=== PATIENT | male | born 1960 | race Caucasian/White ===

== ENCOUNTER 2024-12-03 12:30 | Emergency (ER) | payer BC, SELFPAY ==
--- NOTE | ~2024-12-03 | CT_ITS ---
EXAMINATION: CT ABDOMEN AND PELVIS WITH CONTRAST CLINICAL INFORMATION: Abdominal pain. COMPARISON: None available. TECHNIQUE: Multidetector volumetric images were obtained from the superior aspect of the liver through the pubic symphysis following administration 85 mL of Omnipaque 350 intravenous contrast. Sagittal and coronal reformatted images were obtained on the technologist's workstation. Oral contrast: No This CT examination was performed using dose optimization techniques as appropriate, variously including the following: *Automated exposure control *Adjustment of mA and/or kV according to patient size (this includes techniques or standardized protocols for targeted exams where dose is matched to indication/reason for exam; i.e. extremities or head) *Use of iterative reconstruction technique FINDINGS: LUNG BASES: Lung bases are clear. The heart size is normal. Small hiatus hernia at the GE junction. No effusion. LIVER, GALLBLADDER, AND BILIARY TREE: Liver demonstrates mild diffuse fatty infiltration. No suspicious focal lesion. No intra or extrahepatic biliary dilatation. The gallbladder is unremarkable with no evidence of radiopaque gallstones, gallbladder wall thickening, or obvious pericholecystic inflammatory changes. PANCREAS: Unremarkable. SPLEEN: Unremarkable. ADRENAL GLANDS: Unremarkable. KIDNEYS AND URETERS: The kidneys are normal in size, shape, and attenuation. No gross hydronephrosis, hydroureter, or calculi seen. Mild pelviectasis both kidneys, without obstructing abnormality seen. No perinephric stranding. BLADDER: Suboptimally distended but grossly normal. Partially obscured on the left by streak artifact from a left hip prosthesis. GASTROINTESTINAL TRACT: There is mild diverticulosis of the colon. There is no wall thickening or inflammation. There are no CT features of appendicitis. The small bowel is normal in caliber and course. Small hiatus hernia at the GE junction. Stomach is largely decompressed. The duodenal sweep is normal. ABDOMINAL WALL: There are tiny bilateral fat-containing inguinal hernias. There is a tiny umbilical fat-containing hernia. LYMPH NODES: Normal. VASCULAR: Moderate atheromatous calcification of the aorta and iliac arteries without aneurysm. PELVIC VISCERA: The prostate and seminal vesicles are unremarkable. OSSEOUS STRUCTURES: No suspicious lytic or blastic bone lesions. Moderate degenerative spondylosis of the lumbar spine most significant at L3-4 and L4-5. Total hip replacement in place without complication evident. 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 CT/CT abdomen pelvis w IV con IMPRESSION: 1. No acute findings in the abdomen or pelvis. 2. Ancillary findings as discussed in the body of the report. Electronically signed by: Usman Baird MD 12/03/2024 04:24 PM EDT
[2024-12-03 12:41] VITALS: BP 118/60; BP 178/118; PULSE 67; PULSE 87; RESP 12; TEMP 36.6; O2SAT 91; O2SAT 96; BMI 34.3
--- NOTE | 2024-12-03 12:42 | ED_ITS ---
HPI - General Adult General Chief complaint: Nausea/Vomiting/Diarrhea Stated complaint: N/V/D PER EMS Time Seen by Provider: 12/03/24 12:42 Source: patient and EMS Mode of arrival: EMS Limitations: no limitations History of Present Illness ED Provider: Kailee Zavala PA-C HPI narrative: Patient is a 64 year old assigned male at with a history of IBS and BPH presenting to the emergency department today with nausea, vomiting, and diarrhea. Patient states that he has been dealing with intermittent abdominal pain, nausea, vomiting, and diarrhea for months and has not been able to get a diagnosis. Patient denies any dizziness, lightheadedness, fever, chills, blurry vision, double vision, loss of vision, chest pain, difficulty breathing, shortness of breath, back pain, night sweats, pain with urination, increased urinary frequency, increased urinary urgency, blood in his urine or stool, syncope or a near syncopal episode, recent trauma or falls, bowel incontinence, bladder incontinence, or any other complaints at this time. Relieving factors: none Exacerbating factors: none Associated symptoms: nausea/vomiting Treatments prior to arrival: none Related Data Allergies Allergy/AdvReac Type Severity Reaction Status Date / Time peanut Allergy Anaphylaxis Verified 12/03/24 12:47 Review of Systems 2 Constitutional: Constitutional: Reports no additional constitutional complaints, Denies chills, Denies fever(s) and Denies night sweats Eyes: Eyes: Reports no additional eye complaints, Denies blurry vision, Denies change in vision, Denies diplopia, Denies eye discharge, Denies loss of vision and Denies eye pain ENT: Denies dizziness Cardiovascular: Cardiovascular: Reports no additional cardiovascular complaints, Denies chest pain, Denies lightheadedness, Denies Loss of Consciousness and Denies dyspnea Respiratory: Respiratory: Reports no additional respiratory complaints and Denies dyspnea Gastrointestinal: Gastrointestinal: Reports no additional gastrointestinal complaints, Reports abdominal pain, Denies melena, Denies hematochezia, Reports change in bowel habits, Reports change in stool character, Reports diarrhea, Reports nausea and Reports vomiting Genitourinary: Genitourinary: Reports no additional male genitourinary complaints, Denies hematuria, Denies oliguria, Denies difficulty urinating, Denies dysuria, Denies urinary frequency, Denies urinary hesitancy, Denies urinary incontinence and Denies urinary urgency Musculoskeletal: Musculoskeletal: Reports no additional musculoskeletal complaints, Denies numbness and Denies tingling Neurologic: Denies dizziness, Denies loss of vision, Denies numbness and Denies tingling Psychiatric: Psychiatric: Reports no additional psychiatric complaints Endocrine: Endocrine: Reports no additional endocrine complaints Hematologic/Lymphatic: Hematologic/Lymphatic: Reports no additional hematologic/lymphatic complaints Allergic/Immunologic: Allergic/Immunologic: Reports no additional allergic/immunologic complaints [facility] Past Medical History Attestation statement: The following information was validated with the patient. Source: old records reviewed and nursing notes reviewed Social History Social History Smoked in Last 30 Days: No Use of substances other than those prescribed or required for medical reasons: Yes Substance Use Type: Marijuana Substance Use Frequency: Chronic Longstanding Last Used Substance: Unknown Any prior treatment program specific to substance use: No Advance Directives: No Advance Directives Information Provided: Yes Do you have a plan to hurt others: No Plan Physical Exam ED Vital Signs: Vital Signs - 24 hr 12/03/24 12:41 12/03/24 13:43 Temperature 97.8 F 98.4 F Pulse Rate 67 62 Respiratory Rate 12 19 Blood Pressure 118/60 122/62 Pulse Oximetry 91 L 99 Oxygen Delivery Method Room Air Room Air BMI result Body Mass Index 34.3 Const General: cooperative, no acute distress, alert and awake Nutritional Appearance: well nourished Orientation/consciousness: patient oriented x3 HENMT Head: Yes normal to inspection and Yes atraumatic Ears: hearing grossly normal bilaterally and external ears normal General nose exam: Normal external nose present, no nasal discharge noted and no epistaxis Face and sinus: Yes normal facial exam, No abrasion and No laceration Mouth: Normal oral and palatal mucosa present, no drooling and no muffled voice Eyes General: appearance normal, both eyes and all related structures Periorbital: periorbital findings normal Eyelids: Yes eyelids normal Conjunctivae: conjunctivae normal Pupils: Equal, round and reactive pupils present EOM: EOMs intact bilaterally Neck Neck: Yes normal visual inspection, Yes full ROM and Yes no lymphadenopathy Resp Effort & Inspection: normal respiratory effort and able to speak in complete sentences Neuro General: patient oriented x3, moves all extremities and CN's II-XI intact bilaterally Cranial nerves: Yes Equal, round and reactive pupils present Cognition (Neuro): normal cognition Extrem General: Yes normal to inspection, Yes full ROM and Yes capillary refill normal Psych Appearance: grossly normal Mental Status: mental status grossly normal Affect: normal affect Attitude: cooperative Thought process: Normal thought process present Thought content: Normal thought content present Insight: Good insight present (Psych) Medications Administered Discontinued Medications Generic Name Dose Route Start Last Admin Trade Name Patricia PRN Reason Stop Dose Admin Diazepam 2.5 mg 12/03/24 15:21 12/03/24 15:28 Diazepam 10 Mg/2 Ml Cartridge IVPUSH 12/03/24 15:22 2.5 mg STAT STA Administration Diazepam 2.5 mg 12/03/24 15:48 12/03/24 16:07 Diazepam 10 Mg/2 Ml Cartridge IVPUSH 12/03/24 15:49 2.5 mg STAT STA Administration Dicyclomine HCl 10 mg 12/03/24 12:51 12/03/24 13:01 Dicyclomine Hcl 10 Mg Capsule PO 12/03/24 12:52 10 mg ONCE ONE Administration Sodium Chloride 1,000 mls @ 999 mls/hr 12/03/24 13:00 12/03/24 14:29 Ns IV 12/03/24 14:00 Infused .Q1H1M TAM Infusion Iohexol 85 ml 12/03/24 16:04 12/03/24 16:04 Iohexol 350 Mg/Ml 75 Ml Infus..Btl IV 12/03/24 16:05 85 ml ONCE ONE Administration Ondansetron HCl 4 mg 12/03/24 12:51 12/03/24 13:01 Ondansetron Hcl 4 Mg/2 Ml Vial IVPUSH 12/03/24 12:52 4 mg ONCE ONE Administration Medical Decision Making Medical Decision Making MDM Narrative: Patient is a 64 year old assigned male at with a history of IBS and BPH presenting to the emergency department today with nausea, vomiting, and diarrhea. Patient's physical exam was as noted in the physical exam portion of this note. Patient's blood work showed an elevated WBC count of 27.4 with a left shift. Patient's EKG was unremarkable. Patient CT showed no acute process. Patient's stool panel and c.diff were negative. Patient's clinical presentation is most consistent with a viral illness. I explained my physical exam findings as well as all test results to the patient. I answered all questions asked by the patient. I stressed the importance of the patient taking his medication as directed (either prescribed or as the over the counter packaging recommends). I stressed the importance of the patient following up with his primary care provider and a GI specialist. I stressed the importance of the patient returning to the emergency department immediately if his symptoms were to worsen or if he were to develop any dizziness, shortness of breath, difficulty breathing, chest pain, blurry vision, loss of vision, nausea, vomiting, abdominal pain, fever, chills, back pain, or any other complaints. Patient verbalized agreement and understanding with this treatment plan and discharge. Differential Diagnosis Differential Diagnoses: The differential diagnosis associated with the presentation includes Abdominal pain Nausea Vomiting UTI Bowel obstruction Diverticulitis C.Diff Admission/Observation Consideration of admission/observation: Escalation of care including admission/observation considered Patient would have been admitted to the hospital had his work up had any findings where hospital admission was appropriate and his clinical presentation warranted hospital admission. Lab Data [facility] Lab Attestation statement: I reviewed the patient's lab results. My interpretation of these results are in the [facility] Rationale portion of this note. 12/03/24 13:17 12/03/24 13:17 Labs: Lab Results 12/03/24 12/03/24 12/03/24 Range/Units 13:11 13:17 13:40 WBC 27.4 H (4.8-10.8) X10*3/uL RBC 4.35 L (4.60-5.80) X10*6/uL Hgb 13.7 L (14.0-18.0) g/dl Hct 40.7 L (42.0-52.0) % MCV 93.6 (80.0-98.0) fL MCH 31.5 (27.0-33.0) pg MCHC 33.7 (31.0-36.0) g/dl RDW 13.1 (11.0-16.0) % Plt Count 221 (160-400) X10*3/uL MPV 8.9 L (9.4-12.4) fL Immature Gran % (Auto) Cancelled Neut % (Auto) Cancelled Lymph % (Auto) Cancelled [place] % (Auto) Cancelled Eos % (Auto) Cancelled Baso % (Auto) Cancelled Lymph # (Auto) Cancelled [place] # (Auto) Cancelled Eos # (Auto) Cancelled Baso # (Auto) Cancelled Abs Immat Gran (auto) Cancelled Absolute Neuts (auto) Cancelled Absolute Nucleated RBC 0.000 (0.0-0.012) X10*3/uL Nucleated RBC % (auto) 0.0 (0.0-0.2) /100WBC Neutrophils % (Manual) 87 H (45-73) % Band Neutrophils % 6 H (3-5) % Lymphocytes % (Manual) 4 L (20-40) % Monocytes % (Manual) 1 L (2-11) % Eosinophils % (Manual) 2 (0-4) % Abs Neuts (Manual) 25.5 H (2.0-8.3) X10*3/uL Lymphocytes # (Manual) 1.1 L (1.2-4.9) X10*3/uL Monocytes # (Manual) 0.3 (0.1-1.2) X10*3/uL Eosinophils # (Manual) 0.5 H (0.0-0.4) X10*3/uL Platelet Estimate NORMAL (NORMAL) Plt Morphology Comment NORMAL RBC Morphology NORMAL Smear Tech's Comments MANUAL DIFF PT 9.8 L (10.9-12.4) SEC INR 0.8 L (0.9-1.1) Sodium 141 (135-145) mmol/L Potassium 4.1 (3.3-5.1) mmol/L Chloride 106 (96-108) mmol/L Carbon Dioxide 25 (22-29) mmol/L Anion Gap 14 (12-20) BUN 12 (9-16) mg/dL Creatinine 1.19 (0.5-1.4) mg/dL Estim Creat Clear Calc 75.0 Estimated GFR > 60 Random Glucose 131 H (60-115) mg/dL Lactic Acid (0.5-2.0) mmol/L Calcium 9.7 (8.4-10.2) mg/dL Magnesium 2.0 (1.6-2.6) mg/dL Total Bilirubin 0.4 (0.0-1.0) mg/dL AST 33 (5-37) U/L ALT 27 (0-40) U/L Alkaline Phosphatase 74 (39-117) U/L Troponin I Hi Sens Base < 2.7 (<3.5-35.0) ng/L Total Protein 7.5 (6.5-8.0) g/dL Albumin 4.1 (3.5-5.0) g/dL Stl C. cayetanensis PCR Not Detected (Not Detect.) Stool Rotavirus A PCR Not Detected (Not Detect.) Stl Adenov F 40/41 PCR Not Detected (Not Detect.) Stool Astrovirus (PCR) Not Detected (Not Detect.) Stool Campylobacter PCR Not Detected (Not Detect.) Stool Cryptosporidium PCR Not Detected (Not Detect.) Stl Sh Tox Pr E STEC PCR Not Detected (Not Detect.) Stool E coli O157 PCR Not applicable (Not Detect.) Stl Enterotoxigenic E PCR Not Detected (Not Detect.) Stool EPEC (PCR) Not Detected (Not Detect.) Stool EAEC (PCR) Not Detected (Not Detect.) Stl E. histolytica PCR Not Detected (Not Detect.) Stool Giardia Lamblia PCR Not Detected (Not Detect.) Stl P. shigelloides PCR Not Detected (Not Detect.) Stool Salmonella PCR Not Detected (Not Detect.) Stool Sapovirus (PCR) Not Detected (Not Detect.) Stl Shigella/EIEC PCR Not Detected (Not Detect.) St Y.enterocolitica PCR Not Detected (Not Detect.) Stool Vibrio (PCR) Not Detected (Not Detect.) Stl Vibrio cholerae PCR Not Detected (Not Detect.) Stl Norovirus GI/GII PCR Not Detected (Not Detect.) C. difficile Tox B Gene NEGATIVE (Negative) Influenza Type A (PCR) NEGATIVE (Negative) Influenza Type B (PCR) NEGATIVE (Negative) RSV RNA Qual (PCR) NEGATIVE (Negative) SARS-CoV-2 RNA (RT-PCR) NEGATIVE (Negative) 12/03/24 Range/Units 13:45 WBC (4.8-10.8) X10*3/uL RBC (4.60-5.80) X10*6/uL Hgb (14.0-18.0) g/dl Hct (42.0-52.0) % MCV (80.0-98.0) fL MCH (27.0-33.0) pg MCHC (31.0-36.0) g/dl RDW (11.0-16.0) % Plt Count (160-400) X10*3/uL MPV (9.4-12.4) fL Immature Gran % (Auto) Neut % (Auto) Lymph % (Auto) [place] % (Auto) Eos % (Auto) Baso % (Auto) Lymph # (Auto) [place] # (Auto) Eos # (Auto) Baso # (Auto) Abs Immat Gran (auto) Absolute Neuts (auto) Absolute Nucleated RBC (0.0-0.012) X10*3/uL Nucleated RBC % (auto) (0.0-0.2) /100WBC Neutrophils % (Manual) (45-73) % Band Neutrophils % (3-5) % Lymphocytes % (Manual) (20-40) % Monocytes % (Manual) (2-11) % Eosinophils % (Manual) (0-4) % Abs Neuts (Manual) (2.0-8.3) X10*3/uL Lymphocytes # (Manual) (1.2-4.9) X10*3/uL Monocytes # (Manual) (0.1-1.2) X10*3/uL Eosinophils # (Manual) (0.0-0.4) X10*3/uL Platelet Estimate (NORMAL) Plt Morphology Comment RBC Morphology Smear Tech's Comments PT (10.9-12.4) SEC INR (0.9-1.1) Sodium (135-145) mmol/L Potassium (3.3-5.1) mmol/L Chloride (96-108) mmol/L Carbon Dioxide (22-29) mmol/L Anion Gap (12-20) BUN (9-16) mg/dL Creatinine (0.5-1.4) mg/dL Estim Creat Clear Calc Estimated GFR Random Glucose (60-115) mg/dL Lactic Acid 1.1 (0.5-2.0) mmol/L Calcium (8.4-10.2) mg/dL Magnesium (1.6-2.6) mg/dL Total Bilirubin (0.0-1.0) mg/dL AST (5-37) U/L ALT (0-40) U/L Alkaline Phosphatase (39-117) U/L Troponin I Hi Sens Base (<3.5-35.0) ng/L Total Protein (6.5-8.0) g/dL Albumin (3.5-5.0) g/dL Stl C. cayetanensis PCR (Not Detect.) Stool Rotavirus A PCR (Not Detect.) Stl Adenov F 40/41 PCR (Not Detect.) Stool Astrovirus (PCR) (Not Detect.) Stool Campylobacter PCR (Not Detect.) Stool Cryptosporidium PCR (Not Detect.) Stl Sh Tox Pr E STEC PCR (Not Detect.) Stool E coli O157 PCR (Not Detect.) Stl Enterotoxigenic E PCR (Not Detect.) Stool EPEC (PCR) (Not Detect.) Stool EAEC (PCR) (Not Detect.) Stl E. histolytica PCR (Not Detect.) Stool Giardia Lamblia PCR (Not Detect.) Stl P. shigelloides PCR (Not Detect.) Stool Salmonella PCR (Not Detect.) Stool Sapovirus (PCR) (Not Detect.) Stl Shigella/EIEC PCR (Not Detect.) St Y.enterocolitica PCR (Not Detect.) Stool Vibrio (PCR) (Not Detect.) Stl Vibrio cholerae PCR (Not Detect.) Stl Norovirus GI/GII PCR (Not Detect.) C. difficile Tox B Gene (Negative) Influenza Type A (PCR) (Negative) Influenza Type B (PCR) (Negative) RSV RNA Qual (PCR) (Negative) SARS-CoV-2 RNA (RT-PCR) (Negative) Independent Interpretation I performed an independent interpretation of an: EKG and CT Scan Interpretation: My interpretation is in agreement with the radiologist's impression of this imaging study. L Report Number: [id number]: Total DLP = 765.00 mGy-cm EXAMINATION: CT ABDOMEN AND PELVIS WITH CONTRAST CLINICAL INFORMATION: Abdominal pain. COMPARISON: None available. TECHNIQUE: Multidetector volumetric images were obtained from the superior aspect of the liver through the pubic symphysis following administration 85 mL of Omnipaque 350 intravenous contrast. Sagittal and coronal reformatted images were obtained on the technologist's workstation. Oral contrast: No This CT examination was performed using dose optimization techniques as appropriate, variously including the following: *Automated exposure control *Adjustment of mA and/or kV according to patient size (this includes techniques or standardized protocols for targeted exams where dose is matched to indication/reason for exam; i.e. extremities or head) *Use of iterative reconstruction technique FINDINGS: LUNG BASES: Lung bases are clear. The heart size is normal. Small hiatus hernia at the GE junction. No effusion. LIVER, GALLBLADDER, AND BILIARY TREE: Liver demonstrates mild diffuse fatty infiltration. No suspicious focal lesion. No intra or extrahepatic biliary dilatation. The gallbladder is unremarkable with no evidence of radiopaque gallstones, gallbladder wall thickening, or obvious pericholecystic inflammatory changes. PANCREAS: Unremarkable. SPLEEN: Unremarkable. ADRENAL GLANDS: Unremarkable. KIDNEYS AND URETERS: The kidneys are normal in size, shape, and attenuation. No gross hydronephrosis, hydroureter, or calculi seen. Mild pelviectasis both kidneys, without obstructing abnormality seen. No perinephric stranding. BLADDER: Suboptimally distended but grossly normal. Partially obscured on the left by streak artifact from a left hip prosthesis. GASTROINTESTINAL TRACT: There is mild diverticulosis of the colon. There is no wall thickening or inflammation. There are no CT features of appendicitis. The small bowel is normal in caliber and course. Small hiatus hernia at the GE junction. Stomach is largely decompressed. The duodenal sweep is normal. ABDOMINAL WALL: There are tiny bilateral fat-containing inguinal hernias. There is a tiny umbilical fat-containing hernia. LYMPH NODES: Normal. VASCULAR: Moderate atheromatous calcification of the aorta and iliac arteries without aneurysm. PELVIC VISCERA: The prostate and seminal vesicles are unremarkable. OSSEOUS STRUCTURES: No suspicious lytic or blastic bone lesions. Moderate degenerative spondylosis of the lumbar spine most significant at L3-4 and L4-5. Total hip replacement in place without complication evident. 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 CT/CT abdomen pelvis w IV con IMPRESSION: 1. No acute findings in the abdomen or pelvis. 2. Ancillary findings as discussed in the body of the report. Electronically signed by: Usman Baird MD 12/03/2024 04:24 PM EDT Dictated By: Usman Baird MD Signed By: Electronically signed by Usman Baird MD 12/03/24 1624 I independently interpreted this EKG and am in agreement with the below findings: Vent. Rate: 62 BPM Atrial Rate: 62 BPM P-R Int: 176 ms QRS Dur: 90 ms QT Int: 418 ms P-R-T Axes: 21 -3 20 degrees QTcB Int: 424 ms Normal sinus rhythm Normal ECG No previous ECGs available DD/ 1252 Radiology Impression Discussion of test interpretation with radiology: I have reviewed the radiologist's reading. Independent Historian Clinical information obtained from an independent historian. History obtained from or confirmed by: EMS (EMS provided additional history and confirmed the history provided by the patient.) Discharge Plan Discharge Clinical Impression: Nausea & vomiting, Diarrhea Patient Disposition: Home, Self-Care Instructions: Acute Nausea and Vomiting (DC), Leukocytosis (ED) Additional Instructions: Follow up with your primary care provider and a GI specialist. Return to the emergency department immediately if your symptoms worsen or if you develop any numbness, tingling, dizziness, shortness of breath, difficulty breathing, chest pain, blurry vision, loss of vision, nausea, vomiting, abdominal pain, fever, chills, back pain, or any other complaints. Please see the information below about our Patient Portal. If you are not yet enrolled in the [facility] Patient Portal, you will receive an enrollment email invitation following your visit to any [facility] setting. You may also self-enroll in the Patient Portal by visiting our website: [email or web address] The following information is required to access the Patient Portal: - Your [facility] Medical Record Number - Your personal home email address (must match what is in your electronic medical record, Registration staff can assist with this) - Name - Date of Capabilities of the Patient Portal: - Message some providers - View upcoming appointments - Access your health summary, medical history, and visit history - View current conditions and allergies - View procedure and lab results - View your medications, including guidelines, side effects, and precautions - Complete pre-appointment questionnaires requested by your provider - Ready summary reports of your office visits and procedures To access the Patient Portal Mobile Mya, follow these directions: - Search [employer] in the Mya Store or [employer] Store - Download the Mya - Search for [facility] - Enter your login/password Referrals: [facility] [Provider Group] Print Language: [place]ese
--- NOTE | 2024-12-03 12:42 | ECG_ITS ---
Test Reason : ABDOMINAL PAIN Blood Pressure : */* mmHG Vent. Rate : 62 BPM Atrial Rate : 62 BPM P-R Int : 176 ms QRS Dur : 90 ms QT Int : 418 ms P-R-T Axes : 21 -3 20 degrees QTcB Int : 424 ms Normal sinus rhythm Normal ECG No previous ECGs available Referred By: Kailee Zavala Electronically Signed By: Mian Tejada
[2024-12-03] MEDS: ondansetron HCL 4 MG/2 ML VIAL IVPUSH (13:01)
[2024-12-03] MEDS: 0.9 % Sodium Chloride 1,000 ML 999 ML IV (13:01)
[2024-12-03] MEDS: Dicyclomine HCl 10 MG CAPSULE PO (13:01)
[2024-12-03 13:23] LABS: Hematocrit 40.7 % (42.0-52.0); Hemoglobin 13.7 g/dl (14.0-18.0); Mean Corpuscular HGB Conc 33.7 g/dl (31.0-36.0); Mean Corpuscular Hemoglobin 31.5 pg (27.0-33.0); Mean Corpuscular Volume 93.6 fL (80.0-98.0); Mean Platelet Volume 8.9 fL (9.4-12.4); Platelet Count 221 X10*3/uL (160-400); Red Blood Count 4.35 X10*6/uL (4.60-5.80); Red Cell Distribution Width 13.1 % (11.0-16.0); White Blood Count 27.4 X10*3/uL (4.8-10.8)
--- NOTE | 2024-12-03 13:28 | PC.NURSE ---
On arrival, pt having chills and rigors in absence of fever; hands/feet cold to the touch; pt pale; WBC >27; provider aware
[2024-12-03 13:33] LABS: INTERNATIONAL NORM RATIO 0.8 (0.9-1.1); Prothrombin Time 9.8 SEC (10.9-12.4)
[2024-12-03 13:43] VITALS: BP 122/62; PULSE 62; RESP 19; TEMP 36.9; O2SAT 99
[2024-12-03 13:45] LABS: Alanine Aminotransferase 27 U/L (0-40); Albumin Level 4.1 g/dL (3.5-5.0); Alkaline Phosphatase 74 U/L (39-117); Anion Gap 14 (12-20); Aspartate Amino Transferase 33 U/L (5-37); Bilirubin Total 0.4 mg/dL (0.0-1.0); Blood Urea Nitrogen 12 mg/dL (9-16); Calcium 9.7 mg/dL (8.4-10.2); Carbon Dioxide 25 mmol/L (22-29); Chloride 106 mmol/L (96-108); Estimated Glomerular Filt Rate > 60; Glucose Random 131 mg/dL (60-115); Potassium 4.1 mmol/L (3.3-5.1); Sodium 141 mmol/L (135-145); Total Protein 7.5 g/dL (6.5-8.0)
[2024-12-03 13:49] LABS: Troponin-I High Sens Reflx 2hr < 2.7 ng/L (<3.5-35.0)
[2024-12-03 13:51] LABS: SLIDE REVIEW MANUAL DIFF
[2024-12-03 13:55] LABS: Band Neutrophils Percent 6 % (3-5); Eosinophils Absolute Manual 0.5 X10*3/uL (0.0-0.4); Eosinophils Percent Manual 2 % (0-4); Lymphocytes Absolute Manual 1.1 X10*3/uL (1.2-4.9); Lymphocytes Percent Manual 4 % (20-40); Monocytes Absolute Manual 0.3 X10*3/uL (0.1-1.2); Monocytes Percent Manual 1 % (2-11); Neutrophils Absolute Manual 25.5 X10*3/uL (2.0-8.3); Neutrophils Percent Manual 87 % (45-73)
[2024-12-03 13:56] LABS: Platelet Estimate NORMAL (NORMAL); Platelet Morphology Comment NORMAL; RBC Morphology NORMAL
[2024-12-03 13:57] LABS: Influenza A PCR NEGATIVE (Negative); Influenza B PCR NEGATIVE (Negative); Resp Syncy Virus RNA Qual PCR NEGATIVE (Negative); SARS COV2 PCR INHOUSE NEGATIVE (Negative)
[2024-12-03 14:15] LABS: Lactic Acid 1.1 mmol/L (0.5-2.0)
--- OUTSIDE RECORDS SUMMARY | 2024-12-03 14:21 | XMS_ITS | Encounter Summary ---
Author Organization [facility] Address [address] [place] [address] Care Team Providers Care Soaker Meat Name Role Phone Deja Fang NP Primary Care Provider [phone] Jg Madera MD Primary Care Provider [phone] Deja Fang EMERGENCY MANAGEMENT PROGRAM SPECIALIST Unavailable [phone] Rosa Maria Green MD Primary Care Provider [phone] Janice Fall NP Primary Care Provider [phone] Encounter Details Date Type Department Care Team (Late st Contact Info) Description 09/02/2019 Orders Only [facility] [address] [place] [id number] Deja Fang NP [address] [facility] [address] [place] [address] Social History Tobacco Use Types Packs/Day Years Used Date Smoking Tobacco: Never Smokeless Tobacco: Never Alcohol Use Standard Drinks/Week Comments Yes 1.7 (1 standard drink = 0.6 oz p ure alcohol) occ Sex and Gender Information Value Date Recorded Sex Assigned at Male 11/27/2020 8:24 AM EDT Legal Sex Male 12:20 AM EDT Gender Identity Male 11/27/2020 8:24 AM EDT Sexual Orientation Straight 11/27/2020 8: 24 AM EDT 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 * Susi Arora - 09/02/2019 5:05 PM EST See TM 09/02/2019. * Deja Fang NP - 09/02/2019 5:05 PM EST Negative Tb- please call patient- there is slight growth of bacteria but this is not indicative of UTI- is he having any dysuria? * Susi Arora - 09/02/2019 5:05 PM EST See TM 09/06/2019. documented in this encounter Plan of Treatment Not on file documented as of this encounter Procedures * Due to [place] state law, this organization might not be sharing negative HIV tests. Procedure Name Priority Date/Time Associated Diagnosis Comments VENIPUNCTURE Routine 09/02/2019 5:05 PM EST Screening for tuberculosis CULTURE, URINE, ROUTINE Routine 09/02/2019 5:05 PM EST Screening for tuberculosis URINALYSIS, DIP ONLY Result within visit 09/02/2019 5:05 PM EST Screening for tuberculosis documented in this encounter Results * Due to [place] state law, this organization might not be sharing negative HIV tests. * QUANTIFERON-TB GOLD (09/02/2019 5:05 PM EST) Quantiferon(R)-TB Gold Plus NEGATIVE NEGATIVE [facility] Comment: Negative test result. M. tuberculosis complex infection unlikely. NIL 0.03 IU/mL [facility] MITOGEN-NIL 8.86 IU/mL [facility] Mycobacterium tuberculosis tuberculin stimulated gamma interferon^correc sara for background 0.00 IU/mL [facility] TB2-NIL 0.00 IU/mL [facility] Comment: The Nil tube value reflects the background interferon gamma immune response of the patient's blood sample. This value has been subtracted from the patient's displayed TB and Mitogen results. Lower than expected results with the Mitogen tube prevent false-negative Quantiferon readings by detecting a patient with a potential immune suppressive condition and/or suboptimal pre-analytical specimen handling. The TB1 Antigen tube is coated with the M. tuberculosis-specific antigens designed to elicit responses from TB antigen primed CD4+ helper T-lymphocytes. The TB2 Antigen tube is coated with the M. tuberculosis-specific antigens designed to elicit responses from TB antigen primed CD4+ helper and CD8+ cytotoxic T-lymphocytes. For additional information, please refer to https://education.ExpertFile/faq/MLA301 (This link is being provided for informational/ educational purposes only.) 09/02/2019 5:05 PM EST 09/02/2019 7:10 PM EST Narrative Resulting Agency Comment [id number] Deja Fang NP LABORATORY Final Result [facility] [address] [place] [address] * (ABNORMAL) CULTURE, URINE, ROUTINE (09/02/2019 5:05 PM EST) Bacteria culture (Urine) SEE NOTE(A) [facility] Comment: ??CULTURE, URINE, ROUTINE ??Micro Number: ?[id number] ??Test Status: ? Final ??Specimen Source: ?? URINE ??Specimen Quality: ??Adequate ??Result: ?1,000-10,000 CFU/mL of Enterococcus faecalis ?E.faecalis ?INT ?? MARTHA ?? AMPICILLIN ? S ? <=2 ?? NITROFURANTOIN ? S ? <=16 ?? VANCOMYCIN ? S ? 1 S=Susceptible ??I=Intermediate ??R=Resistant ??* = Not Tested NR = Not Reported ??NN = See Therapy Comments 09/02/2019 5:05 PM EST 09/02/2019 7:10 PM EST Narrative Resulting Agency Comment [id number] Deja Fang NP LABORATORY Final Result Performing Organization Address [facility] de Phone Number [facility] [address] [place] [id number] * URINALYSIS, DIP ONLY (ON-SITE) (09/02/2019 5:05 PM EST) Color (Urine) YELLOW YELLOW [facility] Appearance (Urine) CLEAR CLEAR [facility] Specific gravity (Urine) 1.025 1.001 - 1.035 [facility] pH (Urine) 7.0 5.0 - 8.0 [facility] Glucose (Urine) NEGATIVE NEGATIVE [facility] Bilirubin (Urine) NEGATIVE NEGATIVE [facility] Ketones (Urine) NEGATIVE NEGATIVE [facility] Hemoglobin (Urine) NEGATIVE NEGATIVE [facility] Protein (Urine) NEGATIVE NEGATIVE [facility] Nitrite (Urine) NEGATIVE NEGATIVE [facility] Leukocyte esterase (Urine) NEGATIVE NEGATIVE [facility] Urine specimen (specimen) 09/02/2019 5:05 PM EST 09/02/2019 7:10 PM EST Narrative Resulting Agency Comment [id number] Deja Fang NP LAB SAME DAY RESULT Final Resul t Performing Organization Address [facility] de Phone Number [facility] [address] [place] [address] documented in this encounter Visit Diagnoses Diagnosis Screening for tuberculosis Screening examination for pulmonary tuberculosis documented in this encounter Care Teams Soaker Meat Relationship Specialty Start Date End Date Deja Fang NP PCP - General Internal Medicine 06/12/15 03/26/20 Jg Madera MD [address] [facility] [address] PCP - General Internal Medicine 03/27/20 05/28/22 Deja Fang NP [address] [place] [address] PCP - Backup PCP Internal Medicine 03/27/20 06/30/22 Rosa Maria Green MD [address] [place] [address] PCP - General Family Medicine 05/29/22 02/20/23 Janice Fall NP [address] [place] [address] PCP - General Family Medicine 02/21/23 documented as of this encounter
--- OUTSIDE RECORDS SUMMARY | 2024-12-03 14:21 | XMS_ITS | Encounter Summary ---
Author Organization [facility] Address [address] [place] [address] Care Team Providers Care Corrections Lieutenant Name Role Phone Deja Fang NP Primary Care Provider [phone] Jg Madera MD Primary Care Provider [phone] Deja Fang NP Unavailable [phone] Rosa Maria Green MD Primary Care Provider [phone] Janice Fall NP Primary Care Provider [phone] Reason for Visit * Reason Comments Endoscopy Request (lower And/or Upper) Encounter Details Date Type Department Care Team (Late st Contact Info) Description 09/18/2017 Telephone [facility] [address], [place] [address] Filippo Gant MD Endoscopy Request (lower And/or Upper) Social History Tobacco Use Types Packs/Day Years [...] on file documented as of this encounter Miscellaneous Notes * Telephone Encounter - Deja Fang NP - 09/18/2017 1:22 PM EST I will discuss with patient at upcoming appt. * Telephone Encounter - Suzanne Mejia - 09/18/2017 1:20 PM EST According to our records, this patient is due for a follow-up Colonoscopy. If this is still your patient and you would like the patient to have this repeat procedure, please open this encounter, go to the Railroad Car Letterer Activity tab, sign the order and then close the encounter without routing it. If it is no longer appropriate to have a follow-up Colonoscopy, please delete the order, put an explanation in the Documentation section, and then Route the message back to the sender. documented in this encounter Plan of Treatment Not on file documented as of this encounter Visit Diagnoses Diagnosis Polyp of colon, unspecified part of colon, unspecified type documented in this encounter Care Teams Corrections Lieutenant Relationship Specialty Start Date End Date Deja Fang NP PCP - General Internal Medicine 06/12/15 03/26/20 Jg Madera MD [address] [place] [address] PCP - General Internal Medicine 03/27/20 05/28/22 Deja Fang NP [address] [place] [address] PCP - Backup PCP Internal Medicine 03/27/20 06/30/22 Rosa Maria Green MD [address] [place] [address] PCP - General Family Medicine 05/29/22 02/20/23 Janice Fall NP [address] [facility] [place] [address] PCP - General Family Medicine 02/21/23 documented as of this encounter
--- OUTSIDE RECORDS SUMMARY | 2024-12-03 14:21 | XMS_ITS | Encounter Summary ---
Author Organization [facility] Address [address] [place] [address] Care Team Providers Care Enterprise Analyst Name Role Phone Deja Fang NP Primary Care Provider [phone] Jg Madera MD Primary Care Provider [phone] Deja Fang CERTIFIED FIRST ASSISTANT Unavailable Rosa Maria Green MD Primary Care Provider [phone] Janice Fall NP Primary Care Provider [phone] Encounter Details Date Type Department Care Team (Late st Contact Info) Description 10/10/2017 Orders Only [facility] [address] [place] [address] Deja Fang NP [address] [address] Social History Tobacco Use Types Packs/Day [...] as of this encounter Progress Notes * Mirta Lamas LPN - 10/15/2017 8:05 AM EDT See TM from 10/15/17 * Deja Fang NP - 10/14/2017 3:20 PM EDT Please call patient- urine has a low grade bacteria count. Not definitive for infection but if patient with ongoing symptoms will treat with macrobid for 5 days documented in this encounter Plan of Treatment Not on file documented as of this encounter Procedures * Due to [place] [email or web address] law, this organization might not be sharing negative HIV tests. Procedure Name Priority Date/Time Associated Diagnosis Comments CULTURE, URINE, ROUTINE Routine 10/10/2017 4:08 PM EST Difficult or painful urination URINALYSIS, MICROSCOPIC Routine 10/10/2017 4:08 PM EST Difficult or painful urination documented in this encounter Results * Due to [place] [email or web address] law, this organization might not be sharing negative HIV tests. * (ABNORMAL) CULTURE, URINE, ROUTINE (10/10/2017 4:08 PM EST) Bacteria culture (Urine) SEE NOTE(A) [facility] Comment: ??CULTURE, URINE, ROUTINE ??MICRO NUMBER: ?[id number] ??TEST STATUS: ? FINAL ??SPECIMEN SOURCE: ?? URINE ??SPECIMEN QUALITY: ??ADEQUATE ??RESULT: ?1,000-10,000 CFU/mL of Enterococcus faecalis ?E.faecalis ?INT ?? MARTHA ?? AMPICILLIN ? S ? <=2 ?? NITROFURANTOIN ? S ? <=16 ?? VANCOMYCIN ? S ? 1 S=Susceptible ??I=Intermediate ??R=Resistant ??* = Not Tested NR = Not Reported ??NN = See Therapy Comments 10/10/2017 4:08 PM EST 10/10/2017 10:56 PM EST Narrative Resulting Agency Comment [id number] Deja Fang NP LABORATORY Final Result Performing Organization Address [facility] de Phone Number [facility] [address] [place] [address] * URINALYSIS, MICROSCOPIC (10/10/2017 4:08 PM EST) WBC (Urine) NONE SEEN < OR = 5 /HPF [facility] RBC (Urine Sed) NONE SEEN < OR = 2 /HPF [facility] Epithelial cells.squamous (Urine sed) NONE SEEN < OR = 5 /HPF [facility] Bacteria (Urine) NONE SEEN NONE SEEN /HPF [facility] Hyaline casts (Urine sed) NONE SEEN NONE SEEN /LPF [facility] 10/10/2017 4:08 PM EST 10/10/2017 10:56 PM EST Narrative Resulting Agency Comment [id number] Result [facility] Deja Fang NP LAB SAME DAY RESULT Final Resul t Performing Organization Address [facility] de Phone Number [facility] [address] [place] [address] documented in this encounter Visit Diagnoses Diagnosis Difficult or painful urination Dysuria documented in this encounter Care Teams Enterprise Analyst Relationship Specialty Start Date End Date Deja Fang NP PCP - General Internal Medicine 06/12/15 03/26/20 Jg Madera MD [address] [facility] [place] [address] PCP - General Internal Medicine 03/27/20 05/28/22 Deja Fang NP [address] [place] [address] PCP - Backup PCP Internal Medicine 03/27/20 06/30/22 Rosa Maria Green MD [address] [place] [address] PCP - General Family Medicine 05/29/22 02/20/23 Janice Fall NP [address] [place] [address] PCP - General Family Medicine 02/21/23 documented as of this encounter
--- OUTSIDE RECORDS SUMMARY | 2024-12-03 14:21 | XMS_ITS | Encounter Summary ---
Author Organization [facility] Address [address] [place] [address] Care Team Providers Care Impregnator And Drier Helper Name Role Phone Alicia Ragland MD Primary Care Provider UnavailAlicia Kumari MD Primary Care Provider Unavaila Deja Yepez NP Primary Care Provider [phone] Jg Madera MD Primary Care Provider [phone] Deja Fang DIGITAL PROJECT COORDINATOR Unavailable [phone] Rosa Maria Green MD Primary Care Provider [phone] Janice Fall NP Primary Care Provider [phone] Encounter Details Date Type Department Care Team (Late st Contact Info) Description 07/31/2009 Orders Only [facility] [address] [place] [id number] Alicia Ragland MD Social History Tobacco Use Types Packs/Day Years Used Date Smoking Tobacco: Never Alcohol Use Standard Drinks/Week Comments No 0 (1 standard drink = 0.6 oz pur e alcohol) Sex and Gender Information Value Date Recorded [...] as of this encounter Progress Notes * Alicia Ragland - 08/14/2009 3:41 PM ESTQuick Note: Pos stool cult- Call if not resolved will send antibiotics. documented in this encounter Plan of Treatment Not on file documented as of this encounter Procedures * Due to [place] [employer] law, this organization might not be sharing negative HIV tests. Procedure Name Priority Date/Time Associated Diagnosis Comments CULTURE, STOOL Routine 07/31/2009 Diarrhea documented in this encounter Results * Due to [place] [employer] law, this organization might not be sharing negative HIV tests. * (ABNORMAL) CULTURE, STOOL (07/31/2009) CAMPYLOBACTER CULTURE (STOOL) SEE TEXT [facility] Comment: SOURCE: STOOL NO ENTERIC CAMPYLOBACTER ISOLATED Result(s) SEE TEXT(A) [facility] Comment: SOURCE: STOOL (#1) NO SALMONELLA OR SHIGELLA ISOLATED (#2) AEROMONAS HYDROPHILA GROUP SUSCEPTIBILITIES ? #1 ? #2 ??CEFEPIME ? <4 S ? <4 S ?CEFTAZIDIME ?<1 S ? <1 S ?CIPROFLOXACIN ?<1 S ? <1 S ?GENTAMICIN ? <4 S ? <4 S ?LEVOFLOXACIN ? <2 S ? <2 S ?MEROPENEM ?<1 S ? <1 S ?PIPERACILLIN/TA ?? <16 S ?<16 S ?TRIMETH/SULFA ?<2 S ? <2 S ?? 07/31/2009 08/01/2009 12: 13 AM EST us Alicia Ragland MD LABORATORY Edited [facility] [address] [place] [address] documented in this encounter Visit Diagnoses Diagnosis Diarrhea documented in this encounter Care Teams Impregnator And Drier Helper Relationship Specialty Start Date End Date Alicia Ragland MD PCP - General 04/04/10 06/11/15 Alicia Ragland MD PCP - General 10/28/05 04/03/10 Deja Fang NP PCP - General Internal Medicine 06/12/15 03/26/20 Jg Madera MD [address] [place] [address] PCP - General Internal Medicine 03/27/20 05/28/22 Deja Fang NP [address] [facility] [place] [address] PCP - Backup PCP Internal Medicine 03/27/20 06/30/22 Rosa Maria Green MD [address] [place] [address] PCP - General Family Medicine 05/29/22 02/20/23 Janice Fall NP [address] [place] [address] PCP - General Family Medicine 02/21/23 documented as of this encounter
--- OUTSIDE RECORDS SUMMARY | 2024-12-03 14:21 | XMS_ITS | Encounter Summary ---
Author Organization [facility] Address [address] [place] [address] Care Team Providers Care Senior Database Engineer Name Role Phone Deja Fang NP Primary Care Provider [phone] Jg Madera MD Primary Care Provider [phone] Deja Fang NP Unavailable [phone] Rosa Maria Green MD Primary Care Provider [phone] Janice Fall NP Primary Care Provider [phone] Reason for Referral * CONSULT AND TREATMENT (Routine) - Canceled Specialty Diagnoses / Procedures Referred By eKlsy salas Referred To Contact Dermatology Diagnoses Dermatitis, seborrheic Intertrigo Deja Fang NP Phone: tel: fax: Everton Almodovar MD Phone: tel: fax: Referral ID Status Reason Start Date Expiration Date Visits Requested Visits Authorized [id number] Canceled Specialty Services Required 12/06/2017 1 0 Question Answer When do you want this visit to occur? RETRO REFERRAL - APPOINTEMNT 12/05/17 Patient is being referred outside of [facility] for the following reason, however final determination for [id number] requests are made by the Referral Management Department Continuity of active patient care Track Order? Yes Please provide pertinent patient history. NICOL WHITNEY - HOLLYI#[id number] Where is patient being referred? If NOT Other , it qualifies for Meaningful Use, but first look at comment to right to determine if you need to print and have patient sign Release of Info Electronically Letter Other or Decline - Consent is signed Which provider/facility/agency would you like to refer to? [facility] Please list the patient's preferred provider for this consult. NICOL WHITNEY Encounter Details Date Type Department Care Team ([facility] st Contact Info) Description 12/06/2017 Orders Only [facility] [address] [place] [address] Deja Fang NP 123 [facility] [address] [place] [address] Social History Tobacco Use Types Packs/Day Years [...] on file documented as of this encounter Plan of Treatment Scheduled Referrals Name Type Priority Associated Diagnoses Orde r Schedule CONSULT DERMATOLOGY NON-FC Referral Routine Dermatitis, seborrheic Intertrigo Ordered: 12/06/2017 documented as of this encounter Visit Diagnoses Diagnosis Dermatitis, seborrheic Seborrheic dermatitis, unspecified Intertrigo Other specified erythematous condition documented in this encounter Care Teams Senior Database Engineer Relationship Specialty Start Date End Date Deja Fang NP PCP - General Internal Medicine 06/12/15 03/26/20 Jg Madera MD [address] [place] [address] PCP - General Internal Medicine 03/27/20 05/28/22 Deja Fang NP [address] [place] [address] PCP - Backup PCP Internal Medicine 03/27/20 06/30/22 Rosa Maria Green MD [address] [place] [address] PCP - General Family Medicine 05/29/22 02/20/23 Janice Fall NP [address] [place] [address] PCP - General Family Medicine 02/21/23 documented as of this encounter
--- OUTSIDE RECORDS SUMMARY | 2024-12-03 14:21 | XMS_ITS | Encounter Summary ---
Author Organization [facility] Address [address] [place] [address] Care Team Providers Care Gold Prospector Name Role Phone Deja Fang NP Primary Care Provider [phone] Jg Madera MD Primary Care Provider [phone] Deja Fang NP Unavailable [phone] Rosa Maria Green MD Primary Care Provider [phone] Janice Fall NP Primary Care Provider [phone] Reason for Visit * Reason Comments Unable To Schedule Encounter Details Date Type Department Care Team ([facility] st Contact Info) Description 10/10/2019 Telephone CALL [facility]ENTER [facility] [address] Freddy William MD [address] [place] [address] Unable To Schedule Social History Tobacco Use Types Packs/Day Years Used Date Smoking Tobacco: Never Smokeless Tobacco: Never Alcohol Use Standard Drinks/Week Comments Yes 1.7 (1 standard drink = 0.6 oz p ure alcohol) occ PHQ-2 Answer Date Recorded PHQ-2 Score 2 10/12/2019 Sex and Gender Information Value Date Recorded [...] encounter Miscellaneous Notes * Telephone Encounter - Jessica Jaime - 10/10/2019 3:26 PM EDT This is to inform you that this patient did not schedule their appointment for a Ultrasound Groin to evaluate left groin pain s/p repair ~ 1 year ago, no appreciable mass. We made 2 telephone attempts to schedule this appointment with patient directly, including mailing a letter to the patient today on 10/10/2019.We are also messaging your office to help intervene. We informed the patient in the letter to contact your office if they would like to have this exam performed at a later time. We will remove your order in Epic on 11/10/2019. Please submit a new order if this exam is needed at a future date. Thank you. documented in this encounter Plan of Treatment Not on file documented as of this encounter Visit Diagnoses Not on filedocumented in this encounter Care Teams Gold Prospector Relationship Specialty Start Date End Date Deja Fang NP PCP - General Internal Medicine 06/12/15 03/26/20 Jg Madera MD [address] [place] [address] PCP - General Internal Medicine 03/27/20 05/28/22 Deja Fang NP [address] [place] [address] PCP - Backup PCP Internal Medicine 03/27/20 06/30/22 Rosa Maria Green MD [address] [place] [address] PCP - General Family Medicine 05/29/22 02/20/23 Janice Fall NP [address] [facility] [place] [place] [address] PCP - General Family Medicine 02/21/23 documented as of this encounter
--- OUTSIDE RECORDS SUMMARY | 2024-12-03 14:21 | XMS_ITS | Encounter Summary ---
Author Organization [facility] Address [address] [place] [address] Care Team Providers Care Gang Worker Name Role Phone Jg Madera MD Primary Care Provider Deja Fang NP Unavailable [phone] Rosa Maria Green MD Primary Care Provider [phone] Janice Fall NP Primary Care Provider [phone] Encounter Details Date Type Department Care Team ([facility] st Contact Info) Description 09/07/2020 Telephone [facility] Neurology [address] [facility] [address] [place] [address] Kayla Arnold CRNP [address] [place] [address] Social History Tobacco Use Types Packs/Day Years [...] Not on f ile Not on file COVID-19 Exposure Response Date Recorded In the last month, have you been in contact with someone who was confirmed or suspected to have Coronavirus / COVID-19? No / Unsure 08/30/2020 9:03 AM EST documented as of this encounter Miscellaneous Notes * Telephone Encounter - Kayla Arnold CRNP - 09/07/2020 4:47 PM EST We need just the head CT with thin cuts through the temporal lobe * Telephone Encounter - Obdulia Casas - 09/07/2020 2:38 PM EST Hi, you ordered CT head with thin cuts thru the temporal --are you looking for temporal bone study or the complete head? If you want both, you need to order the temporal bones separate, please adviseso we can get prior auth from insurance and schedule, thanks Obdulia documented in this encounter Plan of Treatment Not on file documented as of this encounter Visit Diagnoses Not on filedocumented in this encounter Care Teams Gang Worker Relationship Specialty Start Date End Date Jg Madera MD [address] [place] [address] PCP - General Internal Medicine 03/27/20 05/28/22 Deja Fang NP [address] [place] [address] PCP - Backup PCP Internal Medicine 03/27/20 06/30/22 Rosa Maria Green MD [address] [place] [address] PCP - General Family Medicine 05/29/22 02/20/23 Janice Fall NP [address] [place] [address] PCP - General Family Medicine 02/21/23 documented as of this encounter
--- OUTSIDE RECORDS SUMMARY | 2024-12-03 14:21 | XMS_ITS | Encounter Summary ---
Author Organization [facility] Address [address] [place] [address] Care Team Providers Care Porcelain Turner Name Role Phone Jg Madera MD Primary Care Provider [phone] Deja Fang NP Unavailable [phone] Rosa Maria Green MD Primary Care Provider [phone] Janice Fall NP Primary Care Provider [phone] Encounter Details Date Type Department Care Team ([facility] st Contact Info) Description 10/19/2020 Orders Only [facility] Neurology [address] [facility] [address] [place] [address] Kayla Arnold CRNP [address] [place] [address] Social History Tobacco Use Types Packs/Day Years [...] have Coronavirus / COVID-19? No / Unsure 10/16/2020 2:49 PM EDT documented as of this encounter Miscellaneous Notes * Result Encounter Note - Marilyn Villa RN - 10/19/2020 3:16 PM EDT Mychart sent documented in this encounter Plan of Treatment Not on file documented as of this encounter Procedures * Due to [facility] law, this organization might not be sharing negative HIV tests. Procedure Name Priority Date/Time Associated Diagnosis Comments VENIPUNCTURE Routine 10/19/2020 3:16 PM EDT Headache disorder Tinnitus, unspecified laterality Vertigo, peripheral, unspecified laterality documented in this encounter Results * Due to [facility] law, this organization might not be sharing negative HIV tests. * CREATININE WITH GLOMERULAR FILTRATION RATE, ESTIMATED (EGFR) (10/19/2020 3:16 PM EDT) Creatinine 1.25 0.70 - 1.25 mg/dL [facility] Comment: For patients >49 years of age, the reference limit for Creatinine is approximately 13% higher for people identified as -Citizen Of [place]. EGFR 62 > OR = 60 mL/min/1. 73m2 [facility] GFR () 72 > OR = 60 mL/min/1. 73m2 [facility] 10/19/2020 3:16 PM EDT 10/19/2020 11:56 PM EDT Narrative [facility] - 10/20/2020 5:48 AM EDT Please note that this estimated GFR does not include an adjustment for the patient's height or weight, and can therefore, be viewed as reliable only for patients with heights between 60 and 72 . More precise quantification using a 24-hour urine sample or height-based algorithm is recommended for patients outside of this range of height and for those individuals with more precise needs for GFR calculation. Resulting Agency Comment [id number] us Kayla H Clayton VAMP CUT OUT WORKER LAB SAME DAY RESULT Final R esult [facility] [address] [facility] [place] [address] documented in this encounter Visit Diagnoses Diagnosis Headache disorder Headache Tinnitus, unspecified laterality Vertigo, peripheral, unspecified laterality documented in this encounter Care Teams Porcelain Turner Relationship Specialty Start Date End Date Jg Madera MD [address] [place] [address] PCP - General Internal Medicine 03/27/20 05/28/22 Deja Fang NP [address] [place] [address] PCP - Backup PCP Internal Medicine 03/27/20 06/30/22 Rosa Maria Green MD [address] [place] [address] PCP - General Family Medicine 05/29/22 02/20/23 Janice Fall NP [address] [place] [address] PCP - General Family Medicine 02/21/23 documented as of this encounter
--- OUTSIDE RECORDS SUMMARY | 2024-12-03 14:21 | XMS_ITS | Encounter Summary ---
Author Organization [facility] Address [address] [place] [address] Care Team Providers Care High School Business Teacher Name Role Phone Jg Madera MD Primary Care Provider [phone] Deja Fang NP Unavailable [phone] Rosa Maria Green MD Primary Care Provider [phone] Janice Fall NP Primary Care Provider [phone] Encounter Details Date Type Department Care Team (Late st Contact Info) Description 10/30/2020 Orders Only [facility] [address] [place] [address] Jg Madera MD [address] [place], [place] [id number] Social History Tobacco Use Types Packs/Day Years [...] PM EDT documented as of this encounter Plan of Treatment Not on file documented as of this encounter Visit Diagnoses Diagnosis Chronic midline low back pain with right-sided sciatica Acute back pain with sciatica, right documented in this encounter Care Teams High School Business Teacher Relationship Specialty Start Date End Date Jg Madera MD [address] [place] [address] PCP - General Internal Medicine 03/27/20 05/28/22 Deja Fang NP [address] [place] [address] PCP - Backup PCP Internal Medicine 03/27/20 06/30/22 Rosa Maria Green MD [address] [place] [address] PCP - General Family Medicine 05/29/22 02/20/23 Janice Fall NP [address] [place] [address] PCP - General Family Medicine 02/21/23 documented as of this encounter
--- OUTSIDE RECORDS SUMMARY | 2024-12-03 14:21 | XMS_ITS | Encounter Summary ---
Author Organization [facility] Address [address] [place] [address] Care Team Providers Care Production Drilling Machine Operator Name Role Phone Jg Madera MD Primary Care Provider [phone] Deja Fang NP Unavailable [phone] Rosa Maria Green MD Primary Care Provider [phone] Janice Fall NP Primary Care Provider [phone] Encounter Details Date Type Department Care Team (Late st Contact Info) Description 10/19/2020 Orders Only [facility] [address] [place] [address] Jg Madera MD [address] [place], [place] [id number] Social History Tobacco Use Types Packs/Day Years [...] on filedocumented in this encounter Care Teams Production Drilling Machine Operator Relationship Specialty Start Date End Date Jg Madera MD [address] [place] [address] PCP - General Internal Medicine 03/27/20 05/28/22 Deja Fang NP [address] [place] [address] PCP - Backup PCP Internal Medicine 03/27/20 06/30/22 Rosa Maria Green MD [address] [place] [address] PCP - General Family Medicine 05/29/22 02/20/23 Janice Fall NP [address] [place] [address] PCP - General Family Medicine 02/21/23 documented as of this encounter
--- OUTSIDE RECORDS SUMMARY | 2024-12-03 14:21 | XMS_ITS | Encounter Summary ---
Author Organization [facility] Address [address] [place] [address] Care Team Providers Care Watchguard Name Role Phone Deja Fang NP Primary Care Provider [phone] Jg Madera MD Primary Care Provider [phone] Deja Fang NP Unavailable [phone] Rosa Maria Green MD Primary Care Provider [phone] Janice Fall NP Primary Care Provider [phone] Reason for Visit * Reason Comments Rehab Plan Of Care Order Encounter Details Date Type Department Care Team (Late st Contact Info) Description 12/05/2016 Orders Only [facility] [address] [place] [id number] Lala Hernandez PT Social History Tobacco Use Types Packs/Day Years [...] as of this encounter Visit Diagnoses Diagnosis Primary osteoarthritis of both hips-PT Primary localized osteoarthrosis, pelvic region and thigh Back pain of lumbar region with sciatica-PT Chronic left-sided low back pain with sciatica, sciatica laterality unspecified documented in this encounter Care Teams Watchguard Relationship Specialty Start Date End Date Deja Fang NP PCP - General Internal Medicine 06/12/15 03/26/20 Jg Madera MD [address] [place] [address] PCP - General Internal Medicine 03/27/20 05/28/22 Deja Fang NP [address] [place] [address] PCP - Backup PCP Internal Medicine 03/27/20 06/30/22 Rosa Maria Green MD [address] [place] [address] PCP - General Family Medicine 05/29/22 02/20/23 Janice Fall NP [address] [place] [address] PCP - General Family Medicine 02/21/23 documented as of this encounter
--- OUTSIDE RECORDS SUMMARY | 2024-12-03 14:22 | XMS_ITS | Encounter Summary ---
Author Organization [facility] Address [address] [place] [address] Care Team Providers Care Research Attorney Name Role Phone Deja Fang NP Primary Care Provider [phone] Jg Madera MD Primary Care Provider [phone] Deja Fang NP Unavailable [phone] Rosa Maria Green MD Primary Care Provider [phone] Janice Fall NP Primary Care Provider [phone] Encounter Details Date Type Department Care Team (Late st Contact Info) Description 07/01/2016 Orders Only [facility] Gastroenterology [address] [place] [address] Filippo Tom PA-C [address] [place] [address] Social History Tobacco Use Types Packs/Day Years [...] of this encounter Procedures * Due to [place] [employer] law, this organization might not be sharing negative HIV tests. Procedure Name Priority Date/Time Associated Diagnosis Comments LIPASE, SERUM Routine 07/01/2016 8:50 AM EST Nausea, vomiting and diarrhea AMYLASE, SERUM Routine 07/01/2016 8:50 AM EST Nausea, vomiting and diarrhea HEPATIC FUNCTION PANEL (ALT,AST,ALK PH,BILI'S,TP,ALB) Routine 07/01/2016 8:50 AM EST Nausea, vomiting and diarrhea documented in this encounter Results * Due to [place] [employer] law, this organization might not be sharing negative HIV tests. * LIPASE, SERUM (07/01/2016 8:50 AM EST) Lipase 30 7 - 60 U/L [facility] Comment:{LIPASE {[id number]) 07/01/2016 8:50 AM EST 07/01/2016 7:04 PM EST Narrative Resulting Agency Comment [id number] Fiilppo Tom PA-C LABORATORY Final Resu lt Performing Organization Address City/State/[facility] Co de Phone Number [facility] [address] [place] [address] * HEPATIC FUNCTION PANEL (ALT,AST,ALK PH,BILI'S,TP,ALB) (07/01/2016 8:50 AM EST) Protein Total (Serum) 6.8 6.1 - 8.1 g/dL [facility] Comment:{PROTEIN, TOTAL {[id number]) Albumin 3.9 3.6 - 5.1 g/dL [facility] Comment:{ALBUMIN {[id number]) Globulin 2.9 1.9 - 3.7 g/dL (calc) [facility] Comment:{GLOBULIN {[id number]) Albumin/Globulin 1.3 1.0 - 2.5 (calc) [facility] Comment:{ALBUMIN/GLOBULIN RA ЮЛИЯ {[id number]) Bilirubin Total 0.4 0.2 - 1.2 mg/dL [facility] Comment:{BILIRUBIN, TOTAL {[id number]) Bilirubin Direct 0.1 < OR = 0.2 mg/dL [facility] Comment:{BILIRUBIN, DIRECT { [id number]) Bilirubin Indirect 0.3 0.2 - 1.2 mg/dL (calc) [facility] Comment:{BILIRUBIN, INDIRECT {[id number]) Alkaline phosphatase 66 40 - 115 U/L [facility] Comment:{ALKALINE PHOSPHATAS E {[id number]) AST (SGOT) 23 10 - 35 U/L [facility] Comment:{AST {[id number]) ALT (SGPT) 18 9 - 46 U/L [facility] Comment:{ALT {[id number]) 07/01/2016 8:50 AM EST 07/01/2016 7:04 PM EST Narrative Resulting Agency Comment [id number] Filippo Tom PA-C LABORATORY Final Resu lt Performing Organization Address City/[facility]/ZIP Co de Phone Number [facility] [address] [place] [id number] * AMYLASE, SERUM (07/01/2016 8:50 AM EST) Amylase 37 21 - 101 U/L [facility] Comment:{AMYLASE {[id number]) 07/01/2016 8:50 AM EST 07/01/2016 7:04 PM EST Narrative Resulting Agency Comment [id number] Filippo Tom PA-C LAB SAME DAY RESULT Final Result Performing Organization Address City/[facility] Co de Phone Number [facility] [address] [place] [address] documented in this encounter Visit Diagnoses Diagnosis Nausea, vomiting and diarrhea Diarrhea documented in this encounter Care Teams Research Attorney Relationship Specialty Start Date End Date Deja Fang NP PCP - General Internal Medicine 06/12/15 03/26/20 Jg Madera MD [address] [place] [address] [place] [address] PCP - General Internal Medicine 03/27/20 05/28/22 Deja Fang NP [address] [facility] [place] [address] PCP - Backup PCP Internal Medicine 03/27/20 06/30/22 Rosa Maria Green MD [address] [facility] [place] [address] PCP - General Family Medicine 05/29/22 02/20/23 Janice Fall NP [address] [facility] [place] [place] [address] PCP - General Family Medicine 02/21/23 documented as of this encounter
--- OUTSIDE RECORDS SUMMARY | 2024-12-03 14:22 | XMS_ITS | Encounter Summary ---
Author Organization [facility] Address [address] [place] [address] Care Team Providers Care Stone Finisher Name Role Phone Alicia Ragland MD Primary Care Provider Unavaila Deja Yepez NP Primary Care Provider Jg Madera MD Primary Care Provider [phone] Deja Fang NP Unavailable [phone] Rosa Maria Green MD Primary Care Provider [phone] Janice Fall NP Primary Care Provider [phone] Encounter Details Date Type Department Care Team (Late st Contact Info) Description 10/22/2010 Orders Only [facility] Otolaryngology [address] [facility] [address] [place] [address] Karlo Myers MD Social History Tobacco Use Types Packs/Day Years Used Date Smoking Tobacco: Never Alcohol Use Standard Drinks/Week Comments Yes 0 (1 standard drink = 0.6 oz pur e alcohol) occ Sex and Gender Information Value [...] of this encounter Procedures * Due to [place] state law, this organization might not be sharing negative HIV tests. Procedure Name Priority Date/Time Associated Diagnosis Comments ANCA SCREEN WITH MPO AND PR3, WITH REFLEX TO ANCA TITER Routine 10/22/2010 Dry mouth SJOGRENS SYNDROME ANTIBODIES- SSA AND SSB Routine 10/22/2010 Dry mouth documented in this encounter Results * Due to [place] [employer] law, this organization might not be sharing negative HIV tests. * ANCA SCREEN WITH MPO AND PR3, WITH REFLEX TO ANCA TITER (10/22/2010) ANCA SCREEN NEGATIVE NEGATIVE [facility] Comment: ANCA SCREEN INCLUDES EVALUATION FOR P-ANCA, C-ANCA, AND ATYPICAL P-ANCA. C-ANCA TITER SEE TEXT <1:20 TITER [facility] Comment:TNP-REFLEX TESTING N OT REQUIRED. P-ANCA TITER SEE TEXT <1:20 TITER [facility] Comment:TNP-REFLEX TESTING N OT REQUIRED. ATYPICAL P-ANCA TITER SEE TEXT <1:20 TITER [facility] Comment:TNP-REFLEX TESTING N OT REQUIRED. MYELOPEROXIDASE AB <6 U/ML [facility] Comment: REFERENCE RANGE: <6 ?? NEGATIVE 6-9 ??EQUIVOCAL >9 ?? POSITIVE PROTEINASE-3 AB <6 U/ML [facility] Comment: REFERENCE RANGE: <6 ?? NEGATIVE 6-9 ??EQUIVOCAL >9 ?? POSITIVE 10/22/2010 10/22/2010 7:0 6 PM EDT Karlo Myers MD LABORATORY Final Result Performing Organization Address City/[facility] Co de Phone Number [facility] [address] [place] [address] * SJOGRENS SYNDROME ANTIBODIES- SSA AND SSB (10/22/2010) ANTI-RO (SSA COLTEN) AB <1.0 NEG < 1.0 NEGATIVE [facility] ANTI-LA (SSB COLTEN) AB <1.0 NEG < 1.0 NEGATIVE [facility] 10/22/2010 10/22/2010 7:0 6 PM EDT Kalro Myers MD LABORATORY Final Result [facility] [address] [place] [address] documented in this encounter Visit Diagnoses Diagnosis Dry mouth Disturbance of salivary secretion documented in this encounter Care Teams Stone Finisher Relationship Specialty Start Date End Date Alicia Ragland MD PCP - General 04/04/10 06/11/15 Deja Fang NP PCP - General Internal Medicine 06/12/15 03/26/20 Jg Madera MD [address] [place] [address] PCP - General Internal Medicine 03/27/20 05/28/22 Deja Fang NP [address] [place] [address] PCP - Backup PCP Internal Medicine 03/27/20 06/30/22 Rosa Maria Green MD [address] [place] [address] PCP - General Family Medicine 05/29/22 02/20/23 Janice Fall NP [address] [place] [address] PCP - General Family Medicine 02/21/23 documented as of this encounter
--- OUTSIDE RECORDS SUMMARY | 2024-12-03 14:22 | XMS_ITS | Encounter Summary ---
Author Organization [facility] Address [address] [place] [address] Care Team Providers Care Hematology Technologist Name Role Phone Alicia Ragland MD Primary Care Provider UnavailAlicia Kumari MD Primary Care Provider Unavaila Deja Yepez NP Primary Care Provider [phone] Jg Madera MD Primary Care Provider [phone] Deja Fang YARDAGE CALLER Unavailable [phone] Rosa Maria Green MD Primary Care Provider [phone] Janice Fall NP Primary Care Provider [phone] Encounter Details Date Type Department Care Team (Late st Contact Info) Description 08/15/2009 Orders Only [facility] [address] [place] [phone] Alicia Ragland MD Social History Tobacco Use [...] encounter Progress Notes * Alicia Ragland - 08/21/2009 2:34 PM ESTQuick Note: Total -ok but free test low. Call- referred to urology. documented in this encounter Plan of Treatment Not on file documented as of this encounter Procedures * Due to [place] [employer] law, this organization might not be sharing negative HIV tests. Procedure Name Priority Date/Time Associated Diagnosis Comments TESTOSTERONE, FREE AND TOTAL, LC/MS/MS Routine 08/15/2009 Erectile dysfunction documented in this encounter Results * Due to [place] state law, this organization might not be sharing negative HIV tests. * (ABNORMAL) TESTOSTERONE, FREE AND TOTAL, LC/MS/MS (08/15/2009) TESTOSTERONE 486 250 - 1100 NG/DL [facility] TESTOSTERONE, % FREE 1.26(L) 1.50 - 2.20 % [facility] TESTOSTERONE, FREE 61.2 35.0 - 155.0 PG/ML [facility] 08/15/2009 08/15/2009 7:4 7 PM EST us Alicia Ragland MD LABORATORY Final Result Performing Organization Address City/State/[facility] Co de Phone Number [facility] [address] [place] [address] documented in this encounter Visit Diagnoses Diagnosis Erectile dysfunction- Primary Impotence of organic origin documented in this encounter Care Teams Hematology Technologist Relationship Specialty Start Date End Date Alicia Ragland MD PCP - General 04/04/10 06/11/15 Alicia Ragland MD PCP - General 10/28/05 04/03/10 Deja Fang NP PCP - General Internal Medicine 06/12/15 03/26/20 Jg Madera MD [address] [place] [address] PCP - General Internal Medicine 03/27/20 05/28/22 Deja Fang NP [address] [place] [address] PCP - Backup PCP Internal Medicine 03/27/20 06/30/22 Rosa Maria Green MD [address] [place] [address] PCP - General Family Medicine 05/29/22 02/20/23 Janice Fall NP [address] [place] [address] PCP - General Family Medicine 02/21/23 documented as of this encounter
--- OUTSIDE RECORDS SUMMARY | 2024-12-03 14:22 | XMS_ITS | Encounter Summary ---
Author Organization [facility] Address [address] [place] [address] Care Team Providers Care Solar Installation Crew Supervisor Name Role Phone Janice Fall Primary Care Provider [phone] Encounter Details Date Type Department Care Team (Late Contact Info) Description 04/11/2021 FoneSensehart Message [facility] Revenue Cycle Management [address] [place] [address] Mychart, Generic Provider [address] [place] [phone] cc letter sent Social History Tobacco Use Types Packs/Day Years Used Date Smoking Tobacco: Never Smokeless Tobacco: Never Alcohol Use Standard Drinks/Week Comments No 0 (1 standard drink = 0.6 oz pur e alcohol) Sex and Gender Information Value Date Recorded Sex Assigned at Male 09/23/2018 1:50 AM EST Legal Sex Male 12:45 AM EDT Gender Identity Male 09/23/2018 1:50 AM EST Sexual Orientation Straight 10/15/2018 1: 25 PM EDT Occupation Industry Job Start Date Job End Date Unemployed Not on file Not on file Not on file documented as of this encounter Plan of Treatment Upcoming Encounters Date Type Department Care Team (Late st Contact Info) Description 01/17/2025 10:30 AM EDT Follow-Up [facility] [address] [place] [address] Chrabel Washburn MD [address] [place] [address] documented as of this encounter Visit Diagnoses Not on filedocumented in this encounter Care Teams Solar Installation Crew Supervisor Relationship Specialty Start Date End Date Janice Fall [address] [place] [address] PCP - General 12/02/23 documented as of this encounter
--- OUTSIDE RECORDS SUMMARY | 2024-12-03 14:22 | XMS_ITS | Encounter Summary ---
Author Organization [facility] Address [address] [place] [address] Care Team Providers Care Direct Support Specialist Name Role Phone Alicia Ragland MD Primary Care Provider UnavailAlicia Kumari MD Primary Care Provider Unavaila Deja Yepez NP Primary Care Provider [phone] Jg Madera MD Primary Care Provider [phone] Deja Fang FOOD SERVICE LEAD Unavailable Rosa Maria Green MD Primary Care Provider [phone] Janice Fall NP Primary Care Provider Encounter Details Date Type Department Care Team (Late st Contact Info) Description 08/03/2009 Orders Only [facility] Gastroenterology [address] [place] [address] Filippo Tom PA-C [address] [place] [address] Social History Tobacco Use Types Packs/Day Years [...] of this encounter Procedures * Due to [place] [employer] law, this organization might not be sharing negative HIV tests. Procedure Name Priority Date/Time Associated Diagnosis Comments TISSUE TRANSGLUTAMINASE ANTIBODY, IGA Routine 08/03/2009 Chronic diarrhea Abdominal pain, generalized C-REACTIVE PROTEIN (CRP), QUANTITATIVE, SERUM INFLAMMATION Routine 08/03/2009 Chronic diarrhea Abdominal pain, generalized SED RATE ESR Routine 08/03/2009 Chronic diarrhea Abdominal pain, generalized TISSUE TRANSGLUTAMINASE ANTIBODY, IGG Routine 08/03/2009 Chronic diarrhea Abdominal pain, generalized documented in this encounter Results * Due to [place] [employer] law, this organization might not be sharing negative HIV tests. * C-REACTIVE PROTEIN (CRP), QUANTITATIVE, SERUM INFLAMMATION (08/03/2009) C REACTIVE PROTEIN (CRP) 0.2 0 - 0.7 MG/DL [facility] 08/03/2009 08/03/2009 7:5 7 PM EST Filippo Tom PA-C LABORATORY Final Resu lt Performing Organization Address [facility] de Phone Number [facility] [address] [place] [address] * SED RATE ESR (08/03/2009) ESR (ERYTHROCYTE SEDIMENTATION RATE) 4 0 - 15 MM/HR [facility] 08/03/2009 08/03/2009 7:5 7 PM EST Filippo Tom PA-C LAB SAME DAY RESULT Final Result Performing Organization Address [facility] Co de Phone Number [facility] [address] [place] [address] * TISSUE TRANSGLUTAMINASE ANTIBODY, IGA (08/03/2009) TTG IGA AB <3 <5 U/ML [facility] Comment: REFERENCE RANGE: ? <5 U/ML ?? NEGATIVE ?5-8 U/ML ?? EQUIVOCAL ? >8 U/ML ?? POSITIVE 08/03/2009 08/03/2009 7:5 7 PM EST Filippo Tom PA-C LABORATORY Final Resu lt Performing Organization Address [facility] de Phone Number [facility] [address] [place] [address] * TISSUE TRANSGLUTAMINASE ANTIBODY, IGG (08/03/2009) TTG (TISSUE TRANSGLUTAMINA SE) IGG <3 <7 U/ML [facility] Comment: REFERENCE RANGE: ? <7 U/ML ?? NEGATIVE ?? 7-10 U/ML ?? EQUIVOCAL ?>10 U/ML ?? POSITIVE 08/03/2009 08/03/2009 7:5 7 PM EST Filippo Tom PA-C LABORATORY Final Resu lt Performing Organization Address [facility] de Phone Number [facility] [address] [place] [address] documented in this encounter Visit Diagnoses Diagnosis Chronic diarrhea Diarrhea Abdominal pain, generalized documented in this encounter Care Teams Direct Support Specialist Relationship Specialty Start Date End Date Alicia Ragland MD PCP - General 04/04/10 06/11/15 Alicia Ragland MD PCP - General 10/28/05 04/03/10 Deja Fang NP PCP - General Internal Medicine 06/12/15 03/26/20 Jg Madera MD [address] [place] [address] PCP - General Internal Medicine 03/27/20 05/28/22 Deja Fang NP [address] [place] [address] PCP - Backup PCP Internal Medicine 03/27/20 06/30/22 Rosa Maria Green MD [address] [place] [address] PCP - General Family Medicine 05/29/22 02/20/23 Janice Fall NP [address] [place] [address] PCP - General Family Medicine 02/21/23 documented as of this encounter
--- OUTSIDE RECORDS SUMMARY | 2024-12-03 14:22 | XMS_ITS | Encounter Summary ---
Author Organization [facility] Address [address] [place] [address] Care Team Providers Care Director Mobile Name Role Phone Alicia Ragland MD Primary Care Provider Unavaila Deja Yepez NP Primary Care Provider Jg Madera MD Primary Care Provider Deja Fang NP Unavailable [phone] Rosa Maria Green MD Primary Care Provider [phone] Janice Fall NP Primary Care Provider [phone] Encounter Details Date Type Department Care Team (Late st Contact Info) Description 08/23/2011 Orders Only [facility] [address] [place] [address] Haylie Mendez, [facility] [address] [address] Social History Tobacco Use Types Packs/Day Years [...] as of this encounter Progress Notes * Haylie Batres - 08/27/2011 7:59 AM ESTQuick Note: Normal renal function, letter sent. documented in this encounter Plan of Treatment Not on file documented as of this encounter Procedures * Due to [place] [employer] law, this organization might not be sharing negative HIV tests. Procedure Name Priority Date/Time Associated Diagnosis Comments BASIC METABOLIC PANEL WITH (GFR) Routine 08/23/2011 8:31 AM EST Elevated CK documented in this encounter Results * Due to [place] [employer] law, this organization might not be sharing negative HIV tests. * (ABNORMAL) BASIC METABOLIC PANEL WITH (GFR) (08/23/2011 8:31 AM EST) Glucose 114(H) 65 - 99 mg/dL [facility] Comment: {GLUCOSE {[id number]) ? Fasting reference interval Urea Nitrogen Blood (BUN) 14 7 - 25 mg/dL [facility] Comment:{UREA NITROGEN (BUN) {[id number]) Creatinine 1.22 0.70 - 1.33 mg/dL [facility] Comment: {CREATININE {[id number]) For patients >49 years of age, the reference limit for Creatinine is approximately 13% higher for people identified as -Uzbek. GFR 68 > OR = 60 mL/min/1 .73m2 [facility] Comment:{eGFR NON-AFR. AMERI CAN {[id number]) GFR () 79 > OR = 60 mL/min/1 .73m2 [facility] Comment:{eGFR AMERIC AN {[id number]) BUN/Creatinine Ratio NOT APPLICABLE 6 - 22 (calc) [facility] Comment:{BUN/CREATININE RATI O {[id number]) Sodium 144 135 - 146 mmol/L [facility] Comment:{SODIUM {[id number]) Potassium 4.5 3.5 - 5.3 mmol/L [facility] Comment:{POTASSIUM {[id number]) Chloride 107 98 - 110 mmol/L [facility] Comment:{CHLORIDE {[id number]) Carbon dioxide 25 21 - 33 mmol/L [facility] Comment:{CARBON DIOXIDE {[id number]) Calcium 9.3 8.6 - 10.3 mg/dL [facility] Comment:{CALCIUM {[id number]) 08/23/2011 8:31 AM EST 08/23/2011 9:23 PM EST Narrative [facility] - 08/24/2011 2:30 AM EST Please note that this estimated GFR does [...] needs for GFR calculation. Resulting Agency Comment [id number] Haylie Mendez NP LABORATORY Final R esult Performing Organization Address City/State/[facility] Co de Phone Number [facility] [address] [place] [address] documented in this encounter Visit Diagnoses Diagnosis Elevated CK Other nonspecific abnormal serum enzyme levels documented in this encounter Care Teams Director Mobile Relationship Specialty Start Date End Date Alicia Ragland MD PCP - General 04/04/10 06/11/15 Deja Fang NP PCP - General Internal Medicine 06/12/15 03/26/20 Jg Madera MD [address] [place] [address] PCP - General Internal Medicine 03/27/20 05/28/22 Deja Fang NP [address] [place] [address] PCP - Backup PCP Internal Medicine 03/27/20 06/30/22 Rosa Maria Green MD [address] [place] [address] PCP - General Family Medicine 05/29/22 02/20/23 Janice Fall NP [address] [place] [address] PCP - General Family Medicine 02/21/23 documented as of this encounter
--- OUTSIDE RECORDS SUMMARY | 2024-12-03 14:22 | XMS_ITS | Encounter Summary ---
Author Organization [facility] Address [address] [place] [address] Care Team Providers Care Metal Wire Coating Operator Name Role Phone Alicia Ragland MD Primary Care Provider Unavaila Deja Yepez NP Primary Care Provider [phone] Jg Madera MD Primary Care Provider Deja Fang NP Unavailable [phone] Rosa Maria Green MD Primary Care Provider [phone] Janice Fall NP Primary Care Provider [phone] Encounter Details Date Type Department Care Team (Late st Contact Info) Description 08/21/2011 Orders Only [facility] [address] [place] [id number] Alicia Ragland MD Social History Tobacco Use [...] encounter Progress Notes * Haylie Batres - 08/22/2011 7:24 AM ESTQuick Note: Basic metabolic ordered given elevated CK documented in this encounter Plan of Treatment Not on file documented as of this encounter Procedures * Due to [place] [employer] law, this organization might not be sharing negative HIV tests. Procedure Name Priority Date/Time Associated Diagnosis Comments URINALYSIS DIP W/ REFLEX TO MICROSCOPIC+CULTURE Routine 08/21/2011 3:43 PM EST Annual physical exam ALANINE AMINOTRANSFERASE (ALT), SERUM Routine 08/21/2011 3:43 PM EST Hyperlipidemia ASPARTATE AMINOTRANSFERASE (AST), SERUM Routine 08/21/2011 3:43 PM EST Hyperlipidemia PROSTATE SPECIFIC ANTIGEN (PSA) TOTAL, SERUM Routine 08/21/2011 3:43 PM EST Screening for prostate cancer HEMOGLOBIN A1C Routine 08/21/2011 3:43 PM EST Screening for diabetes mellitus CREATINE KINASE (CK), SERUM Routine 08/21/2011 3:43 PM EST Hyperlipidemia FECAL GLOBIN IMMUNOCHEMICAL TEST (RINA) Routine 08/21/2011 3:43 PM EST Screen for colon cancer LIPID PANEL WITH REFLEX TO DIRECT LDL Routine 08/21/2011 3:43 PM EST Hyperlipidemia documented in this encounter Results * Due to [place] state law, this organization might not be sharing negative HIV tests. * URINALYSIS DIP W/ REFLEX TO MICROSCOPIC+CULTURE (08/21/2011 3:43 PM EST) Color (Urine) YELLOW YELLOW [facility] Comment:{COLOR {[id number]) Appearance (Urine) CLEAR CLEAR [facility] Comment:{APPEARANCE {[id number]) Specific gravity (Urine) 1.009 1.001 - 1.035 [facility] Comment:{SPECIFIC GRAVITY {[id number]) pH (Urine) 7.0 5.0 - 8.0 [facility] Comment:{PH {[id number]) Glucose (Urine) NEGATIVE NEGATIVE [facility] Comment:{GLUCOSE {[id number]) Bilirubin (Urine) NEGATIVE NEGATIVE [facility] Comment:{BILIRUBIN {[id number]) Ketones (Urine) NEGATIVE NEGATIVE [facility] Comment:{KETONES {[id number]) Hemoglobin (Urine) NEGATIVE NEGATIVE [facility] Comment:{OCCULT BLOOD {[id number]) Protein (Urine) NEGATIVE NEGATIVE [facility] Comment:{PROTEIN {[id number]) Nitrite (Urine) NEGATIVE NEGATIVE [facility] Comment:{NITRITE {[id number]) Leukocyte esterase (Urine) NEGATIVE NEGATIVE [facility] Comment:{LEUKOCYTE ESTERASE {[id number]) 08/21/2011 3:43 PM EST 08/22/2011 12:05 AM EST Narrative Resulting Agency Comment [id number] us Alicia Ragland MD LABORATORY Final Result Performing Organization Address [facility] Co de Phone Number [facility] [address] [place] [address] * (ABNORMAL) CREATINE KINASE (CK), SERUM (08/21/2011 3:43 PM EST) CPK 526(H) 44 - 196 U/L [facility] Comment:{CREATINE KINASE, TO ALYSHA {[id number]) 08/21/2011 3:43 PM EST 08/22/2011 12:05 AM EST Narrative Resulting Agency Comment [id number] us Alicia Ragland MD LAB SAME DAY RESULT Final Resul t Performing Organization Address City/[facility]/ZIP Co de Phone Number [facility] [address] [place] [address] * (ABNORMAL) LIPID PANEL WITH REFLEX TO DIRECT LDL (08/21/2011 3:43 PM EST) Cholesterol 168 125 - 200 mg/dL [facility] Comment:{CHOLESTEROL, TOTAL {[id number]) HDL Cholesterol 48 > OR = 40 mg/dL [facility] Comment:{HDL CHOLESTEROL {[id number]) Triglyceride 168(H) <150 mg/dL [facility] Comment:{TRIGLYCERIDES {[id number]) LDL Cholesterol 86 <130 mg/dL (calc) [facility] Comment: {LDL-CHOLESTEROL {[id number]) Desirable range <100 mg/dL for patients with CHD or diabetes and <70 mg/dL for diabetic patients with known heart disease. CHOL/HDL Ratio 3.5 < OR = 5.0 (calc) [facility] Comment:{CHOL/HDLC RATIO {[id number]) 08/21/2011 3:43 PM EST 08/22/2011 12:05 AM EST Narrative Resulting Agency Comment [id number] us Alicia Ragland MD LABORATORY Final Result Performing Organization Address [facility] de Phone Number [facility] [address] [place] [address] * ASPARTATE AMINOTRANSFERASE (AST), SERUM (08/21/2011 3:43 PM EST) AST (SGOT) 35 10 - 35 U/L [facility] Comment:{AST {[id number]) 08/21/2011 3:43 PM EST 08/22/2011 12:05 AM EST Narrative Resulting Agency Comment [id number] us Alicia Ragland MD LAB SAME DAY RESULT Final Resul t Performing Organization Address [facility] de Phone Number [facility] [address] [place] [address] * ALANINE AMINOTRANSFERASE (ALT), SERUM (08/21/2011 3:43 PM EST) ALT (SGPT) 23 9 - 60 U/L [facility] Comment:{ALT {[id number]) 08/21/2011 3:43 PM EST 08/22/2011 12:05 AM EST Narrative Resulting Agency Comment [id number] us Alicia Ragland MD LAB SAME DAY RESULT Final Resul t Performing Organization Address [facility] Co de Phone Number [facility] [address] [place] [address] * PROSTATE SPECIFIC ANTIGEN (PSA) TOTAL, SERUM (08/21/2011 3:43 PM EST) PSA 0.3 < OR = 4.0 ng/mL [facility] Comment: {PSA, TOTAL {[id number]) This test was performed using the Siemens chemiluminescent method. Values obtained from different assay methods cannot be used interchangeably. PSA levels, regardless of value, should not be interpreted as absolute evidence of the presence or absence of disease. 08/21/2011 3:43 PM EST 08/22/2011 12:05 AM EST Narrative Resulting Agency Comment [id number] us Alicia Ragland MD LABORATORY Final Result [facility] [address] [place] [address] * (ABNORMAL) HEMOGLOBIN A1C (08/21/2011 3:43 PM EST) Pathologist [facility] Hemoglobin A1C 5.8(H) <5.7 % of total Hgb [facility] Comment: {HEMOGLOBIN A1c {[id number]) ?Increased risk of diabetes ? <5.7 ? Decreased risk of diabetes ? 5.7-6.0 ?Increased risk of diabetes ? 6.1-6.4 ?Higher risk of diabetes ? > or = 6.5 Consistent with diabetes ?Standards of Medical Care in Diabetes-2010. ?Diabetes Care, 33(Supp 1): S1-S61,2010. Estimated Average Glucose 129 mg/dL (calc) [facility] Comment:{MEAN PLASMA GLUCOSE {[id number]) 08/21/2011 3:43 PM EST 08/22/2011 12:05 AM EST Narrative Resulting Agency Comment [id number] Alicia Ragland MD LABORATORY Final Result Performing Organization Address [facility] de Phone Number [facility] [address] [place] [address] * (ABNORMAL) FECAL GLOBIN IMMUNOCHEMICAL TEST (RINA) (08/21/2011 3:43 PM EST) Fecal Globin Immunochemical Test SEE NOTE(A) [facility] Comment: {FECAL GLOBIN BY IMMUNOCHEMISTRY {[id number]) ??FECAL GLOBIN BY IMMUNOCHEMISTRY ??MICRO NUMBER: ?[id number] ??TEST STATUS: ? FINAL ??SPECIMEN SOURCE: ?? INSURE (TM) FOBT TEST CARD ??SPECIMEN QUALITY: ??ADEQUATE ??RESULT: ?Detected ? The specimen receive date on this report reflects ? the date that [facility] received the test ? order from the physician. The specimen would have ? been separately submitted by the patient at a ? later date. 08/21/2011 3:43 PM EST 08/22/2011 3:05 AM EST Narrative Resulting Agency Comment [id number] us Alicia Ragland MD LABORATORY Final Result Performing Organization Address [facility] Co de Phone Number [facility] [address] [place] [address] documented in this encounter Visit Diagnoses Diagnosis Screen for colon cancer Special screening for malignant neoplasms, colon Screening for diabetes mellitus Screening for prostate cancer Special screening for malignant neoplasm of prostate Hyperlipidemia Other and unspecified hyperlipidemia Annual physical exam Routine general medical examination at a health care facility Heme positive stool Nonspecific abnormal finding in stool contents documented in this encounter Care Teams Metal Wire Coating Operator Relationship Specialty Start Date End Date Alicia Ragland MD PCP - General 04/04/10 06/11/15 Deja Fang NP PCP - General Internal Medicine 06/12/15 03/26/20 Jg Madera MD [address] [place] [address] PCP - General Internal Medicine 03/27/20 05/28/22 Deja Fang NP [address] [place] [address] PCP - Backup PCP Internal Medicine 03/27/20 06/30/22 Rosa Maria Green MD [address] [place] [address] PCP - General Family Medicine 05/29/22 02/20/23 Janice Fall NP [address] [place] [address] PCP - General Family Medicine 02/21/23 documented as of this encounter
--- OUTSIDE RECORDS SUMMARY | 2024-12-03 14:22 | XMS_ITS | Encounter Summary ---
Author Organization [facility] Address [address] [place] [address] Care Team Providers Care Vessel Welder Name Role Phone Janice Fall Primary Care Provider [phone] Encounter Details Date Type Department Care Team (Late Contact Info) Description 04/11/2021 [employer] Message [facility] [address] [place] [address] Mychart, Generic Provider [address] [place] [address] cc letter sent Social History Tobacco [...] Info) Description 01/17/2025 10:30 AM EDT Follow-Up [facility] [address] [place] [address] Charbel Washburn MD [address] [place] [address] documented as of this encounter Visit Diagnoses Not on filedocumented in this encounter Care Teams Vessel Welder Relationship Specialty Start Date End Date Janice Fall [address] [place] [address] PCP - General 12/02/23 documented as of this encounter
--- OUTSIDE RECORDS SUMMARY | 2024-12-03 14:22 | XMS_ITS | Encounter Summary ---
Author Organization [facility] Address [address] [place] [address] Care Team Providers Care Automatic Casting Machine Operator Name Role Phone Deja Fang NP Primary Care Provider Jg Madera MD Primary Care Provider [phone] Deja Fang NP Unavailable [phone] Rosa Maria Green MD Primary Care Provider [phone] Janice Fall NP Primary Care Provider [phone] Reason for Visit * Reason Comments Prescription Assistance Question on a sc ript Encounter Details Date Type Department Care Team ([facility] st Contact Info) Description 12/13/2019 Telephone [facility] [address] [place] [address] Deja Fang NP [address] [facility] [address] [place] [address] Prescription Assistance (Question on a script ) Social History Tobacco Use Types Packs/Day Years [...] encounter Miscellaneous Notes * Telephone Encounter - David Cruz - 12/13/2019 4:04 PM EDT I made the change in the patients chart. Provider resend medication to the right pharmacy * Telephone Encounter - Julieta Kamara - 12/13/2019 3:36 PM EDT Josh called and this prescription went to [facility] in [place] not [facility] in [place]. Can this be deactivated from [place] and sent to [facility] in [place] Sent to the [place] Pool * Telephone Encounter - Sakshi Vizcaino - 12/13/2019 1:07 PM EDT Pt calling back again stating that he wants his Omeprazole (PriLOSEC) [address] capsule sent to [facility] in [place]. [address] * Telephone Encounter - Julieta Kamara - 12/13/2019 11:21 AM EDT Josh called and would like a nurse to call him on a prescription question and refill Sent to the Nurse Pool documented in this encounter Plan of Treatment Not on file documented as of this encounter Visit Diagnoses Not on filedocumented in this encounter Care Teams Automatic Casting Machine Operator Relationship Specialty Start Date End Date Deja Fang NP PCP - General Internal Medicine 06/12/15 03/26/20 Jg Madera MD [address] [facility] [place] [address] PCP - General Internal Medicine 03/27/20 05/28/22 Deja Fang NP [address] [facility] [place] [address] PCP - Backup PCP Internal Medicine 03/27/20 06/30/22 Rosa Maria Green MD [address] [facility] [place] [address] PCP - General Family Medicine 05/29/22 02/20/23 Janice Fall NP [address] [facility] [place] [address] PCP - General Family Medicine 02/21/23 documented as of this encounter
--- OUTSIDE RECORDS SUMMARY | 2024-12-03 14:22 | XMS_ITS | Encounter Summary ---
Author Organization [facility] Address [address] [place] [address] Care Team Providers Care Plant And Instrument Engineer Name Role Phone Alicia Ragland MD Primary Care Provider Unavaila Deja Yepez NP Primary Care Provider Jg Madera MD Primary Care Provider Deja Fang NP Unavailable [phone] Rosa Maria Green MD Primary Care Provider Janice Fall NP Primary Care Provider [phone] Encounter Details Date Type Department Care Team (Late st Contact Info) Description 04/14/2011 Orders Only [facility] [address] [place] [address] Haylie Mendez, [facility] HOUSE SHORER [facility] [address] [address] Social History Tobacco Use Types Packs/Day Years [...] encounter Progress Notes * Haylie Batres - 04/15/2011 12:15 PM EDTQuick Note: Improved a1c, continue current plan. Letter sent documented in this encounter Plan of Treatment Not on file documented as of this encounter Procedures * Due to [place] [employer] law, this organization might not be sharing negative HIV tests. Procedure Name Priority Date/Time Associated Diagnosis Comments CBC INCLUDES DIFFERENTIAL AND PLATELET COUNT Routine 04/14/2011 10:54 AM EDT Nausea & vomiting THYROID STIMULATING HORMONE (TSH) WITH FREE T4 REFLEX, SERUM Routine 04/14/2011 10:54 AM EDT IRRITABLE BOWEL HEMOGLOBIN A1C Routine 04/14/2011 10:54 AM EDT Nausea & vomiting BASIC METABOLIC PANEL WITH (GFR) Routine 04/14/2011 10:54 AM EDT Nausea & vomiting documented in this encounter Results * Due to [place] [employer] law, this organization might not be sharing negative HIV tests. * CBC INCLUDES DIFFERENTIAL AND PLATELET COUNT (04/14/2011 10:54 AM EDT) WBC 4.9 3.8 - 10.8 Thousand/u L [facility] Comment:{WHITE BLOOD CELL CO UNT {[id number]) RBC 4.35 4.20 - 5.80 Million/uL [facility] Comment:{RED BLOOD CELL COUN T {[id number]) Hemoglobin 14.2 13.2 - 17.1 g/dL [facility] Comment:{HEMOGLOBIN {[id number]) Hematocrit 43.0 38.5 - 50.0 % [facility] Comment:{HEMATOCRIT {[id number]) MCV 98.9 80.0 - 100.0 fL [facility] Comment:{MCV {[id number]) MCH 32.6 27.0 - 33.0 pg [facility] Comment:{MCH {[id number]) MCHC 33.0 32.0 - 36.0 g/dL [facility] Comment:{MCHC {[id number]) RDW 13.1 11.0 - 15.0 % [facility] Comment:{RDW {[id number]) PLT 203 140 - 400 Thousand/u L [facility] Comment:{PLATELET COUNT {[id number]) MPV 8.4 7.5 - 11.5 fL [facility] Comment:{MPV {[id number]) Neutrophils # 2867 1500 - 7800 cells/uL [facility] Comment:{ABSOLUTE NEUTROPHIL S {[id number]) Lymphocytes # 1299 850 - 3900 cells/uL [facility] Comment:{ABSOLUTE LYMPHOCYTE S {[id number]) Monocytes # 461 200 - 950 cells/uL [facility] Comment:{ABSOLUTE MONOCYTES {[id number]) Eosinophils # 235 15 - 500 cells/uL [facility] Comment:{ABSOLUTE EOSINOPHIL S {[id number]) Basophils # 39 0 - 200 cells/uL [facility] Comment:{ABSOLUTE BASOPHILS {[id number]) Neutrophils % 58.5 % [facility] Comment:{NEUTROPHILS {[id number]) Lymphocytes % 26.5 % [facility] Comment:{LYMPHOCYTES {[id number]) Monocytes % 9.4 % [facility] Comment:{MONOCYTES {[id number]) Eosinophils % 4.8 % [facility] Comment:{EOSINOPHILS {[id number]) Basophils % 0.8 % [facility] Comment:{BASOPHILS {[id number]) 04/14/2011 10:5 4 AM EDT 04/15/2011 12:16 AM EDT Narrative Resulting Agency Comment [id number] Haylie Mendez REHEATER HELPER LAB SAME DAY RESULT Fin al Result [facility] [address] [place] [address] * BASIC METABOLIC PANEL WITH (GFR) (04/14/2011 10:54 AM EDT) Glucose 92 65 - 99 mg/dL [facility] Comment: {GLUCOSE {[id number]) ? Fasting reference interval Urea Nitrogen Blood (BUN) 14 7 - 25 mg/dL [facility] Comment:{UREA NITROGEN (BUN) {[id number]) Creatinine 1.06 0.76 - 1.46 mg/dL [facility] Comment:{CREATININE {[id number]) GFR 81 > OR = 60 mL/min/1. 73m2 [facility] Comment:{eGFR NON-AFR. AMERI CAN {[id number]) GFR () 94 > OR = 60 mL/min/1. 73m2 [facility] Comment:{eGFR AMERIC AN {[id number]) BUN/Creatinine Ratio NOT APPLICABLE 6 - (calc) [facility] Comment:{BUN/CREATININE RATI O {[id number]) Sodium 141 135 - 146 mmol/L [facility] Comment:{SODIUM {[id number]) Potassium 4.2 3.5 - 5.3 mmol/L [facility] Comment:{POTASSIUM {[id number]) Chloride 104 98 - 110 mmol/L [facility] Comment:{CHLORIDE {[id number]) Carbon dioxide 26 21 - 33 mmol/L [facility] Comment:{CARBON DIOXIDE {[id number]) Calcium 9.4 8.6 - 10.2 mg/dL [facility] Comment:{CALCIUM {[id number]) 04/14/2011 10:5 4 AM EDT 04/15/2011 12:16 AM EDT Narrative [facility] - 04/15/2011 7:04 AM EDT Please note that this estimated [...] needs for GFR calculation. Resulting Agency Comment [id number] Haylie R Vanessa REHEATER HELPER LABORATORY Final R esult Performing Organization Address [facility] de Phone Number [facility] [address] [place] [address] * THYROID STIMULATING HORMONE (TSH) WITH FREE T4 REFLEX, SERUM (04/14/2011 10:54 AM EDT) Pathologist [facility] TSH 2.27 0.40 - 4.50 mIU/L [facility] Comment:{TSH, 3RD GENERATION W/REFLEX TO FT4 {[id number]) 04/14/2011 10:5 4 AM EDT 04/15/2011 12:16 AM EDT Narrative Resulting Agency Comment [id number] Haylie Mendez REHEATER HELPER LABORATORY Final R esult Performing Organization Address [facility] de Phone Number [facility] [address] [place] [address] * HEMOGLOBIN A1C (04/14/2011 10:54 AM EDT) Pathologist [facility] Hemoglobin A1C 5.6 <5.7 % of total Hgb [facility] Comment: {HEMOGLOBIN A1c {[id number]) ?Decreased risk of diabetes ? <5.7 ? Decreased risk of diabetes ? 5.7-6.0 ?Increased risk of diabetes ? 6.1-6.4 ?Higher risk of diabetes ? > or = 6.5 Consistent with diabetes ?Standards of Medical Care in Diabetes-2010. ?Diabetes Care, 33(Supp 1): S1-S61,2010. Estimated Average Glucose 122 mg/dL (calc) [facility] Comment:{MEAN PLASMA GLUCOSE {[id number]) 04/14/2011 10:5 4 AM EDT 04/15/2011 12:16 AM EDT Narrative Resulting Agency Comment [id number] Haylie Mendez NP LABORATORY Final R esult [facility] [address] [place] [address] documented in this encounter Visit Diagnoses Diagnosis Nausea & vomiting Nausea with vomiting IRRITABLE BOWEL Irritable bowel syndrome documented in this encounter Care Teams Plant And Instrument Engineer Relationship Specialty Start Date End Date Alicia Ragland MD PCP - General 04/04/10 06/11/15 Deja Fang NP PCP - General Internal Medicine 06/12/15 03/26/20 Jg Madera MD [address] [place] [address] PCP - General Internal Medicine 03/27/20 05/28/22 Deja Fang NP [address] [place] [address] PCP - Backup PCP Internal Medicine 03/27/20 06/30/22 Rosa Maria Green MD [address] [place] [address] PCP - General Family Medicine 05/29/22 02/20/23 Janice Fall NP [address] [place] [address] PCP - General Family Medicine 02/21/23 documented as of this encounter
--- OUTSIDE RECORDS SUMMARY | 2024-12-03 14:22 | XMS_ITS | Encounter Summary ---
Author Organization [facility] Address [address] [place] [address] Care Team Providers Care Electron Beam Photo Mask Technician Name Role Phone Alicia Ragland MD Primary Care Provider Unavaila Deja Yepez NP Primary Care Provider Jg Madera MD Primary Care Provider Deja Fang NP Unavailable [phone] Rosa Maria Green MD Primary Care Provider Janice Fall NP Primary Care Provider [phone] Encounter Details Date Type Department Care Team (Late st Contact Info) Description 08/21/2011 Orders Only [facility] [address] [place] [address] Haylie Mendez, HOLLY COMPOUNDING TECHNICIAN [facility] [address] [address] Social History Tobacco Use Types Packs/Day Years [...] as of this encounter Progress Notes * Medardo, Haylie - 08/23/2011 4:25 PM ESTQuick Note: Pt advised to hold lovastatin, come in for basic metabolic and will repeat CK, see tel enc. documented in this encounter Plan of Treatment Not on file documented as of this encounter Procedures * Due to [place] [employer] law, this organization might not be sharing negative HIV tests. Procedure Name Priority Date/Time Associated Diagnosis Comments ASPARTATE AMINOTRANSFERASE (AST), SERUM Routine 08/21/2011 3:43 PM EST Hyperlipidemia LIPID PANEL WITH REFLEX TO DIRECT LDL Routine 08/21/2011 3:43 PM EST Hyperlipidemia documented in this encounter Results * Due to [place] [employer] law, this organization might not be sharing negative HIV tests. * ASPARTATE AMINOTRANSFERASE (AST), SERUM (08/21/2011 3:43 PM EST) AST (SGOT) 32 10 - 35 U/L [facility] Comment:{AST {[id number]) 08/21/2011 3:43 PM EST 08/22/2011 12:06 AM EST Narrative Resulting Agency Comment [id number] Haylie Mendez REGULATORY TECHNICIAN LAB SAME DAY RESULT Fin al Result Performing Organization Address City/State/[facility] Co de Phone Number [facility] [address] [place] [address] * (ABNORMAL) LIPID PANEL WITH REFLEX TO DIRECT LDL (08/21/2011 3:43 PM EST) Cholesterol 176 125 - 200 mg/dL [facility] Comment:{CHOLESTEROL, TOTAL {[id number]) HDL Cholesterol 47 > OR = 40 mg/dL [facility] Comment:{HDL CHOLESTEROL {[id number]) Triglyceride 172(H) <150 mg/dL [facility] Comment:{TRIGLYCERIDES {[id number]) LDL Cholesterol 95 <130 mg/dL (calc) [facility] Comment: {LDL-CHOLESTEROL {[id number]) Desirable range <100 mg/dL for patients with CHD or diabetes and <70 mg/dL for diabetic patients with known heart disease. CHOL/HDL Ratio 3.7 < OR = 5.0 (calc) [facility] Comment:{CHOL/HDLC RATIO {[id number]) 08/21/2011 3:43 PM EST 08/22/2011 12:06 AM EST Narrative Resulting Agency Comment [id number] Haylie Mendez NP LABORATORY Final R esult [facility] [address] [place] [address] documented in this encounter Visit Diagnoses Diagnosis Hyperlipidemia Other and unspecified hyperlipidemia documented in this encounter Care Teams Electron Beam Photo Mask Technician Relationship Specialty Start Date End Date Alicia Ragland MD PCP - General 04/04/10 06/11/15 Deja Fang NP PCP - General Internal Medicine 06/12/15 03/26/20 Jg Madera MD [address] [place] [address] PCP - General Internal Medicine 03/27/20 05/28/22 Deja Fang NP [address] [place] [address] PCP - Backup PCP Internal Medicine 03/27/20 06/30/22 Rosa Maria Green MD [address] [place] [address] PCP - General Family Medicine 05/29/22 02/20/23 Janice Fall NP [address] [place] [address] PCP - General Family Medicine 02/21/23 documented as of this encounter
--- OUTSIDE RECORDS SUMMARY | 2024-12-03 14:22 | XMS_ITS | Encounter Summary ---
Author Organization [facility] Address [address] [place] [address] Care Team Providers Care New Accounts Representative Name Role Phone Deja Fang NP Primary Care Provider Jg Madera MD Primary Care Provider [phone] Deja Fang NP Unavailable [phone] Rosa Maria Green MD Primary Care Provider [phone] Janice Fall NP Primary Care Provider [phone] Reason for Visit * Reason Comments E-prescribing Refill Request Encounter Details Date Type Department Care Team (Late st Contact Info) Description 09/25/2016 Refill [facility] [address] [place] [address] Deja Fang NP [address] [facility] [address] [place], [place] [id number] E-prescribing Refill Request Social History Tobacco Use Types Packs/Day Years [...] encounter Miscellaneous Notes * Telephone Encounter - Marilyn Quintero - 09/26/2016 9:11 AM EST Any special requests or concerns? none Faxed/E-prescribed medication renewal request(s) for Josh Johnston 56 y.o. male received from pharmacy. Verified and Confirmed pharmacy for patient. Last CPE with this specialty: 05/06/2016 Last OV with this specialty: 07/01/2016 Next OV: Future Appointments Date Time Provider Department Center 11/04/2016 3:40 PM Deja Fang, [facility] Pertinent lab results: No labs suggested for any medication orders signed or pended in this encounter. Refresh if any orders changed. Allergies: Morphine and Nuts BP Readings from Last 1 Encounters: 07/01/16 135/79 Patient Active Problem List Diagnosis Date Noted ??? OA (osteoarthritis) of hip 12/14/2015 12/14/2015- seen by Dr. Higgins- injection given and recommend PT 08/12/2016- possible hip replacement around end of December 2016- patient is possibly interested in gabpentin for pain management. ??? BPH (benign prostatic hyperplasia) 10/24/2015 ??? Irritable bowel syndrome with diarrhea 10/01/2015 ??? Renal calculus 06/16/2015 Plans on ESWL 09/12/2015- CT 09/06 left obstructing stone with mild hydronephrosis ??? IRRITABLE BOWEL 07/13/2012 ??? Elevated CK 08/22/2011 Improving. ??? History of colonic polyps 08/21/2011 Adenoma on 11/14. Repeat colonoscopy in 5 yrs. 05/08/2015-Colonoscopy due 2017 ??? Obese 08/21/2011 Discussed diet and exercise.recommend BMI < 30. 05/08/2015-reinforced diet and exercise for weight loss. ??? Renal calculi 02/26/2011 Asymptomatic. ??? Hospital discharge follow-up 02/26/2011 02/26/2011 Anemia and change in renal function while inpatient likely r/t dehydration, IV rehydration. Repeat CBC/Basic metabolic in 1 month. Elevated glucose in hospital as well. A1c ordered. Worsening anxiety. ? ? Nausea & vomiting 02/26/2011 02/26/2011 Intermittent. Treats with zofran, effective. Refer back to GI. ??? Back pain 08/29/2010 Evidence of DJD and mild scoliosis- will ref to PT. Gave back book, encourage wt loss. ??? Impotence of organic origin 10/17/2009 ??? Hyperlipidemia 06/30/2006 Fatty liver on u/s. Lipid levels acceptable on niacin and fish oil. Patient to Consistently take fish oil and increase niacin to 2 x per day. Will recheck lipids in 3 months - if no improvement will discuss statin use- h/o elevated ck with use. 05/08/2015-labs ordered. Reinforced lifestyle changes ??? ANXIETY 06/30/2006 Moderate-Severe. Followed by Dr. Cabezas, psychiatrist @ [facility] in [place]. 05/08/2015- Seeing Theresa Miguel APPLICATION SECURITY ENGINEER for med management and diagnosis. Recent stressors at work. Pending visit with APPLICATION SECURITY ENGINEER for return to work. ??? GERD (gastroesophageal reflux disease) 06/30/2006 Persistent. On Omeprazole BID. Followed by GI. 05/08/2015-chronic and ongoing. ??? IRRITABLE BOWEL 06/30/2006 Intermittent symptoms on symptomatic treatment. 05/08/2015-flareup with increased stress. Reinforced treatment and symptoms to report to office. ??? 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 Current Outpatient Prescriptions on File Prior to Visit Medication Sig Dispense Refill ??? Diclofenac Sodium 1 % Gel APPLY 4GRAMS TO AFFECTED AREA(S) 4 TIMES A DAY DIRECTED 100 g 2 ??? Atorvastatin Calcium 40 MG Tab * 30 UNITS = 30 DAY SUPPLY * 30 5 ??? Diclofenac Sodium 1 % Gel * 100 UNITS = 6 DAY SUPPLY * 100 2 ??? Tamsulosin HCl 0.4 MG Cap * 30 UNITS = 30 DAY SUPPLY * 30 7 ??? Gabapentin 300 MG Cap 1 by mouth at bedtime, gradually increase to three times a day as tolerated 90 Cap 2 ??? Gabapentin 300 MG Cap * 90 UNITS = 30 DAY SUPPLY * 90 2 ??? ALPRAZolam 0.25 MG Tab TAKE 1 TABLET BY MOUTH THREE TIMES A DAY 270 Tab 0 ??? ALPRAZolam 0.25 MG Tab * 270 UNITS = 90 DAY SUPPLY * 270 ??? Prochlorperazine Maleate 10 MG Tab 1 TABLET 3 TIMES DAILY NEEDED 90 Tab 0 ??? Prochlorperazine Maleate 10 MG Tab * 90 UNITS = 30 DAY SUPPLY * 90 ??? Atorvastatin Calcium 40 MG Tab * 90 UNITS = 90 DAY SUPPLY * 90 5 ??? Atorvastatin Calcium 40 MG Tab 1 by mouth daily 30 Tab 5 ??? Sertraline HCl 50 MG Tab TAKE 1 TABLET THREE TIMES A DAY 270 Tab 1 ??? Sertraline HCl 50 MG Tab * 270 UNITS = 90 DAY SUPPLY * 270 1 ??? Triamcinolone Acetonide 0.1 % Ointment apply 2-3 x per day 60 g 1 ??? Triamcinolone Acetonide 0.1 % Ointment * 60 UNITS = 30 DAY SUPPLY * 60 1 ??? Cephalexin 500 MG Cap * 20 UNITS = 10 DAY SUPPLY * 20 ??? BuPROPion HCl 150 MG TABLET SR 12 HR TAKE 1 TABLET EVERY DAY 90 Tab 2 ??? Diclofenac Sodium 1 % Gel Apply 4 Gm four time a day to the area. 100 g 2 ??? Hyoscyamine Sulfate 0.125 MG Tab TAKE 1 TABLET BY MOUTH FOUR TIMES DAILY, BEFORE MEALS AND AT BEDTIME 360 Tab 1 ??? Rifaximin 550 MG Tab 1 TABLET TWICE DAILY 28 Tab 1 ??? HYDROCORTISONE, RECTAL, (PROCTOSOL HC) 2.5 % Cream prn 3 Tube 3 ??? EPINEPHrine 0.3 MG/0.3ML Solution Auto-injector use as directed for allergic reaction and then call 911 2 Package 0 ??? Shepherd-3 Fatty Acids (FISH OIL) 1000 MG Cap 1 by mouth twice a day 60 Cap 11 ??? Esomeprazole Magnesium 40 MG CAPSULE DELAYED RELEASE 1 CAPSULE DAILY 30 Cap 5 ??? Tamsulosin HCl 0.4 MG Cap 1 CAPSULE DAILY ??? Clotrimazole-Betamethasone 1-0.05 % Cream Apply a thin layer twice daily. 1 Tube 2 ??? Nystatin 545886 UNIT/GM Cream apply bid 1 Tube 3 ??? Inositol Niacinate (NIACIN FLUSH FREE) 500 MG Cap 1 po bid 60 Cap 3 ??? Multiple Vitamin (MULTI-VITAMIN) Tab 1 TABLET DAILY documented in this encounter Plan of Treatment Not on file documented as of this encounter Visit Diagnoses Not on filedocumented in this encounter Care Teams New Accounts Representative Relationship Specialty Start Date End Date Deja Fang NP PCP - General Internal Medicine 06/12/15 03/26/20 Jg Madera MD [address] [facility] [place] [address] PCP - General Internal Medicine 03/27/20 05/28/22 Deja Fang NP [address] [facility] [place] [address] PCP - Backup PCP Internal Medicine 03/27/20 06/30/22 Rosa Maria Green MD [address] [facility] [place] [address] PCP - General Family Medicine 05/29/22 02/20/23 Janice Fall NP [address] [facility] [place] [place] [address] PCP - General Family Medicine 02/21/23 documented as of this encounter
--- OUTSIDE RECORDS SUMMARY | 2024-12-03 14:22 | XMS_ITS | Encounter Summary ---
Author Organization [facility] Address [address] [place] [address] Care Team Providers Care Computer Networking Instructor Adjunct Name Role Phone Alicia Ragland MD Primary Care Provider Unavaila Deja Yepez NP Primary Care Provider Jg Madera MD Primary Care Provider Deja Fang NP Unavailable [phone] Rosa Maria Green MD Primary Care Provider [phone] Janice Fall NP Primary Care Provider [phone] Encounter Details Date Type Department Care Team (Late st Contact Info) Description 11/01/2010 Orders Only [facility] Gastroenterology [address] [place] [address] Filippo Tom PA-C [address] [place] [address] Social History Tobacco Use Types Packs/Day Years [...] of this encounter Procedures * Due to [place] state law, this organization might not be sharing negative HIV tests. Procedure Name Priority Date/Time Associated Diagnosis Comments WBC, FECAL EXAM Routine 11/01/2010 Diarrhea Weight loss Abdominal pain, generalized CLOSTRIDIUM DIFFICILE TOXIN A/B Routine 11/01/2010 Diarrhea Weight loss Abdominal pain, generalized OVA AND PARASITES, SINGLE SET, STOOL WITH PERMANENT STAIN Routine 11/01/2010 Diarrhea Weight loss Abdominal pain, generalized CULTURE, STOOL Routine 11/01/2010 Diarrhea Weight loss Abdominal pain, generalized documented in this encounter Results * Due to [place] state law, this organization might not be sharing negative HIV tests. * WBC, FECAL EXAM (11/01/2010) WBC (leukocytes) (Stool) NO LEUKOCYTES SEEN NO LEUKOCYTES SEEN [facility] 11/01/2010 11/01/2010 9:3 3 PM EDT Filippo Tom PA-C LABORATORY Final Resu lt Performing Organization Address [facility] de Phone Number [facility] [address] [place] [address] * OVA AND PARASITES, SINGLE SET, STOOL WITH PERMANENT STAIN (11/01/2010) MICROSCOPIC EXAM SEE TEXT [facility] Comment: SOURCE: STOOL NO OVA OR PARASITES SEEN TRICHROME STAIN SEE TEXT [facility] Comment: SOURCE: STOOL NO OVA OR PARASITES SEEN 11/01/2010 11/01/2010 9:3 3 PM EDT Filippo Tom PA-C LABORATORY Final Resu lt Performing Organization Address [facility] Co de Phone Number [facility] [address] [place] [address] * CULTURE, STOOL (11/01/2010) CAMPYLOBACTER CULTURE (STOOL) SEE TEXT [facility] Comment: SOURCE: STOOL NO ENTERIC CAMPYLOBACTER ISOLATED Result(s) SEE TEXT [facility] Comment: SOURCE: STOOL NO SALMONELLA OR SHIGELLA ISOLATED 11/01/2010 11/01/2010 9:3 3 PM EDT Filippo Tom PA-C LABORATORY Final Resu lt Performing Organization Address [facility] Co de Phone Number [facility] [address] [place] [address] * CLOSTRIDIUM DIFFICILE TOXIN A/B (11/01/2010) Clostridium Difficile Toxin A+B (Stool) SEE TEXT [facility] Comment: SOURCE: STOOL NOT DETECTED 11/01/2010 11/01/2010 9:3 3 PM EDT Filippo Tom PA-C LABORATORY Final Resu lt Performing Organization Address City/[facility] Co de Phone Number [facility] [address] [place] [address] documented in this encounter Visit Diagnoses Diagnosis Diarrhea Weight loss Loss of weight Abdominal pain, generalized documented in this encounter Care Teams Computer Networking Instructor Adjunct Relationship Specialty Start Date End Date Alicia Ragland MD PCP - General 04/04/10 06/11/15 Deja Fang NP PCP - General Internal Medicine 06/12/15 03/26/20 Jg Madera MD [address] [place] [address] PCP - General Internal Medicine 03/27/20 05/28/22 Deja Fang NP [address] [place] [address] PCP - Backup PCP Internal Medicine 03/27/20 06/30/22 Rosa Maria Green MD [address] [place] [address] PCP - General Family Medicine 05/29/22 02/20/23 Janice Fall NP [address] [facility] [place] [address] PCP - General Family Medicine 02/21/23 documented as of this encounter
--- OUTSIDE RECORDS SUMMARY | 2024-12-03 14:22 | XMS_ITS | Encounter Summary ---
Author Organization [facility] Address [address] [place] [address] Care Team Providers Care Varnish Cooker Name Role Phone Alicia Ragland MD Primary Care Provider Unavaila Deja Yepez NP Primary Care Provider Jg Madera MD Primary Care Provider [phone] Deja Fang NP Unavailable [phone] Rosa Maria Green MD Primary Care Provider [phone] Janice Fall NP Primary Care Provider [phone] Encounter Details Date Type Department Care Team (Late st Contact Info) Description 10/22/2010 Orders Only [facility] [address] [place] [address] Lubna Jansen NP Social History Tobacco Use Types Packs/Day Years [...] of this encounter Procedures * Due to [place] state law, this organization might not be sharing negative HIV tests. Procedure Name Priority Date/Time Associated Diagnosis Comments ALLERGEN CORN (F8) IGE Routine 10/22/2010 Vomiting Diarrhea ALLERGEN CHICKEN MEAT (F83) IGE Routine 10/22/2010 Vomiting Diarrhea ALLERGEN CASEIN (F78) IGE Routine 10/22/2010 Vomiting Diarrhea ALLERGEN BEEF (F27) IGE Routine 10/22/2010 Vomiting Diarrhea ALLERGEN POTATO (F35) IGE Routine 10/22/2010 Vomiting Diarrhea FOOD (GENERAL) ALLERGY PANEL Routine 10/22/2010 Vomiting Diarrhea documented in this encounter Results * Due to [facility] law, this organization might not be sharing negative HIV tests. * (ABNORMAL) POTATO (F35) IGE (10/22/2010) ALLERGEN POTATO (F35) IGE SEE TEXT(A) [facility] Comment:0.80 KU/L (MODERATE) (%ASM: 143) 10/22/2010 10/22/2010 7:0 7 PM EDT [facility] Final Result Performing Organization Address [facility] de Phone Number [facility] [address] [place] [address] * BEEF (F27) IGE (10/22/2010) ALLERGEN BEEF (F27) IGE SEE TEXT [facility] Comment:<.35 KU/L (UNDETECTA BLE) (%ASM: 28) 10/22/2010 10/22/2010 7:0 7 PM EDT [facility] Final Result Performing Organization Address [facility] de Phone Number [facility] [address] [place] [address] * CHICKEN MEAT (F83) IGE (10/22/2010) ALLERGEN CHICKEN MEAT (F83) IGE SEE TEXT [facility] Comment:<.35 KU/L (UNDETECTA BLE) (%ASM: 14) 10/22/2010 10/22/2010 7:0 7 PM EDT [facility] Final Result Performing Organization Address [facility] de Phone Number [facility] [address] [place] [address] * (ABNORMAL) CORN (F8) IGE (10/22/2010) ALLERGEN CORN (F8) IGE SEE TEXT(A) [facility] Comment:0.99 KU/L (MODERATE) (%ASM: 169) 10/22/2010 10/22/2010 7:0 7 PM EDT [facility] Final Result Performing Organization Address [facility] Phone Number [facility] [address] [place] [address] * CASEIN (F78) IGE (10/22/2010) ALLERGEN CASEIN (F78) IGE SEE TEXT [facility] Comment:<.35 KU/L (UNDETECTA BLE) (%ASM: 20) 10/22/2010 10/22/2010 7:0 7 PM EDT [facility] Final Result Performing Organization Address [facility] de Phone Number [facility] [address] [place] [address] * (ABNORMAL) FOOD (GENERAL) ALLERGY PANEL (10/22/2010) ALLERGEN EGG WHITE (F1) IGE SEE TEXT [facility] Comment:<.35 KU/L (UNDETECTA BLE) (%ASM: 26) ALLERGEN MILK (COW) (F2) IGE SEE TEXT [facility] Comment:<.35 KU/L (UNDETECTA BLE) (%ASM: 39) ALLERGEN SOYBEAN (F14) IGE 0.67 KU/L (LOW) (%ASM: 126)(A) [facility] ALLERGEN WHEAT (F4) IGE SEE TEXT(A) [facility] Comment:1.08 KU/L (MODERATE) (%ASM: 180) ALLERGEN CRAB (F23) IGE SEE TEXT [facility] Comment:<.35 KU/L (UNDETECTA BLE) (%ASM: 11) ALLERGEN SHRIMP (F24) IGE SEE TEXT [facility] Comment:<.35 KU/L (UNDETECTA BLE) (%ASM: 23) ALLERGEN CODFISH (F3) IGE SEE TEXT [facility] Comment:<.35 KU/L (UNDETECTA BLE) (%ASM: 12) ALLERGEN TUNA (F40) IGE SEE TEXT [facility] Comment:<.35 KU/L (UNDETECTA BLE) (%ASM: 15) ALLERGEN PEANUT (F13) IGE 6.14 KU/L (HIGH) (%ASM: 834)(A) [facility] ALLERGEN WALNUT (F256) IGE SEE TEXT(A) [facility] Comment:1.15 KU/L (MODERATE) (%ASM: 190) ALLERGEN ALMOND IGE 0.63 KU/L (LOW) (%ASM: 120)(A) [facility] 10/22/2010 10/22/2010 7:0 7 PM EDT Lubna Jansen NP LABORATORY Final Result Performing Organization Address City/State/[facility] Co de Phone Number [facility] [address] [place] [address] documented in this encounter Visit Diagnoses Diagnosis Vomiting Vomiting alone Diarrhea documented in this encounter Care Teams Varnish Cooker Relationship Specialty Start Date End Date Alicia Ragland MD PCP - General 04/04/10 06/11/15 Deja Fang NP PCP - General Internal Medicine 06/12/15 03/26/20 Jg Madera MD [address] [place] [address] PCP - General Internal Medicine 03/27/20 05/28/22 Deja Fang NP [address] [place] [address] PCP - Backup PCP Internal Medicine 03/27/20 06/30/22 Rosa Maria Green MD [address] [place] [address] PCP - General Family Medicine 05/29/22 02/20/23 Janice Fall NP [address] [place] [address] PCP - General Family Medicine 02/21/23 documented as of this encounter
--- OUTSIDE RECORDS SUMMARY | 2024-12-03 14:22 | XMS_ITS | Encounter Summary ---
Author Organization [facility] Address [address] [place] [address] Care Team Providers Care Licensed Practical Vocational Nurse Name Role Phone Deja Fang NP Primary Care Provider Jg Madera MD Primary Care Provider [phone] Deja Fang MULE TENDER Unavailable [phone] Rosa Maria Green MD Primary Care Provider [phone] Janice Fall NP Primary Care Provider [phone] Encounter Details Date Type Department Care Team (Late st Contact Info) Description 11/01/2015 Orders Only [facility] [address] [place] [address] Deja Fang, [place] [address] [address] Social History Tobacco Use Types [...] Progress Notes * Deja Fang NP - 11/02/2015 1:24 PM EDTQuick Note: See TMS- will discuss possible statin, dietary changes. documented in this encounter Plan of Treatment Not on file documented as of this encounter Procedures * Due to [facility] law, this organization might not be sharing negative HIV tests. Procedure Name Priority Date/Time Associated Diagnosis Comments ALANINE AMINOTRANSFERASE (ALT), SERUM Routine 11/01/2015 9:17 AM EDT Routine history and physical examination of adult ASPARTATE AMINOTRANSFERASE (AST), SERUM Routine 11/01/2015 9:17 AM EDT Routine history and physical examination of adult TSH, 3RD GENERATION Routine 11/01/2015 9 :17 AM EDT Routine history and physical examination of adult PROSTATE SPECIFIC ANTIGEN (PSA) TOTAL, SERUM Routine 11/01/2015 9:17 AM EDT Routine history and physical examination of adult HEMOGLOBIN A1C Routine 11/01/2015 9:17 AM EDT Screening for diabetes mellitus URINALYSIS, COMPLETE INCLUDES DIPSTICK AND MICROSCOPIC Routine 11/01/2015 9:17 AM EDT Routine history and physical examination of adult LIPID PANEL WITH REFLEX TO DIRECT LDL Routine 11/01/2015 9:17 AM EDT Hyperlipidemia, unspecified hyperlipidemia type BASIC METABOLIC PANEL WITH (GFR) Routine 11/01/2015 9:17 AM EDT Routine history and physical examination of adult HTN (hypertension), benign documented in this encounter Results * Due to [place] [employer] law, this organization might not be sharing negative HIV tests. * (ABNORMAL) HEMOGLOBIN A1C (11/01/2015 9:17 AM EDT) Hemoglobin A1C 6.0(H) <5.7 % of total Hgb [facility] Comment: {HEMOGLOBIN A1c {[id number]) According to ADA guidelines, hemoglobin A1c <7.0% represents optimal control in non- diabetic patients. Different metrics may apply to specific patient populations. Standards of Medical Care in Diabetes-2013. Diabetes Care. 2013;36:s11-s66 For the purpose of screening for the presence of diabetes <5.7% ? Consistent with the absence of diabetes 5.7-6.4% ?Consistent with increased risk for diabetes ?(prediabetes) >or=6.5% ?Consistent with diabetes This assay result is consistent with an increased risk of diabetes. Currently, no consensus exists for use of hemoglobin A1c for diagnosis of diabetes for children. Estimated Average Glucose 136 mg/dL (calc) [facility] Comment:{MEAN PLASMA GLUCOSE {[id number]) 11/01/2015 9:17 AM EDT 11/01/2015 3:37 PM EDT Narrative Resulting Agency Comment [id number] Deja Fang LABORATORY Final Result [facility] [address] [place] [address] * (ABNORMAL) LIPID PANEL WITH REFLEX TO DIRECT LDL (11/01/2015 9:17 AM EDT) Cholesterol 258(H) 125 - 200 mg/dL [facility] Comment:{CHOLESTEROL, TOTAL {[id number]) HDL Cholesterol 41 > OR = 40 mg/dL [facility] Comment:{HDL CHOLESTEROL {[id number]) Triglyceride 175(H) <150 mg/dL [facility] Comment:{TRIGLYCERIDES {[id number]) LDL Cholesterol 182(H) <130 mg/dL (calc) [facility] Comment: {LDL-CHOLESTEROL {[id number]) Desirable range <100 mg/dL for patients with CHD or diabetes and <70 mg/dL for diabetic patients with known heart disease. CHOL/HDL Ratio 6.3(H) < OR = 5.0 (calc) [facility] Comment:{CHOL/HDLC RATIO { [id number]) Cholesterol Non-HDL 217(H) mg/dL (calc) [facility] Comment: {NON HDL CHOLESTEROL {[id number]) Target for non-HDL cholesterol is 30 mg/dL higher than LDL cholesterol target. 11/01/2015 9:17 AM EDT 11/01/2015 3:37 PM EDT Narrative Resulting Agency Comment [id number] Deja Fang NP LABORATORY Final Result [facility] [address] [place] [address] * (ABNORMAL) URINALYSIS, COMPLETE INCLUDES DIPSTICK AND MICROSCOPIC (11/01/2015 9:17 AM EDT) Color (Urine) YELLOW YELLOW [facility] Comment:{COLOR {[id number]) Appearance (Urine) CLOUDY(A) CLEAR [facility] Comment:{APPEARANCE {[id number]) Specific gravity (Urine) 1.027 1.001 - 1.035 [facility] Comment:{SPECIFIC GRAVITY {[id number]) pH (Urine) 6.0 5.0 - 8.0 [facility] Comment:{PH {[id number]) Glucose (Urine) NEGATIVE NEGATIVE [facility] Comment:{GLUCOSE {[id number]) Bilirubin (Urine) NEGATIVE NEGATIVE [facility] Comment:{BILIRUBIN {[id number]) Ketones (Urine) NEGATIVE NEGATIVE [facility] Comment:{KETONES {[id number]) Hemoglobin (Urine) NEGATIVE NEGATIVE [facility] Comment:{OCCULT BLOOD {[id number]) Protein (Urine) NEGATIVE NEGATIVE [facility] Comment:{PROTEIN {[id number]) Nitrite (Urine) NEGATIVE NEGATIVE [facility] Comment:{NITRITE {[id number]) Leukocyte esterase (Urine) NEGATIVE NEGATIVE [facility] Comment:{LEUKOCYTE ESTERASE {[id number]) WBC (Urine) 0-5 < OR = 5 /HPF [facility] Comment:{WBC {[id number]) RBC (Urine Sed) NONE SEEN < OR = 2 /HPF [facility] Comment:{RBC {[id number]) Bacteria (Urine) NONE SEEN NONE SEEN /HPF [facility] Comment:{BACTERIA {[id number]) Hyaline casts (Urine sed) NONE SEEN NONE SEEN /LPF [facility] Comment:{HYALINE CAST {[id number]) Service comment 01 FEW MUCOUS THREADS [facility] Comment:{COMMENTS {[id number]) 11/01/2015 9:17 AM EDT 11/01/2015 3:37 PM EDT Narrative Resulting Agency Comment [id number] [facility] LAB SAME DAY RESULT Final Resul t Performing Organization Address City/[facility]/ZIP Co de Phone Number [facility] [address] [place] [address] * TSH, 3RD GENERATION (11/01/2015 9:17 AM EDT) TSH 2.27 0.40 - 4.50 mIU/L [facility] Comment:{TSH {[id number]) 11/01/2015 9:17 AM EDT 11/01/2015 3:37 PM EDT Narrative Resulting Agency Comment [id number] [facility]ORATORY Final Result Performing Organization Address [facility] Co de Phone Number [facility] [address] [place] [address] * PROSTATE SPECIFIC ANTIGEN (PSA) TOTAL, SERUM (11/01/2015 9:17 AM EDT) PSA 0.4 < OR = 4.0 ng/mL [facility] Comment: {PSA, TOTAL {[id number]) This test was performed using the Siemens chemiluminescent method. Values obtained from different assay methods cannot be used interchangeably. PSA levels, regardless of value, should not be interpreted as absolute evidence of the presence or absence of disease. 11/01/2015 9:17 AM EDT 11/01/2015 3:37 PM EDT Narrative Resulting Agency Comment [id number] [facility] Final Result Performing Organization Address [facility] Co de Phone Number [facility] [address] [place] [address] * ALANINE AMINOTRANSFERASE (ALT), SERUM (11/01/2015 9:17 AM EDT) ALT (SGPT) 18 9 - 46 U/L [facility] Comment:{ALT {[id number]) 11/01/2015 9:17 AM EDT 11/01/2015 3:37 PM EDT Narrative Resulting Agency Comment [id number] Deja Royal [facility] LAB SAME DAY RESULT Final Resul t Performing Organization Address [facility] de Phone Number [facility] [address] [place] [address] * ASPARTATE AMINOTRANSFERASE (AST), SERUM (11/01/2015 9:17 AM EDT) AST (SGOT) 21 10 - 35 U/L [facility] Comment:{AST {[id number]) 11/01/2015 9:17 AM EDT 11/01/2015 3:37 PM EDT Narrative Resulting Agency Comment [id number] Deja Fang NP LAB SAME DAY RESULT Final Resul t Performing Organization Address [facility] de Phone Number [facility] [address] [place] [address] * BASIC METABOLIC PANEL WITH (GFR) (11/01/2015 9:17 AM EDT) Glucose 98 65 - 99 mg/dL [facility] Comment: {GLUCOSE {[id number]) ? Fasting reference interval Urea Nitrogen Blood (BUN) 15 7 - 25 mg/dL [facility] Comment:{UREA NITROGEN (BUN) {[id number]) Creatinine 1.10 0.70 - 1.33 mg/dL [facility] Comment: {CREATININE {[id number]) For patients >49 years of age, the reference limit for Creatinine is approximately 13% higher for people identified as -Indonesian. GFR 75 > OR = 60 mL/min/1 .73m2 [facility] Comment:{eGFR NON-AFR. AMERI CAN {[id number]) GFR () 87 > OR = 60 mL/min/1 .73m2 [facility] Comment:{eGFR AMERIC AN {[id number]) BUN/Creatinine Ratio NOT APPLICABLE 6 - 22 (calc) [facility] Comment:{BUN/CREATININE RATI O {[id number]) Sodium 139 135 - 146 mmol/L [facility] Comment:{SODIUM {[id number]) Potassium 4.4 3.5 - 5.3 mmol/L [facility] Comment:{POTASSIUM {[id number]) Chloride 103 98 - 110 mmol/L [facility] Comment:{CHLORIDE {[id number]) Carbon dioxide 29 19 - 30 mmol/L [facility] Comment:{CARBON DIOXIDE {[id number]) Calcium 9.2 8.6 - 10.3 mg/dL [facility] Comment:{CALCIUM {[id number]) 11/01/2015 9:17 AM EDT 11/01/2015 3:37 PM EDT Narrative [facility] - 11/01/2015 5:27 PM EDT Please note that this estimated GFR [...] needs for GFR calculation. Resulting Agency Comment [id number] Deja Fang NP LABORATORY Final Result [facility] [address] [place] [address] documented in this encounter Visit Diagnoses Diagnosis Routine history and physical examination of adult Routine general medical examination at a health care facility HTN (hypertension), benign Essential hypertension, benign Hyperlipidemia, unspecified hyperlipidemia type Screening for diabetes mellitus documented in this encounter Care Teams Licensed Practical Vocational Nurse Relationship Specialty Start Date End Date Deja Fang NP PCP - General Internal Medicine 06/12/15 03/26/20 Jg Madera MD [address] [place] [address] PCP - General Internal Medicine 03/27/20 05/28/22 Deja Fang NP [address] [place] [address] PCP - Backup PCP Internal Medicine 03/27/20 06/30/22 Rosa Maria Green MD [address] [place] [address] PCP - General Family Medicine 05/29/22 02/20/23 Janice Fall NP [address] [place] [address] PCP - General Family Medicine 02/21/23 documented as of this encounter
--- OUTSIDE RECORDS SUMMARY | 2024-12-03 14:22 | XMS_ITS | Encounter Summary ---
Author Organization [facility] Address [address] [place] [address] Care Team Providers Care Clearance Rep Name Role Phone Deja Fang NP Primary Care Provider Jg Madera MD Primary Care Provider [phone] Deja Fang NP Unavailable [phone] Rosa Maria Green MD Primary Care Provider [phone] Janice Fall NP Primary Care Provider [phone] Reason for Visit * Reason Comments E-prescribing Refill Request Encounter Details Date Type Department Care Team (Late st Contact Info) Description 11/04/2016 Refill [facility] [address] [place] [address] Deja Fang NP [address] [facility] [address] [place], [place] [id number] E-prescribing Refill Request Social History Tobacco Use [...] encounter Miscellaneous Notes * Telephone Encounter - Leona Ambrosio MD - 11/04/2016 3:14 PM EDT Pls have him drop urine firstly. Thanks. * Telephone Encounter - Izabella Rajan - 11/04/2016 2:41 PM EDT Any special requests or concerns? none Faxed/E-prescribed medication renewal request(s) for Josh Johnston 56 y.o. male received from pharmacy. Verified and Confirmed pharmacy for patient. Last CPE with this specialty: 05/06/2016 Last OV with this specialty: 10/25/2016 Next OV: Future Appointments Date Time Provider Department Center 11/05/2016 8:40 AM [facility] Pertinent lab results: Last known [facility] check: Not Found Last UDS date Not Found Last narcotic fill date found 10/11/2016 Josh has not had a Urine Drug Screen in the last year. No pain management FYI in place. Consider a narcotic contract and regular drug screens for chronic narcotic patients. No results found for: BARBITUATESU, BUPRENORPHU, BENZOYLECGUR, MDMAMDA, [id number], OPIATESUR, CODEINEUR, HYDROCODONUC, HYDROCODONUR, HYDROMRPCU, MORPHINEUR, OXYMORPHUR, OXYCODONEUR, METHADONEUR, PCPURNo results found for: THCUR, THCQUANTUR, BENZODIAZU, BENZODICONFU, TEMAZEPAMU, LORAZEPAMU, NORDIAZEP AMU, OXAZEPAMU, FENTANYLU, NORFENTANYLU, AOHTRIAZOLU, MEPERIDINEU, NORMEPERIDNU, NORTRAMADOLU, TRAMADOLU, 7ACLONAZMU, 6ACETYLMORPU, AMPHETAMINEU, RITALINIC Allergies: Morphine and Nuts BP Readings from Last 1 Encounters: 10/25/16 122/74 Patient Active Problem List Diagnosis Date Noted [...] Moderate-Severe. Followed by Dr. Cabezas, psychiatrist @ [facility] in [place]. 05/08/2015- Seeing Theresa Miguel MATERIAL DISTRIBUTOR for med management and diagnosis. Recent stressors at work. Pending visit with MATERIAL DISTRIBUTOR for return to work. ??? GERD (gastroesophageal reflux disease) 06/30/2006 Persistent. On Omeprazole BID. Followed by GI. 05/08/2015-chronic and ongoing. ??? IRRITABLE BOWEL 06/30/2006 Intermittent symptoms on symptomatic treatment. 05/08/2015-flareup with increased stress. Reinforced treatment and symptoms to report to office. ??? 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 Current Outpatient Prescriptions on File Prior to Visit Medication Sig Dispense Refill ??? Esomeprazole Magnesium 40 MG CAPSULE DELAYED RELEASE * 90 UNITS = 90 DAY SUPPLY * 90 5 ??? Prochlorperazine Maleate 10 MG Tab * 270 UNITS = 90 DAY SUPPLY * 270 1 ??? Gabapentin 300 MG Cap * 270 UNITS = 90 DAY SUPPLY * 270 2 ??? Tamsulosin HCl 0.4 MG Cap * 90 UNITS = 90 DAY SUPPLY * 90 7 ??? Triamcinolone Acetonide 0.1 % Ointment apply 2-3 x per day 60 g 1 ??? Triamcinolone Acetonide 0.1 % Ointment * 60 UNITS = 30 DAY SUPPLY * 60 1 ??? Diclofenac Sodium 1 % Gel APPLY 4GRAMS TO AFFECTED AREA(S) 4 TIMES A DAY DIRECTED 100 g 2 ??? Methocarbamol 500 MG Tab Take one tablet by mouth up to four times daily as needed for spasm 40Tab 0 ??? TraMADol HCl 50 MG Tab 1 tablet up to twice daily as needed for pain 40 Tab 0 ??? HydrOXYzine HCl 50 MG Tab TAKE 1 TABLET TWICE A DAY NEEDED 180 Tab 1 ??? Esomeprazole Magnesium 40 MG CAPSULE DELAYED RELEASE TAKE ONE CAPSULE BY MOUTH EVERY DAY 30 Cap5 ??? Prochlorperazine Maleate 10 MG Tab TAKE 1 TABLET BY MOUTH 3 TIMES A DAY 90 Tab 1 ??? Gabapentin 300 MG Cap 1 by mouth at bedtime, gradually increase to three times a day as tolerated 90 Cap 2 ??? ALPRAZolam 0.25 MG Tab TAKE 1 TABLET BY MOUTH THREE TIMES A DAY 270 Tab 0 ??? Atorvastatin Calcium 40 MG Tab 1 by mouth daily 30 Tab 5 ??? Sertraline HCl 50 MG Tab TAKE 1 TABLET THREE TIMES A DAY 270 Tab 1 ??? BuPROPion HCl 150 MG TABLET SR 12 HR TAKE 1 TABLET EVERY DAY 90 Tab 2 ??? Hyoscyamine Sulfate 0.125 MG Tab [...] then call 911 2 Package 0 ??? Multiple Vitamin (MULTI-VITAMIN) Tab 1 TABLET DAILY documented in this encounter Plan of Treatment Not on file documented as of this encounter Results * Due to [place] state law, this organization might not be sharing negative HIV tests. * (ABNORMAL) PAIN MANAGEMENT PROFILE, URINE (PAINM2) (12/22/2017 5:20 PM EDT) Creatinine (Urine) >300.0 > or = 20.0 mg/dL [facility] Comment:Verified by repeat a nalysis. pH (Urine) 5.6 4.5 - 9.0 [facility] OXIDANT NEGATIVE <200 mcg/mL [facility] Amphetamines (Screen) NEGATIVE <500 ng/mL [facility] Barbiturates (Urine) NEGATIVE <300 ng/mL [facility] Benzodiazepine And Metabolites, Urine POSITIVE(A ) <100 ng/mL [facility] Alpha hydroxyalprazolam (Urine) 124(H) <25 ng/mL [facility] 1-Hydroxymidazolam (Urine) NEGATIVE <50 ng/mL [facility] Alpha Hydroxytriazolam (Urine) NEGATIVE <50 ng/mL [facility] 7-Aminoclonazepam (Urine) NEGATIVE <25 ng/mL [facility] Hydroxyethylflurazepam (Urine) NEGATIVE <50 ng/mL [facility] Lorazepam (Urine) NEGATIVE <50 ng/mL [facility] Nordiazepam (Urine) NEGATIVE <50 ng/mL [facility] Oxazepam (Urine) NEGATIVE <50 ng/mL [facility] Temazepam (Urine) NEGATIVE <50 ng/mL [facility] Buprenorphine (Suboxone) (Urine) NEGATIVE <5 ng/mL [facility] Benzoylecgonine (Cocaine Metabolite) (Urine) NEGATIVE <150 ng/mL [facility] 6-Monoacetylmorphine (Heroin Metabolite) (Urine) NEGATIVE <10 ng/mL [facility] Tetrahydrocannabinol (Urine) POSITIVE(A ) <20 ng/mL [facility] Tetrahydrocannabinol (Urine) >5000(H) <5 ng/mL [facility] MDMA/MDA NEGATIVE <500 ng/mL [facility] EDDP ( Methadone Metabolite) NEGATIVE <100 ng/mL [facility] Opiates (Urine) NEGATIVE <100 ng/mL [facility] Oxycodone (Urine) NEGATIVE <100 ng/mL [facility] Phencyclidine (Urine) NEGATIVE <25 ng/mL [facility] COMMENT SEE NOTE [facility] Comment: This drug testing is for medical treatment only. ?? Analysis was performed as non-forensic testing and these results should be used only by healthcare providers to render diagnosis or treatment, or to monitor progress of medical conditions. For assistance with interpreting these drug results, please contact a [facility] Toxic[facility] Specialist: [phone] ( ), M-F, 8am-6pm EST. 12/22/2017 5:20 PM EDT 12/23/2017 1:54 AM EDT Narrative Resulting Agency Comment [id number] Deja Fang NP LABORATORY Final Result [facility] [address] [place] [address] documented in this encounter Visit Diagnoses Diagnosis Back pain Backache, unspecified documented in this encounter Care Teams Clearance Rep Relationship Specialty Start Date End Date Deja Fang NP PCP - General Internal Medicine 06/12/15 03/26/20 Jg Madera MD [address] [place] [address] PCP - General Internal Medicine 03/27/20 05/28/22 Deja Fang NP [address] [place] [address] PCP - Backup PCP Internal Medicine 03/27/20 06/30/22 Rosa Maria Green MD [address] [place] [address] PCP - General Family Medicine 05/29/22 02/20/23 Janice Fall NP [address] [place] [address] PCP - General Family Medicine 02/21/23 documented as of this encounter
--- OUTSIDE RECORDS SUMMARY | 2024-12-03 14:22 | XMS_ITS | Encounter Summary ---
Author Organization [facility] Address [address] [place] [address] Care Team Providers Care Consultant Name Role Phone Alicia Ragland MD Primary Care Provider Unavaila Deja Yepez NP Primary Care Provider Jg Madera MD Primary Care Provider Deja Fang NP Unavailable [phone] Rosa Maria Green MD Primary Care Provider [phone] Janice Fall NP Primary Care Provider [phone] Encounter Details Date Type Department Care Team (Late st Contact Info) Description 03/03/2012 Orders Only [facility] [address] [place] [id number] Alicia Ragland MD Social History Tobacco Use [...] encounter Progress Notes * Alicia Ragland - 03/04/2012 4:30 PM EDTQuick Note: Disregard previous- will talk to him directly. * Alicia Ragland - 03/04/2012 4:28 PM EDTQuick Note: ua negative- unlikely has kidney stones- cpk improved- repeat in 3 mo. documented in this encounter Plan of Treatment Scheduled Orders Name Type Priority Associated Diagnoses Orde r Schedule BASIC METABOLIC PANEL WITH (GFR) Lab Routine Vomiting Expected: 06/03/2012 (Approximate), Expires: 06/03/2013 documented as of this encounter Procedures * Due to [place] [facility] law, this organization might not be sharing negative HIV tests. Procedure Name Priority Date/Time Associated Diagnosis Comments CREATINE KINASE (CK), SERUM Routine 03/03/2012 11:44 AM EDT Hyperlipidemia URINALYSIS, COMPLETE INCLUDES DIPSTICK AND MICROSCOPIC Routine 03/03/2012 11:44 AM EDT Vomiting documented in this encounter Results * Due to [place] [facility] law, this organization might not be sharing negative HIV tests. * (ABNORMAL) CREATINE KINASE (CK), SERUM (07/14/2012 9:40 AM EST) CPK 335(H) 44 - 196 U/L [facility] Comment:{CREATINE KINASE, TO ALYSHA {[id number]) 07/14/2012 9:40 AM EST 07/14/2012 6:35 PM EST Narrative Resulting Agency Comment [id number] us Alicia Ragland MD LAB SAME DAY RESULT Final Resul t [facility] [address] [place] [address] * (ABNORMAL) CREATINE KINASE (CK), SERUM (03/03/2012 11:44 AM EDT) CPK 333(H) 44 - 196 U/L [facility] Comment:{CREATINE KINASE, TO ALYSHA {[id number]) 03/03/2012 11:4 4 AM EDT 03/03/2012 6:42 PM EDT Narrative Resulting Agency Comment [id number] us Alicia Ragland MD LAB SAME DAY RESULT Final Resul t [facility] [address] [place] [address] * URINALYSIS, COMPLETE INCLUDES DIPSTICK AND MICROSCOPIC (03/03/2012 11:44 AM EDT) Color (Urine) YELLOW YELLOW [facility] Comment:{COLOR {[id number]) Appearance (Urine) CLEAR CLEAR [facility] Comment:{APPEARANCE {[id number]) Specific gravity (Urine) 1.016 1.001 - 1.035 [facility] Comment:{SPECIFIC GRAVITY {[id number]) pH (Urine) 5.5 5.0 - 8.0 [facility] Comment:{PH {[id number]) Glucose (Urine) NEGATIVE NEGATIVE [facility] Comment:{GLUCOSE {[id number]) Bilirubin (Urine) NEGATIVE NEGATIVE [facility] Comment:{BILIRUBIN {[id number]) Ketones (Urine) NEGATIVE NEGATIVE [facility] Comment:{KETONES {[id number]) Hemoglobin (Urine) NEGATIVE NEGATIVE [facility] Comment:{OCCULT BLOOD {[id number]) Protein (Urine) NEGATIVE NEGATIVE [facility] Comment:{PROTEIN {[id number]) Nitrite (Urine) NEGATIVE NEGATIVE [facility] Comment:{NITRITE {[id number]) Leukocyte esterase (Urine) NEGATIVE NEGATIVE [facility] Comment:{LEUKOCYTE ESTERASE {[id number]) WBC (Urine) NONE SEEN < OR = 5 /HPF [facility] Comment:{WBC {[id number]) RBC (Urine Sed) NONE SEEN < OR = 3 /HPF [facility] Comment:{RBC {[id number]) Epithelial cells.squamous (Urine sed) NONE SEEN < OR = 5 /HPF [facility] Comment:{SQUAMOUS EPITHELIAL CELLS {[id number]) Bacteria (Urine) NONE SEEN NONE SEEN /HPF [facility] Comment:{BACTERIA {[id number]) Hyaline casts (Urine sed) NONE SEEN NONE SEEN /LPF [facility] Comment:{HYALINE CAST {[id number]) 03/03/2012 11:4 4 AM EDT 03/03/2012 6:42 PM EDT Narrative Resulting Agency Comment [id number] us Alicia Ragland MD LAB SAME DAY RESULT Final Resul t [facility] [address] [place] [address] documented in this encounter Visit Diagnoses Diagnosis Vomiting Vomiting alone Hyperlipidemia Other and unspecified hyperlipidemia documented in this encounter Care Teams Consultant Relationship Specialty Start Date End Date Alicia Ragland MD PCP - General 04/04/10 06/11/15 Deja Fang NP PCP - General Internal Medicine 06/12/15 03/26/20 Jg Madera MD [address] [place] [address] PCP - General Internal Medicine 03/27/20 05/28/22 Deja Fang NP [address] [place] [address] PCP - Backup PCP Internal Medicine 03/27/20 06/30/22 Rosa Maria Green MD [address] [place] [address] PCP - General Family Medicine 05/29/22 02/20/23 Janice Fall NP [address] [place] [address] PCP - General Family Medicine 02/21/23 documented as of this encounter
--- OUTSIDE RECORDS SUMMARY | 2024-12-03 14:22 | XMS_ITS | Encounter Summary ---
Author Organization [facility] Address [address] [place] [address] Care Team Providers Care Assistant Executive Housekeeper Name Role Phone Alicia Ragland MD Primary Care Provider UnavailAlicia Kumari MD Primary Care Provider Unavaila Deja Yepez NP Primary Care Provider Jg Madera MD Primary Care Provider [phone] Deja Fang AWNING CRAFTSPERSON Unavailable [phone] Rosa Maria Green MD Primary Care Provider [phone] Janice Fall NP Primary Care Provider [phone] Encounter Details Date Type Department Care Team (Late st Contact Info) Description 07/11/2009 Orders Only [facility] [address] [place] [phone] Alicia Ragland MD Social History Tobacco Use [...] on filedocumented in this encounter Care Teams Assistant Executive Housekeeper Relationship Specialty Start Date End Date Alicia Ragland MD PCP - General 04/04/10 06/11/15 Alicia Ragland MD PCP - General 10/28/05 04/03/10 Deja Fang NP PCP - General Internal Medicine 06/12/15 03/26/20 Jg Madera MD [address] [facility] [place] [address] PCP - General Internal Medicine 03/27/20 05/28/22 Deja Fang NP [address] [place] [address] PCP - Backup PCP Internal Medicine 03/27/20 06/30/22 Rosa Maria Green MD [address] [place] [address] PCP - General Family Medicine 05/29/22 02/20/23 Janice Fall NP [address] [place] [address] PCP - General Family Medicine 02/21/23 documented as of this encounter
--- OUTSIDE RECORDS SUMMARY | 2024-12-03 14:22 | XMS_ITS | Encounter Summary ---
Author Organization [facility] Address [address] [place] [address] Care Team Providers Care Lobby Porter Name Role Phone Alicia Ragland MD Primary Care Provider UnavailAlicia Kumari MD Primary Care Provider Unavaila Deja Yepez NP Primary Care Provider [phone] Jg Madera MD Primary Care Provider Deja Fang GENERAL MAINTENANCE ENGINEER Unavailable [phone] Rosa Maria Green MD Primary Care Provider [phone] Janice Fall NP Primary Care Provider [phone] Encounter Details Date Type Department Care Team (Late st Contact Info) Description 01/08/2009 Orders Only [facility] [address] [place] [phone] Madi Guzman MD Social History Tobacco Use Types Packs/Day [...] this encounter Procedures * Due to [place] state law, this organization might not be sharing negative HIV tests. Procedure Name Priority Date/Time Associated Diagnosis Comments CULTURE, STREP SCREEN (GROUP A), THROAT Routine 01/08/2009 Acute Pharyngitis documented in this encounter Results * Due to [place] [employer] law, this organization might not be sharing negative HIV tests. * (ABNORMAL) CULTURE, STREP SCREEN (GROUP A), THROAT (01/08/2009) Result(s) SEE TEXT(A) Comment: SOURCE: THROAT MODERATE GROWTH OF BETA-HEMOLYTIC STREPTOCOCCUS, NOT GROUP A 01/08/2009 01/09/2009 12: 39 AM EDT Madi Guzman MD LABORATORY Final Result documented in this encounter Visit Diagnoses Diagnosis Acute pharyngitis documented in this encounter Care Teams Lobby Porter Relationship Specialty Start Date End Date Alicia Ragland MD PCP - General 04/04/10 06/11/15 Alicia Ragland MD PCP - General 10/28/05 04/03/10 Deja Fang NP PCP - General Internal Medicine 06/12/15 03/26/20 Jg Madera MD [address] [place] [address] PCP - General Internal Medicine 03/27/20 05/28/22 Deja Fang NP [address] [place] [address] PCP - Backup PCP Internal Medicine 03/27/20 06/30/22 Rosa Maria Green MD [address] [place] [address] PCP - General Family Medicine 05/29/22 02/20/23 Janice Fall NP [address] [place] [address] PCP - General Family Medicine 02/21/23 documented as of this encounter
--- OUTSIDE RECORDS SUMMARY | 2024-12-03 14:22 | XMS_ITS | Encounter Summary ---
Author Organization [facility] Address [address] [place] [address] Care Team Providers Care Arson And Bomb Investigator Name Role Phone Alicia Ragland MD Primary Care Provider Unavaila Deja Yepez NP Primary Care Provider Jg Madera MD Primary Care Provider [phone] Deja Fang NP Unavailable [phone] Rosa Maria Green MD Primary Care Provider [phone] Janice Fall NP Primary Care Provider [phone] Encounter Details Date Type Department Care Team (Late st Contact Info) Description 08/26/2011 Orders Only [facility] [address] [place] [phone] Alicia Ragland MD Medications Social History Tobacco Use Types Packs/Day Years [...] Procedure Name Priority Date/Time Associated Diagnosis Comments URINALYSIS, DIP ONLY STAT (All results called to provider) 08/26/2011 12:14 PM EST Kidney stone CULTURE, URINE, ROUTINE Routine 08/26/2011 12:00 PM EST Kidney stone URINALYSIS, MICROSCOPIC Routine 08/26/2011 12:00 PM EST Kidney stone documented in this encounter Results * Due to [place] [employer] law, this organization might not be sharing negative HIV tests. * (ABNORMAL) URINALYSIS, DIP ONLY ( SITE STAT ONLY) (08/26/2011 12:14 PM EST) COLOR (URINE) YELLOW [facility] (CLIA# [id number]) APPEARANCE (URINE) CLEAR [facility] (CLIA# [id number]) SPECIFIC GRAVITY 1.020 1.001 - 1.035 [facility] (CLIA# [id number]) PH (URINE) 6.5 5.0 - 8.0 [facility] (CLIA# [id number]) PROTEIN (URINE) 1+(A) Neg [facility] (CLIA# [id number]) GLUCOSE (URINE) NEGATIVE Neg [facility] (CLIA# [id number]) Ketones (Urine) NEGATIVE Neg [facility] (CLIA# [id number]) BILIRUBIN (URINE) NEGATIIVE Neg [facility] (CLIA# [id number]) BLOOD (URINE) 1+(A) Neg [facility] (CLIA# [id number]) WBC (URINE) NEGATIVE Neg [facility] (CLIA# [id number]) NITRITE (URINE) NEGATIVE Neg [facility] (CLIA# [id number]) Urine specimen obtained by clean catch procedure (specimen) 08/26/2011 12:14 PM EST Narrative [facility] (CLIA# [id number]) - 08/26/2011 12:15 PM EST Micro and culture already ordered per provider. us Alicia Ragland MD LAB SAME DAY RESULT Final Resul t Performing Organization Address City/[facility]/ZIP Co de Phone Number [facility] (CLIA# [id number]) [address] [place] [address] * (ABNORMAL) URINALYSIS, MICROSCOPIC (08/26/2011 12:00 PM EST) WBC (Urine) 0-5 < OR = 5 /HPF [facility] Comment:{WBC {[id number]) RBC (Urine Sed) 4-10(A) < OR = 3 /HPF [facility] Comment:{RBC {[id number]) Epithelial cells.squamous (Urine sed) NONE SEEN < OR = 5 /HPF [facility] Comment:{SQUAMOUS EPITHELIAL CELLS {[id number]) Bacteria (Urine) NONE SEEN NONE SEEN /HPF [facility] Comment:{BACTERIA {[id number]) Hyaline casts (Urine sed) NONE SEEN NONE SEEN /LPF [facility] Comment:{HYALINE CAST {[id number]) Service comment 01 SEE NOTE [facility] Comment: {NOTE {[id number]) This urine was analyzed for the presence of WBC, RBC, bacteria, casts, and other formed elements. Only those elements seen were reported. 08/26/2011 12:0 0 PM EST 08/26/2011 11:02 PM EST Narrative Resulting Agency Comment [id number] us Alicia Ragland MD LAB SAME DAY RESULT Final Resul t [facility] [address] [place] [address] * CULTURE, URINE, ROUTINE (08/26/2011 12:00 PM EST) Bacteria culture (Urine) SEE NOTE [facility] Comment: {CULTURE, URINE, ROUTINE {[id number]) ??CULTURE, URINE, ROUTINE ??MICRO NUMBER: ?[id number] ??TEST STATUS: ? FINAL ??SPECIMEN SOURCE: ?? URINE ??SPECIMEN QUALITY: ??ADEQUATE ??RESULT: ?No Growth 08/26/2011 12:0 0 PM EST 08/26/2011 11:02 PM EST Narrative Resulting Agency Comment [id number] us Alicia Ragland MD LABORATORY Final Result Performing Organization Address City/State/[facility] Co de Phone Number [facility] [address] [place] [address] documented in this encounter Visit Diagnoses Diagnosis Kidney stone Calculus of kidney documented in this encounter Care Teams Arson And Bomb Investigator Relationship Specialty Start Date End Date Alicia Ragland MD PCP - General 04/04/10 06/11/15 Deja Fang NP PCP - General Internal Medicine 06/12/15 03/26/20 Jg Madera MD [address] [place] [address] PCP - General Internal Medicine 03/27/20 05/28/22 Deja Fang NP [address] [place] [address] PCP - Backup PCP Internal Medicine 03/27/20 06/30/22 Rosa Maria Green MD [address] [place] [address] PCP - General Family Medicine 05/29/22 02/20/23 Janice Fall NP [address] [place] [address] PCP - General Family Medicine 02/21/23 documented as of this encounter
--- OUTSIDE RECORDS SUMMARY | 2024-12-03 14:22 | XMS_ITS | Encounter Summary ---
Author Organization [facility] Address [address] [place] [address] Care Team Providers Care Endoscopy Rn Name Role Phone Alicia Ragland MD Primary Care Provider UnavailAlicia Kumari MD Primary Care Provider Unavaila Deja Yepez NP Primary Care Provider Jg Madera MD Primary Care Provider Deja Fang CORPORATE TUTOR Unavailable [phone] Rosa Maria Green MD Primary Care Provider [phone] Janice Fall NP Primary Care Provider [phone] Encounter Details Date Type Department Care Team (Late st Contact Info) Description 11/07/2008 Orders Only [facility] [address] [place] [phone] Alicia Ragland MD Social History Tobacco Use [...] of this encounter Procedures * Due to [place] state law, this organization might not be sharing negative HIV tests. Procedure Name Priority Date/Time Associated Diagnosis Comments BASIC METABOLIC PANEL W/GLOMERULAR FILTRATION RATE (EGFR) Routine 11/07/2008 IBS (Irritable Bowel Syndrome) HELIOBACTER PYLORI IGG Routine 11/07/2008 IBS (Irritable Bowel Syndrome) CBC 5 PART DIFF Routine 11/07/2008 IBS (Irritable Bowel Syndrome) LIPASE Routine 11/07/2008 IBS (Irritable Bowel Syndrome) AMYLASE Routine 11/07/2008 IBS (Irritable Bowel Syndrome) URINALYSIS, DIPSTICK WITH REFLEX MICROSCOPIC Routine 11/07/2008 IBS (Irritable Bowel Syndrome) HEPATIC FUNCTION PANEL Routine 11/07/2008 IBS (Irritable Bowel Syndrome) documented in this encounter Results * Due to [place] [employer] law, this organization might not be sharing negative HIV tests. * (ABNORMAL) URINALYSIS, DIPSTICK WITH REFLEX MICROSCOPIC (11/07/2008) COLOR (URINE) DK YELLOW YELLOW APPEARANCE (URINE) CLEAR CLEAR SPECIFIC GRAVITY 1.037(H) 1.001 - 1.035 PH (URINE) 5.5 5.0 - 8.0 PROTEIN (URINE) TRACE(A) NEG GLUCOSE (URINE) NEG NEG Ketones (Urine) NEG NEG BILIRUBIN (URINE) NEG NEG BLOOD (URINE) NEG NEG WBC (URINE) NEG NEG NITRITE (URINE) NEG NEG 11/07/2008 11/07/2008 9:0 8 PM EDT us Alicia Ragland MD LAB SAME DAY RESULT Final Resul t * (ABNORMAL) CBC 5 PART DIFF (11/07/2008) WHITE BLOOD COUNT 11.0(H) 3.8 - 10.8 THOUS/UL RBC 4.58 4.20 - 5.80 MIL/UL Hemoglobin 15.3 13.2 - 17.1 G/DL HCT (HEMATOCRIT) 45.4 38.5 - 50.0 % MCV 99.2 80.0 - 100.0 FL MCH 33.3(H) 27.0 - 33.0 PG MCHC 33.6 32.0 - 36.0 G/DL BAND % 0 0 - 5 % NEUTROPHIL % 84(H) 48 - 75 % LYMPHOCYTE % 10(L) 17 - 40 % MONOCYTE % 5 0 - 14 % EOSINOPHIL % 1 0 - 5 % BASOPHIL % 0 0 - 3 % ATYPICAL LYMPHOCYTE % 0 0 - 5 % PLATELETS 247 140 - 400 THOUS/UL BANDS # 0 0 - 750 CELLS/MCL NEUTROPHILS # 9240(H) 1500 - 7800 CELLS/MCL LYMPHOCYTES # 1100 850 - 3900 CELLS/MCL MONOCYTES # 550 200 - 950 CELLS/MCL EOSINOPHILS # 110 15 - 550 CELLS/MCL BASOPHILS # 0 0 - 200 CELLS/MCL ATYPICAL LYMPHOCYTES # 0 0 - 200 CELLS/MCL RDW 12.9 11.0 - 15.0 % MPV 8.3 7.5 - 11.5 FL 11/07/2008 11/07/2008 9:0 8 PM EDT Alicia Ragland MD LAB SAME DAY RESULT Final Resul t * LIPASE (11/07/2008) [facility] LIPASE 21 7 - 60 U/L 11/07/2008 11/07/2008 9:0 8 PM EDT Alicia Ragland MD LABORATORY Final Result * HEPATIC FUNCTION PANEL (11/07/2008) Pathologist [facility] Total Protein 7.8 6.2 - 8.3 G/DL ALBUMIN 4.8 3.5 - 4.9 G/DL GLOBULIN 3.0 2.1 - 3.7 G/DL ALBUMIN/GLOBULIN RATIO 1.6 1.0 - 2.1 BILIRUBIN TOTAL 0.7 0.2 - 1.2 MG/DL BILIRUBIN DIRECT 0.1 0 - 0.3 MG/DL ALKALINE PHOSPHATASE 54 40 - 115 U/L AST (SGOT) 33 10 - 40 U/L ALT (SGPT) 45 9 - 60 U/L 11/07/2008 11/07/2008 9:0 8 PM EDT Result Hebert Ragland MD LABORATORY Final Result * BASIC METABOLIC PANEL W/GLOMERULAR FILTRATION RATE (EGFR) (11/07/2008) CALCIUM 9.8 8.6 - 10.2 MG/DL BUN 17 7 - 25 MG/DL CREATININE 1.15 0.78 - 1.34 MG/DL Glucose 98 65 - 99 MG/DL SODIUM 139 135 - 146 MMOL/L POTASSIUM 4.6 3.5 - 5.3 MMOL/L CHLORIDE 104 98 - 110 MMOL/L CARBON DIOXIDE 22 21 - 33 MMOL/L GFR > 60 60 AND ABOVE Comment:UNITS: ML/MIN/1.73 S Q METERS EGFR > 60 60 AND ABOVE Comment:UNITS: ML/MIN/1.73 S Q METERS 11/07/2008 11/07/2008 9:0 8 PM EDT Narrative 11/08/2008 6:07 AM EDT Please note that this estimated [...] with more precise needs for GFR calculation. Result Hebert Ragland MD LABORATORY Final Result * AMYLASE (11/07/2008) AMYLASE 33 21 - 101 U/L 11/07/2008 11/07/2008 9:0 8 PM EDT Result Hebert Ragland MD LAB SAME DAY RESULT Final Resul t * H. PYLORI IGG (11/07/2008) H. Pylori IgG NEGATIVE NEGATIVE 11/07/2008 11/07/2008 9:0 8 PM EDT Result Hebert Ragland MD LABORATORY Final Result documented in this encounter Visit Diagnoses Diagnosis IBS (irritable bowel syndrome) Irritable bowel syndrome documented in this encounter Care Teams Endoscopy Rn Relationship Specialty Start Date End Date Alicia Ragland MD PCP - General 04/04/10 06/11/15 Alicia Ragland MD PCP - General 10/28/05 04/03/10 Deja Fang NP PCP - General Internal Medicine 06/12/15 03/26/20 Jg Madera MD [address] [place] [address] PCP - General Internal Medicine 03/27/20 05/28/22 Deja Fang NP [address] [place] [address] PCP - Backup PCP Internal Medicine 03/27/20 06/30/22 Rosa Maria Green MD [address] [place] [address] PCP - General Family Medicine 05/29/22 02/20/23 Janice Fall NP [address] [place] [address] PCP - General Family Medicine 02/21/23 documented as of this encounter
--- OUTSIDE RECORDS SUMMARY | 2024-12-03 14:22 | XMS_ITS | Encounter Summary ---
Author Organization [facility] Address [address] [place] [address] Care Team Providers Care Repair Department Supervisor Name Role Phone Alicia Ragland MD Primary Care Provider UnavailAlicia Kumari MD Primary Care Provider Unavaila Deja Yepez NP Primary Care Provider Jg Madera MD Primary Care Provider [phone] Deja Fang BANK REPRESENTATIVE Unavailable [phone] Rosa Maria Green MD Primary Care Provider [phone] Janice Fall NP Primary Care Provider [phone] Encounter Details Date Type Department Care Team (Late st Contact Info) Description 07/14/2009 Orders Only [facility] [address] [place] [id number] Alicia Ragland MD Social History Tobacco Use [...] encounter Progress Notes * Alicia Ragland - 07/17/2009 4:55 PM ESTQuick Note: A1c in 3 mo. documented in this encounter Plan of Treatment Pending Results Name Type Priority Associated Diagnoses Date /Time XRAY KNEE AP, LAT, OBLQ & BILAT STANDING ANT Imaging Routine 07/14/2009 2:47 PM EST documented as of this encounter Procedures * Due to [place] state law, this organization might not be sharing negative HIV tests. Procedure Name Priority Date/Time Associated Diagnosis Comments XRAY HIP COMPLETE MIN 2 VWS - RIGHT Routine 07/14/2009 2:48 PM EST XRAY KNEE AP, LAT, OBLQ & BILAT STANDING ANT Routine 07/14/2009 2:47 PM EST XRAY KNEE AP LAT & OBLQ MIN 3 VW Routine 07/14/2009 2:47 PM EST XRAY CHEST 2 VIEWS PA & LAT Routine 07/14/2009 2:47 PM EST XRAY SPINE LUMBOSACRAL AP & LAT Routine 07/14/2009 2:46 PM EST XRAY FOOT COMPLETE MIN 3 VWS - LEFT Routine 07/14/2009 2:23 PM EST BASIC METABOLIC PANEL W/GLOMERULAR FILTRATION RATE (EGFR) Routine 07/14/2009 Routine general medical examination at a health care facility HEMOGLOBIN A1C Routine 07/14/2009 Routine general medical examination at a health care facility Diabetes mellitus type II LIPID PANEL + CARDIAC RISK WITH REFLEX TO LDL DIRECT Routine 07/14/2009 Routine general medical examination at a health care facility Hyperlipidemia PSA (PROSTATE SPECIFIC ANTIGEN) TOTAL, ANNUAL SCREEN Routine 07/14/2009 Routine general medical examination at a health care facility Prostate cancer screening CBC 5 PART DIFF Routine 07/14/2009 Routine general medical examination at a health care facility ASPARTATE AMINOTRANSFERASE (AST), SERUM Routine 07/14/2009 Routine general medical examination at a health care facility TSH, THYROTROPIN Routine 07/14/2009 Routine general medical examination at [facility] VITAMIN D, 25-HYDROXY, LC/MS/MS Routine 07/14/2009 Routine general medical examination at [facility] URINALYSIS, DIPSTICK WITH REFLEX MICROSCOPIC Routine 07/14/2009 Routine general medical examination at [facility] documented in this encounter Results * Due to [place] state law, this organization might not be sharing negative HIV tests. * XRAY HIP COMPLETE MIN 2 VWS - RIGHT (07/14/2009 2:48 PM EST) RADIOLOGY REPORT Right hip with AP pelvis: The SI joint spaces and hip joint spaces are preserved bilaterally. No fracture or destructive lesion is seen. An ovoid calcification projected adjacent to the inferior aspect of the greater trochanter on the straight AP view is well removed from bone on the frog-lateral view and may be vascular. Soft tissues about the hips are unremarkable. There are number of calcified phleboliths in the pelvis. Small left intratrochanteric sclerosis is likely a bone island. Anatomical Region Laterality Modality Other 07/14/2009 2:48 PM EST Narrative 07/19/2009 2:18 PM EST Reason for Study/History: CHEST; LT FOOT; BILAT KNEES; LS-SPINE; RT HIP; PAIN NO INJURY TEST(S) PROCESSED BY [facility] AT [facility] us Alicia Ragland MD GENERAL IMAGING- OTHER Final Re sult * XRAY KNEE AP LAT & OBLQ MIN 3 VW (07/14/2009 2:47 PM EST) RADIOLOGY REPORT Bilateral Knee Including [place]al View and Standing AP views of Both Knees: There is a total left knee prosthesis with components in satisfactory position and alignment. No apparent loosening. There is some heterotopic bone projected over the lateral joint margin. On the right, the medial joint space is narrowed with mild spurring. There is also minor spurring at the right posterior patellar margin. No erosion or effusion. Anatomical Region Laterality Modality Other 07/14/2009 2:47 PM EST Narrative 07/19/2009 2:13 PM EST Reason for Study/History: CHEST; LT FOOT; BILAT KNEES; LS-SPINE; RT HIP TEST(S) PROCESSED BY [facility] AT [facility] Alicia Ragland MD GENERAL IMAGING- OTHER Final Re sult * XRAY CHEST 2 VIEWS PA & LAT (07/14/2009 2:47 PM EST) RADIOLOGY REPORT PA and lateral chest: Cardiomediastin al contour and pulmonary vasculature are normal. Mild biapical pleural thickening. Lung gibson are clear and sulci are sharp. Impression: No active disease. Anatomical Region Laterality Modality Other 07/14/2009 2:47 PM EST Narrative 07/19/2009 2:14 PM EST Reason for Study/History: CHEST; LT FOOT; BILAT KNEES; LS-SPINE; RT HIP TEST(S) PROCESSED BY [facility] Alicia Ragland MD GENERAL IMAGING- OTHER Final Re sult * XRAY SPINE LUMBOSACRAL AP & LAT (07/14/2009 2:46 PM EST) RADIOLOGY REPORT Lumbosacral spine: Vertebral body heights are maintained. The L3-L4 disc space is narrowed with retrolisthesis of L3 upon L4 and spurring at the adjacent vertebral endplates. There is also anterior spurring at L2-L3. The L4-L5 disc is narrowed with vacuum degeneration and there is moderate facet degenerative change from L3 through S1 which becomes progressively more severe caudally. Pedicles are intact, SI joint spaces are preserved and paraspinal soft tissues are unremarkable. Minimal dextroscoliosis. Impression: Multilevel degenerative changes. No significant progression from 07/05/2008. Anatomical Region Laterality Modality Other 07/14/2009 2:46 PM EST Narrative 07/19/2009 2:43 PM EST Reason for Study/History: CHEST; LT FOOT; BILAT KNEES; LS-SPINE; RT HIP TEST(S) PROCESSED BY [facility] AT [facility] us Alicia Ragland MD GENERAL IMAGING- OTHER Final Re sult * XRAY FOOT COMPLETE MIN 3 VWS - LEFT (07/14/2009 2:23 PM EST) Pathologist [facility] [place] RADIOLOGY REPORT Left foot: Hallux valgus with bunion. Degenerative narrowing of the first MTP joint space. Hammertoe deformities. No fracture or destructive lesion is seen. Anatomical Region Laterality Modality Other 07/14/2009 2:23 PM EST Narrative 07/19/2009 2:15 PM EST Reason for Study/History: CHEST; LT FOOT; BILAT KNEES; LS-SPINE; RT HIP TEST(S) PROCESSED BY [facility] AT [facility] us Alicia Ragland MD GENERAL IMAGING- OTHER Final Re sult * (ABNORMAL) URINALYSIS, DIPSTICK WITH REFLEX MICROSCOPIC (07/14/2009) COLOR (URINE) DK YELLOW YELLOW [facility] APPEARANCE (URINE) TURBID(A) CLEAR [facility] SPECIFIC GRAVITY 1.029 1.001 - 1.035 [facility] PH (URINE) 5.5 5.0 - 8.0 [facility] PROTEIN (URINE) NEG NEG [facility] GLUCOSE (URINE) NEG NEG [facility] Ketones (Urine) NEG NEG [facility] BILIRUBIN (URINE) NEG NEG [facility] BLOOD (URINE) NEG NEG [facility] WBC (URINE) NEG NEG [facility] NITRITE (URINE) NEG NEG [facility] 07/14/2009 07/14/2009 8:3 7 PM EST us Alicia Ragland MD LAB SAME DAY RESULT Final Resul t [facility] [address] [place] [address] * TSH (THYROTROPIN) (07/14/2009) Pathologist [facility] [place] TSH, THYROTROPIN 3.38 0.40 - 4.50 UIU/ML [facility] 07/14/2009 07/14/2009 8:3 7 PM EST us Alicia Ragland MD LABORATORY Final Result Performing Organization Address [facility] [address]/[facility] Co de Phone Number [facility] [address] [place] [address] * VITAMIN D, 25-HYDROXY, LC/MS/MS (07/14/2009) Pathologist [facility] [place] Vitamin D, 25-OH, Total 21 20 - 100 NG/ML [facility] VITAMIN D, 25-OH, D3 (CHOLECALCIFEROL ) 21 NG/ML [facility] VITAMIN D, 25-OH, D2 (CALCIFEROL) <4 NG/ML [facility] Comment: 25-OHD3 INDICATES BOTH ENDOGENOUS PRODUCTION AND SUPPLEMENTATION. 25-OHD2 IS AN INDICATOR OF EXOGENOUS SOURCES SUCH DIET OR SUPPLEMENTATION. THERAPY IS BASED ON MEASUREMENT OF TOTAL 25-OHD, WITH LEVELS <20 NG/ML INDICATIVE OF VITAMIN D DEFICIENCY WHILE LEVELS BETWEEN 20 NG/ML AND 30 NG/ML SUGGEST INSUFFICIENCY. OPTIMAL LEVELS ARE >30 NG/ML. 07/14/2009 07/14/2009 8: 37 PM EST Alicia Ragland MD LABORATORY Final Result Performing Organization Address [facility] de Phone Number [facility] [address] [place] [address] * CBC 5 PART DIFF (07/14/2009) [facility] [address] WHITE BLOOD COUNT 6.5 3.8 - 10.8 THOUS/UL [facility] RBC 4.50 4.20 - 5.80 MIL/UL [facility] Hemoglobin 14.9 13.2 - 17.1 G/DL [facility] HCT (HEMATOCRIT) 44.9 38.5 - 50.0 % [facility] MCV 99.7 80.0 - 100.0 FL [facility] MCH 33.0 27.0 - 33.0 PG [facility] MCHC 33.1 32.0 - 36.0 G/DL [facility] BAND % 0 0 - 5 % [facility] NEUTROPHIL % 53 48 - 75 % [facility] LYMPHOCYTE % 31 17 - 40 % [facility] MONOCYTE % 10 0 - 14 % [facility] EOSINOPHIL % 5 0 - 5 % [facility] BASOPHIL % 1 0 - 3 % [facility] ATYPICAL LYMPHOCYTE % 0 0 - 5 % [facility] PLATELETS 222 140 - 400 THOUS/UL [facility] BANDS # 0 0 - 750 CELLS/MCL [facility] NEUTROPHILS # 3445 1500 - 7800 CELLS/MCL [facility] LYMPHOCYTES # 2015 850 - 3900 CELLS/MCL [facility] MONOCYTES # 650 200 - 950 CELLS/MCL [facility] EOSINOPHILS # 325 15 - 550 CELLS/MCL [facility] BASOPHILS # 65 0 - 200 CELLS/MCL [facility] ATYPICAL LYMPHOCYTES # 0 0 - 200 CELLS/MCL [facility] RDW 12.9 11.0 - 15.0 % [facility] MPV 8.4 7.5 - 11.5 FL [facility] 07/14/2009 07/14/2009 8:3 7 PM EST us Alicia Ragland MD LAB SAME DAY RESULT Final Resul t Performing Organization Address [facility] [address] [facility] Co de Phone Number [facility] [address] [place] [address] * BASIC METABOLIC PANEL W/GLOMERULAR FILTRATION RATE (EGFR) (07/14/2009) CALCIUM 9.4 8.6 - 10.2 MG/DL [facility] BUN 20 7 - 25 MG/DL [facility] CREATININE 1.13 0.76 - 1.46 MG/DL [facility] Glucose 86 65 - 99 MG/DL [facility] SODIUM 140 135 - 146 MMOL/L [facility] POTASSIUM 4.5 3.5 - 5.3 MMOL/L [facility] CHLORIDE 104 98 - 110 MMOL/L [facility] CARBON DIOXIDE 27 21 - 33 MMOL/L [facility] GFR > 60 60 AND ABOVE [facility] Comment:UNITS: ML/MIN/1.73 S Q METERS EGFR > 60 60 AND ABOVE [facility] Comment:UNITS: ML/MIN/1.73 S Q METERS 07/14/2009 07/14/2009 8:3 7 PM EST Narrative [facility] - 07/15/2009 3:27 AM EST Please note that this estimated [...] with more precise needs for GFR calculation. us Alicia Ragland MD LABORATORY Final Result Performing Organization Address City/[facility] [address]/ZIP Co de Phone Number [facility] [address] [place] [address] * ASPARTATE AMINOTRANSFERASE (AST), SERUM (07/14/2009) Pathologist [facility] [place] AST (SGOT) 32 10 - 40 U/L [facility] 07/14/2009 07/14/2009 8:3 7 PM EST us Alicia Ragland MD LAB SAME DAY RESULT Final Resul t Performing Organization Address [facility] [address]/[facility] Co de Phone Number [facility] [address] [place] [address] * PSA (PROSTATE SPECIFIC ANTIGEN) TOTAL, ANNUAL SCREEN (07/14/2009) [facility] [address] PSA 0.7 0 - 4.0 NG/ML [facility] Comment: THIS TEST WAS PERFORMED USING THE [employer] ([employer]) CHEMILUMINESCENT METHOD. VALUES OBTAINED FROM DIFFERENT ASSAY METHODS CANNOT BE USED INTERCHANGEABLY. PSA LEVELS, REGARDLESS OF VALUE, SHOULD NOT BE INTERPRETED ABSOLUTE EVIDENCE OF THE PRESENCE OR ABSENCE OF DISEASE. 07/14/2009 07/14/2009 8:3 7 PM EST Alicia Ragland MD LABORATORY Final Result Performing Organization Address [facility] [address]/[facility] Co de Phone Number [facility] [address] [place] [address] * (ABNORMAL) HEMOGLOBIN A1C (07/14/2009) [facility] [address] Hemoglobin A1C 6.2(H) 0.0 - 5.9 % [facility] GLUCOSE MEAN VALUE 143 MG/DL [facility] 07/14/2009 07/14/2009 8:3 7 PM EST us Alicia Ragland MD LABORATORY Final Result Performing Organization Address City/[facility] [address]/[facility] Co de Phone Number [facility] [address] [place] [address] * LIPID PANEL + CARDIAC RISK WITH REFLEX TO LDL DIRECT (07/14/2009) [facility] [address] CHOLESTEROL, TOTAL 178 125 - 200 MG/DL [facility] TRIGLYCERIDES 108 30 - 149 MG/DL [facility] HDL-CHOLESTEROL 44 40 - 77 MG/DL [facility] LDL-CHOLESTEROL 112 62 - 130 MG/DL [facility] Comment: RISK CATEGORY: ??LDL-CHOLESTEROL GOAL CHD AND CHD RISK EQUIVALENTS: ??<100 MULTIPLE (2+) FACTORS: ??<130 ZERO TO ONE RISK FACTOR: ??<160 CHD RELATIVE RISK RATIO (TOTAL/HDL) 4.05 0.0 - 5.0 [facility] Comment:(0.7 X AVERAGE) 07/14/2009 07/14/2009 8:3 7 PM EST us Alicia Ragland MD LABORATORY Final Result Performing Organization Address City/State/[facility] Co de Phone Number [facility] [address] [place] [address] documented in this encounter Visit Diagnoses Diagnosis Routine general medical examination at a health care facility Hyperlipidemia Other and unspecified hyperlipidemia Diabetes mellitus type II Type II or unspecified type diabetes mellitus without mention of complication, not stated as uncontrolled Prostate cancer screening Special screening for malignant neoplasm of prostate documented in this encounter Care Teams Repair Department Supervisor Relationship Specialty Start Date End Date Alicia Ragland MD PCP - General 04/04/10 06/11/15 Alicia Ragland MD PCP - General 10/28/05 04/03/10 Deja Fang NP PCP - General Internal Medicine 06/12/15 03/26/20 Jg Madera MD [address] [place] [address] PCP - General Internal Medicine 03/27/20 05/28/22 Deja Fang NP [address] [place] [address] PCP - Backup PCP Internal Medicine 03/27/20 06/30/22 Rosa Maria Green MD [address] [place] [address] PCP - General Family Medicine 05/29/22 02/20/23 Janice Fall NP [address] [facility] [place] [address] PCP - General Family Medicine 02/21/23 documented as of this encounter
--- OUTSIDE RECORDS SUMMARY | 2024-12-03 14:22 | XMS_ITS | Clinical Summary ---
Author Organization [facility] Address [address] [place] [address] Care Team Providers Care Supervisor Wrapping Room Name Role Phone Janice Fall NP Primary Care Provider [phone] Allergies Active Allergy Reactions Criticality Noted Date Comments Morphine High 02/26/2011 Hallucinations, does not have with oxycodone NOT AN ALLERGY PER PT 05/31/2019 TC Nuts Anaphylaxis High 12/22/2008 Peanuts Anaphylaxis High 07/06/2024 Medications * This document contains information received from the source organization and may not represent a complete record from that organization. Multiple Vitamin (MULTI-VITAMIN) Tab 1 TABLET DAILY Active Sertraline HCl (ZOLOFT) 100 MG tablet TAKE 2 TABLETS BY MOUTH DAILY EVERY MORNING FOR 30 DAYS 02/06/2020 Active buPROPion HCl ER, XL, (WELLBUTRIN XL) 300 MG 24 hr tabletIndicatio ns:Generalized anxiety disorder Take 300 mg by mouth 1 (one) time each day 07/01/2020 Active Riboflavin (B-2-400) 400 MG Cap Take 1 daily with meal 90 capsule 1 11/30/2020 Active Doxepin HCl (SINEquan) 10 MG capsuleIndicati ons:Psychophysi ological insomnia Take one capsule (10 mg total) by mouth every night. 30 capsule 11 01/19/2024 5 Active Meclizine HCl 25 MG Chew TabIndications: Vertigo Chew one tablet (25 mg total) 3 (three) times a day if needed (dizziness). 90 tablet 1 07/20/2024 Active Omeprazole (PriLOSEC) [address] capsuleIndicati ons:Chronic GERD Take one capsule (40 mg total) by mouth 1 (one) time each day. 90 capsule 2 07/20/2024 Active Atorvastatin Calcium (LIPITOR) 40 MG tablet TAKE 1 TABLET BY MOUTH EVERY DAY 90 tablet 3 09/07/2024 Active Nystatin (MYCOSTATIN) cream 08/20/2024 Active Tamsulosin HCl (FLOMAX) 0.4 MG Cap Take one capsule (0.4 mg total) by mouth 1 (one) time each day. 90 capsule 1 10/18/2024 Active Active Problems Problem Noted Date Diagnosed Date Encounter for weight loss counseling 10/18/2024 Overview (10/18/2024): 10/18/2024 : Pt decline weight to be taken today. Discussed wegovy and other GLP 1 Medications for weight loss. Doesn't like the idea of giving himself a shot, discussed PO option- though explained to patient that it may not be covered. Patient will wait on weight loss medications at this time. Constipation 10/18/2024 Overview (10/18/2024): 10/18/2024: Long standing IBS, though over past year patient describes that he is mostly constipated. States that he takes senna 1 x per week, but is nervous about taking a laxative like miralax and senna because he thinks that he will have automatic diarrhea. Education provided. ABD distended, generalized tenderness, hyperactive BSx4Q. KUB ordered. Chronic vertigo 07/20/2024 Overview (09/03/2024): 07/20/2024: Patient with vertigo. He has been taking Meclizine daily. He was supposed to go to PT, but cannot afford it right now. 08/26/24 ongoing, intermittent vertigo. Likely worsened by recent viral gastroenteritis. IVFs given, and recommended he continue to use meclizine prn, increase po fluids and f/u with any worsening of symptoms 09/03/2024: Patient taking Meclizine twice daily which is helping. Cyclical vomiting syndrome not associated with m igraine 06/18/2024 Overview (08/26/2024): 06/18/2024: patient complains of cycles of dizziness and vomiting. No pattern or definitive reason. Has zofran as needed. Sometimes may need fluids. 08/26/24 IVFs given for likely viral gastroenteritis, will refer to GI given frequent episodes of vomiting, nausea, diarrhea. Recommended po fluids, BRAT diet, zofran prn Assessment & Plan (06/21/2024 3:20 PM EST): Chronic neck pain 01/19/2024 Overview (06/18/2024): 01/19/2024: Patient with chronic neck pain that is getting worse. Last xray was 02/2023 and showed severe degenerative changes. 06/18/2024: Neck pain is getting better. Assessment & Plan (06/21/2024 3:20 PM EST): Psychophysiological insomnia 01/19/2024 Overview (06/18/2024): 01/19/2024: Difficulty falling asleep and staying asleep. Has tried and failed Trazodone, Clonidine, Amitriptyline. Will trial Doxepin, 10 mg nightly. 06/18/2024: Patient struggles with insomnia. He has tried Clonidine up to 0.3 mg, but stopped being effective. He is now taking Doxepin which helps. Assessment & Plan (06/21/2024 3:20 PM EST): Lumbar facet arthropathy 09/02/2023 Overview (09/03/2024): 09/02/2023: Sees Dr. Higgins at [facility] for back injections. 06/18/2024: Continues to see Dr. Higgins for shots. 09/03/2024: Continues with shots with Dr. Higgins. Not lasting as long. Assessment & Plan (06/21/2024 3:20 PM EST): Atherosclerosis of both carotid arteries 023 Overview (06/18/2024): 07/04/2023 [facility] report-minimal intimal plaque of bilateral carotid bifurcations and proximal ICAs. No high-grade carotid stenosis, less than 50% carotid stenosis bilaterally. 01/19/2024: Lipids normal. Non smoker. 06/18/2024: Denies chest pain, SOB. Assessment & Plan (06/21/2024 3:20 PM EST): Bilateral bunions 06/02/2023 Prediabetes 09/03/2022 Overview (10/18/2024): 01/19/2024: Patient admits to eating a lot of sugar. 06/18/2024: A1c pending. 10/18/2024: A1c 6.3 Assessment & Plan (06/21/2024 3:20 PM EST): Depression with somatization 09/02/2022 Overview (06/18/2024): 06/18/2024: Patient is followed by calin- eNhemiah Khan. Takes Wellbutrin and Sertraline. Assessment & Plan (06/21/2024 3:20 PM EST): Diverticulosis 09/02/2022 Overview (01/19/2024): 01/19/2024: Denies any diverticulitis infection. Atherosclerosis of abdominal aorta 04/05/2020 Overview (06/18/2024): Refer to CT Abdomen and Pelvis results 09/06/15: Vasculature: Mild atherosclerotic calcification nonaneurysmal abdominal aorta Refer to CT Abdomen and Pelvis results 09/06/15: Vasculature: Mild atherosclerotic calcification nonaneurysmal abdominal aorta 01/19/2024: Non-smoker. 06/18/2024: Denies chest pain, SOB. Assessment & Plan (06/21/2024 3:20 PM EST): Generalized anxiety disorder 01/12/2018 Overview (06/18/2024): 06/18/2024: Patient is followed by calin- Nehemiah Khan. Takes Wellbutrin and Sertraline. Assessment & Plan (06/21/2024 3:20 PM EST): Dermatitis 03/21/2017 Overview (01/12/2018): Saw Derm 11/21/17 for rash in groin. Dx Seborrheic Dermatitis and Intertrigo. Given Ketoconazole 2% cream to mix with Desonide 0.05% cream - use twice daily to groin for 2 weeks. Primary osteoarthritis of both hips-PT 7 OA (osteoarthritis) of hip 12/14/2015 Overview (06/18/2024): 12/14/2015- seen by Dr. Higgins- injection given and recommend PT 08/12/2016- possible hip replacement around end of December 2016- patient is possibly interested in gabpentin for pain management. 01/19/2024, 06/18/2024 : s/p replacement of left hip. This has been better since replacement. Assessment & Plan (06/21/2024 3:20 PM EST): BPH (benign prostatic hyperplasia) 10/24/2015 Overview (09/03/2024): 11/13/2021- elevated PSA related to steroid injection, f/u normal- repeat screening as indicated. 01/19/2024: Continues on Flomax. Continues with nocturia. May want to increase in the future. 06/18/2024: Continues to have urinary symptoms. Takes flomax daily. 09/03/2024: Patient with some urinary retention during the day. We will trial an increase of the Flomax to 0.8 mg. He will take two of the 0.4 mg until they are gone. Assessment & Plan (06/21/2024 3:20 PM EST): History of colonic polyps 08/21/2011 Overview (01/19/2024): Adenoma on 11/14. Repeat colonoscopy in 5 yrs. 05/08/2015-Colonoscopy due 2018 01/19/2024: Cologuard done in 2021 and negative. Hyperlipidemia 06/30/2006 Overview (06/18/2024): Fatty liver on u/s. Lipid levels acceptable on niacin and fish oil. Patient to Consistently take fish oil and increase niacin to 2 x per day. Will recheck lipids in 3 months - if no improvement will discuss statin use- h/o elevated ck with use. 05/08/2015-labs ordered. Reinforced lifestyle changes 01/19/2024: Patient taking a statin. Nonsmoker. Lab Results Component Value Date CHOLESTEROL 133 06/02/2023 HDL 38 (L) 06/02/2023 LDL 69 06/02/2023 CHOLNONHDL 95 06/02/2023 TRIGLYCERIDE 179 (H) 06/02/2023 06/18/2024: Lipids well controlled Atorvastatin. Assessment & Plan (06/21/2024 3:20 PM EST): Gastroesophageal reflux disease without esophagi tis 06/30/2006 Overview (06/18/2024): Persistent. On Omeprazole BID. Followed by GI. 05/08/2015-chronic and ongoing. 01/19/2024, 06/18/2024 : Continues on Omeprazole which helps. Assessment & Plan (06/21/2024 3:20 PM EST): OSTEOARTHRITIS OF KNEES 06/30/2006 Overview (06/18/2024): 05/08/2015-Chronic, stable. 01/19/2024: s/p replacement of both knees. Has some pain and stiffness. 06/18/2024: Knees are ok. Continues with stiffness. Assessment & Plan (06/21/2024 3:20 PM EST): Resolved Problems Problem Noted Date Diagnosed Date Resolved Date Primary insomnia 06/18/2024 06/18/2024 Contracture of left index finger 06/02/2023 09/03/2024 Right upper quadrant pain 01/12/2018 Ureteric stone 01/12/2018 07/31/2021 MSSA (methicillin susceptibl e Staphylococcus aureus) 01/20/2017 09/02/2022 Overview (01/20/2017): 01/20/2017- seen by dermatology and treated. Back pain of lumbar region with sciatica-PT 12/02/2016 09/02/2022 Chronic left-sided low back pain with sciatica-PT 12/02/2016 09/02/2022 Irritable bowel syndrome with diarrhea 10/01/2015 09/02/2022 Renal calculus 06/16/2015 07/31/2021 Overview (09/12/2015): Plans on ESWL 09/12/2015- CT 09/06 left obstructing stone with mild hydronephrosis IRRITABLE BOWEL 07/13/2012 07/31/2021 Elevated CK 08/22/2011 09/02/2022 Overview (03/15/2013): Improving. Obese 08/21/2011 09/02/2022 Overview (05/08/2015): Discussed diet and exercise.recommend BMI < 30. 05/08/2015-reinforced diet and exercise for weight loss. Renal calculi 02/26/2011 06/21/2024 Overview (04/30/2014): Asymptomatic. Hospital discharge follow-up 02/26/2011 07/31/2021 Overview (02/26/2011): 02/26/2011 Anemia and change in renal function while inpatient likely r/t dehydration, IV rehydration. Repeat CBC/Basic metabolic in 1 month. Elevated glucose in hospital as well. A1c ordered. Worsening anxiety. Nausea & vomiting 02/26/2011 07/31/2021 Overview (09/16/2014): 02/26/2011 Intermittent. Treats with zofran, effective. Refer back to GI. Back pain 08/29/2010 07/31/2021 Overview (12/09/2014): Evidence of DJD and mild scoliosis- will ref to PT. Gave back book, encourage wt loss. Impotence of organic origin 10/17/2009 06/21/2024 RECURRENT URINARY TRACT INFECTIONS 06/30/2006 02/26/2011 Overview (07/12/2009): We will check a PSA, send a urinalysis and culture and follow clinically. Does not seem to have evidence of enlargement of the prostate at present. None recenty.. ANXIETY 06/30/2006 09/02/2022 Overview (09/02/2022): Moderate-Severe. Followed by Dr. Cabezas, psychiatrist @ [facility] in [place]. 05/08/2015- Seeing Theresa Miguel SEAM PRESS OPERATOR for med management and diagnosis. Recent stressors at work. Pending visit with SEAM PRESS OPERATOR for return to work. Overview: Moderate-Severe. Followed by Dr. Cabezas, psychiatrist @ [facility] in [place]. 05/08/2015- Seeing Theresa Miguel SEAM PRESS OPERATOR for med management and diagnosis. Recent stressors at work. Pending visit with SEAM PRESS OPERATOR for return to work. IRRITABLE BOWEL 06/30/2006 07/31/2021 Overview (05/08/2015): Intermittent symptoms on symptomatic treatment. 05/08/2015-flareup with increased stress. Reinforced treatment and symptoms to report to office. Encounters Date Type Department Care Team Description 10/18/2024 11:15 AM EDT Radiology [facility] [address] [place] [id number] Constipation, unspecified constipation type 10/18/2024 10:00 AM EDT Office Visit [facility] [address] [place] [id number] Janice Fall NP Constipation, unspecified constipation type (Primary Dx); Chronic left shoulder pain; Acute pain of left shoulder; Encounter for weight loss counseling; Prediabetes 10/18/2024 Telephone [facility] [address] [place] [place] [address] Janice Fall, HOLLY Results from Last 3 Months Immunizations Name Administration Dates Next Due COVID-19, mRNA (Moderna Pre Fall 2022) Monovalent, 100 mcg/0.5 ml or 50 mcg/0.25 ml dose 06/08/2021,09/23/2020,08/26/2020 COVID-19, mRNA (Moderna Pre Fall 2022) bivalent, 25 mcg/0.25 ml (6 months - 11 years) or 50 mcg/0.5 ml (12+ years) 06/26/2022 Covid-19, mRNA (Pfizer Comir jorgito) Seasonal, 30 mcg/0.3 mL (12+) 06/18/2024,05/16/2023 Covid-19, mRNA (Pfizer Pre 2022) Monovalent, 30 mcg/0.3 ml wero-sucrose (12+) 03/20/2022,11/06/2021 Fc Flu Not O/w Specified, 3 Yrs & > 05/25/2011 Fc Fluarix Quad, Prsrv Fr, 3yrs &> 05/06/2016 Flu Vac Purchased 36 mos and older 07/11/2009, Influenza,MDCK,trivalent,PF (Flucelvax) 06/18/2024 Influenza,injectable,MDCK, P rsrv Fr,Quad 04/07/2020 Influenza,injectable,quad,Prsrv Fr 05/16,06/26/2022,04/15/2021,2017,05/07/2017,04/24/2015,04/26/2014 Influenza,seasonal,trivalent ,preserva tive (FLUZONE MDV) 05/07/2012,06/22/2010,06/30/2006,2004,06/16/2003,06/10/2002,05/27/2001,1 08/05/1999,06/22/1999,05/26/1998, 997 PCV-20 09/03/2024 PPD/TST (Tuberculin Skin Test) 01/05/2013,2008 PPV23 (Pneumovax) 09/23/2012 Rsv Recombinant Bivalent, 0. 5 ML (Abrysvo) 06/02/2023 Td (adult), adsorbed 06/02/2023,06/30/20 06,06/26/2005,1992 Tdap(Adacel) 03/15/2013 Zoster (Shingrix) 10/02/2021,07/31/2021 Family History Medical History Relation Name Comments Thyroid Disorder Brother Asthma Father Stroke Mother Thyroid Disorder Mother Thyroid Disorder Sister Gastrointestinal Disorder Neg Hx Relation Name Status Comments Brother Father Mother Sister Social History Tobacco Use Types Packs/Day Years Used Date Smoking Tobacco: Never Smokeless Tobacco: Never Alcohol Use Standard Drinks/Week Comments Not Currently 1.7 (1 standard drink = 0.6 oz p ure alcohol) occ PHQ-2 Answer Date Recorded Patient Health Questionnaire-2 Score 1 06/18/2024 PHQ-9 Answer Date Recorded PHQ-9 Score 1 06/18/2024 Intimate Partner Violence Answer Date R ecorded Fear of Current or Ex-Partner Not on file Emotionally Abused Not on file 03/13/2023 Physically Abused Not on file 03/13/2023 Sexually Abused Not on file 03/13/2023 Feel Safe at Home Not on file 03/13/2023 Sex and Gender Information Value Date Recorded Sex Assigned at Male 11/27/2020 8:24 AM EDT Legal Sex Male 12:20 AM EDT Gender Identity Male 11/27/2020 8:24 AM EDT Sexual Orientation Straight 11/27/2020 8: 24 AM EDT Occupation Industry Job Start Date Job End Date runs [employer] Not on file Not on f ile Not on file Last Filed Vital Signs Vital Sign Reading Time Taken Comments Blood Pressure 118/70 10/18/2024 10:02 AM EDT Pulse 70 10/18/2024 10:02 AM EDT Temperature 36.8 ??C (98.3 ??F) 08/26/2024 11:[address] Respiratory Rate 18 02/21/2023 9:26 AM EDT Oxygen Saturation 97% 08/26/2024 11:30 AM EST Inhaled Oxygen Concentration - - Weight 108 kg (239 lb) 02/21/2023 9:26 AM EDT Height 175.3 cm (5' 9 ) 06/18/2024 10:31 AM EST Body Mass Index 35.29 07/31/2021 1:11 PM EST Plan of Treatment Health Maintenance Due Date Last Done Comments Colonoscopy 12/01/2025 11/17/2012, 11/02, 10/10/2009, Additional history exists Postponed from 11/18/2015 (Refused by patient) PSA 06/18/2026 06/18/2024, 05/06, 11/01/2021, Additional history exists DTaP/Tdap/Td (3 - Td or Tdap) 06/02/2033 06/02/2023, 03/15/2013, 06/30/2006, Additional history exists PPD Discontinued 01/05/2013, 01/04/2009 Eye/Retina Exam Discontinued 12/15/2017, 12/02, 12/15/2017, Additional history exists Hepatitis C Screening Completed 02/20/2018 Chest Imaging Discontinued 05/31/2019, 05/05, 09/28/2018, Additional history exists EKG Discontinued 08/02/2020, 07/04, 11/11/2012, Additional history exists Stool FIT Discontinued 01/02/2021, 08/21/2011 Stool Occult Blood Discontinued 01/02/2021, 08/21/2011 Zoster (Shingrix) Completed 10/02/2021, 07/31/2021 Cologuard Dates Discontinued 10/29/2021 RSV Completed 06/02/2023 COVID-19 Vaccine Completed 06/18/2024, , 06/26/2022, Additional history exists Influenza Completed 06/18/2024, 05/04, 06/26/2022, Additional history exists LDL Cholesterol Discontinued 06/18/2024, 05/06, 09/02/2022, Additional history exists Physical Discontinued 06/18/2024, 05/06, 07/31/2021, Additional history exists Pneumococcal 50+ years Completed 09/03/2024, 2012 HPV Vaccine Aged Out No longer eligi ble based on patient's age to complete this topic Hep A Aged Out No longer eligi ble based on patient's age to complete this topic Hep B Aged Out No longer eligi ble based on patient's age to complete this topic Hib Aged Out No longer eligi ble based on patient's age to complete this topic Meningococcal ACWY Aged Out No longer eligible based on patient's age to complete this topic Zoster (Zostavax) Discontinued Procedures * Due to [place] Regal[employer] law, this organization might not be sharing negative HIV tests. Procedure Name Priority Date/Time Associated Diagnosis Comments XRAY ABDOMEN; 2 VIEWS AP INCL UPRIGHT AND SUPINE FC STAT (All results called to provider) 10/18/2024 11:35 AM EDT Constipation, unspecified constipation type PROSTATE SPECIFIC ANTIGEN (PSA) TOTAL, SERUM Routine 06/18/2024 12:01 PM EST Benign prostatic hyperplasia with nocturia LIPID PANEL WITH REFLEX TO DIRECT LDL Routine 06/18/2024 12:01 PM EST Mixed hyperlipidemia FECAL GLOBIN IMMUNOCHEMICAL TEST (RINA) Routine 01/02/2021 Screen for colon cancer XRAY CHEST, 2 VIEWS, PA & LATERAL FC Routine 09/28/2018 4:00 PM EST Night sweats HEPATITIS C AB WITH REFLEX TO RNA PCR, SERUM Routine 02/20/2018 3:45 PM EDT Need for hepatitis C screening test COLONOSCOPY 11/17/2012 EKG-TO BE READ & BILLED BY ADULT OR PEDIATRIC CARDIOLOGY Routine 11/11/2012 10:43 AM EDT Preoperative examination Chronic diarrhea GERD ANXIETY Hyperlipidemia OSTEOARTHRITIS OF KNEES Renal calculi Obese from Last 3 Months or Most Recently Relevant to Health Maintenance Results * Due to [place] state law, this organization might not be sharing negative HIV tests. * XRAY ABDOMEN; 2 VIEWS AP INCL UPRIGHT AND SUPINE (10/18/2024 11:35 AM EDT) Anatomical Region Laterality Modality Abdomen Computed Radiogr aphy Narrative 10/18/2024 12:08 PM EDT Patient History: constipation and diarrhea CONTRAST: 2 view abdomen Comparison: None ?? Findings: No pneumoperitoneum or pneumatosis. Omuf-yh-kbiwaobx colonic stool and gas. Paucity of small bowel gas limits accurate evaluation for presence or absence of small bowel obstruction. No definite evidence of small-bowel obstruction. Old healed fracture of the anterior aspect of 1 of the right lower lobes. Left hip arthroplasty and moderate right hip degenerative changes. Right-sided curvature/dextroscoliosis of the lumbar spine. IMPRESSION: Izmo-dy-cyapxnpz colonic stool and gas. Paucity of small bowel gas limits accurate evaluation for presence or absence of small bowel obstruction. No definite evidence of small-bowel obstruction. Procedure Note Rachelle Alcantara MD - 10/18/2024 Patient History: constipation and diarrhea CONTRAST: 2 view abdomen Comparison: None Findings: No pneumoperitoneum or pneumatosis. Dbpm-dt-rmpbtdzm colonic stool and gas. Paucity of small bowel gas limitsaccurate evaluation for presence or absence of small bowel obstruction. Nodefinite evidence of small-bowel obstruction. Old healed fracture of the anterior aspect of 1 of the right lowerlobes. Left hip arthroplasty and moderate right hip degenerative changes. Right-sided curvature/dextroscoliosis of the lumbar spine. IMPRESSION: Kosn-qz-mvgkyivv colonic stool and gas. Paucity of small bowel gas limitsaccurate evaluation for presence or absence of small bowel obstruction. Nodefinite evidence of small-bowel obstruction. Janice Fall NP IMG XRAY NO CONTRAST ORDERABLE S Final Result * PROSTATE SPECIFIC ANTIGEN (PSA) TOTAL, SERUM (06/18/2024 12:01 PM EST) PSA 0.68 < OR = 4.00 ng/mL [facility] Comment: The total PSA value from this assay system is standardized against the WHO standard. The test result will be approximately 20% lower when compared to the equimolar-standardized total PSA ([place]). Comparison of serial PSA results should be interpreted with this fact in mind. This test was performed using the Siemens chemiluminescent method. Values obtained from different assay methods cannot be used interchangeably. PSA levels, regardless of value, should not be interpreted as absolute evidence of the presence or absence of disease. 06/18/2024 12:0 1 PM EST 06/19/2024 3:28 AM EST Narrative Resulting Agency Comment [id number] Janice Fall NP LABORATORY Final Result Performing Organization Address [facility] de Phone Number [facility] [address] [place] [address] * LIPID PANEL WITH REFLEX TO DIRECT LDL (06/18/2024 12:01 PM EST) Cholesterol 127 <200 mg/dL [facility] HDL Cholesterol 44 > OR = 40 mg/dL [facility] Triglyceride 96 <150 mg/dL [facility] LDL Cholesterol 65 mg/dL (calc) [facility] Comment: Reference range: <100 Desirable range <100 mg/dL for primary prevention; ?? <70 mg/dL for patients with CHD or diabetic patients with > or = 2 CHD risk factors. LDL-C is now calculated using the Marcellus-Erika calculation, which is a validated novel method providing better accuracy than the Friedewald equation in the estimation of LDL-C. Marcellus SS et al. SHADIA. 2013;310(19): 2377-4212 (http://education.[employer].Endocrine Technology/faq/YFQ111) CHOL/HDL Ratio 2.9 <5.0 (calc) [facility] Cholesterol Non-HDL 83 <130 mg/dL (calc) [facility] Comment: For patients with diabetes plus 1 major ASCVD risk factor, treating to a non-HDL-C goal of <100 mg/dL (LDL-C of <70 mg/dL) is considered a therapeutic option. 06/18/2024 12:0 1 PM EST 06/19/2024 3:28 AM EST Narrative Resulting Agency Comment [id number] us Janice Fall NP LABORATORY Final Result Performing Organization Address [facility] Co de Phone Number [facility] [address] [place] [address] * FECAL GLOBIN IMMUNOCHEMICAL TEST (RINA) (01/02/2021) Fecal Globin Immunochemical Test SEE NOTE [facility] Comment: ??FECAL GLOBIN BY IMMUNOCHEMISTRY ??Micro Number: ?[id number] ??Test Status: ? Final ??Specimen Source: ?? INSURE (TM) FOBT TEST CARD ??Specimen Quality: ??Adequate ??Fecal Globin: ?Not Detected ? The specimen receive date on this report reflects ? the date that [employer] received the test ? order from the physician. The specimen would have ? been separately submitted by the patient at a ? later date. 01/02/2021 11/29/2020 11: 46 PM EDT Narrative Resulting Agency Comment [id number] us Jg Madera MD LABORATORY Final Result [facility] [address] [place] [address] * XRAY CHEST, 2 VIEWS, PA & LATERAL FC (09/28/2018 4:00 PM EST) Anatomical Region Laterality Modality CHEST Radiographic La ging 09/29/2018 10:3 6 AM EST Narrative 09/29/2018 10:36 AM EST EXAM: ?? CHEST X-RAY, PA AND LATERAL: COMPARISON: ?? CR ??- ABDOMEN COMP ?? PA CHEST ??- 12/22/2017 05:15 PM EDT FINDINGS: The cardiomediastinal silhouette is unremarkable. The lungs are well aerated and clear. ?? No mass, infiltrate or atelectasis is apparent. No pleural effusion is suspected. The osseous structures are unremarkable. IMPRESSION: ?? No active cardiopulmonary disease demonstrated. Procedure Note Jose Alejandro Colvin MD - 09/29/2018 EXAM: CHEST X-RAY, PA AND LATERAL: COMPARISON: CR - ABDOMEN COMP PA CHEST - 12/22/2017 05:15 PM EDT FINDINGS: The cardiomediastinal silhouette is unremarkable. The lungs are well aerated and clear. No mass, infiltrate or atelectasisis apparent. No pleural effusion is suspected. The osseous structures are unremarkable. IMPRESSION: No active cardiopulmonary disease demonstrated. Deja Fang SEAM PRESS OPERATOR IMG XRAY NO CONTRAST ORDERABLES Final Result * HEPATITIS C AB WITH REFLEX TO RNA PCR, SERUM (02/20/2018 3:45 PM EDT) Hepatitis C virus Ab NON-REACTI VE NON-REACT SUMAYA [facility] Hepatitis C virus Ab Signal/Cutoff 0.02 <1.00 [facility] 02/20/2018 3:45 PM EDT 02/21/2018 12:26 AM EDT Narrative Resulting Agency Comment [id number] Deja Fang NP LABORATORY Final Result [facility] [address] [place] [address] * COLONOSCOPY (11/17/2012) Narrative Transcriptions Filippo Gant MD - 11/17/2012 12:00 AM EDT [facility] Department of Endoscopy [address] [place] [address], [address] Name: JOSH WHITMAN : 60 Date of Service: Order Number: Location: [facility] Acct Number: [id number] Report Number: [id number] Service: REG REF/ Requesting Physician: ____ Signed Category: Exam: Signs/Symptoms: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
--- OUTSIDE RECORDS SUMMARY | 2024-12-03 14:22 | XMS_ITS | Encounter Summary ---
Author Organization [facility] Address [address] [place] [address] Care Team Providers Care Light Adjuster Name Role Phone Alicia Ragland MD Primary Care Provider Unavaila Deja Yepez NP Primary Care Provider Jg Madera MD Primary Care Provider Deja Fang NP Unavailable [phone] Rosa Maria Green MD Primary Care Provider [phone] Janice Fall NP Primary Care Provider [phone] Encounter Details Date Type Department Care Team (Late st Contact Info) Description 08/26/2011 Orders Only [facility] [address] [place] [id number] Alicia Ragland MD Social History Tobacco Use [...] of this encounter Results * Due to [place] state law, this organization might not be sharing negative HIV tests. * (ABNORMAL) URINALYSIS, DIP ONLY ( SITE STAT ONLY) (08/26/2011 12:14 PM EST) COLOR (URINE) YELLOW [facility] (CLIA# [id number]) APPEARANCE (URINE) CLEAR [facility] (CLIA# [id number]) SPECIFIC GRAVITY 1.020 1.001 - 1.035 [facility] (CLIA# [id number]) PH (URINE) 6.5 5.0 - 8.0 [facility] (CLIA# [id number]) PROTEIN (URINE) 1+(A) Neg [facility] (CLIA# [id number]) GLUCOSE (URINE) NEGATIVE Neg [facility] (CLIA# [id number]) Ketones (Urine) NEGATIVE Neg [facility] (CLIA# [id number]) BILIRUBIN (URINE) NEGATIIVE Neg [facility] (CLIA# [id number]) BLOOD (URINE) 1+(A) Neg [facility] (CLIA# [id number]) WBC (URINE) NEGATIVE Neg [facility] (CLIA# [id number]) NITRITE (URINE) NEGATIVE Neg [facility] (CLIA# [id number]) Urine specimen obtained by clean catch procedure (specimen) 08/26/2011 12:14 PM EST Narrative [facility] (CLIA# [id number]) - 08/26/2011 12:15 PM EST Micro and culture already ordered per provider. us Alicia Ragland MD LAB SAME DAY RESULT Final Resul t [facility] (CLIA# [id number]) [address] [place] [address] * (ABNORMAL) URINALYSIS, MICROSCOPIC (08/26/2011 12:00 PM EST) WBC (Urine) 0-5 < OR = 5 /HPF [facility] Comment:{WBC {[id number]) RBC (Urine Sed) 4-10(A) < OR = 3 /HPF [facility] Comment:{RBC {[id number]) Epithelial cells.squamous (Urine sed) NONE SEEN < OR = 5 /HPF [facility] Comment:{SQUAMOUS EPITHELIAL CELLS {[id number]) Bacteria (Urine) NONE SEEN NONE SEEN /HPF [facility] Comment:{BACTERIA {[id number]) Hyaline casts (Urine sed) NONE SEEN NONE SEEN /LPF [facility] Comment:{HYALINE CAST {[id number]) Service comment 01 SEE NOTE [facility] Comment: {NOTE {[id number]) This urine was analyzed for the presence of WBC, RBC, bacteria, casts, and other formed elements. Only those elements seen were reported. 08/26/2011 12:0 0 PM EST 08/26/2011 11:02 PM EST Narrative Resulting Agency Comment [id number] us Alicia Ragland MD LAB SAME DAY RESULT Final Resul t Performing Organization Address [facility] de Phone Number [facility] [address] [place] [address] * CULTURE, URINE, ROUTINE (08/26/2011 12:00 PM EST) Bacteria culture (Urine) SEE NOTE [facility] Comment: {CULTURE, URINE, ROUTINE {[id number]) ??CULTURE, URINE, ROUTINE ??MICRO NUMBER: ?[id number] ??TEST STATUS: ? FINAL ??SPECIMEN SOURCE: ?? URINE ??SPECIMEN QUALITY: ??ADEQUATE ??RESULT: ?No Growth 08/26/2011 12:0 0 PM EST 08/26/2011 11:02 PM EST Narrative Resulting Agency Comment [id number] us Alicia Ragland MD LABORATORY Final Result Performing Organization Address [facility] de Phone Number [facility] [address] [place] [address] documented in this encounter Visit Diagnoses Diagnosis Kidney stone- Primary Calculus of kidney Kidney stone Calculus of kidney documented in this encounter Care Teams Light Adjuster Relationship Specialty Start Date End Date Alicia Ragland MD PCP - General 04/04/10 06/11/15 Deja Fang NP PCP - General Internal Medicine 06/12/15 03/26/20 Jg Madera MD [address] [facility] [address] PCP - General Internal Medicine 03/27/20 05/28/22 Deja Fang NP [address] [place] [address] PCP - Backup PCP Internal Medicine 03/27/20 06/30/22 Rosa Maria Green MD [address] [place] [address] PCP - General Family Medicine 05/29/22 02/20/23 Janice Fall NP [address] [place] [address] PCP - General Family Medicine 02/21/23 documented as of this encounter
--- OUTSIDE RECORDS SUMMARY | 2024-12-03 14:23 | XMS_ITS | Clinical Summary ---
Author Organization [facility] Address [address] [place] [address] Phone Care Team Providers Care Cracker Dough Mixer Name Role Phone Merlyn Atwood CMA [phone] Conditions or Problems Problem Name Problem Code Onset Date Status Entry Date Provider Comment Standard Description Annotate STAPH AUREUS INFECTION A49.01 (ICD-10-CM ) 01/13 Resolved 01/13 Krys BOYER-BC Methicillin susceptible Staphylococcus aureus infection, unspecified site IRRITANT CONTACT DERMATITIS DUE TO OTHER AGENTS L24.89 (ICD-10-CM ) 09/09 Resolved 09/09 Krys BOYER-MONSERRAT Irritant contact dermatitis due to other agents FRECKLES 266463247 (SNOMED CT) 09/09 Resolved 09/09 Krys BOYER-MONSERRAT Ephelis INTERTRIGO 02206535 (SNOMED CT) 11/21 Active 11/21 Krys BOYER-BC Intertrigo SEBORRHEIC DERMATITIS L21.9 (ICD-10-CM ) 11/21 Active 11/21 Krys BOYER-BC Seborrheic dermatitis, unspecified FRECKLES 783010863 (SNOMED CT) 09/09 Removed 09/09 Mateo Gilmore MD Ephelis SOLAR DERMATITIS (CHRONIC) L57.8 (ICD-10-CM ) 09/09 Active 09/09 Mateo Gilmore MD Other skin changes due to chronic exposure to nonionizing radiation IRRITANT CONTACT DERMATITIS DUE TO OTHER AGENTS L24.89 (ICD-10-CM ) 09/09 Removed 09/09 Mateo Gilmore MD Irritant contact dermatitis due to other agents STAPH AUREUS INFECTION A49.01 (ICD-10-CM ) 01/13 [facility] 01/13 [facility] Meth[facility] susceptible Staphylococcus aureus infection, unspecified site INFECTION BY METHICILLIN SUSCEPTIBLE STAPHYLOCOCCU S AUREUS 487435764 (SNOMED CT) 01/13 Inactive 01/13 [facility] Infection by methicillin sensitive Staphylococcus aureus DERMATITIS L30.9 (ICD-10-CM ) 01/09 Active 01/09 [facility] Dermatitis, unspecified STREP SCREEN Z11.2 (ICD-10-CM ) 01/09 Active 01/09 Krys OGDEN Encounter for screening for other bacterial diseases Medications Medication Instructions Start Date Stop Date Generic Name NDC Provider DESONIDE 0.05 % CREA Apply twice daily to affected groin area for 2 weeks (Mix 2 medications together) DESONIDE [id number] Merlyn Angelic [facility] KETOCONAZOLE 2 % CREA Apply twice daily to affected groin area for 2 weeks (Mix 2 medications together) Can also use BID to affected sites on face KETOCONAZOLE [id number] Merlyn Angelic [facility] MUPIROCIN 2 % OINT Apply twice daily to affected area on buttocks (mix with ketoconazole and desonide) MUPIROCIN 10472335528 Merlyn HashParade CHAIN TESTING MACHINE OPERATOR CEPHALEXIN 500 MG CAPS Take 1 capsule twice daily x 7 days CEPHALEXIN 38858751684 Merlyn Angelic [facility] CEPHALEXIN 500 MG CAPS Take 1 capsule twice daily x 7 days CEPHALEXIN 25275508459 Krys Novoa [facility] MUPIROCIN 2 % OINT Apply twice daily to affected area on buttocks (mix with ketoconazole and desonide) MUPIROCIN 71612831615 Krys Novoa [facility] GABAPENTIN TABS GABAPENTIN TABS 23048230644 Krys Novoa [facility] NEXIUM PACK ESOMEPRAZOLE MAGNESIUM PACK 85737046788 Krys Novoa [facility] HYDROXYZINE HCL TABS HYDROXYZINE HCL TABS 38411664548 [facility] SERTRALINE HCL TABLET SERTRALINE HCL TABS 45581356404 Krys DIAZ WELLBUTRIN SR [id number] BUPROPION HCL [id number] 50746170816 Krys DIAZ ATORVASTATIN CALCIUM TABS ATORVASTATIN CALCIUM TABS 51607424439 Krys DIAZ ALPRAZOLAM TABS ALPRAZOLAM TABS 47000710682 Krys DIAZ DESONIDE 0.05 % CREA Apply twice daily to affected groin area for 2 weeks (Mix 2 medications together) DESONIDE 70031306342 Krys DIAZ KETOCONAZOLE 2 % CREA Apply twice daily to affected groin area for 2 weeks (Mix 2 medications together) Can also use BID to affected sites on face KETOCONAZOLE 25420892483 Krys DIAZ BETAMETHASONE DIPROPIONATE 0.05 % OINT apply to affected areas QOD alternating with vaseline. BETAMETHASONE DIPROPIONATE 40439739006 Krys DIAZ TRIAMCINOLONE ACETONIDE 0.1 % OINT apply to affected areas on arms, legs, and trunk twice daily for 2 weeks TRIAMCINOLONE ACETONIDE 69671494001 Krys DIAZ MUPIROCIN 2 % OINT apply to affected area 2x daily MUPIROCIN 47729311503 Krys OGDEN BETAMETHASONE DIPROPIONATE 0.05 % OINT apply to affected areas QOD alternating with vaseline. BETAMETHASONE DIPROPIONATE 56573776106 Mateo Gilmore MD AUGMENTIN 500-125 MG TABS Take 1 tab twice daily x 10 days AMOXICILLIN-POT CLAVULANATE 47631502669 Krys DIAZ Medication excluded from report: AUGMENTIN 500-125 MG TABS Take 1 tab twice daily x 10 days AMOXICILLIN-POT CLAVULANATE 16078284452 Krys DIAZ TRIAMCINOLONE ACETONIDE 0.1 % OINT apply to affected areas on arms, legs, and trunk twice daily for 2 weeks TRIAMCINOLONE ACETONIDE 25138000446 Krys BOYER- DESONIDE 0.05 % OINT apply to affected area 2x daily DESONIDE 14082721744 Krys BOYER-MONSERRAT MUPIROCIN 2 % OINT apply to affected area 2x daily MUPIROCIN 27600091022 Krys BOYER- KETOCONAZOLE 2 % CREA apply to affected areas 2x daily KETOCONAZOLE 00737424414 Krys OGDEN Medications Administered No information available. Allergies, Adverse Reactions, Alerts Allergy Name Reaction Description Start Date Severity Statu s Provider NUTS Critical Kyrs OGDEN Results No information available. Plan of Care Type Date Detail Pending order Wound Culture an d Sensitivity Pending order Wound Culture an d Sensitivity Pending order Wound Culture an d Sensitivity Patient education Medications Patient education mupirocin%20(t opical)%20(cream%2c%20ointment) Patient education Medications Patient education mupirocin%20(t opical)%20(cream%2c%20ointment) Patient education seborrheic%20d ermatitis Patient education Medications Patient education seborrheic%20d ermatitis Patient education Medications Patient education Medications Patient education Medications Patient education triamcinolone%20(topical)%20(cream%2c%20lotion%2c%20oint ment%2c%20spray) Patient education dermatitis Patient education Medications Patient education triamcinolone%20(topical)%20(cream%2c%20lotion%2c%20oint ment%2c%20spray) Patient education dermatitis Patient education Medications Patient education triamcinolone%20(topical)%20(cream%2c%20lotion%2c%20oint ment%2c%20spray) Patient education dermatitis Procedures Code Procedure Name Date Entry Date [id number] Patient encounter procedure [id number] Patient encounter procedure [id number] Patient encounter procedure [id number] Patient encounter procedure [id number] Patient encounter procedure [id number] Patient encounter procedure [id number] Patient encounter procedure Vital Signs No information available. Immunizations No information available. Advance Directives No information available.
--- OUTSIDE RECORDS SUMMARY | 2024-12-03 14:23 | XMS_ITS | Encounter Summary ---
Author Organization [facility] Address [address] [place] [address] Care Team Providers Care Control Cabinet Assembler Name Role Phone Alicia Ragland MD Primary Care Provider Unavaila Deja Yepez NP Primary Care Provider [phone] Jg Madera MD Primary Care Provider Deja Fang NP Unavailable Rosa Maria Green MD Primary Care Provider [phone] Janice Fall NP Primary Care Provider [phone] Reason for Visit * Reason Comments E-prescribing Refill Request Encounter Details Date Type Department Care Team (Late st Contact Info) Description 2015 Refill [facility] [address] [place] [address] Alicia Ragland MD E-prescribing Refill Request Social History Tobacco Use [...] encounter Miscellaneous Notes * Telephone Encounter - Quynh Lawson - 03/20/2015 9:23 AM EDT Any special requests or concerns? none Faxed/E-prescribed medication renewal request(s) for Josh Johnston 55 y.o. male received from pharmacy. Verified and Confirmed pharmacy for patient. Last CPE with this specialty: 04/26/2014 Last OV with this specialty: 10/17/2014 Next OV: Future Appointments Date Time Provider Department Center 03/28/2015 11:30 AM Shima Newsome 05/02/2015 9:00 AM MD SAUL Lasren Pertinent lab results: No labs suggested for any medication orders signed or pended in this encounter. Refresh if any orders changed. Allergies: Morphine and Nuts BP Readings from Last 1 Encounters: 10/17/14 122/68 Patient Active Problem List Diagnosis Date Noted ??? IRRITABLE BOWEL 07/13/2012 ??? Elevated CK 08/22/2011 Improving. ??? History of colonic polyps 08/21/2011 Adenoma on 11/14. Repeat colonoscopy in 5 yrs. ??? Obese 08/21/2011 Discussed diet and exercise.recommend BMI < 30. ??? Renal calculi 02/26/2011 Asymptomatic. ??? Hospital [...] statin use- h/o elevated ck with use. ??? ANXIETY 06/30/2006 Moderate-Severe. Followed by Dr. Cabezas, psychiatrist @ [facility] in [place]. ??? GERD 06/30/2006 Persistent. On Omeprazole BID. Followed by GI. ??? IRRITABLE BOWEL 06/30/2006 Intermittent symptoms on symptomatic treatment. ??? OSTEOARTHRITIS OF KNEES 06/30/2006 Chronic, stable. Current Outpatient Prescriptions on File Prior to Visit Medication Sig Dispense Refill ??? ALPRAZolam 0.25 MG Tab * 90 UNITS = 30 DAY SUPPLY * 90 2 ??? HydrOXYzine HCl 50 MG Tab TAKE 1 TABLET BY MOUTH TWICE A DAY NEEDED FOR ANXIETY 60 Tab 2 ??? HydrOXYzine HCl 50 MG Tab * 60 UNITS = 30 DAY SUPPLY * 60 2 ??? ALPRAZolam 0.25 MG Tab 1 TABLET THREE TIMES DAILY 90 Tab 2 ??? Sertraline HCl 50 MG Tab take 1 tab daily 90 Tab 2 ??? Sertraline HCl 50 MG Tab * 90 UNITS = 90 DAY SUPPLY * 90 2 ??? Prochlorperazine Maleate 10 MG Tab 1 TABLET 3 TIMES DAILY NEEDED 90 Tab 0 ??? HYDROCORTISONE, RECTAL, (PROCTOSOL HC) 2.5 % Cream prn 3 Tube 3 ??? HydrOXYzine HCl 25 MG Tab 1 po bid 180 Tab 0 ??? Omeprazole Magnesium (PRILOSEC OTC) 20 MG Tablet Delayed Response TAKE ONE CAPSULE BY MOUTH TWICE A DAY 168 Tab 3 ??? Prochlorperazine Maleate 10 MG Tab 1 TABLET 3 TIMES DAILY NEEDED ??? Nystatin 450367 UNIT/GM Cream apply bid 1 Tube 3 ??? EPINEPHrine (EPIPEN JR 2-NIGEL) 0.15 MG/0.3ML Solution Auto-injector 1 TIME ONLY 2 Syringe 0 ??? Inositol Niacinate (NIACIN FLUSH FREE) 500 MG Cap 1 po bid 60 Cap 3 ??? Multiple Vitamin (MULTI-VITAMIN) Tab 1 TABLET DAILY documented in this encounter Plan of Treatment Not on file documented as of this encounter Visit Diagnoses Not on filedocumented in this encounter Care Teams Control Cabinet Assembler Relationship Specialty Start Date End Date Alicia Ragland MD PCP - General 04/04/10 06/11/15 Deja Fang NP PCP - General Internal Medicine 06/12/15 03/26/20 Jg Madera MD [address] [facility] [place] [address] PCP - General Internal Medicine 03/27/20 05/28/22 Deja Fang NP [address] [place] [address] PCP - Backup PCP Internal Medicine 03/27/20 06/30/22 Rosa Maria Green MD [address] [place] [address] PCP - General Family Medicine 05/29/22 02/20/23 Janice Fall NP [address] [place] [address] PCP - General Family Medicine 02/21/23 documented as of this encounter
--- OUTSIDE RECORDS SUMMARY | 2024-12-03 14:23 | XMS_ITS | Encounter Summary ---
Author Organization [facility] Address [address] [place] [address] Care Team Providers Care Management Specialist Name Role Phone Ailcia Ragland MD Primary Care Provider UnavailAlicia Kumari MD Primary Care Provider Unavaila Deja Yepez NP Primary Care Provider [phone] Jg Madera MD Primary Care Provider Deja Fang FOLDING MACHINE SETTER Unavailable [phone] Rosa Maria Green MD Primary Care Provider Janice Fall NP Primary Care Provider [phone] Encounter Details Date Type Department Care Team (Late st Contact Info) Description 11/10/2009 Orders Only [facility] [address] [place] [id number] Alicia Ragland MD Medications Social History Tobacco [...] on filedocumented in this encounter Care Teams Management Specialist Relationship Specialty Start Date End Date Alicia Ragland MD PCP - General 04/04/10 06/11/15 Alicia Ragland MD PCP - General 10/28/05 04/03/10 Deja Fang NP PCP - General Internal Medicine 06/12/15 03/26/20 Jg Madera MD [address] [place] [address] PCP - General Internal Medicine 03/27/20 05/28/22 Deja Fang NP [address] [place] [address] PCP - Backup PCP Internal Medicine 03/27/20 06/30/22 Rosa Maria Green MD [address] [place] [address] PCP - General Family Medicine 05/29/22 02/20/23 Janice Fall NP [address] [place] [address] PCP - General Family Medicine 02/21/23 documented as of this encounter
--- OUTSIDE RECORDS SUMMARY | 2024-12-03 14:23 | XMS_ITS | Encounter Summary ---
Author Organization [facility] Address [address] [place] [address] Care Team Providers Care Director Of Vocational Training Name Role Phone Janice Fall NP Primary Care Provider [phone] Reason for Referral * Physical Therapy (Routine) - Authorized Specialty Diagnoses / Procedures Referred By Contchelita t Referred To Contact Physical Therapy Diagnoses Primary osteoarthritis of right knee Janice Fall NP [address] [place] [address] Phone: tel: fax: [facility] [address] [place] [address] Phone: tel: fax: Referral ID Status Reason Start Date Expiration Date Visits Requested Visits Authorized [id number] Authorized Patient Preference 07/12/2024 07/12/2025 26 26 Scheduling Instructions Would like [facility] phone [phone] fax [phone] Question Answer Reason for referral and relevant patient history/tests: s/p right total knee replacement Track Order? No tracking Is this work conditioning? No Is this related to a recent/upcoming surgery? No Specialist needs expertise in Musculoskeletal issue Reason for Visit * Reason Comments Referral Request Encounter Details Date Type Department Care Team (Late st Contact Info) Description 07/07/2024 Telephone [facility] [address] [place] [address] Janice Fall NP [address] [facility] [place] [address] Referral Request Social History Tobacco Use Types Packs/Day [...] encounter Miscellaneous Notes * Telephone Encounter - Jg Madera MD - 07/07/2024 2:18 PM EST Ordered referral * Telephone Encounter - David Cruz - 07/07/2024 1:10 PM EST Pt calling for a physical therapy order. Pt would like to go [place] [facility] [place] [facility]. Ph. [phone] documented in this encounter Plan of Treatment Scheduled Referrals Name Type Priority Associated Diagnoses Orde r Schedule CONSULT PHYSICAL THERAPY Referral Routine (within 3 months) Primary osteoarthritis of right knee Ordered: 07/07/2024 documented as of this encounter Visit Diagnoses Diagnosis Primary osteoarthritis of right knee Primary localized osteoarthrosis, lower leg documented in this encounter Care Teams Director Of Vocational Training Relationship Specialty Start Date End Date Janice Fall NP [address] [facility] [place] [place] [address] PCP - General Family Medicine 02/21/23 documented as of this encounter
--- OUTSIDE RECORDS SUMMARY | 2024-12-03 14:23 | XMS_ITS | Encounter Summary ---
Author Organization [facility] Address [address] [place] [address] Care Team Providers Care Mechanical Maintenance Technician Name Role Phone Deja Fang NP Primary Care Provider Jg Madera MD Primary Care Provider [phone] Deja Fang NP Unavailable [phone] Rosa Maria Green MD Primary Care Provider [phone] Janice Fall NP Primary Care Provider [phone] Reason for Visit * Reason Comments Hernia Encounter Details Date Type Department Care Team ([facility] Contact Info) Description 06/05/2018 Telephone [facility] [address] [place] [address] Deja Fang NP [address] [facility] [address] [place] [address] Hernia Social History Tobacco Use Types Packs/Day Years [...] encounter Miscellaneous Notes * Telephone Encounter - Jenn Recinos LCSW - 06/10/2018 2:45 PM EST Of course. I will check in with him again soon. * Telephone Encounter - Deja Fang NP - 06/10/2018 2:39 PM EST Thank you for contacting him. * Telephone Encounter - Jenn Recinos LCSW - 06/10/2018 1:53 PM EST SW spoke with patient today. He was fired from his previous employer but was assured that they willnot contest unemployment so he is in the process of applying for these benefits. Patient has questions about health insurance as he will be losing his at the end of this month. grizzly worker did provide patient information about health Connector and [employer] plans that he should qualify for, however there are complicating factors as patient is going through a divorce and he has legally been obligated to cover his and children throughout this time. He will be placing a call to his real estate associate attorney to discuss how best to proceed and psych social worker provided him with information on time frames for coverage for the health Connector and encouraged him to make this a priority so that he will not have a gap in coverage. Patient verbalized understanding and was appreciative of the information. Patient goes to [facility] [place] for counseling and Psychiatry and was concerned he would lose accesswith a change in insurance but psych social worker assured him as long as he stayed with [employer] or a [employer] connectorcare plan he should be just fine. grizzly worker will follow up with patient as needed and remain available. * Telephone Encounter - Jenn Recinos LCSW - 06/08/2018 10:40 AM EST SW [place] [facility] [place] offering assistance * Telephone Encounter - Deja Fang NP - 06/05/2018 3:10 PM EDT Spoke with patient- he would like to see general surgery for inguinal hernia and also is requestingSW for financial concerns.Order placed for general surgery. SW- can you call patient regarding financial concerns- he recently lost his job and is going through a divorce. * Telephone Encounter - Mirta Lamas LPN - 06/05/2018 12:18 PM EDT Pt calling back Do you still wish to speak to him? * Telephone Encounter - Jessica Donovan - 06/05/2018 12:10 PM EDT States he will like to discuss his hernia issue Also lost his job and , will like to discuss this as well documented in this encounter Plan of Treatment Not on file documented as of this encounter Visit Diagnoses Diagnosis Non-recurrent unilateral inguinal hernia without obstruction or gangrene documented in this encounter Care Teams Mechanical Maintenance Technician Relationship Specialty Start Date End Date Deja Fang NP PCP - General Internal Medicine 06/12/15 03/26/20 Jg Madera MD [address] [place] [address] PCP - General Internal Medicine 03/27/20 05/28/22 Deja Fang NP [address] [place] [address] PCP - Backup PCP Internal Medicine 03/27/20 06/30/22 Rosa Maria Green MD [address] [place] [address] PCP - General Family Medicine 05/29/22 02/20/23 Janice Fall NP [address] [place] [address] PCP - General Family Medicine 02/21/23 documented as of this encounter
--- OUTSIDE RECORDS SUMMARY | 2024-12-03 14:23 | XMS_ITS | Encounter Summary ---
Author Organization [facility] Address [address] [place] [address] Care Team Providers Care Appointment Setter Name Role Phone Deja Fang NP Primary Care Provider [phone] Jg Madera MD Primary Care Provider [phone] Deja Fang NP Unavailable [phone] Rosa Maria Green MD Primary Care Provider [phone] Janice Fall NP Primary Care Provider [phone] Reason for Referral * Physical Therapy (Routine) - Authorized Specialty Diagnoses / Procedures Referred By Kelsy salas Referred To Contact Physical Therapy Diagnoses Aftercare following right wrist joint replacement surgery Presence of right artificial knee joint s/p surgery with Dr. Washburn Procedures Physical Therapy at [facility]# [id number] Deja Fang, [place] [address] [place] [address] Phone: tel: fax: [facility] [address] [place] [address] Phone: tel: Referral ID Status Reason Start Date Expiration Date Visits Requested Visits Authorized [id number] Authorized Geography 07/12/2019 07/11/2020 16 16 Question Answer What is the reason for this outside referral? EVALUATE AND TREAT Please provide pertinent patient history. office calling to request referral referred by Dr. Washburn after surgery Patient is being referred outside of [facility] for the following reason, however final determination for [id number] requests are made by the Referral Management Department Patient Preference Track Order? No When do you want this visit to occur? WITHIN 24 HOURS - 07/12/19 Please list the patient's preferred provider for this consult. [facility] [phone] FAX [phone] Encounter Details Date Type Department Care Team (Late st Contact Info) Description 07/12/2019 Orders Only [place] [address] [place] [address] Deja Fang NP 123 [facility] [address] [place] [address] Social History Tobacco Use Types Packs/Day Years [...] Progress Notes * Deja Fang NP - 07/12/2019 9:32 AM EST Letter sent, see letter for details. documented in this encounter Plan of Treatment Scheduled Referrals Name Type Priority Associated Diagnoses Orde r Schedule CONSULT PHY MED REHAB NON-FC Referral Routine Aftercare following right wrist joint replacement surgery Presence of right artificial knee joint Ordered: 07/12/2019 documented as of this encounter Procedures * Due to [place] [employer] law, this organization might not be sharing negative HIV tests. Procedure Name Priority Date/Time Associated Diagnosis Comments VENIPUNCTURE Routine 07/12/2019 11:51 AM EST Hyperlipidemia, unspecified hyperlipidemia type documented in this encounter Results * Due to [place] state law, this organization might not be sharing negative HIV tests. * (ABNORMAL) LIPID PANEL WITH REFLEX TO DIRECT LDL (07/12/2019 11:51 AM EST) Cholesterol 191 <200 mg/dL [facility] HDL Cholesterol 46 >40 mg/dL [facility] Triglyceride 139 <150 mg/dL [facility] LDL Cholesterol 120(H) mg/dL (calc) [facility] Comment: Reference range: [...] LDL-C. Marcellus SS et al. SHADIA. 2013;310(19): 7196-2789 (http://education.SpinGo/faq/HYS865) CHOL/HDL Ratio 4.2 <5.0 (calc) [facility] Cholesterol Non-HDL 145(H) <130 mg/dL (calc) [facility] Comment: For patients with diabetes plus 1 major ASCVD risk factor, treating to a non-HDL-C goal of <100 mg/dL (LDL-C of <70 mg/dL) is considered a therapeutic option. 07/12/2019 11:5 1 AM EST 07/12/2019 10:28 PM EST Narrative Resulting Agency Comment [id number] Deja Fang NP LABORATORY Final Result Performing Organization Address City/State/[facility] de Phone Number [facility] [address] [place] [address] documented in this encounter Visit Diagnoses Diagnosis Aftercare following right wrist joint replacement surgery Presence of right artificial knee joint Knee joint replacement by other means Hyperlipidemia, unspecified hyperlipidemia type documented in this encounter Care Teams Appointment Setter Relationship Specialty Start Date End Date Deja Fang NP PCP - General Internal Medicine 06/12/15 03/26/20 Jg Madera MD [address] [facility] [place] [address] PCP - General Internal Medicine 03/27/20 05/28/22 Deja Fang NP [address] [place] [address] PCP - Backup PCP Internal Medicine 03/27/20 06/30/22 Rosa Maria Green MD [address] [place] [address] PCP - General Family Medicine 05/29/22 02/20/23 Janice Fall NP [address] [place] [address] PCP - General Family Medicine 02/21/23 documented as of this encounter
--- OUTSIDE RECORDS SUMMARY | 2024-12-03 14:23 | XMS_ITS | Encounter Summary ---
Author Organization [facility] Address [address] [place] [address] Care Team Providers Care Sagger Preparer Name Role Phone Deja Fang NP Primary Care Provider Jg Madera MD Primary Care Provider [phone] Deja Fang NP Unavailable [phone] Rosa Maria Green MD Primary Care Provider [phone] Janice Fall NP Primary Care Provider [phone] Encounter Details Date Type Department Care Team (Late st Contact Info) Description 06/20/2015 Orders Only [place] [facility] [address] [place] [id number] Alicia Ragland MD Social History Tobacco Use [...] on filedocumented in this encounter Care Teams Sagger Preparer Relationship Specialty Start Date End Date Deja Fang NP PCP - General Internal Medicine 06/12/15 03/26/20 Jg Madera MD [address] [facility] [place] [address] PCP - General Internal Medicine 03/27/20 05/28/22 Deja Fang NP [address] [facility] [place] [address] PCP - Backup PCP Internal Medicine 03/27/20 06/30/22 Rosa Maria Green MD [address] [facility] [place] [address] PCP - General Family Medicine 05/29/22 02/20/23 Janice Fall NP [address] [facility] [place] [address] PCP - General Family Medicine 02/21/23 documented as of this encounter
--- OUTSIDE RECORDS SUMMARY | 2024-12-03 14:23 | XMS_ITS | Encounter Summary ---
Author Organization [facility] Address [address] [place] [address] Care Team Providers Care Power Distributor Name Role Phone Jg Madera MD Primary Care Provider [phone] Deja Fang NP Unavailable [phone] Rosa Maria Green MD Primary Care Provider [phone] Janice Fall NP Primary Care Provider [phone] Encounter Details Date Type Department Care Team ([facility] st Contact Info) Description 09/21/2021 Orders Only [facility] [address] [place] [address] Deja Fang NP 123 [facility] [address] [place] [address] Medications Social History Tobacco Use Types Packs/Day Years Used Date Smoking Tobacco: Never Smokeless Tobacco: Never Alcohol Use Standard Drinks/Week Comments Yes 1.7 (1 standard drink = 0.6 oz p ure alcohol) occ PHQ[facility]2 [facility] Date [facility] (Range 0-6) 6 07/31/2021 Sex and Gender Information Value Date Recorded [...] as of this encounter Visit Diagnoses Diagnosis Erectile dysfunction due to diseases classified elsewhere documented in this encounter Care Teams Power Distributor Relationship Specialty Start Date End Date Jg Madera MD [address] [place] [address] PCP - General Internal Medicine 03/27/20 05/28/22 Deja Fang NP [address] [place] [address] PCP - Backup PCP Internal Medicine 03/27/20 06/30/22 Rosa Maria Green MD [address] [place] [address] PCP - General Family Medicine 05/29/22 02/20/23 Janice Fall NP [address] [place] [address] PCP - General Family Medicine 02/21/23 documented as of this encounter
--- OUTSIDE RECORDS SUMMARY | 2024-12-03 14:23 | XMS_ITS | Encounter Summary ---
Author Organization [facility] Address [address] [place] [address] Care Team Providers Care Audiovisual Technician Name Role Phone Jg Madera MD Primary Care Provider [phone] Deja Fang NP Unavailable [phone] Rosa Maria Green MD Primary Care Provider [phone] Janice Fall NP Primary Care Provider [phone] Encounter Details Date Type Department Care Team ([facility] st Contact Info) Description 07/31/2021 Orders Only [place] [facility] [address] [place] [address] Deja Fang NP 123 [facility] [address] [place] [address] Social History Tobacco Use Types Packs/Day Years Used Date Smoking Tobacco: Never Smokeless Tobacco: Never Alcohol Use Standard Drinks/Week Comments Yes 1.7 (1 standard drink = 0.6 oz p ure alcohol) occ PHQ-2 Answer Date [facility] (Range 0-6) 6 [...] Miscellaneous Notes * Result Encounter Note - Deja Fang NP - 07/31/2021 2:20 PM EST See MCM documented in this encounter Plan of Treatment Not on file documented as of this encounter Procedures * Due to [facility] law, this organization might not be sharing negative HIV tests. Procedure Name Priority Date/Time Associated Diagnosis Comments VENIPUNCTURE Routine 07/31/2021 2:20 PM EST Mixed hyperlipidemia ASPARTATE AMINOTRANSFERASE (AST), SERUM Routine 07/31/2021 2:20 PM EST Mixed hyperlipidemia PROSTATE SPECIFIC ANTIGEN (PSA) TOTAL, SERUM Routine 07/31/2021 2:20 PM EST Screening for prostate cancer LIPID PANEL WITH REFLEX TO DIRECT LDL Routine 07/31/2021 2:20 PM EST Lipids blood increased BASIC METABOLIC PANEL WITH (GFR) Routine 07/31/2021 2:20 PM EST Screening for endocrine disorder documented in this encounter Results * Due to [place] [employer] law, this organization might not be sharing negative HIV tests. * LIPID PANEL WITH REFLEX TO DIRECT LDL (07/31/2021 2:20 PM EST) Cholesterol 161 <200 mg/dL [facility] HDL Cholesterol 47 > OR = 40 mg/dL [facility] Triglyceride 142 <150 mg/dL [facility] LDL Cholesterol 90 mg/dL (calc) [facility] Comment: Reference range: <100 Desirable range <100 mg/dL for primary prevention; ?? <70 mg/dL for patients with CHD or diabetic patients with > or = 2 CHD risk factors. LDL-C is now calculated using the Thomas calculation, which is a validated novel method providing better accuracy than the Friedewald equation in the estimation of LDL-C. Marcellus BETH et al. SHADIA. 2013;310(19): 2082-5555 (http://education.Tube2Tone/faq/RJO571) CHOL/HDL Ratio 3.4 <5.0 (calc) [facility] Cholesterol Non-HDL 114 <130 mg/dL (calc) [facility] Comment: For patients with diabetes plus 1 major ASCVD risk factor, treating to a non-HDL-C goal of <100 mg/dL (LDL-C of <70 mg/dL) is considered a therapeutic option. 07/31/2021 2:20 PM EST 07/31/2021 3:28 PM EST Narrative Resulting Agency Comment [id number] [facility] LABORATORY Final Result Performing Organization Address [facility] de Phone Number [facility] [address] [place] [address] * (ABNORMAL) PROSTATE SPECIFIC ANTIGEN (PSA) TOTAL, SERUM (07/31/2021 2:20 PM EST) PSA 6.30(H) < OR = 4.00 ng/mL [facility] Comment: The total PSA value from this assay system is standardized against the WHO standard. The test result will be approximately 20% lower when compared to the equimolar-standardized total PSA ([place]). Comparison of serial PSA results should be interpreted with this fact in mind. This test was performed using the Siemens chemiluminescent method. Values obtained from different assay methods cannot be used interchangeably. PSA levels, regardless of value, should not be interpreted as absolute evidence of the presence or absence of disease. 07/31/2021 2:20 PM EST 07/31/2021 3:28 PM EST Narrative Resulting Agency Comment [id number] [facility] LABORATORY Final Result Performing Organization Address [facility] de Phone Number [facility] [address] [place] [address] * (ABNORMAL) BASIC METABOLIC PANEL WITH (GFR) (07/31/2021 2:20 PM EST) Glucose 95 65 - 99 mg/dL [facility] Comment:Fasting reference in terval Urea Nitrogen Blood (BUN) 12 7 - 25 mg/dL [facility] Creatinine 1.39(H) 0.70 - 1.25 mg/dL [facility] Comment: For patients >49 years of age, the reference limit for Creatinine is approximately 13% higher for people identified as -Eritre[place]. EGFR 54(L) > OR = 60 mL/min/1. 73m2 [facility] GFR () 63 > OR = 60 mL/min/1. 73m2 [facility] BUN/Creatinine Ratio 9 6 - 22 (calc) [facility] Sodium 140 135 - 146 mmol/L [facility] Potassium 4.6 3.5 - 5.3 mmol/L [facility] Chloride 104 98 - 110 mmol/L [facility] Carbon dioxide 28 20 - 32 mmol/L [facility] Calcium 9.5 8.6 - 10.3 mg/dL [facility] 07/31/2021 2:20 PM EST 07/31/2021 3:28 PM EST Narrative [facility] - 07/31/2021 5:43 PM EST Please note that this estimated GFR [...] needs for GFR calculation. Resulting Agency Comment [id number] Deja Fang NP LABORATORY Final Result [facility] [address] [place] [address] * ASPARTATE AMINOTRANSFERASE (AST), SERUM (07/31/2021 2:20 PM EST) AST (SGOT) 22 10 - 35 U/L [facility] 07/31/2021 2:20 PM EST 07/31/2021 3:28 PM EST Narrative Resulting Agency Comment [id number] Deja Fang NP LAB SAME DAY RESULT Final Resul t [facility] [address] [place] [address] * ALANINE AMINOTRANSFERASE (ALT), SERUM (07/31/2021 2:20 PM EST) ALT (SGPT) 16 9 - 46 U/L [facility] 07/31/2021 2:20 PM EST 07/31/2021 3:28 PM EST Narrative Resulting Agency Comment [id number] Deja Fang NP LAB SAME DAY RESULT Final Resul t [facility] [address] [place] [address] documented in this encounter Visit Diagnoses Diagnosis Mixed hyperlipidemia Screening for endocrine disorder Screening for prostate cancer Special screening for malignant neoplasm of prostate Lipids blood increased Other and unspecified hyperlipidemia documented in this encounter Care Teams Audiovisual Technician Relationship Specialty Start Date End Date Jg Madera MD [address] [place] [address] PCP - General Internal Medicine 03/27/20 05/28/22 Deja Fang NP [address] [place] [address] PCP - Backup PCP Internal Medicine 03/27/20 06/30/22 Rosa Maria Green MD [address] [place] [address] PCP - General Family Medicine 05/29/22 02/20/23 Janice Fall NP [address] [place] [address] PCP - General Family Medicine 02/21/23 documented as of this encounter
--- OUTSIDE RECORDS SUMMARY | 2024-12-03 14:23 | XMS_ITS | Clinical Summary ---
Author Organization [facility] Address [address] [place] [address] Care Team Providers Care Chief Transfer And Pumphouse Operator Name Role Phone Janice Fall Primary Care Provider [phone] Allergies Active Allergy Reactions Criticality Noted Date Comments Nut - Unspecified Unknown,Anaphylaxis High 9 Medications tamsulosin (FLOMAX) 0.4 mg capsule Take 0.4 mg by mouth nightly. Active buPROPion SR (WELLBUTRIN SR) 150 mg tablet Take 300 mg by mouth. 1 03/03/20 17 Active gabapentin (NEURONTIN) 300 mg capsule Take 600 mg by mouth 3 times a day. 2 05/05/20 17 Active atorvastatin (LIPITOR) 40 mg tablet TAKE 1 TABLET BY MOUTH EVERY DAY 05/07/20 17 Active sertraline (ZOLOFT) 50 mg tablet 100 mg 2 times a day. 0 03/23/20 18 Active esomeprazole (NexIUM) 40 mg capsule TAKE ONE CAPSULE BY MOUTH EVERY DAY 02/10/20 18 Active EPINEPHrine (EPIPEN) 0.3 mg/0.3 mL injection syringe EpiPen 2-Tucker 0.3 mg/0.3 mL injection, auto-injector Active desonide 0.05% cream Apply topically to the affected area 2 times a day. Active acetaminophen (TYLENOL) 325 mg tablet Take 2 tablets (650 mg total) by mouth every 6 hours. 06/18/20 19 Active ALPRAZolam (XANAX) 0.25 mg tablet Take 1 tablet (0.25 mg total) by mouth nightly. 06/18/20 Active Additional Information Patient not taking.Reported on 05/09/2021 aspirin 81 mg EC tablet Take 1 tablet (81 mg total) by mouth 2 times a day for 4 weeks. Take with food. 60 tablet 06/18/2019 1:11 PM EST 06/18/20 Active Additional Information Patient not taking.Reported on 05/09/2021 multivitamin (THERAGRAN) tablet Take 1 tablet by mouth daily. 06/19/20 Active ondansetron (ZOFRAN ODT) 4 mg disintegrating tablet Dissolve 1 tablet (4 mg total) in the mouth every 8 hours as needed for nausea or vomiting. 06/18/20 Active Additional Information Patient not taking.Reported on 01/19/2024 oxyCODONE IR (ROXICODONE) 5 mg tablet Take 1-2 tablets (5-10 mg total) by mouth every 4 hours as needed for pain. 132 tablet 06/18/2019 1:11 PM EST 06/18/20 Active Additional Information Patient not taking.Reported on 05/09/2021 polyethylene glycol 3350 (MIRALAX) 17 gram packet Take 1 packet (17 g total) by mouth daily. Mix powder in 4 to 8 oz of water, juice, coffee, or tea. 06/19/20 Active Additional Information Patient not taking.Reported on 05/09/2021 senna (SENOKOT) 8.6 mg tablet Take 2 tablets (17.2 mg total) by mouth daily. 06/18/20 Active Additional Information Patient not taking.Reported on 05/09/2021 hydrOXYzine (ATARAX) 50 mg tablet Take 50 mg by mouth 3 times daily as needed. Active LORazepam (ATIVAN) 0.5 mg tablet Take 0.5 mg by mouth every 6 hours as needed. Active buPROPion XL (WELLBUTRIN XL) 300 mg tablet Take 300 mg by mouth daily. 11/02/19 Active sertraline (ZOLOFT) 100 mg tablet TAKE 2 BY MOUTH DAILY EVERY MORNING FOR 30 DAYS 11/02/19 Active cloNIDine (CATAPRES) 0.3 mg tablet Take 0.3 mg by mouth nightly. 05/10/20 Active oxyCODONE-acetamin ophen (PERCOCET) 5-325 mg tablet 05/22/20 Active amoxicillin (AMOXIL) 875 mg tablet Take 875 mg by mouth 2 times a day. 08/08/19 Active ibuprofen (MOTRIN) 600 mg tablet Take 600 mg by mouth 4 times a day as needed. 08/08/19 22 Active traZODone (DESYREL) 50 mg tablet TAKE 1 TABLET AT BEDTIME. MAY REPEAT ONCE NEEDED FOR INSOMNIA 08/31/19 Active omeprazole (PriLOSEC) 40 mg capsule TAKE ONE CAPSULE BY MOUTH EVERY DAY 12/22/19 22 Active Active Problems Problem Noted Date Diagnosed Date Atherosclerosis of both carotid arteries 023 Overview (01/19/2024): 07/04/2023 [facility] report-minimal intimal plaque of bilateral carotid bifurcations and proximal ICAs. No high-grade carotid stenosis, less than 50% carotid stenosis bilaterally. Bilateral bunions 06/02/2023 Contracture of left index finger 06/02/2023 Prediabetes 09/03/2022 Diverticulosis 09/02/2022 Atherosclerosis of abdominal aorta 04/05/2020 Overview (01/19/2024): Refer to CT Abdomen and Pelvis results 09/06/15: Vasculature: Mild atherosclerotic calcification nonaneurysmal abdominal aorta Refer to CT Abdomen and Pelvis results 09/06/15: Vasculature: Mild atherosclerotic calcification nonaneurysmal abdominal aorta Refer to CT Abdomen and Pelvis results 09/06/15: Vasculature: Mild atherosclerotic calcification nonaneurysmal abdominal aorta Post-traumatic osteoarthritis of right knee 06/04 Bradycardia 09/23/2018 Nausea & vomiting 09/23/2018 Overview (11/02/2018): Overview: 02/26/2011 Intermittent. Treats with zofran, effective. Refer back to GI. Hypothermia 09/22/2018 Ureteric stone 01/12/2018 Dermatitis 03/21/2017 Overview (11/02/2018): Overview: Saw Derm 11/21/17 for rash in groin. Dx Seborrheic Dermatitis and Intertrigo. Given Ketoconazole 2% cream to mix with Desonide 0.05% cream - use twice daily to groin for 2 weeks. Aftercare following left hip joint replacement s urgery 01/27/2017 MSSA (methicillin susceptible Staphylococcus aur eus) 01/20/2017 Overview (11/02/2018): Overview: 01/20/2017- seen by dermatology and treated. Lumbar facet arthropathy 12/05/2016 Overview (01/19/2024): 09/02/2023: Sees Dr. Higgins at [facility] for back injections. Primary osteoarthritis of both hips 06/03/2016 Overview (11/02/2018): Overview: 12/14/2015- seen by Dr. Higgins- injection given and recommend PT 08/12/2016- possible hip replacement around end of December 2016- patient is possibly interested in gabpentin for pain management. BPH (benign prostatic hyperplasia) 10/24/2015 Overview (01/19/2024): 11/13/2021- elevated PSA related to steroid injection, f/u normal- repeat screening as indicated. Chronic left-sided low back pain with sciatica 0 02/17/2014 Irritable bowel syndrome 11/24/2013 Generalized anxiety disorder 11/24/2013 Depression 11/24/2013 History of colonic polyps 08/21/2011 Overview (11/02/2018): Overview: Adenoma on 11/14. Repeat colonoscopy in 5 yrs. 05/08/2015-Colonoscopy due 2018 Obese 08/21/2011 Overview (11/02/2018): Overview: Discussed diet and exercise.recommend BMI < 30. 05/08/2015-reinforced diet and exercise for weight loss. Kidney stone 02/26/2011 Overview (01/19/2024): Overview: Plans on ESWL 09/12/2015- CT 2/3 left obstructing stone with mild hydronephrosis Overview: Asymptomatic. Impotence of organic origin 10/17/2009 Gastroesophageal reflux disease without esophagi tis 06/30/2006 Overview (01/19/2024): Overview: Persistent. On Omeprazole BID. Followed by GI. 05/08/2015-chronic and ongoing. Persistent. On Omeprazole BID. Followed by GI. 05/08/2015-chronic and ongoing. 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 Followed by Dr. Cabezas, psychiatrist @ [facility] in [place]. 05/08/2015- Seeing Theresa Miguel [employer] for med management and diagnosis. Recent stressors at work. Pending visit with [employer] for return to work. Hyperlipidemia 06/30/2006 Overview (11/02/2018): Overview: Fatty liver on u/s. Lipid levels acceptable on niacin and fish oil. Patient to Consistently take fish oil and increase niacin to 2 x per day. Will recheck lipids in 3 months - if no improvement will discuss statin use- h/o elevated ck with use. 05/08/2015-labs ordered. Reinforced lifestyle changes Anxiety Depression with somatization Dyslipidemia Irritable bowel Overview (11/02/2018): Overview: Intermittent symptoms on symptomatic treatment. 05/08/2015-flareup with increased stress. Reinforced treatment and symptoms to report to office. Left inguinal hernia Hypokalemia Gait instability Resolved Problems Problem Noted Date Diagnosed Date Resolved Date Pre-op exam 01/10/2017 01/19/2024 Pain in right hip 02/17/2014 01/19/2024 Pain, joint, hip, left 02/17/201401/18 Osteoarthritis of knee 11/24/201306/16 Overview (11/02/2018): Overview: 05/08/2015-Chronic, stable. Joint pain, knee 11/22/2013 01/19/2024 Family History Medical History Relation Name Comments Thyroid disease Brother No Known Problems Daughter Thyroid disease Father Thyroid disease Mother Thyroid disease Sister 1 Thyroid disease Sister 2 Thyroid disease Sister 3 Autism spectrum disorder Son 1 No Known Problems Son 2 Relation Name Status Comments Brother Alive Daughter Alive Father (Age 89) Mother (Age 87) Sister 1 Alive Sister 2 Alive Sister 3 Alive Son 1 Alive Son 2 Alive Social History Tobacco Use Types Packs/Day Years [...] file Not on file Not on file Last Filed Vital Signs Vital Sign Reading Time Taken Comments Blood Pressure 152/91 07/19/2024 9:48 AM EST Pulse 51 07/19/2024 9:48 AM EST Temperature 36.6 ??C (97.9 ??F) 07/19/2024 9:16 AM ES T Respiratory Rate 18 06/18/2019 9:42 AM EST Oxygen Saturation 94% 07/19/2024 9:38 AM EST Inhaled Oxygen Concentration - - Weight 111.8 kg (246 lb 6.4 oz) 06/16/2019 7:42 AM EST Height 175.3 cm (5' 9 ) 06/16/2019 7:42 AM EST Body Mass Index 36.39 06/16/2019 7:42 AM EST Plan of Treatment Upcoming Encounters Date Type Department Care Team (Late st Contact Info) Description 01/17/2025 10:30 AM EDT Follow-Up [facility] [address], [place] [id number] Charbel Washburn MD [address] [place] [address] Health Maintenance Due Date Last Done Comments Colonoscopy 1960 FOBT / Fit Test 1960 HIV Screening 1960 Hepatitis C Screening 1960 Sigmoidoscopy 1960 Pneumococcal Vaccine: 50+ Years (2 of 2 - PCV) 09/23/2013 09/23/2012 Alcohol/Substance Use Screening 08/04/2024 Depression Screening and Follow-Up 08/04/2024 Social Drivers of Health Annual Screening 08/04/2024 Cologuard 10/29/2024 10/29/2021, 10/29/2021 Colon Cancer Screening 10/29/2024 DTaP,Tdap,and Td Vaccines (3 - Td or Tdap) 06/02/2033 06/02/2023, 03/15/2013, 06/30/2006, Additional history exists Zoster Vaccines Completed 10/02/2021, 07/31/2021 RSV Vaccine (60+ years old and patients) Completed 06/02/2023 COVID-19 Vaccine Completed 06/18/2024, , 06/26/2022, Additional history exists Influenza Vaccine Completed 06/18/2024, , 06/26/2022, Additional history exists Hepatitis B Vaccines Aged Out No long er eligible based on patient's age to complete this topic Medical Devices Implanted Type Area Dairy Husbandry Worker Device Identifier Shelf Expiration Date Model / Serial / Lot Cement Tobramycin Impreganated Simplex P - [id number] Implanted:Qty: 1 on 06/16/2019 by Charbel Washburn MD at [facility] Implant Right: Knee ELI 06/03/2020 [id number] / / [id number] Patella Three Peg Oval Dome 38mm Pfc Sigma - [id number] Implanted:Qty: 1 on 06/16/2019 by Charbel Washburn MD at [facility] Implant Right: Knee DEPUY 03/03/2024 [id number] / / [id number] Component Femoral Posterior Stabilized Cemented Right Size 5 Sigma - [id number] Implanted:Qty: 1 on 06/16/2019 by Charbel Washburn MD at [facility] Implant Right: Knee DEPUY 01/01/2029 0 / / [id number] Insert Sigma Stab Crosslink 4 12.5mm - [id number] Implanted:Qty: 1 on 06/16/2019 by Charbel Washburn MD at [facility] Implant Right: Knee DEPUY 04/03/2024 2 / / [id number] Tray Tibial Cemented Modular Pfc Cocr Size 4 [id number] Sigma - [id number] Implanted:Qty: 1 on 06/16/2019 by Charbel Washburn MD at [facility] Plate Right: Knee DEPUY 01/31/2029 0 [id number] Insurance [address] PPO/EPO Advance Directives * Presumed Full Code (Latest Code Status on File) Date Activated Date Inactivated Comments 06/16/2019 1:38 PM 06/18/2019 3:24 PM * Presumed Full Code Date Activated Date Inactivated Comments 06/16/2019 7:08 AM 06/16/2019 1:38 PM * Full Code Date Activated Date Inactivated Comments 09/22/2018 11:05 PM 09/26/2018 5:35 PM Healthcare Agents on File Name Relationship Healthcare Agent Relationshi p Communication Nehemiah Preston [facility] Care Agent Care Teams Chief Transfer And Pumphouse Operator Relationship Specialty Start Date End Date Janice Fall [address] [place] [id number] PCP - General 12/02/23
--- OUTSIDE RECORDS SUMMARY | 2024-12-03 14:23 | XMS_ITS | Encounter Summary ---
Author Organization [facility] Address [address] [place] [address] Care Team Providers Care Supervisor Self Service Store Name Role Phone Deja Fang NP Primary Care Provider Jg Madera MD Primary Care Provider [phone] Deja Fang HEALTH POLICY NURSE Unavailable [phone] Rosa Maria Green MD Primary Care Provider [phone] Janice Fall NP Primary Care Provider [phone] Encounter Details Date Type Department Care Team (Late st Contact Info) Description 02/20/2018 Orders Only [facility] [address] [place] [address] Deja Fang NP [address] [address] Social History Tobacco Use Types [...] Progress Notes * Deja Fang NP - 02/22/2018 2:35 PM EDT Labs are normal. No changes needed at this time. documented in this encounter Plan of Treatment Not on file documented as of this encounter Procedures * Due to [facility] law, this organization might not be sharing negative HIV tests. Procedure Name Priority Date/Time Associated Diagnosis Comments HEPATITIS C AB WITH REFLEX TO RNA PCR, SERUM Routine 02/20/2018 3:45 PM EDT Need for hepatitis C screening test CBC (H/H, RBC, INDICES,WBC, PLT) Routine 02/20/2018 3:45 PM EDT Routine history and physical examination of adult TSH, 3RD GENERATION Routine 02/20/2018 3 :45 PM EDT Routine history and physical examination of adult PROSTATE SPECIFIC ANTIGEN (PSA) TOTAL, SERUM Routine 02/20/2018 3:45 PM EDT Routine history and physical examination of adult BASIC METABOLIC PANEL WITH (GFR) Routine 02/20/2018 3:45 PM EDT Routine history and physical examination of adult documented in this encounter Results * Due to [facility] law, this organization might not be sharing negative HIV tests. * PROSTATE SPECIFIC ANTIGEN (PSA) TOTAL, SERUM (02/20/2018 3:45 PM EDT) PSA 0.3 < OR = 4.0 ng/mL [facility] Comment: The total PSA value from this assay system is standardized against the WHO standard. The test result will be approximately 20% lower when compared to the equimolar-standardized total PSA (Naga Kourtney). Comparison of serial PSA results should be interpreted with this fact in mind. This test was performed using the Siemens chemiluminescent method. Values obtained from different assay methods cannot be used interchangeably. PSA levels, regardless of value, should not be interpreted as absolute evidence of the presence or absence of disease. 02/20/2018 3:45 PM EDT 02/21/2018 12:26 AM EDT Narrative Resulting Agency Comment [id number] Deja Fang NP LABORATORY Final Result Performing Organization Address [facility] Co de Phone Number [facility] [address] [place] [address] * TSH, 3RD GENERATION (02/20/2018 3:45 PM EDT) TSH 4.04 0.40 - 4.50 mIU/L [facility] 02/20/2018 3:45 PM EDT 02/21/2018 12:26 AM EDT Narrative Resulting Agency Comment [id number] Deja Fang NP LABORATORY Final Result Performing Organization Address [facility] de Phone Number [facility] [address] [place] [id number] * CBC (H/H, RBC, INDICES,WBC, PLT) (02/20/2018 3:45 PM EDT) Pathologist [facility] WBC 7.5 3.8 - 10.8 Thousand/uL [facility] RBC 4.36 4.20 - 5.80 Million/uL [facility] Hemoglobin 13.2 13.2 - 17.1 g/dL [facility] Hematocrit 39.7 38.5 - 50.0 % [facility] MCV 91.1 80.0 - 100.0 fL [facility] MCH 30.3 27.0 - 33.0 pg [facility] MCHC 33.2 32.0 - 36.0 g/dL [facility] RDW 13.1 11.0 - 15.0 % [facility] PLT 285 140 - 400 Thousand/uL [facility] MPV 9.4 7.5 - 12.5 fL [facility] 02/20/2018 3:45 PM EDT 02/21/2018 12:26 AM EDT Narrative Resulting Agency Comment [id number] Deja Fang NP LAB SAME DAY RESULT Final Resul t Performing Organization Address [facility] Co de Phone Number [facility] [address] [place] [address] * BASIC METABOLIC PANEL WITH (GFR) (02/20/2018 3:45 PM EDT) Glucose 90 65 - 99 mg/dL [facility] Comment:Fasting reference in terval Urea Nitrogen Blood (BUN) 16 7 - 25 mg/dL [facility] Creatinine 1.05 0.70 - 1.33 mg/dL [facility] Comment: For patients >49 years of age, the reference limit for Creatinine is approximately 13% higher for people identified as -Czech. GFR 78 > OR = 60 mL/min/1 .73m2 [facility] GFR () 91 > OR = 60 mL/min/1 .73m2 [facility] BUN/Creatinine Ratio NOT APPLICABLE 6 - 22 (calc) [facility] Sodium 138 135 - 146 mmol/L [facility] Potassium 3.8 3.5 - 5.3 mmol/L [facility] Chloride 103 98 - 110 mmol/L [facility] Carbon dioxide 23 20 - 31 mmol/L [facility] Calcium 9.2 8.6 - 10.3 mg/dL [facility] 02/20/2018 3:45 PM EDT 02/21/2018 12:26 AM EDT Narrative [facility] - 02/21/2018 6:34 AM EDT Please note that this estimated [...] needs for GFR calculation. Resulting Agency Comment [id number] Deja Fang HEALTH POLICY NURSE LABORATORY Final Result Performing Organization Address City/State/[facility] Co de Phone Number [facility] [address] [place] [address] * HEPATITIS C AB WITH REFLEX TO RNA PCR, SERUM (02/20/2018 3:45 PM EDT) Pathologist [facility] Hepatitis C virus Ab NON-REACTI VE NON-REACT SUMAYA [facility] Hepatitis C virus Ab Signal/Cutoff 0.02 <1.00 [facility] 02/20/2018 3:45 PM EDT 02/21/2018 12:26 AM EDT Narrative Resulting Agency Comment [id number] [facility] LABORATORY Final Result [facility] [address] [place] [address] documented in this encounter Visit Diagnoses Diagnosis Need for hepatitis C screening test Special screening examination for other specified viral diseases Routine history and physical examination of adult Routine general medical examination at a health care facility documented in this encounter Care Teams Supervisor Self Service Store Relationship Specialty Start Date End Date Deja Fang NP PCP - General Internal Medicine 06/12/15 03/26/20 Jg Madera MD [address] [place] [address] PCP - General Internal Medicine 03/27/20 05/28/22 Deja Fang NP [address] [place] [address] PCP - Backup PCP Internal Medicine 03/27/20 06/30/22 Rosa Maria Green MD [address] [place] [address] PCP - General Family Medicine 05/29/22 02/20/23 Janice Fall NP [address] [place] [address] PCP - General Family Medicine 02/21/23 documented as of this encounter
--- OUTSIDE RECORDS SUMMARY | 2024-12-03 14:23 | XMS_ITS | Encounter Summary ---
Author Organization [facility] Address [address] [place] [address] Care Team Providers Care Mid Wife Name Role Phone Deja Fang NP Primary Care Provider Jg Madera MD Primary Care Provider [phone] Deja Fang IC DESIGNER STANDARD CELLS Unavailable [phone] Rosa Maria Green MD Primary Care Provider [phone] Janice Fall NP Primary Care Provider [phone] Encounter Details Date Type Department Care Team (Late st Contact Info) Description 12/22/2017 Orders Only [facility] [address] [place] [address] Deja Fang NP [address] [address] Social History Tobacco Use Types [...] Progress Notes * Deja Fang NP - 01/01/2018 3:04 PM EDT MCM * Deja Fang NP - 12/25/2017 1:08 PM EDT Great improvement in labs- keep up the good work with the medication. documented in this encounter Plan of Treatment Not on file documented as of this encounter Procedures * Due to [place] law, this organization might not be sharing negative HIV tests. Procedure Name Priority Date/Time Associated Diagnosis Comments PAIN MANAGEMENT PROFILE, URINE (PAINM2) Routine 12/22/2017 5:20 PM EDT Back pain ALANINE AMINOTRANSFERASE (ALT), SERUM Routine 12/22/2017 5:20 PM EDT Mixed hyperlipidemia ASPARTATE AMINOTRANSFERASE (AST), SERUM Routine 12/22/2017 5:20 PM EDT Mixed hyperlipidemia LIPID PANEL WITH REFLEX TO DIRECT LDL Routine 12/22/2017 5:20 PM EDT Mixed hyperlipidemia documented in this encounter Results * Due to [place] law, this organization might not be sharing [...] interpreting these drug results, please contact a [employer] Toxicology Specialist: [phone] TOX ( ), M-F, 8am-6pm EST. 12/22/2017 5:20 PM EDT 12/23/2017 1:54 AM EDT Narrative Resulting Agency Comment [id number] Deja Fang NP LABORATORY Final Result [facility] [address] [place] [address] * ALANINE AMINOTRANSFERASE (ALT), SERUM (12/22/2017 5:20 PM EDT) ALT (SGPT) 18 9 - 46 U/L [facility] 12/22/2017 5:20 PM EDT 12/23/2017 1:54 AM EDT Narrative Resulting Agency Comment [id number] Deja Fang IC DESIGNER [employer] LAB SAME DAY RESULT Final Resul t Performing Organization Address City/[facility] Co de Phone Number [facility] [address] [place] [address] * ASPARTATE AMINOTRANSFERASE (AST), SERUM (12/22/2017 5:20 PM EDT) AST (SGOT) 22 10 - 35 U/L [facility] 12/22/2017 5:20 PM EDT 12/23/2017 1:54 AM EDT Narrative Resulting Agency Comment [id number] Deja Fang IC DESIGNER STAND[employer] CELLS LAB SAME DAY RESULT Final Resul t Performing Organization Address [facility] Phone Number [facility] [address] [place] [address] * (ABNORMAL) LIPID PANEL WITH REFLEX TO DIRECT LDL (12/22/2017 5:20 PM EDT) Cholesterol 178 <200 mg/dL [facility] HDL Cholesterol 37(L) >40 mg/dL [facility] Triglyceride 166(H) <150 mg/dL [facility] LDL Cholesterol 113(H) mg/dL (calc) [facility] Comment: Reference range: [...] LDL-C. Marcellus BETH et al. SHADIA. 2013;310(19): 4994-2144 (http://education.[employer].TeamPatent/faq/RRP771) CHOL/HDL Ratio 4.8 <5.0 (calc) [facility] Cholesterol Non-HDL 141(H) <130 mg/dL (calc) [facility] Comment: For patients with diabetes plus 1 major ASCVD risk factor, treating to a non-HDL-C goal of <100 mg/dL (LDL-C of <70 mg/dL) is considered a therapeutic option. 12/22/2017 5:20 PM EDT 12/23/2017 1:54 AM EDT Narrative Resulting Agency Comment [id number] Deja Fang NP LABORATORY Final Result [facility] [address] [place] [address] documented in this encounter Visit Diagnoses Diagnosis Mixed hyperlipidemia Back pain Backache, unspecified documented in this encounter Care Teams Mid Wife Relationship Specialty Start Date End Date Deja Fang NP PCP - General Internal Medicine 06/12/15 03/26/20 Jg Madera MD [address] [place] [address] PCP - General Internal Medicine 03/27/20 05/28/22 Deja Fang NP [address] [place] [address] PCP - Backup PCP Internal Medicine 03/27/20 06/30/22 Rosa Maria Green MD [address] [place] [address] PCP - General Family Medicine 05/29/22 02/20/23 Janice Fall NP [address] [place] [address] PCP - General Family Medicine 02/21/23 documented as of this encounter
--- OUTSIDE RECORDS SUMMARY | 2024-12-03 14:23 | XMS_ITS | Referral Summary ---
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 report-minimal intimal plaque of bilateral carotid [...] Overview (01/19/2024): 09/02/2023: Sees Dr. Higgins at [facility] for back injections. Primary osteoarthritis of [...] Moderate-Severe. Followed by Dr. Cabezas, psychiatrist @ [facility] in [place]. 05/08/2015- Seeing Theresa Miguel TECHNOLOGY ADOPTION MANAGER for med management and diagnosis. Recent stressors at work. Pending visit with TECHNOLOGY ADOPTION MANAGER for return to work. Hyperlipidemia 06/30/2006 Overview [...] 05/08/2015-Chronic, stable. Joint pain, knee 11/22/2013 01/19/2024 Social History Tobacco Use Types Packs/Day Years [...] Info) Description 01/17/2025 10:30 AM EDT Follow-Up [facility] [address] [place] [address] Charbel Washburn MD [address] [place] [address] Medical Devices Implanted Type Area Bulb Grower Device Identifier Shelf Expiration Date Model / Serial / Lot Cement Tobramycin Impreganated Simplex P - [id number] Implanted:Qty: 1 on 06/16/2019 by Charbel Washburn MD at [facility] Implant Right: Knee ELI 06/03/2020 [id number] / / [id number] Patella Three Peg Oval Dome 38mm Pfc Sigma - [id number] Implanted:Qty: 1 on 06/16/2019 by Charbel Washburn MD at [facility] Implant Right: Knee DEPUY 03/03/2024 [id number] / / [id number] Component Femoral Posterior Stabilized Cemented Right Size 5 Sigma - [id number] Implanted:Qty: 1 on 06/16/2019 by Charbel Washburn MD at [facility] Implant Right: Knee DEPUY 01/01/2029 0 / / [id number] Insert Sigma Stab Crosslink 4 12.5mm - [id number] Implanted:Qty: 1 on 06/16/2019 by Charbel Washburn MD at [facility] Implant Right: Knee DEPUY 04/03/2024 2 / / [id number] Tray Tibial Cemented Modular Pfc Cocr Size 4 [id number] Sigma - [id number] Implanted:Qty: 1 on 06/16/2019 by Charbel Washburn MD at [facility] Plate Right: Knee DEPUY 01/31/2029 0 / / [id number] Insurance [address] [place] [address] [facility] PPO/EPO Advance Directives * Presumed Full Code [...] Healthcare Agent Relationshi p Communication Nehemiah Preston [facility] Health Care Agent Care Teams Forklift Material Handler Relationship Specialty Start Date End Date Janice Fall [address] [place] [id number] PCP - General 12/02/23
--- OUTSIDE RECORDS SUMMARY | 2024-12-03 14:23 | XMS_ITS | Data Portability ---
Author Organization [place] - [facility] Address [address] [place] [address] Care Team Providers Care Tank Hoop Bender Name Role Phone SERVANDO LEW Primary Care Provider [phone] SERVANDO LEW Referring Provider [phone] Assessment No assessment recorded. Plan of Treatment Reminders Order Date Submit Date Provider Last Modified By Organization Details Last Modified Time Details Appointments None recorded. Lab rapid flu (A+B) 2023 024 [facility], [address] [place], [address], 4 09:27:58 SARS CoV 2 RNA (COVID-19) , QL, position description manager-PCR, respirator y specimen 2023 024 [facility] (Outpatient Registration) , [address] [place], [address], 4 10:29:23 Referral None recorded. Procedures None recorded. Surgeries None recorded. Imaging electrocar diogram 2019 020 [facility], [address] [place], [address], 0 14:09:22 Medication Orders Zofran 4 mg tablet 2019 020 [email or web address] Not available 0 15:38:43 Patient TargetsNo targets recorded. Patient Instructions Encounter Date Encounter Id Patient Instructions Last Modified By Organization Details Last Modified Time 02/04/2024 [id number] You have had an Urgent Care Visit which is designed to address acute issues. It does not represent an exhaustive evaluation of your symptom complex, but is an attempt to treat and manage the most likely cause of your most pressing physical issues. If you are not improved in the time frame that we have discussed, please seek the advice of your PCP who is in a position to order further diagnostic testing and possible specialist consultation. If you are rapidly deteriorating despite the treatment recommendations please do not wait to see your PCP and do proceed to the closest ER where a comprehensive evaluation including consideration to lab and other diagnostic testing as well as consultation is more expeditiously accessible. If you were prescribed medications they have been directly submitted to your pharmacy on file. Please make sure you finish all your medications and if you develop major side effects related to them please do stop taking them and check with your PCP to see if you need to get an alternative medication. If xray was ordered, the radiologist will review your x-rays within the next 24 hours and we will call you with the results if there is any change to your plan of care. Will call for the lab resuts if ordered. [email or web address] Not available 02/04/2024 16:51:28 05/26/2024 [id number] You have had an Urgent Care Visit which is designed to address acute issues. It does not represent an exhaustive evaluation of your symptom complex, but is an attempt to treat and manage the most likely cause of your most pressing physical issues. If you are not improved in the time frame that we have discussed, please seek the advice of your PCP who is in a position to order further diagnostic testing and possible specialist consultation. If you are rapidly deteriorating despite the treatment recommendations please do not wait to see your PCP and do proceed to the closest ER where a comprehensive evaluation including consideration to lab and other diagnostic testing as well as consultation is more expeditiously accessible. If you were prescribed medications they have been directly submitted to your pharmacy on file. Please make sure you finish all your medications and if you develop major side effects related to them please do stop taking them and check with your PCP to see if you need to get an alternative medication. If xray was ordered, the radiologist will review your x-rays within the next 24 hours and we will call you with the results if there is any change to your plan of care. Will call for the lab results if ordered. [email or web address] Not available 05/26/2024 08:38:23 Reason for Referral None Reported. Results Created Date Observation Date Name Description Value Unit Range Abnormal Flag Note LastModifiedBy Organization Detail LastModifiedTime 03/07/20 20 03/09/2020 SARS CoV 2 RNA (COVI D-19) , QL, position description manager-P CR, respi rator y speci men covid-19 Not Detect ed not detect ed normal Testi ng was perfo rmed using the phylicia (R) SARS- CoV-2 test. This test was devel oped and its perfo rmanc e rodney cteri stics deter mined by [facility]. This test has not been FDA clear ed or appro judith. This test has been autho rized by FDA under an Emerg ency Use Autho rizat ion (EUA) . This test is only autho rized for the durat ion of time the decla ratio n that circu mstan maverick exist justi fying the autho rizat ion of the emerg ency use of in vitro diagn ostic tests for detec tion of SARS- CoV-2 virus and/o r diagn osis of COVID -19 infec tion under secti on 564(b )(1) of the Act, 21 U.S.C . 360bb b-3(b )(1), unles s the autho rizat ion is termi nated or revok ed soone r. When diagn ostic testi ng is negat jerry, the possi bilit y of a false negat jerry resul t shoul d be consi dered in the sari xt of a patie nt's recen t expos ures and the prese nce of clini ever signs and sympt oms consi stent with COVID -19. An indiv idual witho ut sympt oms of COVID -19 and who is not pa ing SARS- CoV-2 virus would expec t to have a negat jerry (not detec sara) resul t in this assay . Perfo rmed at: RN - [facility] [address], Lucia rojas, NADJA [id number] Lab Direc tor: Jayleen Chaves MD, Phone : [phone] Not Available [facility] [address] [facility], [place], [address], 03/09/2020 12:43:07 08/02/20 20 08/02/2020 kiley enriquez am Result Not Available [facility] [address] [place], [address], 08/02/2020 13:04:28 06/01/20 24 06/02/2024 SARS- COV-2 (NAAT ) sars-cov-2 NOT DETECT ED not detect . The Aptim a SARS- CoV-2 assay is a nucle ic acid ampli ficat ion in vitro diagn ostic test inten ded for the quali tativ e detec tion of RNA from SARS- CoV-2 using Trans cript ion Media sara Ampli ficat ion (TMA) isola sara and purif ied from nasop haryn geal (BOTTOM TURNING LATHE TENDER), nasal , mid-t urbin ate, and oroph aryng eal (OP) swab speci mens obtai sebastián from indiv idual s meeti ng COVID -19 clini ever and/o r epide miolo gical crite ricki. The Aptim a TMA metho d is equiv alent in sensi tivit y and speci ficit y to metho ds utili zing PCR and RT-PC R. Resul ts are for the ident ifica tion of SARS- CoV-2 RNA which is gener ally detec table in upper respi rator y sampl es durin g the acute phase of infec tion. Posit jerry resul ts are indic ative of the prese nce of SARS- CoV-2 RNA; clini ever corre latio n with patie nt histo ry and other diagn ostic infor matio n is neces mery to deter mine patie nt infec tion statu s. Posit jerry resul ts do not rule out bacte rial infec tion or co-in fecti on with other virus es. Negat jerry resul ts do not precl ude SARS- CoV-2 infec tion and shoul d not be used as the sole basis for patie nt manag ement decis ions. Negat jerry resul ts must be combi sebastián with clini ever obser vatio ns, patie nt histo ry, and epide becca gical abbier dawn andrade. The Aptim a SARS- CoV-2 assay is only for use under the Food and Drug Admin istra tion' s Emerg ency Use Autho rizat ion (EUA) . Not Available [facility] Laboratory Department [address] [place], [address] 06/02/2024 10:29:23 06/01/20 24 06/01/2024 rapid flu (A+B) Flu Type A negati ve Not Available [address] [place] [place], [address], 06/01/2024 08:25:18 06/01/20 24 06/01/2024 rapid flu (A+B) Flu Type B negati ve Not Available [address] [place], [address], 06/01/2024 08:25:18 06/01/20 24 06/01/2024 rapid flu (A+B) Internal Control Valid Not Available [address] [place], [address], 06/01/2024 08:25:18 06/01/20 24 06/01/2024 rapid flu (A+B) Lot # [id number] Not Available [address] [place], [address], 06/01/2024 08:25:18 06/01/20 24 06/01/2024 rapid flu (A+B) Exp. Date 5 Not Available [address] [place], [address], 06/01/2024 08:25:18 08/05/19 21 08/02/2020 elect pete enriquez am No observ ation record ed. BARCODE [facility] [address] [place], [place], [address], 08/05/2020 09:04:19 Result Notes None recorded. Problems Name Problem SNOMED Code Status Onset Date Resolution Date Notes Provider Name and Address Organization Details Recorded Time Diarrhea 98085508 Active Not Available [facility] 3 03:06:50 Calculus of kidney and ureter 808520173 Completed 08/27/2011 Not Available [facility] 3 03:06:50 Calculus of kidney and ureter 167640462 Active Yohannes Warren MD [address] [place], [place] [address], [address], [facility] 6 14:28:22 Generaliz ed anxiety disorder 82557105 Active Not Available [facility] 3 03:06:50 Kidney stone 18895152 Completed 11/05/2011 Not Available [facility] 3 03:06:50 Nausea and vomiting 49094444 Active Not Available [facility] 3 03:06:50 Ureteric stone 05650518 Active Cristy fernandez [facility] 5 14:39:21 Right upper quadrant pain 576892330 Active Not Available [facility] 3 03:06:50 Kidney stone 33083485 Active Cristy fernandez [facility] 6 11:27:07 Benign prostatic hyperplas ia with outflow obstructi on 716146359 Active Yohannes Warren MD [address] [facility], [address], [facility] 6 14:28:22 Problem Notes None recorded. Procedures Surgical History Date Name Laterality Status Provider Name and Address Organization Details Recorded Time 02/04/20 24 Laceration Repair completed Juffred Colon, BOTTOM TURNING LATHE TENDER, [address] [facility], [address], [facility] 02/04/2024 16:52:51 08/11/19 18 Esw phy anes lat hmrl epcndl completed Heidy Mendoza [facility] 08/14/2017 14:11:21 08/11/19 18 EXTRA CORPOREAL SHOCKWAVE LITHOTRIPSY (SURG) completed Heidy Mendoza [facility] 08/14/2017 14:11:34 08/07/19 16 EXTRA CORPOREAL SHOCKWAVE LITHOTRIPSY (SURG) completed Cristy MCDONALD [facility] 08/10/2015 09:34:14 03/01/20 11 IPSS - International Prostate Symptom Score completed Lilly Velma [facility] 03/01/2011 12:00:31 02/19/20 11 Fragmenting of kidney stone completed Not Available [facility] 06/19/2011 06:32:29 02/19/20 11 Cystoscopy and treatment completed Not Available [facility] 06/19/2011 06:32:29 02/09/20 11 Cystouretero w/lithotripsy completed Not Available [facility] 06/19/2011 06:32:29 Imaging Results Imaging Date Name Status LastModified by Organization Details LastModified Time 08/02/2020 electrocardiogram completed [facility] [address] [place] [place], [address], 08/05/2020 09:04:19 Procedure Notes None recorded. Medical Equipment None Reported. Allergies Allergen ID Allergen Name Allergen Category Reaction Reaction Severity Criticality Documentation Date Start Date Code Code System Note Provider Name and Address Organization Details Recorded Time 21281005 nut - unspecifi ed food Not available Not available Not available 06/01/2024 [id number] UNBella MONTERO NP [address] [place], [address] [place] [address] 08:23:03 Medications Name Sig Start Date Stop Date Status Note LastModified by Organization Details LastModified Time amoxicill in 500 mg capsule 10/02 completed Not Available Not Available Not Available atorvasta tin 40 mg tablet active Not Available Not Available Not Available methocarb justin 500 mg tablet active Pt no longer taking Not Available Not Available Not Available Proctosol HC 2.5 % rectal cream with applicato r PRN 10/02 completed Not Available Not Available Not Available bupropion HCl SR 150 mg tablet,12 hr sustained -release active Not Available Not Available Not Available prednison e 10 mg tablet active Not Available Not Available Not Available doxycycli ne hyclate 100 mg capsule active Not Available Not Available Not Available azithromy ema 250 mg tablet active Not Available Not Available No t Available hydrocodo ne 5 mg-acetam inophen 325 mg tablet 02/03 completed Pt no longer taking Not Available Not Available Not Available sucralfat e 1 gram tablet active Not Available Not Available Not Available phenazopy ridine 200 mg tablet active Not Available Not Available Not Available salicylic acid (bulk) powder active Not Available Not Available Not Available lovastati n 40 mg tablet active Not Available Not Available Not Available loperamid e 2 mg tablet 1 tab QAM, PRN 02/03 completed Not Available Not Available Not Available hydroxyzi ne HCl 50 mg tablet 06/01 completed Not Available Not Available Not Available prochlorp erazine maleate 10 mg tablet 06/01 completed Pt no longer taking Not Available Not Available Not Available ciproflox acin 500 mg tablet active Not Available Not Available No t Available tramadol 50 mg tablet 02/03 completed Pt no longer taking Not Available Not Available Not Available bupropion HCl SR 100 mg tablet,12 hr sustained -release 10/02 completed Not Available Not Available Not Available amoxicill in 500 mg tablet 10/02 completed Not Available Not Available Not Available Zofran 4 mg tablet Take 1 tablet every day by oral route for 1 day. 2019 active Not Available Not Available Not Avai lable oxycodone -acetamin ophen 5 mg-325 mg tablet active Not Available Not Available Not Available amoxicill in 875 mg tablet 10/02 completed Not Available Not Available Not Available hydromorp caroline 2 mg tablet active Not Available Not Available Not Available alprazola m 0.25 mg tablet 02/03 completed Not Available Not Available Not Available amitripty line 25 mg tablet 3 tabs a QHS active Not Available Not Available No t Available desonide 0.05 % topical ointment 02/03 completed Not Available Not Available Not Available tamsulosi n 0.4 mg capsule TAKE 1 CAPSULE BY MOUTH ONCE A DAY AFTER MEALS FOR 30 DAYS 2018 active Not Available Not Available Not Avai lable phenazopy ridine 100 mg tablet active Not Available Not Available Not Available cephalexi n 500 mg capsule 10/02 completed Not Available Not Available Not Available hyoscyami ne sulfate 0.125 mg tablet 06/01 completed Pt no longer taking Not Available Not Available Not Available esomepraz ole magnesium 40 mg capsule,d elayed release active Not Available Not Available Not Available triamcino lone acetonide 0.1 % topical ointment active Not Available Not Available Not Available clotrimaz ole-betam ethasone 1 %-0.05 % topical cream 02/03 completed Not Available Not Available Not Available hyoscyami ne 0.125 mg sublingua l tablet 10/02 completed Not Available Not Available Not Available oxycodone 5 mg capsule 10/02 completed Not Available Not Available Not Available nystatin- triamcino lone 100,000 unit/g-0. 1 % topical cream 06/01 completed Pt no longer taking Not Available Not Available Not Available gabapenti n 300 mg capsule 02/03 completed Not Available Not Available Not Available omeprazol e 20 mg capsule,d elayed release 10/02 completed Not Available Not Available Not Available diclofena c sodium 75 mg tablet,de layed release active Not Available Not Available Not Available hydrocort isone 2.5 % topical cream active Not Available Not Available Not Available hydroxyzi ne HCl 25 mg tablet active Not Available Not Available No t Available hydrocodo ne 5 mg-acetam inophen 500 mg tablet active Not Available Not Available Not Available mupirocin 2 % topical ointment 06/01 completed Pt no longerta alejandra Not Available Not Available Not Available Cheratuss in AC 10 mg-100 mg/5 mL oral liquid active Not Available Not Available Not Available ketoconaz ole 2 % topical cream 02/03 completed Not Available Not Available Not Available betametha sone dipropion ate 0.05 % topical ointment 10/02 completed Not Available Not Available Not Available ondansetr on 4 mg disintegr ating tablet active Not Available Not Available Not Available clotrimaz ole 1 % topical cream 02/03 completed Not Available Not Available Not Available sertralin e 50 mg tablet active Not Available Not Available Not Available amitripty line 100 mg tablet active Not Available Not Available No t Available dicyclomi ne 10 mg capsule active Not Available Not Available Not Available amoxicill in 500 mg-potass ium clavulana te 125 mg tablet 10/02 completed Not Available Not Available Not Available oxycodone 5 mg tablet 10/02 completed Not Available Not Available Not Available Prilosec OTC 20 mg tablet,de layed release BID 10/02 completed Not Available Not Available Not Available chlorhexi dine gluconate 0.12 % mouthwash 10/02 completed Not Available Not Available Not Available multivita min active Not Available Not Available Not Available ProAir HFA 90 mcg/actua tion aerosol inhaler active Not Available Not Available Not Available peg 3350-elec trolytes 236 gram-22.7 4 gram-6.74 gram-5.86 gram solution 10/02 completed Not Available Not Available Not Available diclofena c 1 % topical gel 02/03 completed Not Available Not Available Not Available Vitamin D 5,000 unit tablet active Not Available Not Available Not Available Dexilant 30 mg capsule, delayed release active Not Available Not Available Not Available Xifaxan 550 mg tablet 10/02 completed Not Available Not Available Not Available omeprazol e magnesium 20 mg capsule,d elayed release active Not Available Not Available Not Available Probiotic active Not Available Not Khushbu ilable Not Available EpiPen 2-Tucker 0.3 mg/0.3 mL injection , auto-inje ctor active Not Available Not Available Not Available Multi Vitamin active Not Available Not Available Not Available Proctosol HC 2.5 % topical cream perineal applicato r 10/02 completed Not Available Not Available Not Available Vitals Date Recorded Heart rate Oxygen saturation Oxygen saturation in Arterial blood by Pulse oximetry Body temperature Systolic blood pressure Diastolic blood pressure Provider Name and Address Organization Details Last Updated DateTime 4 92 /min 97 % 97 % 98.1 [degF] 166 mm[Hg] 92 mm[Hg] Jessica Ann [facility] 4 16:30:02 Date Recorded Body temperature Oxygen saturation Oxygen saturation in Arterial blood by Pulse oximetry Heart rate Systolic blood pressure Diastolic blood pressure Provider Name and Address Organization Details Last Updated DateTime 4 97.3 [degF] 95 % 95 % 53 /min 118 mm[Hg] 70 mm[Hg] Vida De Leon MA [facility] 4 08:19:07 Date Recorded Body temperature Oxygen saturation Oxygen saturation in Arterial blood by Pulse oximetry Heart rate Systolic blood pressure Diastolic blood pressure Provider Name and Address Organization Details Last Updated DateTime 4 97.5 [degF] 97 % 97 % 63 /min 118 mm[Hg] 68 mm[Hg] Chad Maggie [facility] 4 08:16:56 Date Recorded Heart rate Oxygen saturation Oxygen saturation in Arterial blood by Pulse oximetry Body temperature Systolic blood pressure Diastolic blood pressure Provider Name and Address Organization Details Last Updated DateTime 0 80 /min 98 % 98 % 97.9 [degF] 102 mm[Hg] 78 mm[Hg] FABIÁN WEBER NP [address] [place] [address], [address], [facility] 0 14:38:39 Date Recorded Body temperature Heart rate Oxygen saturation Oxygen saturation in Arterial blood by Pulse oximetry Systolic blood pressure Diastolic blood pressure Provider Name and Address Organization Details Last Updated DateTime 0 96.2 [degF] 75 /min 95 % 95 % 164 mm[Hg] 98 mm[Hg] HARRY Rojo [facility] 0 12:51:49 Social History Question Answer Notes LastModified by Organizat ion Details LastModified Time Tobacco Smoking Status Never Smoker Not Available [facility] 06/06/2020 03:15:46 What Is Your Level Of Alcohol Consumption? 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 Mental Status None recorded. Family History Relationship Description Onset Age of this Age Resolved Age Notes LastModified by Organization Details LastModified Time Maternal Aunt Malignant neoplastic disease previo usly record ed as cancer -other [email or web address] Not available 10/17/2015 13:47:57 Maternal Grandfather Diabetes mellitus previo usly record ed as diabet es mbacigalupo Not available 10/17/2015 13:47:57 Medical History Condition Response diabetes N HIV or AIDS N cancer N arthritis Y heart disease N metal implants N anesthesia allergy/complications N lung disease N asthma N glaucoma N depression N high blood pressure N GERD / reflux Y other N CVA/stroke N thyroid disease or other endocrine probl ems N nausea/vomiting Y Past Encounters Encounter ID Performer Location Encounter Start Date Encounter Closed Date Diagnosis/Indication Diagnosis SNOMED-CT Code Diagnosis ICD10 Code Diagnosis Note [id number] MD [facility] [address] [place] [id number] 03/01/2011 11:16:14 03/01/2011 12:09:08 [id number] MD [facility] [address] [place] [id number] 04/29/2011 11:05:05 04/29/2011 11:54:57 [id number] MD [facility] [address] [place] [id number] 05/31/2011 08:29:10 05/31/2011 09:25:30 [id number] MD [facility] [address] [place] [id number] 08/27/2011 10:22:38 08/27/2011 13:04:53 [id number] MD [facility] [address] [place] [id number] 09/25/2011 14:35:13 10/04/2011 17:27:23 [id number] MD [facility] [address] [place] [id number] 11/05/2011 12:48:59 11/05/2011 14:06:45 [id number] MD [facility] [place] [address] [place] [id number] 05/29/2012 08:36:11 05/29/2012 10:26:19 [id number] Yohannes Warren MD [place] [address] [place] [id number] 12/17/2012 13:31:40 12/25/2012 14:11:16 [id number] Yohannes Warren MD [place] [address] [place] [id number] 07/18/2015 09:13:33 07/18/2015 16:07:11 Ureteric stone 97040547 N20.1 A KUB today reveals the left ureteral stone just above the pelvic rim. We discussed treatment and he wants to proceed with a left ESWL. Kidney stone 63865376 N2 0.0 The stones in his kidneys don't warrant therapy. [id number] Yohannes Warren MD [place] [address] [place] [address] 10/17/2015 13:45:27 10/17/2015 15:06:13 Calculus of kidney and ureter 166827658 N20.2 KUB is negative for stone. We reviewed his diet and water intake. I'll see him back in a year. Benign pro static hyperplasia with outflow obstruction 479058324 N40.1 He's voiding better on the tamsulosin and would like to stay on it. I plan to see her back in 1 year. [id number] Yohannes Warren MD [place] [address] [place] [address] 12/10/2016 09:13:55 12/10/2016 09:53:38 Slowing of urinary stream 38680670 R39.12 I reassured him , he empties well. Benign pro static hyperplasia with outflow obstruction 654691134 N40.1 He's doing great on the tamsulosin and wishes to continue on it. Kidney stone 64325567 N2 0.0 We reviewed his diet and water intake. I have alswo recommende d a probiotic with Oxalobacte r. [id number] Yohannes Warren MD [facility] [place] [address] [place] [address] 08/08/2017 08:36:09 08/08/2017 09:11:30 Kidney stone 94558247 N20.0 We reviewed his diet and water intake. I have again recommende d a probiotic with Oxalobacte r. We'll consider treating the left renal stone in [facility] [facility]. Ureteric stone [id number] N20.1 We discussed treatment options and he wishes to proceed with a left ESWL [id number] Yohannes Warren MD [facility] [address] [place] [address] [address] [place] [address] 10/02/2017 10:50:21 10/02/2017 13:05:28 Kidney stone [id number] N20.0 Pt is s/p L ESWL 08/21/17. We reviewed his diet and water intake. I advised him to significan tly decrease his tea intake. I have again discussed probiotic therapy. I plan a 24 hour urine for stone risk to help with prevention . [id number] BRAIN Araya [facility] [address] [address] 03/07/2020 15:10:36 03/07/2020 16:16:02 Viral screening [id number] Z11.59 Diarrhea [id number] R19.7 [id number] [facility]N [facility] [address] [address] 03/29/2020 14:12:05 03/29/2020 15:49:27 Viral gastroenteritis [id number] A08.4 I suspect he has a viral GI infection; as he is having dizziness and headaches and has not been able to keep down fluids over the past few days, I discussed that he likely needs IV fluids. He is agreeable to be seen in the ED, but is anxious about going. His neighbor will drive him there. I called and gave report to Sadia at [place] [facility]. [id number] [facility] [address] [address] 08/02/2020 12:43:17 08/02/2020 13:10:01 Dizziness [id number] R42 Pt presents with fatigue, weakness, diaphoresi s Dif Dx: ACS vs COVID vs PNA vs viral gastroente ritis vs less likely stroke Vitals stable, pt hypertensi ve, diaphoreti c, oxygen at 95% AOX4, lungs CTA b/l, -EKG: NSR, no ST an T wave changes, no previous to compare to -ZOfran 4mg given -Pt initially vomiting upon exam but slowed down after Zofran -Given weakness, diaphoresi s, low oxygenatio n and n/v will send patient to the ER via ambulance for further evaluation and treatment. Pt transporte d to ER via ambulance. Report given to rfid engineer [id number] Magan Soto NP, [facility] [address] [address] 02/04/2024 16:04:13 02/04/2024 16:53:32 Avulsion of skin [id number] T14.8XXA Patient is a 63 y.o. male who presented here today with a skin avulsion to the his left index finger. Patient reported that he cut it by accident with a knife while cutting a water melon. It is actively bleeding. Patient washed it right away and applied pressure dressing. In the clinic, the wound was washed with soap and water. Prepped with NS and betadine. Closed using steri strips. Dressign applied and wrapped with coban. Patient up to date with his tetanus vaccine, and not indicated for now. Please return to the clinic for increasing pain, erythema, swelling, pus, or fever for evaluation . Patient agreed with the plan of care. [id number] Magan [facility]oto NP, [facility] [address] [address] 05/26/2024 08:06:36 05/26/2024 08:38:51 Skin lesion [id number] L98.9 Patient is a 64-year-ol d male who presented here today for skin check after noticing moisture on his groin, and so blood on his towel that he was laying on. Patient reported that the bleeding is moderate amount. He denies hemorrhoid s. He denies bleeding coming from the rectum. Patient denies abdominal pain, nausea, vomiting, or blood in the stool. On exam, patient noted to have multiple moles on his testicle. One of the moles may have possible cut. But no active bleeding noted at this time. No further treatment is indicated. Advised patient to monitor the area for further bleeding. Patient agreed with plan of care. [id number] VLADIMIR MONTERO NP [facility] [address] [place] [address] 06/01/2024 08:08:53 06/01/2024 09:35:35 Influenza-like illness [id number] B34.9 Likely viral. Explained mainstay of treatment is supportive management at this point. Recommend increasing hydration, rest, Tylenol/Mo daria PRN. Pt to f/u if new symptoms develop or any worsening of current symptoms. Advised handwashin g, refraining from close bodily contact, not sharing dishes or silverware , rest, push fluids, and monitor her symptoms for resolution . Advised to f/u with PCP in the next 3-5 days. Reviewed supportive measures. Discussed indication s for ER. Patient agrees with plan as above. Health Concerns Section Related Observation LastModified by Organization Detai ls LastModified Time None Recorded Concern Status LastModified by Organization Details LastModified Time None Recorded Advance Directives Directive None Recorded Payers Encounter Date Sequence Insurance Name Policy Number Policy Mendiola Covered Member ID Mendiola Member ID Guarantor Name 03/29/2020 1 [place] [facility] [id number] Josh Preston [id number] Josh Preston 08/02/2020 1 [place] [facility] [id number] Josh Preston [id number] Josh Preston 02/04/2024 1 [place] [facility] [id number] Josh Preston [id number] Josh Preston 05/26/2024 1 [place] [facility] ([facility] [id number] Josh Preston [id number] Josh Preston 06/01/2024 1 [place] [facility] [id number] Josh Preston [id number] Josh Preston Notes Date Note Type Note Provider Name and Address Organization Details Recorded Time 03/29/2020 text/html 60 year old male presents with dizziness and off balance with a headache. He states he has not eaten in 5 days. He is not getting up except to go to the bathroom, he has diarrhea with extreme exhaustion. He feels he is dehydrated. 60 y.o male presents for 5 day history of nausea, dizziness, diarrhea, fatigue, and headache. He states he has not eaten in since last Friday (03/24); he reports he has had maybe a single gatorade and some gingerale over the past 5 days. He has been taking zofran at home. He denies fevers, but states he has had chills. denies chest pain, palpitations, sore throat. Lilly Hodge MD [address] [place], [address], [facility] 03/29/2020 21:32:13 08/02/2020 text/html Pt presents with dizziness, weakness, fatigue that started on . He started with dizziness and headache. He hasn't had food since Friday. He has been able to keep liquids down. He feels weak and unable to stand up. He hasn't taken anything for the symptoms. Denies cp, sob, cough, abdominal pain, diarrhea, loss of taste/smell. Denies vision changes, hx of stroke/heart attack. Lilly Hodge MD [address] [place], [address], [facility] 08/05/2020 19:28:36 02/04/2024 text/html 63 year old male presents with a laceration of the left 2nd finger, he cut it cutting watermelon. Last TD he states was in the last 5 years Lilly Hodge MD [address] [place], [address], [facility] 02/06/2024 08:55:53 05/26/2024 text/html 64 y/o male presents today with a possible cut to his groin area. Pt states that last evening he suddenly felt wetness to the groin area as if he was urinating. Pt also has a towel on his bed that he had noticed some blood on it, so is concerned that the area is bleeding and he is unable to see it. DMB Lilly Hodge MD [address] [place], [address], [facility] 05/27/2024 05:55:34 06/01/2024 text/html 64 y/o male presents today for flu symptoms, states may 13 he went to ER with same symptoms, states he felt fine, states yesterday he woke up not feeling well. States he had diarrea and a headache, states he had a temp. States he took motrin for a headache. Z.L. History as above. symtpoms began yesterday. Lilly Hodge MD [address] [place] [address], [phone], [facility] 06/02/2024 07:31:17
--- OUTSIDE RECORDS SUMMARY | 2024-12-03 14:23 | XMS_ITS | Encounter Summary ---
Author Organization [facility] Address [address] [place] [address] Care Team Providers Care Fur Scraper Name Role Phone Deja Fang NP Primary Care Provider Jg Madera MD Primary Care Provider Deja Fang DIAL MOUNTER Unavailable [phone] Rosa Maria Green MD Primary Care Provider [phone] Janice Fall NP Primary Care Provider [phone] Encounter Details Date Type Department Care Team (Late st Contact Info) Description 09/28/2018 Orders Only [facility] [address] [place] [phone] Deja Fang NP [address] [facility] [address] [place] [address] Social History Tobacco Use Types [...] Progress Notes * Deja Fang NP - 09/29/2018 8:23 AM EST Your labs are normal- I am waiting on your chest xray. documented in this encounter Plan of Treatment Not on file documented as of this encounter Procedures * Due to [place] [employer] law, this organization might not be sharing negative HIV tests. Procedure Name Priority Date/Time Associated Diagnosis Comments ERYTHROCYTE SEDIMENTATION RATE (ESR) Routine 09/28/2018 3:28 PM EST Night sweats CBC INCLUDES DIFFERENTIAL AND PLATELET COUNT Routine 09/28/2018 3:28 PM EST Night sweats VITAMIN B12 (CYANOCOBALAMIN), SERUM Routine 09/28/2018 3:28 PM EST Night sweats URINALYSIS, MICROSCOPIC Routine 09/28/2018 3:28 PM EST Renal calculi BASIC METABOLIC PANEL WITH (GFR) Routine 09/28/2018 3:28 PM EST Night sweats documented in this encounter Results * Due to [place] [employer] law, this organization might not be sharing negative HIV tests. * VITAMIN B12 (CYANOCOBALAMIN), SERUM (09/28/2018 3:28 PM EST) Vitamin B12 (Cobalamins) 560 200 - 1100 pg/mL [facility] 09/28/2018 3:28 PM EST 09/29/2018 1:27 AM EST Narrative Resulting Agency Comment [id number] Deja Fang NP LABORATORY Final Result [facility] [address] [place] [address] * ERYTHROCYTE SEDIMENTATION RATE (ESR), [place] (09/28/2018 3:28 PM EST) Sedimentation Rate [place] (ESR) 6 < OR = 20 mm/h [facility] 09/28/2018 3:28 PM EST 09/29/2018 1:27 AM EST Narrative Resulting Agency Comment [id number] [facility] SAME DAY RESULT Final Resul t Performing Organization Address [facility] de Phone Number [facility] [address] [place] [address] * URINALYSIS, MICROSCOPIC (09/28/2018 3:28 PM EST) WBC (Urine) NONE SEEN < OR = 5 /HPF [facility] RBC (Urine Sed) NONE SEEN < OR = 2 /HPF [facility] Epithelial cells.squamous (Urine sed) NONE SEEN < OR = 5 /HPF [facility] Bacteria (Urine) NONE SEEN NONE SEEN /HPF [facility] Hyaline casts (Urine sed) NONE SEEN NONE SEEN /LPF [facility] 09/28/2018 3:28 PM EST 09/29/2018 1:27 AM EST Narrative Resulting Agency Comment [id number] Result [facility] SAME DAY RESULT Final Resul t Performing Organization Address [facility] de Phone Number [facility] [address] [place] [address] * CBC INCLUDES DIFFERENTIAL AND PLATELET COUNT (09/28/2018 3:28 PM EST) WBC 7.0 3.8 - 10.8 Thousand/u L [facility] RBC 4.62 4.20 - 5.80 Million/uL [facility] Hemoglobin 14.4 13.2 - 17.1 g/dL [facility] Hematocrit 41.2 38.5 - 50.0 % [facility] MCV 89.2 80.0 - 100.0 fL [facility] MCH 31.2 27.0 - 33.0 pg [facility] MCHC 35.0 32.0 - 36.0 g/dL [facility] RDW 13.7 11.0 - 15.0 % [facility] PLT 293 140 - 400 Thousand/u L [facility] MPV 9.4 7.5 - 12.5 fL [facility] Neutrophils # 3990 1500 - 7800 cells/uL [facility] Lymphocytes # 2051 850 - 3900 cells/uL [facility] Monocytes # 749 200 - 950 cells/uL [facility] Eosinophils # 161 15 - 500 cells/uL [facility] Basophils # 49 0 - 200 cells/uL [facility] Neutrophils % 57 % [facility] Lymphocytes % 29.3 % [facility] Monocytes % 10.7 % [facility] Eosinophils % 2.3 % [facility] Basophils % 0.7 % [facility] 09/28/2018 3:28 PM EST 09/29/2018 1:27 AM EST Narrative Resulting Agency Comment [id number] [facility] DIAL MOUNTER LAB SAME DAY RESULT Final Resul t Performing Organization Address City/State/[facility] de Phone Number [facility] [address] [place] [address] * BASIC METABOLIC PANEL WITH (GFR) (09/28/2018 3:28 PM EST) Pathologist [facility] Glucose 99 65 - 99 mg/dL [facility] Comment:Fasting reference in terval Urea Nitrogen Blood (BUN) 14 7 - 25 mg/dL [facility] Creatinine 1.04 0.70 - 1.33 mg/dL [facility] Comment: For patients >49 years of age, the reference limit for Creatinine is approximately 13% higher for people identified as -Finnish. EGFR 79 > OR = 60 mL/min/1 .73m2 [facility] GFR () 91 > OR = 60 mL/min/1 .73m2 [facility] BUN/Creatinine Ratio NOT APPLICABLE 6 - 22 (calc) [facility] Sodium 139 135 - 146 mmol/L [facility] Potassium 4.2 3.5 - 5.3 mmol/L [facility] Chloride 103 98 - 110 mmol/L [facility] Carbon dioxide 27 20 - 32 mmol/L [facility] Calcium 9.8 8.6 - 10.3 mg/dL [facility] 09/28/2018 3:28 PM EST 09/29/2018 1:27 AM EST Narrative [facility] - 09/29/2018 4:56 AM EST Please note that this estimated [...] needs for GFR calculation. Resulting Agency Comment [id number] [facility] LABORATORY Final Result [facility] [address] [place] [address] documented in this encounter Visit Diagnoses Diagnosis Night sweats Generalized hyperhidrosis Renal calculi Calculus of kidney documented in this encounter Care Teams Fur Scraper Relationship Specialty Start Date End Date Deja Fang NP PCP - General Internal Medicine 06/12/15 03/26/20 Jg Madera MD [address] [place] [address] PCP - General Internal Medicine 03/27/20 05/28/22 Deja Fang NP [address] [place] [address] PCP - Backup PCP Internal Medicine 03/27/20 06/30/22 Rosa Maria Green MD [address] [place] [address] PCP - General Family Medicine 05/29/22 02/20/23 Janice Fall NP [address] [place] [address] PCP - General Family Medicine 02/21/23 documented as of this encounter
--- OUTSIDE RECORDS SUMMARY | 2024-12-03 14:23 | XMS_ITS | Encounter Summary ---
Author Organization [facility] Address [address] [place] [address] Care Team Providers Care Liaison Engineer Name Role Phone Janice Fall NP Primary Care Provider [phone] Encounter Details Date Type Department Care Team (Late st Contact Info) Description 06/02/2023 Orders Only [facility] [address] [place] [phone] Rosa Maria Green MD [address] [place] [address] Social History Tobacco Use Types Packs/Day Years Used Date Smoking Tobacco: Never Smokeless Tobacco: Never Alcohol Use Standard Drinks/Week Comments Not Currently 1.7 (1 standard drink = 0.6 oz p ure alcohol) occ PHQ-2 Answer Date Recorded PHQ-2 Score 1 06/02/2023 Intimate Partner Violence Answer Date R ecorded [...] Miscellaneous Notes * Result Encounter Note - Jg Madera MD - 06/02/2023 10:51 AM EDT Average sugar and cholesterol stable and in range. Liver and prostate tests are normal. Kidney function slightly decreased but similar to previous values. My chart message sent documented in this encounter Plan of Treatment Not on file documented as of this encounter Procedures * Due to [place] [employer] law, this organization might not be sharing negative HIV tests. Procedure Name Priority Date/Time Associated Diagnosis Comments ALANINE AMINOTRANSFERASE (ALT), SERUM Routine 06/02/2023 10:26 AM EDT Mixed hyperlipidemia ASPARTATE AMINOTRANSFERASE (AST), SERUM Routine 06/02/2023 10:26 AM EDT Mixed hyperlipidemia PROSTATE SPECIFIC ANTIGEN (PSA) TOTAL, SERUM Routine 06/02/2023 10:26 AM EDT Screening for prostate cancer HEMOGLOBIN A1C Routine 06/02/2023 10:26 AM EDT Prediabetes LIPID PANEL WITH REFLEX TO DIRECT LDL Routine 06/02/2023 10:26 AM EDT Mixed hyperlipidemia BASIC METABOLIC PANEL WITH (GFR) Routine 06/02/2023 10:26 AM EDT Prediabetes documented in this encounter Results * Due to [place] [employer] law, this organization might not be sharing negative HIV tests. * PROSTATE SPECIFIC ANTIGEN (PSA) TOTAL, SERUM (06/02/2023 10:26 AM EDT) PSA 0.96 < OR = 4.00 ng/mL [facility] [...] of the presence or absence of disease. 06/02/2023 10:2 6 AM EDT 06/02/2023 4:14 PM EDT Narrative Resulting Agency Comment [id number] Rosa Maria Green MD LABORATORY Final Result Performing Organization Address [facility] de Phone Number [facility] [address] [place] [address] * (ABNORMAL) LIPID PANEL WITH REFLEX TO DIRECT LDL (06/02/2023 10:26 AM EDT) Cholesterol 133 <200 mg/dL [facility] HDL Cholesterol 38(L) > OR = 40 mg/dL [facility] Triglyceride 179(H) <150 mg/dL [facility] LDL Cholesterol 69 mg/dL (calc) [facility] Comment: Reference range: <100 Desirable range <100 mg/dL for primary prevention; ?? <70 mg/dL for patients with CHD or diabetic patients with > or = 2 CHD risk factors. LDL-C is now calculated using the Marcellus-James calculation, which is a validated novel method providing better accuracy than the Friedewald equation in the estimation of LDL-C. Marcellus SS et al. SHADIA. 2013;310(19): 7313-8520 (http://education.[employer].Kiddy/faq/VLT910) CHOL/HDL Ratio 3.5 <5.0 (calc) [facility] Cholesterol Non-HDL 95 <130 mg/dL (calc) [facility] Comment: For patients with diabetes plus 1 major ASCVD risk factor, treating to a non-HDL-C goal of <100 mg/dL (LDL-C of <70 mg/dL) is considered a therapeutic option. 06/02/2023 10:2 6 AM EDT 06/02/2023 4:14 PM EDT Narrative Resulting Agency Comment [id number] Rosa Maria Green MD LABORATORY Final Result Performing Organization Address [facility] Co de Phone Number [facility] [address] [place] [address] * (ABNORMAL) HEMOGLOBIN A1C (06/02/2023 10:26 AM EDT) Hemoglobin A1C 6.0(H) <5.7 % of total Hgb [facility] Comment: For someone without known diabetes, a hemoglobin A1c value between 5.7% and 6.4% is consistent with prediabetes and should be confirmed with a follow-up test. For someone with known diabetes, a value <7% indicates that their diabetes is well controlled. A1c targets should be individualized based on duration of diabetes, age, comorbid conditions, and other considerations. This assay result is consistent with an increased risk of diabetes. Currently, no consensus exists regarding use of hemoglobin A1c for diagnosis of diabetes for children. Estimated Average Glucose 136 mg/dL (calc) [facility] 06/02/2023 10:2 6 AM EDT 06/02/2023 4:14 PM EDT Narrative Resulting Agency Comment [id number] Rosa Maria Green MD LABORATORY Final Result [facility] [address] [place] [address] * (ABNORMAL) BASIC METABOLIC PANEL WITH (GFR) (06/02/2023 10:26 AM EDT) Glucose 124(H) 65 - 99 mg/dL [facility] Comment: ? Fasting reference interval For someone without known diabetes, a glucose value between 100 and 125 mg/dL is consistent with prediabetes and should be confirmed with a follow-up test. Urea Nitrogen Blood (BUN) 13 7 - 25 mg/dL [facility] Creatinine 1.40(H) 0.70 - 1.35 mg/dL [facility] EGFR 56(L) > OR = 60 mL/min/1.7 3m2 [facility] BUN/Creatinine Ratio 9 6 - 22 (calc) [facility] Sodium 136 135 - 146 mmol/L [facility] Potassium 4.2 3.5 - 5.3 mmol/L [facility] Chloride 104 98 - 110 mmol/L [facility] Carbon dioxide 22 20 - 32 mmol/L [facility] Calcium 9.0 8.6 - 10.3 mg/dL [facility] 06/02/2023 10:2 6 AM EDT 06/02/2023 4:14 PM EDT Narrative [facility] - 06/02/2023 9:25 PM EDT Please note that this estimated [...] needs for GFR calculation. Resulting Agency Comment [id number] Rosa Maria Green MD LABORATORY Final Result Performing Organization Address City/[facility]/ZIP Co de Phone Number [facility] [address] [place] [address] * ASPARTATE AMINOTRANSFERASE (AST), SERUM (06/02/2023 10:26 AM EDT) AST (SGOT) 26 10 - 35 U/L [facility] 06/02/2023 10:2 6 AM EDT 06/02/2023 4:14 PM EDT Narrative Resulting Agency Comment [id number] Rosa Maria Green MD LAB SAME DAY RESULT Final Res ult Performing Organization Address [facility] Co de Phone Number [facility] [address] [place] [address] * ALANINE AMINOTRANSFERASE (ALT), SERUM (06/02/2023 10:26 AM EDT) ALT (SGPT) 20 9 - 46 U/L [facility] 06/02/2023 10:2 6 AM EDT 06/02/2023 4:14 PM EDT Narrative Resulting Agency Comment [id number] Rosa Maria Green MD LAB SAME DAY RESULT Final Res ult Performing Organization Address [facility] Co de Phone Number [facility] [address] [place] [address] documented in this encounter Visit Diagnoses Diagnosis Mixed hyperlipidemia Prediabetes Other abnormal glucose Screening for prostate cancer Special screening for malignant neoplasm of prostate documented in this encounter Care Teams Liaison Engineer Relationship Specialty Start Date End Date Janice Fall NP [address] [facility] [place] [address] PCP - General Family Medicine 02/21/23 documented as of this encounter
--- OUTSIDE RECORDS SUMMARY | 2024-12-03 14:23 | XMS_ITS | Encounter Summary ---
Author Organization [facility] Address [address] [place] [address] Care Team Providers Care Live In Housekeeper Nanny Name Role Phone Jg Madera MD Primary Care Provider [phone] Deja Fang NP Unavailable [phone] Rosa Maria Green MD Primary Care Provider [phone] Janice Fall NP Primary Care Provider [phone] Encounter Details Date Type Department Care Team (Late st Contact Info) Description 11/01/2021 Orders Only [facility] [address] [place] [address] Ray Echols MD [facility] [address] [place] [address] Social History Tobacco Use Types Packs/Day Years Used Date Smoking Tobacco: Never Smokeless Tobacco: Never Alcohol Use Standard Drinks/Week Comments Yes 1.7 (1 standard drink = 0.6 oz p ure alcohol) occ PHQ-2 Answer Date [facility] SEVER[facility] SC[facility] (Range 0-6) 6 [...] this encounter Procedures * Due to [place] [employer] law, this organization might not be sharing negative HIV tests. Procedure Name Priority Date/Time Associated Diagnosis Comments VENIPUNCTURE Routine 11/01/2021 9:24 AM EDT Elevated PSA documented in this encounter Results * Due to [place] [employer] law, this organization might not be sharing negative HIV tests. * PROSTATE SPECIFIC ANTIGEN (PSA) TOTAL, SERUM (11/01/2021 9:24 AM EDT) PSA 0.74 < OR = 4.00 ng/mL [facility] Comment: The total PSA value from this assay system is standardized against the WHO standard. The test result will be approximately 20% lower when compared to the equimolar-standardized total PSA ([place]). Comparison of serial PSA results should be interpreted with this fact in mind. This test was performed using the Siemens chemiluminescent method. Values obtained from different assay methods cannot be used interchangeably. PSA levels, regardless of value, should not be interpreted as absolute evidence of the presence or absence of disease. 11/01/2021 9:24 AM EDT 11/01/2021 9:22 PM EDT Narrative Resulting Agency Comment [id number] us Ray Echols MD LABORATORY Final Result Performing Organization Address City/State/[facility] Co de Phone Number [facility] [address] [place] [address] documented in this encounter Visit Diagnoses Diagnosis Elevated PSA Elevated prostate specific antigen (PSA) documented in this encounter Care Teams Live In Housekeeper Nanny Relationship Specialty Start Date End Date Jg Madera MD [address] [facility] [place] [address] PCP - General Internal Medicine 03/27/20 05/28/22 Deja Fang NP [address] [facility] [place] [address] PCP - Backup PCP Internal Medicine 03/27/20 06/30/22 Rosa Maria Green MD [address] [place] [address] PCP - General Family Medicine 05/29/22 02/20/23 Janice Fall NP [address] [place] [address] PCP - General Family Medicine 02/21/23 documented as of this encounter
--- OUTSIDE RECORDS SUMMARY | 2024-12-03 14:23 | XMS_ITS | Encounter Summary ---
Author Organization [facility] Address [address] [place] [address] Care Team Providers Care Regional Service Manager Name Role Phone Deja Fang NP Primary Care Provider Jg Madera MD Primary Care Provider [phone] Deja Fang NP Unavailable [phone] Rosa Maria Green MD Primary Care Provider [phone] Janice Fall NP Primary Care Provider [phone] Reason for Referral * CONSULT AND TREATMENT (Routine) - Authorized Specialty Diagnoses / Procedures Referred By Kelsy salas Referred To Contact Orthopaedic Surgery / Orthopedic Surgery Diagnoses Osteoarthritis of right knee, unspecified osteoarthritis type Deja Fang NP [address] [place] [address] Phone: tel: fax: Pedro Pablo [facility] [address] [place] [address] Phone: tel:[phone] fax:[phone] Referral ID Status Reason Start Date Expiration Date Visits Requested Visits Authorized [id number] Authorized Continuity of Care 05/26/2019 05/25/2020 6 6 Question Answer When do you want this visit to occur? WITHIN 3 DAYS - 05/28/19 Appointment with MD or AP? FIRST AVAILABLE Patient is being referred outside of [facility] for the following reason, however final determination for [id number] requests are made by the Referral Management Department Patient Preference Track Order? No Please provide pertinent patient history. Recieved fax from [facility] to request this referral Where is patient being referred? If NOT Other , it qualifies for Meaningful Use, but first look at comment to right to determine if you need to print and have patient sign Release of Info Electronically Letter [facility] - Consent is signed Which provider/facility/agency would you like to refer to? [facility] Encounter Details Date Type Department Care Team (Late st Contact Info) Description 05/26/2019 Orders Only [facility] [address] [place] [address] Deja Fang NP [address] [facility] [address] [place] [address] Social History Tobacco Use Types Packs/Day Years [...] Priority Associated Diagnoses Orde r Schedule CONSULT ORTHOPEDICS NON-FC Referral Routine Osteoarthritis of right knee, unspecified osteoarthritis type Ordered: 05/26/2019 documented as of this encounter Visit Diagnoses Diagnosis Osteoarthritis of right knee, unspecified osteoarthritis type documented in this encounter Care Teams Regional Service Manager Relationship Specialty Start Date End Date Deja Fang NP PCP - General Internal Medicine 06/12/15 03/26/20 Jg Madera MD [address] [place] [address] PCP - General Internal Medicine 03/27/20 05/28/22 Deja Fang NP [address] [place] [address] PCP - Backup PCP Internal Medicine 03/27/20 06/30/22 Rosa Maria Green MD [address] [place] [address] PCP - General Family Medicine 05/29/22 02/20/23 Janice Fall NP [address] [place] [address] PCP - General Family Medicine 02/21/23 documented as of this encounter
--- OUTSIDE RECORDS SUMMARY | 2024-12-03 14:23 | XMS_ITS | Encounter Summary ---
Author Organization [facility] Address [address] [place] [address] Care Team Providers Care Marketing Services Rep Name Role Phone Deja Fang NP Primary Care Provider Jg Madera MD Primary Care Provider Deja Fang COOPERATIVE EXTENSION AGENT Unavailable [phone] Rosa Maria Green MD Primary Care Provider [phone] Janice Fall NP Primary Care Provider [phone] Reason for Visit * Reason Comments E-prescribing Refill Request Encounter Details Date Type Department Care Team (Late st Contact Info) Description 05/18/2018 Refill [facility] [address] [place] [id number] Jg Madera MD [address] [place] [address] E-prescribing Refill Request Social History Tobacco Use [...] on filedocumented in this encounter Care Teams Marketing Services Rep Relationship Specialty Start Date End Date Deja Fang NP PCP - General Internal Medicine 06/12/15 03/26/20 Jg Madera MD [address] [place] [address] PCP - General Internal Medicine 03/27/20 05/28/22 Deja Fang NP [address] [place] [address] PCP - Backup PCP Internal Medicine 03/27/20 06/30/22 Rosa Maria Green MD [address] [place] [address] PCP - General Family Medicine 05/29/22 02/20/23 Janice Fall NP [address] [place] [address] PCP - General Family Medicine 02/21/23 documented as of this encounter
--- OUTSIDE RECORDS SUMMARY | 2024-12-03 14:23 | XMS_ITS | Encounter Summary ---
Author Organization [facility] Address [address] [place] [address] Care Team Providers Care Roving Can Tender Name Role Phone Deja Fang NP Unavailable [phone] Rosa Maria Green MD Primary Care Provider [phone] Janice Fall NP Primary Care Provider [phone] Reason for Visit * Reason Comments E-prescribing Refill Request Encounter Details Date Type Department Care Team ([facility] st Contact Info) Description 05/29/2022 Refill [facility] [address] [place] [address] Deja Fang NP [address] [address] E-prescribing Refill Request Social History Tobacco Use Types Packs/Day Years Used Date Smoking Tobacco: Never Smokeless Tobacco: Never Alcohol Use Standard Drinks/Week Comments Yes 1.7 (1 standard drink = 0.6 oz p ure alcohol) occ PHQ-2 Answer Date [facility] (Range 0-6) 6 07/31/2021 [...] encounter Miscellaneous Notes * Telephone Encounter - [facility] - 05/29/2022 12:21 PM EDT Concerns for Provider Review: None Pharmacy Confirmed? The most recent pharmacy on file was used. When is the medication needed? within 48 hours, will send routine message Past Appointments: Last CPE: 07/31/2021 Last appointment in this department: 07/31/2021No future appointments. Pertinent lab results: No labs suggested for any medication orders signed or pended in this encounter. Refresh if any orders changed. BP Readings from Last 1 Encounters: 07/31/21 136/76 Pended medication order(s) and sent to provider. Patient expects medication renewal unless notifiedotherwise. Outstanding Lab Orders (Orders in bold are overdue or due now and should be done as soon as possible) Test Expected Date Ordering Provider COLO-GUARD,FECAL [employer] 07/12/2020 Deja Fang NP documented in this encounter Plan of Treatment Not on file documented as of this encounter Visit Diagnoses Not on filedocumented in this encounter Care Teams Roving Can Tender Relationship Specialty Start Date End Date Deja Fang NP PCP - Backup PCP Internal Medicine 03/27/20 06/30/22 Rosa Maria Green MD [address] [place] [address] PCP - General Family Medicine 05/29/22 02/20/23 Janice Fall NP [address] [place] [address] PCP - General Family Medicine 02/21/23 documented as of this encounter
--- OUTSIDE RECORDS SUMMARY | 2024-12-03 14:23 | XMS_ITS | Encounter Summary ---
Author Organization [facility] Address [address] [place] [address] Care Team Providers Care Adjunct Communications Faculty Member Name Role Phone Deja Fang NP Primary Care Provider Jg Madera MD Primary Care Provider [phone] Deja Fang LABOR RELATIONS WORKER Unavailable [phone] Rosa Maria Green MD Primary Care Provider [phone] Janice Fall NP Primary Care Provider [phone] Encounter Details Date Type Department Care Team (Late st Contact Info) Description 07/01/2016 Orders Only [facility] [address] [place] [address] Deja Fang, HOLLY [address] [address] Social History Tobacco Use Types [...] of this encounter Progress Notes * Deja Fagn NP - 07/04/2016 3:00 PM ESTQuick Note: The 10-year ASCVD risk score (Rosaliaiva OBRIEN Jr., et al., 2013) is: 12.5%- high intensity statin recommended * Deja Fang NP - 07/04/2016 2:58 PM ESTQuick Note: See TMS. documented in this encounter Plan of Treatment Not on file documented as of this encounter Procedures * Due to [employer] law, this organization might not be sharing negative HIV tests. Procedure Name Priority Date/Time Associated Diagnosis Comments HEMOGLOBIN A1C Routine 07/01/2016 8:50 AM EST Elevated fasting blood sugar LIPID PANEL WITH REFLEX TO DIRECT LDL Routine 07/01/2016 8:50 AM EST Hyperlipidemia, unspecified hyperlipidemia type documented in this encounter Results * Due to [place] [employer] law, this organization might not be sharing negative HIV tests. * (ABNORMAL) HEMOGLOBIN A1C (07/01/2016 8:50 AM EST) Hemoglobin A1C 6.1(H) <5.7 % of total Hgb [facility] Comment: {HEMOGLOBIN A1c {[id number]) According to ADA guidelines, hemoglobin A1c <7.0% [...] diabetes This assay result is consistent with a higher risk of diabetes. Currently, no consensus exists for use of hemoglobin A1c for diagnosis of diabetes for children. Estimated Average Glucose 140 mg/dL (calc) [facility] Comment:{MEAN PLASMA GLUCOSE {[id number]) 07/01/2016 8:50 AM EST 07/01/2016 7:04 PM EST Narrative Resulting Agency Comment [id number] Deja Fang NP LABORATORY Final Result Performing Organization Address [facility] Co de Phone Number [facility] [address] [place] [address] * (ABNORMAL) LIPID PANEL WITH REFLEX TO DIRECT LDL (07/01/2016 8:50 AM EST) Cholesterol 248(H) 125 - 200 mg/dL [facility] Comment:{CHOLESTEROL, TOTAL {[id number]) HDL Cholesterol 31(L) > OR = 40 mg/dL [facility] Comment:{HDL CHOLESTEROL {[id number]) Triglyceride 254(H) <150 mg/dL [facility] Comment:{TRIGLYCERIDES {[id number]) LDL Cholesterol 166(H) <130 mg/dL (calc) [facility] Comment: {LDL-CHOLESTEROL {[id number]) Desirable range <100 mg/dL for patients with CHD or diabetes and <70 mg/dL for diabetic patients with known heart disease. CHOL/HDL Ratio 8.0(H) < OR = 5.0 (calc) [facility] Comment:{CHOL/HDLC RATIO {[id number]) Cholesterol Non-HDL 217(H) mg/dL (calc) [facility] Comment: {NON HDL CHOLESTEROL {[id number]) Target for non-HDL cholesterol is 30 mg/dL higher than LDL cholesterol target. 07/01/2016 8:50 AM EST 07/01/2016 7:04 PM EST Narrative Resulting Agency Comment [id number] Deja Fang NP LABORATORY Final Result Performing Organization Address City/[facility] Co de Phone Number [facility] [address] [place] [address] documented in this encounter Visit Diagnoses Diagnosis Hyperlipidemia, unspecified hyperlipidemia type Elevated fasting blood sugar Impaired fasting glucose documented in this encounter Care Teams Adjunct Communications Faculty Member Relationship Specialty Start Date End Date Deja Fang NP PCP - General Internal Medicine 06/12/15 03/26/20 Jg Madera MD [address] [facility] [address] PCP - General Internal Medicine 03/27/20 05/28/22 Deja Fang NP [address] [place] [address] PCP - Backup PCP Internal Medicine 03/27/20 06/30/22 Rosa Maria Green MD [address] [facility] [place] [address] PCP - General Family Medicine 05/29/22 02/20/23 Janice Fall NP [address] [place] [address] PCP - General Family Medicine 02/21/23 documented as of this encounter
--- OUTSIDE RECORDS SUMMARY | 2024-12-03 14:23 | XMS_ITS | Encounter Summary ---
Author Organization [facility] Address [address] [place] [address] Care Team Providers Care Human Resources Benefits Assistant Name Role Phone Deja Fang NP Primary Care Provider [phone] Jg Madera MD Primary Care Provider [phone] Deja Fang NP Unavailable [phone] Rosa Maria Green MD Primary Care Provider [phone] Janice Fall NP Primary Care Provider [phone] Reason for Referral * Care Home Services (Routine) - Authorized Specialty Diagnoses / Procedures Referred By Kelsy salas Referred To Contact Home Health Diagnoses Post-traumatic osteoarthritis of right knee Procedures [facility], [facility]# [id number] Deja Fang, HOLLY [address] [place] [address] Phone: tel: fax: Referral ID Status Reason Start Date Expiration Date Visits Requested Visits Authorized [id number] Authorized Specialty Services Required 9 08/17/2019 40 40 Question Answer When do you want this visit to occur? RETRO REFERRAL - 06/18/19 - 08/16/19 Appointment with or AP? FIRST AVAILABLE Patient is being referred outside of [facility] for the following reason, however final determination for [id number] requests are made by the Referral Management Department Service is not available within [facility] Track Order? No Please list the service(s) you are requesting from the [facility] received fax requesting referral home care code 30 Where is patient being referred? If NOT Other , it qualifies for Meaningful Use, but first look at comment to right to determine if you need to print and have patient sign Release of Info Electronically Letter Other or Decline - Consent is signed Which provider/facility/agency would you like to refer to? [facility] [phone] Encounter Details Date Type Department Care Team ([facility] st Contact Info) Description 06/22/2019 Orders Only [facility] [address] [place] [address] Deja Fang NP [address] [facility] [address] [place] [address] Social History Tobacco Use Types Packs/Day Years [...] Priority Associated Diagnoses Orde r Schedule CONSULT VISITING NURSES NON FC Referral Routine Post-traumatic osteoarthritis of right knee Ordered: 06/22/2019 documented as of this encounter Visit Diagnoses Diagnosis Post-traumatic osteoarthritis of right knee Secondary localized osteoarthrosis, lower leg documented in this encounter Care Teams Human Resources Benefits Assistant Relationship Specialty Start Date End Date Deja Fang NP PCP - General Internal Medicine 06/12/15 03/26/20 Jg Madera MD [address] [place] [address] PCP - General Internal Medicine 03/27/20 05/28/22 Deja Fang NP [address] [place] [address] PCP - Backup PCP Internal Medicine 03/27/20 06/30/22 Rosa Maria Green MD [address] [place] [address] PCP - General Family Medicine 05/29/22 02/20/23 Janice Fall NP [address] [place] [address] PCP - General Family Medicine 02/21/23 documented as of this encounter
--- OUTSIDE RECORDS SUMMARY | 2024-12-03 14:23 | XMS_ITS | Encounter Summary ---
Author Organization [facility] Address [address] [place] [address] Care Team Providers Care Data Consultant Name Role Phone Deja Fang NP Primary Care Provider [phone] Jg Madera MD Primary Care Provider [phone] Deja Fang NP Unavailable [phone] Rosa Maria Green MD Primary Care Provider [phone] Janice Fall NP Primary Care Provider Reason for Visit * Reason Comments E-prescribing Refill Request Encounter Details Date Type Department Care Team (Late st Contact Info) Description 06/05/2016 Refill [facility] [address] [place] [address] Deja Fang NP [address] [id number] E-prescribing Refill Request Social History Tobacco Use [...] * Telephone Encounter - Marilyn Quintero - 06/05/2016 8:52 AM EDT Any special requests or concerns? none Faxed/E-prescribed medication renewal request(s) for Josh Johnston 56 y.o. male received from pharmacy. Verified and Confirmed pharmacy for patient. Last CPE with this specialty: 05/06/2016 Last OV with this specialty: 05/06/2016 Next OV: Future Appointments Date Time Provider Department Center 11/04/2016 3:40 PM Deja Fang, [place] [facility] Pertinent lab results: No labs suggested for any medication orders signed or pended in this encounter. Refresh if any orders changed. Allergies: Morphine and Nuts BP Readings from Last 1 Encounters: 05/06/16 127/82 Patient Active Problem List Diagnosis Date Noted ??? OA (osteoarthritis) of hip 12/14/2015 12/14/2015- seen by Dr. Higgins- injection given and recommend PT ??? BPH (benign prostatic hyperplasia) 10/24/2015 ??? [...] Moderate-Severe. Followed by Dr. Cabezas, psychiatrist @ [facility] in [place]. 05/08/2015- Seeing Theresa Miguel [facility] for med management and diagnosis. Recent stressors at work. Pending visit with [facility] for return to work. ??? GERD (gastroesophageal [...] Refill ??? Diclofenac Sodium 1 % Gel Apply 4 Gm four time a day to the area. 100 g 2 ??? Diclofenac Sodium 1 % Gel * 100 UNITS = 10 DAY SUPPLY * 100 2 ??? Chlorhexidine Gluconate 0.12 % Solution * 473 UNITS = 30 DAY SUPPLY * 473 ??? Amoxicillin 500 MG Cap * 21 UNITS = 7 DAY SUPPLY * 21 ??? Hydrocodone-Acetaminophen 5-325 MG Tab * 12 UNITS = 3 DAY SUPPLY * 12 ??? ALPRAZolam 0.25 MG Tab * 270 UNITS = 90 DAY SUPPLY * 270 ??? Hyoscyamine Sulfate 0.125 MG Tab * 360 UNITS = 90 DAY SUPPLY * 360 1 ??? Hyoscyamine Sulfate 0.125 MG Tab TAKE 1 TABLET BY MOUTH FOUR TIMES DAILY, BEFORE MEALS AND AT BEDTIME 360 Tab 1 ??? ALPRAZolam 0.25 MG Tab TAKE 1 TABLET BY MOUTH 3 TIMES A DAY 270 Tab 0 ??? Rifaximin 550 MG Tab 1 TABLET TWICE DAILY 28 Tab 1 ??? BuPROPion HCl 150 MG TABLET SR 24 HR 1 TABLET DAILY 90 Tab 1 ??? Sertraline HCl 50 MG Tab 3 TABLETS DAILY 270 Tab 1 ??? HydrOXYzine HCl 50 MG Tab TAKE 1 TABLET BY MOUTH TWICE A DAY NEEDED 180 Tab 1 ??? HYDROCORTISONE, RECTAL, (PROCTOSOL HC) 2.5 % Cream prn 3 Tube 3 ??? EPINEPHrine 0.3 MG/0.3ML Solution Auto-injector use as directed for allergic reaction and then call 911 2 Package 0 ??? [place]-3 Fatty Acids (FISH OIL) 1000 MG Cap 1 by mouth twice a day 60 Cap 11 ??? Esomeprazole Magnesium 40 MG CAPSULE DELAYED RELEASE 1 CAPSULE DAILY 30 Cap 5 ??? Tamsulosin HCl 0.4 MG Cap 1 CAPSULE DAILY ??? Clotrimazole-Betamethasone 1-0.05 % Cream Apply a thin layer twice daily. 1 Tube 2 ??? Prochlorperazine Maleate 10 MG Tab 1 TABLET 3 TIMES DAILY NEEDED ??? Nystatin [id number] UNIT/GM Cream apply bid 1 Tube 3 ??? Inositol Niacinate (NIACIN FLUSH FREE) 500 MG Cap 1 po bid 60 Cap 3 ??? Multiple Vitamin (MULTI-VITAMIN) Tab 1 TABLET DAILY documented in this encounter Plan of Treatment Not on file documented as of this encounter Visit Diagnoses Not on filedocumented in this encounter Care Teams Data Consultant Relationship Specialty Start Date End Date Deja Fang NP PCP - General Internal Medicine 06/12/15 03/26/20 Jg Madera MD [address] [place] [address] PCP - General Internal Medicine 03/27/20 05/28/22 Deja Fang NP [address] [place] [address] PCP - Backup PCP Internal Medicine 03/27/20 06/30/22 Rosa Maria Green MD [address] [place] [address] PCP - General Family Medicine 05/29/22 02/20/23 Janice Fall NP [address] [place] [address] PCP - General Family Medicine 02/21/23 documented as of this encounter
--- OUTSIDE RECORDS SUMMARY | 2024-12-03 14:23 | XMS_ITS | Encounter Summary ---
Author Organization [facility] Address [address] [place] [address] Care Team Providers Care Airport Operations Duty Manager Name Role Phone Rosa Maria Green MD Primary Care Provider [phone] Janice Fall NP Primary Care Provider [phone] Encounter Details Date Type Department Care Team (Late st Contact Info) Description 09/02/2022 Orders Only [facility] Practice [address] [place] [id number] Rosa Maria Green MD [address] [place] [address] Social History Tobacco Use Types Packs/Day Years Used Date Smoking Tobacco: Never Smokeless Tobacco: Never Alcohol Use Standard Drinks/Week Comments Yes 1.7 (1 standard drink = 0.6 oz p ure alcohol) occ PHQ-2 Answer Date Recorded [facility] PHQ-2 SEVERITY SCORE (Range 0-6) 6 07/31/2021 [...] of this encounter Procedures * Due to [place] state law, this organization might not be sharing negative HIV tests. Procedure Name Priority Date/Time Associated Diagnosis Comments ALANINE AMINOTRANSFERASE (ALT), SERUM Routine 09/02/2022 2:50 PM EST Mixed hyperlipidemia ASPARTATE AMINOTRANSFERASE (AST), SERUM Routine 09/02/2022 2:50 PM EST Mixed hyperlipidemia HEMOGLOBIN A1C Routine 09/02/2022 2:50 PM EST Screening for endocrine disorder LIPID PANEL WITH REFLEX TO DIRECT LDL Routine 09/02/2022 2:50 PM EST Mixed hyperlipidemia BASIC METABOLIC PANEL WITH (GFR) Routine 09/02/2022 2:50 PM EST Mixed hyperlipidemia documented in this encounter Results * Due to [place] state law, this organization might not be sharing negative HIV tests. * ASPARTATE AMINOTRANSFERASE (AST), SERUM (09/02/2022 2:50 PM EST) AST (SGOT) 23 10 - 35 U/L [facility] 09/02/2022 2:50 PM EST 09/03/2022 1:10 AM EST Narrative Resulting Agency Comment [id number] Rosa Maria Green MD LAB SAME DAY RESULT Final Res ult Performing Organization Address [facility] Co de Phone Number [facility] [address] [place] [address] * ALANINE AMINOTRANSFERASE (ALT), SERUM (09/02/2022 2:50 PM EST) ALT (SGPT) 17 9 - 46 U/L [facility] 09/02/2022 2:50 PM EST 09/03/2022 1:10 AM EST Narrative Resulting Agency Comment [id number] Rosa Maria Green MD LAB SAME DAY RESULT Final Res ult Performing Organization Address City/[facility] Co de Phone Number [facility] [address] [place] [address] * BASIC METABOLIC PANEL WITH (GFR) (09/02/2022 2:50 PM EST) Glucose 93 65 - 99 mg/dL [facility] Comment:Fasting reference in terval Urea Nitrogen Blood (BUN) 14 7 - 25 mg/dL [facility] Creatinine 1.25 0.70 - 1.35 mg/dL [facility] EGFR 65 > OR = 60 mL/min/1. 73m2 [facility] Comment: The eGFR is based on the CKD-EPI 2020 equation. To calculate the new eGFR from a previous Creatinine or Cystatin C result, go to https://www.kidney.org/professionals/ kdoqi/gfr%5Fcalculator BUN/Creatinine Ratio NOT APPLICABLE 6 - (calc) [facility] Sodium 137 135 - 146 mmol/L [facility] Potassium 4.0 3.5 - 5.3 mmol/L [facility] Chloride 104 98 - 110 mmol/L [facility] Carbon dioxide 26 20 - 32 mmol/L [facility] Calcium 9.3 8.6 - 10.3 mg/dL [facility] 09/02/2022 2:50 PM EST 09/03/2022 1:10 AM EST Narrative [facility] - 09/03/2022 7:32 AM EST Please note that this estimated [...] needs for GFR calculation. Resulting Agency Comment [id number] Rosa Maria Green MD LABORATORY Final Result Performing Organization Address City/State/[facility] Co de Phone Number [facility] [address] [place] [address] * (ABNORMAL) HEMOGLOBIN A1C (09/02/2022 2:50 PM EST) Hemoglobin A1C 5.9(H) <5.7 % of total Hgb [facility] [...] of diabetes for children. Estimated Average Glucose 133 mg/dL (calc) [facility] 09/02/2022 2:50 PM EST 09/03/2022 1:10 AM EST Narrative Resulting Agency Comment [id number] Rosa Maria Green MD LABORATORY Final Result Performing Organization Address [facility] de Phone Number [facility] [address] [place] [address] * (ABNORMAL) LIPID PANEL WITH REFLEX TO DIRECT LDL (09/02/2022 2:50 PM EST) Cholesterol 134 <200 mg/dL [facility] HDL Cholesterol 36(L) > OR = 40 mg/dL [facility] Triglyceride 172(H) <150 mg/dL [facility] LDL Cholesterol 73 mg/dL (calc) [facility] Comment: Reference range: [...] LDL-C. Marcellus SS et al. SHADIA. 2013;310(19): 1039-2645 (http://education.XTWIP.[employer]/faq/JWY089) CHOL/HDL Ratio 3.7 <5.0 (calc) [facility] Cholesterol Non-HDL 98 <130 mg/dL (calc) [facility] Comment: For patients with diabetes plus 1 major ASCVD risk factor, treating to a non-HDL-C goal of <100 mg/dL (LDL-C of <70 mg/dL) is considered a therapeutic option. 09/02/2022 2:50 PM EST 09/03/2022 1:10 AM EST Narrative Resulting Agency Comment [id number] Rosa Maria Green MD LABORATORY Final Result Performing Organization Address [facility] de Phone Number [facility] [address] [place] [address] documented in this encounter Visit Diagnoses Diagnosis Mixed hyperlipidemia Screening for endocrine disorder documented in this encounter Care Teams Airport Operations Duty Manager Relationship Specialty Start Date End Date Rosa Maria Green MD [address] [place] [address] PCP - General Family Medicine 05/29/22 02/20/23 Janice Fall NP [address] [place] [address] PCP - General Family Medicine 02/21/23 documented as of this encounter
--- OUTSIDE RECORDS SUMMARY | 2024-12-03 14:23 | XMS_ITS | Encounter Summary ---
Author Organization [facility] Address [address] [place] [address] Care Team Providers Care Leather Goods Sales Representative Name Role Phone Janice Fall NP Primary Care Provider [phone] Encounter Details Date Type Department Care Team ([facility] st Contact Info) Description 06/02/2023 Orders Only [facility] [address] [address] Filippo Ayers MD [address] [place] [id number] Social History Tobacco Use Types Packs/Day Years [...] Miscellaneous Notes * Result Encounter Note - Judith Hill MD - 06/02/2023 10:51 AM EDT Negative urine culture. No further action needed documented in this encounter Plan of Treatment Not on file documented as of this encounter Procedures * Due to [place] [employer] law, this organization might not be sharing negative HIV tests. Procedure Name Priority Date/Time Associated Diagnosis Comments CULTURE, URINE, ROUTINE Routine 06/02/2023 1:21 PM EDT COVID-19 documented in this encounter Results * Due to [place] [employer] law, this organization might not be sharing negative HIV tests. * CULTURE, URINE, ROUTINE (06/02/2023 1:21 PM EDT) Bacteria culture (Urine) SEE NOTE [facility] Comment: ??CULTURE, URINE, ROUTINE ??Micro Number: ?[id number] ??Test Status: ? Final ??Specimen Source: ?? Urine ??Specimen Quality: ??Adequate ??Result: ?No Growth 06/02/2023 1:21 PM EDT 06/02/2023 5:35 PM EDT Narrative Resulting Agency Comment [id number] Filippo Ayers MD LABORATORY Final Result Performing Organization Address City/State/[facility] Co de Phone Number [facility] [address] [place] [address] documented in this encounter Visit Diagnoses Diagnosis COVID-19 documented in this encounter Care Teams Leather Goods Sales Representative Relationship Specialty Start Date End Date Janice Fall NP [address] [facility] [place] [address] PCP - General Family Medicine 02/21/23 documented as of this encounter
--- OUTSIDE RECORDS SUMMARY | 2024-12-03 14:23 | XMS_ITS | Encounter Summary ---
Author Organization [facility] Address [address] [place] [address] Care Team Providers Care Press Operator Meat Name Role Phone Janice Fall NP Primary Care Provider [phone] Encounter Details Date Type Department Care Team (Late st Contact Info) Description 06/18/2024 Orders Only [facility] Practice [address] [place] [phone] Janice Fall, [place] [address] [place] [address] Social History Tobacco Use Types Packs/Day Years [...] of this encounter Procedures * Due to [place] [employer] law, this organization might not be sharing negative HIV tests. Procedure Name Priority Date/Time Associated Diagnosis Comments PROSTATE SPECIFIC ANTIGEN (PSA) TOTAL, SERUM Routine 06/18/2024 12:01 PM EST Benign prostatic hyperplasia with nocturia PARATHYROID HORMONE (PTH), INTACT WITH CALCIUM, SERUM Routine 06/18/2024 12:01 PM EST Screening for endocrine disorder HEMOGLOBIN A1C Routine 06/18/2024 12:01 PM EST Prediabetes LIPID PANEL WITH REFLEX TO DIRECT LDL Routine 06/18/2024 12:01 PM EST Mixed hyperlipidemia documented in this encounter Results * Due to [place] [employer] law, this organization might not be sharing negative HIV tests. * PROSTATE SPECIFIC ANTIGEN (PSA) TOTAL, SERUM (06/18/2024 12:01 PM EST) PSA 0.68 < OR = 4.00 ng/mL [facility] Comment: The total PSA value from this assay system is standardized against the WHO standard. The test result will be approximately 20% lower when compared to the equimolar-standardized total PSA ([place]). Comparison of serial PSA results should be [...] 3:28 AM EST Narrative Resulting Agency Comment [id number] Janice Fall NP LABORATORY Final Result [facility] [address] [place] [address] * (ABNORMAL) HEMOGLOBIN A1C (06/18/2024 12:01 PM EST) Hemoglobin A1C 6.3(H) <5.7 % of total Hgb [facility] [...] of diabetes for children. Estimated Average Glucose 147 mg/dL (calc) [facility] 06/18/2024 12:0 1 PM EST 06/19/2024 3:28 AM EST Narrative Resulting Agency Comment [id number] Janice Fall NP LABORATORY Final Result [facility] [address] [place] [address] * LIPID PANEL WITH REFLEX TO DIRECT [...] LDL-C. Marcellus BETH et al. SHADIA. 2013;310(19): 6343-0593 (http://education.Livemap.[employer]s/faq/GUB767) CHOL/HDL Ratio 2.9 <5.0 (calc) [facility] Cholesterol Non-HDL 83 <130 mg/dL (calc) [facility] Comment: For patients with diabetes plus 1 major ASCVD risk factor, treating to a non-HDL-C goal of <100 mg/dL (LDL-C of <70 mg/dL) is considered a therapeutic option. 06/18/2024 12:0 1 PM EST 06/19/2024 3:28 AM EST Narrative Resulting Agency Comment [id number] Janice Fall NP LABORATORY Final Result [facility] [address] [place] [address] * PARATHYROID HORMONE (PTH), INTACT WITH CALCIUM, SERUM (06/18/2024 12:01 PM EST) Parathyroid Hormone (PTH), Intact 44 16 - 77 pg/mL [facility] Comment: Interpretive Guide ?Intact PTH ? Calcium ? ------- Normal Parathyroid ?Normal ? Normal Hypoparathyroidism ?Low or Low Normal ?Low Hyperparathyroidism ?? Primary ?Normal or High ? High ?? Secondary ?High ? Normal or Low ?? Tertiary ? High ? High Non-Parathyroid ?? Hypercalcemia ?Low or Low Normal ?High Calcium 9.2 8.6 - 10.3 mg/dL [facility] 06/18/2024 12:0 1 PM EST 06/19/2024 3:28 AM EST Narrative Resulting Agency Comment [id number] Janice Fall NP LABORATORY Final Result [facility] [address] [place] [address] documented in this encounter Visit Diagnoses Diagnosis Screening for endocrine disorder Mixed hyperlipidemia Prediabetes Other abnormal glucose Benign prostatic hyperplasia with nocturia documented in this encounter Care Teams Press Operator Meat Relationship Specialty Start Date End Date Janice Fall NP [address] [facility] [place] [address] PCP - General Family Medicine 02/21/23 documented as of this encounter
--- OUTSIDE RECORDS SUMMARY | 2024-12-03 14:24 | XMS_ITS | Encounter Summary ---
Author Organization [facility] Address [address] [place] [address] Care Team Providers Care Academic Director Name Role Phone Alicia Ragland MD Primary Care Provider Unavaila Deja Yepez NP Primary Care Provider [phone] Jg Madera MD Primary Care Provider Deja Fang NP Unavailable [phone] Rosa Maria Green MD Primary Care Provider [phone] Janice Fall NP Primary Care Provider [phone] Encounter Details Date Type Department Care Team (Late st Contact Info) Description 08/03/2012 Orders Only [facility] [address] [place] [phone] Emily Frausto NP Social History Tobacco Use Types Packs/Day [...] as of this encounter Progress Notes * Emily Weaver NP - 08/05/2012 8:10 AM ESTQuick Note: Letter sent Emily Weaver NP documented in this encounter Plan of Treatment Not on file documented as of this encounter Procedures * Due to [place] [employer] law, this organization might not be sharing negative HIV tests. Procedure Name Priority Date/Time Associated Diagnosis Comments CBC INCLUDES DIFFERENTIAL AND PLATELET COUNT Routine 08/03/2012 9:56 AM EST Chronic diarrhea BASIC METABOLIC PANEL WITH (GFR) Routine 08/03/2012 9:56 AM EST Chronic diarrhea documented in this encounter Results * Due to [place] [employer] law, this organization might not be sharing negative HIV tests. * (ABNORMAL) BASIC METABOLIC PANEL WITH (GFR) (08/03/2012 9:56 AM EST) Glucose 118(H) 65 - 99 mg/dL [facility] Comment: {GLUCOSE {[id number]) ? Fasting reference interval Urea Nitrogen Blood (BUN) 6(L) 7 - 25 mg/dL [facility] Comment:{UREA NITROGEN (BUN) {[id number]) Creatinine 1.04 0.70 - 1.33 mg/dL [facility] Comment: {CREATININE {[id number]) For patients >49 years of age, the reference limit for Creatinine is approximately 13% higher for people identified as -[place]. GFR 82 > OR = 60 mL/min/1. 73m2 [facility] Comment:{eGFR NON-AFR. AMERI CAN {[id number]) GFR () 95 > OR = 60 mL/min/1. 73m2 [facility] Comment:{eGFR AMERIC AN {[id number]) BUN/Creatinine Ratio 6 6 - 22 (calc) [facility] Comment:{BUN/CREATININE RATI O {[id number]) Sodium 135 135 - 146 mmol/L [facility] Comment:{SODIUM {[id number]) Potassium 3.7 3.5 - 5.3 mmol/L [facility] Comment:{POTASSIUM {[id number]) Chloride 101 98 - 110 mmol/L [facility] Comment:{CHLORIDE {[id number]) Carbon dioxide 23 21 - 33 mmol/L [facility] Comment:{CARBON DIOXIDE {[id number]) Calcium 8.7 8.6 - 10.3 mg/dL [facility] Comment:{CALCIUM {[id number]) 08/03/2012 9:56 AM EST 08/04/2012 2:07 AM EST Narrative [facility] - 08/04/2012 3:36 AM EST Please note that this estimated [...] needs for GFR calculation. Resulting Agency Comment [id number] Emily Frausto NP LABORATORY Final Result [facility] [address] [place] [address] * (ABNORMAL) CBC INCLUDES DIFFERENTIAL AND PLATELET COUNT (08/03/2012 9:56 AM EST) WBC 6.7 3.8 - 10.8 Thousand/ uL [facility] Comment:{WHITE BLOOD CELL CO UNT {[id number]) RBC 4.53 4.20 - 5.80 Million/u L [facility] Comment:{RED BLOOD CELL COUN T {[id number]) Hemoglobin 15.2 13.2 - 17.1 g/dL [facility] Comment:{HEMOGLOBIN {[id number]) Hematocrit 43.5 38.5 - 50.0 % [facility] Comment:{HEMATOCRIT {[id number]) MCV 95.9 80.0 - 100.0 fL [facility] Comment:{MCV {[id number]) MCH 33.5(H) 27.0 - 33.0 pg [facility] Comment:{MCH {[id number]) MCHC 35.0 32.0 - 36.0 g/dL [facility] Comment:{MCHC {[id number]) RDW 13.1 11.0 - 15.0 % [facility] Comment:{RDW {[id number]) PLT 183 140 - 400 Thousand/ uL [facility] Comment:{PLATELET COUNT {[id number]) MPV 8.1 7.5 - 11.5 fL [facility] Comment:{MPV {[id number]) Neutrophils # 4348 1500 - 7800 cells/uL [facility] Comment:{ABSOLUTE NEUTROPHIL S {[id number]) Lymphocytes # 1655 850 - 3900 cells/uL [facility] Comment:{ABSOLUTE LYMPHOCYTE S {[id number]) Monocytes # 570 200 - 950 cells/uL [facility] Comment:{ABSOLUTE MONOCYTES {[id number]) Eosinophils # 107 15 - 500 cells/uL [facility] Comment:{ABSOLUTE EOSINOPHIL S {[id number]) Basophils # 20 0 - 200 cells/uL [facility] Comment:{ABSOLUTE BASOPHILS {[id number]) Neutrophils % 64.9 % [facility] Comment:{NEUTROPHILS {[id number]) Lymphocytes % 24.7 % [facility] Comment:{LYMPHOCYTES {[id number]) Monocytes % 8.5 % [facility] Comment:{MONOCYTES {[id number]) Eosinophils % 1.6 % [facility] Comment:{EOSINOPHILS {[id number]) Basophils % 0.3 % [facility] Comment:{BASOPHILS {[id number]) 08/03/2012 9:56 AM EST 08/04/2012 2:07 AM EST Narrative Resulting Agency Comment [id number] Emily Frausto NP LAB SAME DAY RESULT Final Re sult [facility] [address] [place] [address] documented in this encounter Visit Diagnoses Diagnosis Chronic diarrhea Diarrhea documented in this encounter Care Teams Academic Director Relationship Specialty Start Date End Date Alicia Ragland MD PCP - General 04/04/10 06/11/15 Deja Fang NP PCP - General Internal Medicine 06/12/15 03/26/20 Jg Madera MD [address] [facility] [address] PCP - General Internal Medicine 03/27/20 05/28/22 Deja Fang NP [address] [facility] [place] [address] PCP - Backup PCP Internal Medicine 03/27/20 06/30/22 Rosa Maria Green MD [address] [facility] [place] [address] PCP - General Family Medicine 05/29/22 02/20/23 Janice Fall NP [address] [place] [address] PCP - General Family Medicine 02/21/23 documented as of this encounter
--- OUTSIDE RECORDS SUMMARY | 2024-12-03 14:24 | XMS_ITS | Encounter Summary ---
Author Organization [facility] Address [address] [place] [address] Care Team Providers Care Distribution Lineman Name Role Phone Alicia Ragland MD Primary Care Provider Unavaila Deja Yepez NP Primary Care Provider Jg Madera MD Primary Care Provider [phone] Deja Fang NP Unavailable [phone] Rosa Maria Green MD Primary Care Provider [phone] Janice Fall NP Primary Care Provider [phone] Encounter Details Date Type Department Care Team (Late st Contact Info) Description 07/14/2012 Orders Only [facility] [address] [place] [id number] Alicia Ragland MD Social History Tobacco Use [...] encounter Progress Notes * Alicia Ragland - 07/19/2012 6:43 PM ESTQuick Note: Stable. Repeat in 3 mo. documented in this encounter Plan of Treatment Not on file documented as of this encounter Procedures * Due to [place] [employer] law, this organization might not be sharing negative HIV tests. Procedure Name Priority Date/Time Associated Diagnosis Comments HEMOGLOBIN A1C Routine 07/14/2012 9:40 AM EST Glucose intolerance (pre-diabetes) CREATINE KINASE (CK), SERUM Routine 07/14/2012 9:40 AM EST Vomiting AMYLASE, SERUM Routine 07/14/2012 9:40 AM EST Vomiting COMPREHENSIVE METABOLIC PANEL WITH GFR Routine 07/14/2012 9:40 AM EST Glucose intolerance (pre-diabetes) documented in this encounter Results * Due to [place] state law, this organization might not be sharing negative HIV tests. * TSH, 3RD GENERATION (10/30/2012 11:11 AM EDT) TSH 2.49 0.40 - 4.50 mIU/L [facility] Comment:{TSH {[id number]) 10/30/2012 11:1 1 AM EDT 10/30/2012 6:58 PM EDT Narrative Resulting Agency Comment [id number] us Alicia Ragland MD LABORATORY Final Result Performing Organization Address City/State/[facility] Co de Phone Number [facility] [address] [place] [address] * (ABNORMAL) HEMOGLOBIN A1C (10/30/2012 11:11 AM EDT) Hemoglobin A1C 5.8(H) <5.7 % of total Hgb [facility] Comment: {HEMOGLOBIN A1c {[id number]) ?Increased risk of diabetes ? <5.7 ? Decreased risk of diabetes ? 5.7-6.0 ?Increased risk of diabetes ? 6.1-6.4 ?Higher risk of diabetes ? > or = 6.5 Consistent with diabetes ?Standards of Medical Care in Diabetes-2010. ?Diabetes Care, 33(Supp 1): S1-S61,2010. Estimated Average Glucose 129 mg/dL (calc) [facility] Comment:{MEAN PLASMA GLUCOSE {[id number]) 10/30/2012 11:1 1 AM EDT 10/30/2012 6:58 PM EDT Narrative Resulting Agency Comment [id number] us Alicia Ragland MD LABORATORY Final Result Performing Organization Address City/State/[facility] Co de Phone Number [facility] [address] [place] [address] * (ABNORMAL) BASIC METABOLIC PANEL WITH (GFR) (10/30/2012 11:11 AM EDT) Glucose 103(H) 65 - 99 mg/dL [facility] Comment: {GLUCOSE {[id number]) ? Fasting reference interval Urea Nitrogen Blood (BUN) 11 7 - 25 mg/dL [facility] Comment:{UREA NITROGEN (BUN) {[id number]) Creatinine 1.13 0.70 - 1.33 mg/dL [facility] Comment: {CREATININE {[id number]) For patients >49 years of age, the reference limit for Creatinine is approximately 13% higher for people identified as -[place]. GFR 74 > OR = 60 mL/min/1 .73m2 [facility] Comment:{eGFR NON-AFR. AMERI CAN {[id number]) GFR () 86 > OR = 60 mL/min/1 .73m2 [facility] Comment:{eGFR AMERIC AN {[id number]) BUN/Creatinine Ratio NOT APPLICABLE 6 - 22 (calc) [facility] Comment:{BUN/CREATININE RATI O {[id number]) Sodium 136 135 - 146 mmol/L [facility] Comment:{SODIUM {[id number]) Potassium 4.3 3.5 - 5.3 mmol/L [facility] Comment:{POTASSIUM {[id number]) Chloride 102 98 - 110 mmol/L [facility] Comment:{CHLORIDE {[id number]) Carbon dioxide 25 19 - 30 mmol/L [facility] Comment:{CARBON DIOXIDE {[id number]) Calcium 9.5 8.6 - 10.3 mg/dL [facility] Comment:{CALCIUM {[id number]) 10/30/2012 11:1 1 AM EDT 10/30/2012 6:58 PM EDT Narrative [facility] - 10/30/2012 9:22 PM EDT Please note that this estimated [...] needs for GFR calculation. Resulting Agency Comment [id number] us Alicia Ragland MD LABORATORY Final Result Performing Organization Address [facility] Co de Phone Number [facility] [address] [place] [phone] * AMYLASE, SERUM (07/14/2012 9:40 AM EST) Amylase 31 21 - 101 U/L [facility] Comment:{AMYLASE {[id number]) 07/14/2012 9:40 AM EST 07/14/2012 6:35 PM EST Narrative Resulting Agency Comment [id number] us Alicia Ragland MD LAB SAME DAY RESULT Final Resul t Performing Organization Address [facility] Co de Phone Number [facility] [address] [place] [address] * (ABNORMAL) HEMOGLOBIN A1C (07/14/2012 9:40 AM EST) Hemoglobin A1C 5.9(H) <5.7 % of total Hgb [facility] Comment: {HEMOGLOBIN A1c {[id number]) ?Increased risk of diabetes ? <5.7 ? Decreased risk of diabetes ? 5.7-6.0 ?Increased risk of diabetes ? 6.1-6.4 ?Higher risk of diabetes ? > or = 6.5 Consistent with diabetes ?Standards of Medical Care in Diabetes-2010. ?Diabetes Care, 33(Supp 1): S1-S61,2010. Estimated Average Glucose 133 mg/dL (calc) [facility] Comment:{MEAN PLASMA GLUCOSE {[id number]) 07/14/2012 9:40 AM EST 07/14/2012 6:35 PM EST Narrative Resulting Agency Comment [id number] us Alicia Ragland MD LABORATORY Final Result [facility] [address] [place] [address] * (ABNORMAL) COMPREHENSIVE METABOLIC PANEL WITH GFR (07/14/2012 9:40 AM EST) Glucose 115(H) 65 - 99 mg/dL [facility] Comment: {GLUCOSE {[id number]) ? Fasting reference interval Urea Nitrogen Blood (BUN) 10 7 - 25 mg/dL [facility] Comment:{UREA NITROGEN (BUN) {[id number]) Creatinine 1.07 0.70 - 1.33 mg/dL [facility] Comment: {CREATININE {[id number]) For patients >49 years of age, the reference limit for Creatinine is approximately 13% higher for people identified as -[place]. GFR 79 > OR = 60 mL/min/1 .73m2 [facility] Comment:{eGFR NON-AFR. AMERI CAN {[id number]) GFR () 92 > OR = 60 mL/min/1 .73m2 [facility] Comment:{eGFR AMERIC AN {[id number]) BUN/Creatinine Ratio NOT APPLICABLE 6 - 22 (calc) [facility] Comment:{BUN/CREATININE RATI O {[id number]) Sodium 138 135 - 146 mmol/L [facility] Comment:{SODIUM {[id number]) Potassium 4.7 3.5 - 5.3 mmol/L [facility] Comment:{POTASSIUM {[id number]) Chloride 102 98 - 110 mmol/L [facility] Comment:{CHLORIDE {[id number]) Carbon dioxide 29 21 - 33 mmol/L [facility] Comment:{CARBON DIOXIDE {[id number]) Calcium 9.2 8.6 - 10.3 mg/dL [facility] Comment:{CALCIUM {[id number]) Protein Total (Serum) 7.4 6.1 - 8.1 g/dL [facility] Comment:{PROTEIN, TOTAL {[id number]) Albumin 4.2 3.6 - 5.1 g/dL [facility] Comment:{ALBUMIN {[id number]) Globulin 3.2 1.9 - 3.7 g/dL (calc) [facility] Comment:{GLOBULIN {[id number]) Albumin/Globulin 1.3 1.0 - 2.5 (calc) [facility] Comment:{ALBUMIN/GLOBULIN RA ЮЛИЯ {[id number]) Bilirubin Total 0.5 0.2 - 1.2 mg/dL [facility] Comment:{BILIRUBIN, TOTAL {[id number]) Alkaline phosphatase 53 40 - 115 U/L [facility] Comment:{ALKALINE PHOSPHATAS E {[id number]) AST (SGOT) 28 10 - 35 U/L [facility] Comment:{AST {[id number]) ALT (SGPT) 23 9 - 60 U/L [facility] Comment:{ALT {[id number]) 07/14/2012 9:40 AM EST 07/14/2012 6:35 PM EST Narrative [facility] - 07/14/2012 8:24 PM EST Please note that this estimated [...] MD LABORATORY Final Result Performing Organization Address [facility] Co de Phone Number [email or web address] [address] [place] [phone] * (ABNORMAL) CREATINE KINASE (CK), SERUM (07/14/2012 9:40 AM EST) CPK 335(H) 44 - 196 U/L [facility] Comment:{CREATINE KINASE, TO ALYSHA {[id number]) 07/14/2012 9:40 AM EST 07/14/2012 6:35 PM EST Narrative Resulting Agency Comment [id number] us Alicia Ragland MD LAB SAME DAY RESULT Final Resul t Performing Organization Address [facility] Co de Phone Number [email or web address] [address] [place] [address] documented in this encounter Visit Diagnoses Diagnosis Vomiting Vomiting alone Glucose intolerance (pre-diabetes) Other abnormal glucose Routine history and physical examination of adult- Primary Routine general medical examination at a health care facility Screen for colon cancer Special screening for malignant neoplasms, colon Hyperlipidemia Other and unspecified hyperlipidemia Vomiting Vomiting alone Glucose intolerance (pre-diabetes) Other abnormal glucose Need for pneumococcal vaccination Need for prophylactic vaccination against streptococcus pneumoniae (pneumococcus) Special screening for other specified conditions(V82.89) Special screening for other specified conditions Vitamin D deficiency Unspecified vitamin D deficiency Elevated CPK Other nonspecific abnormal serum enzyme levels documented in this encounter Care Teams Distribution Lineman Relationship Specialty Start Date End Date Alicia Ragland MD PCP - General 04/04/10 06/11/15 Deja Fang NP PCP - General Internal Medicine 06/12/15 03/26/20 Jg Madera MD [address] [facility] [place] [address] PCP - General Internal Medicine 03/27/20 05/28/22 Deja Fang NP [address] [facility] [place] [address] PCP - Backup PCP Internal Medicine 03/27/20 06/30/22 Rosa Maria Green MD [address] [facility] [place] [address] PCP - General Family Medicine 05/29/22 02/20/23 Janice Fall NP [address] [facility] [place] [address] PCP - General Family Medicine 02/21/23 documented as of this encounter
--- OUTSIDE RECORDS SUMMARY | 2024-12-03 14:24 | XMS_ITS | Encounter Summary ---
Author Organization [facility] Address [address] [place] [address] Care Team Providers Care Lead Consultant Name Role Phone Alicia Ragland MD Primary Care Provider Unavaila Deja Yepez NP Primary Care Provider Jg Madera MD Primary Care Provider Deja Fang NP Unavailable [phone] Rosa Maria Green MD Primary Care Provider [phone] Janice Fall NP Primary Care Provider [phone] Encounter Details Date Type Department Care Team (Late st Contact Info) Description 02/11/2013 Orders Only [facility] [address] [place] [id number] Alicia Ragland MD Social History Tobacco Use [...] Progress Notes * Emily Weaver NP - 03/15/2013 1:58 PM EDTQuick Note: Discussed CPE 03/15/13. Emily Weaver NP documented in this encounter Plan of Treatment Not on file documented as of this encounter Procedures * Due to [place] [employer] law, this organization might not be sharing negative HIV tests. Procedure Name Priority Date/Time Associated Diagnosis Comments ASPARTATE AMINOTRANSFERASE (AST), SERUM Routine 02/11/2013 4:23 PM EDT Hyperlipidemia HEMOGLOBIN A1C Routine 02/11/2013 4:23 PM EDT Glucose intolerance (pre-diabetes) CREATINE KINASE (CK), SERUM Routine 02/11/2013 4:23 PM EDT Elevated CPK documented in this encounter Results * Due to [place] el[employer] law, this organization might not be sharing negative HIV tests. * (ABNORMAL) CREATINE KINASE (CK), SERUM (02/11/2013 4:23 PM EDT) CPK 317(H) 44 - 196 U/L [facility] Comment:{CREATINE KINASE, TO ALYSHA {[id number]) 02/11/2013 4:23 PM EDT 02/11/2013 11:20 PM EDT Narrative Resulting Agency Comment [id number] us Alicia Ragland MD LAB SAME DAY RESULT Final Resul t Performing Organization Address City/State/[facility] Co de Phone Number [facility] [address] [place] [address] * (ABNORMAL) HEMOGLOBIN A1C (02/11/2013 4:23 PM EDT) Hemoglobin A1C 5.8(H) <5.7 % of total Hgb [facility] Comment: {HEMOGLOBIN A1c {[id number]) ?Increased risk of diabetes ? <5.7 ? Decreased risk of diabetes ? 5.7-6.0 ?Increased risk of diabetes ? 6.1-6.4 ?Higher risk of diabetes ? > or = 6.5 Consistent with diabetes ? These Reference Intervals are supported by the ? current Standards of Medical Care in Diabetes ? published in August of the current year in ? Diabetes Care, the Journal of the [place] ? Diabetes Association. Estimated Average Glucose 129 mg/dL (calc) [facility] Comment:{MEAN PLASMA GLUCOSE {[id number]) 02/11/2013 4:23 PM EDT 02/11/2013 11:20 PM EDT Narrative Resulting Agency Comment [id number] us Alicia Ragland MD LABORATORY Final Result Performing Organization Address City/[facility] Co de Phone Number [facility] [address] [place] [address] * ASPARTATE AMINOTRANSFERASE (AST), SERUM (02/11/2013 4:23 PM EDT) AST (SGOT) 31 10 - 35 U/L [facility] Comment:{AST {[id number]) 02/11/2013 4:23 PM EDT 02/11/2013 11:20 PM EDT Narrative Resulting Agency Comment [id number] us Alicia Ragland MD LAB SAME DAY RESULT Final Resul t Performing Organization Address [facility] Co de Phone Number [facility] [address] [place] [address] documented in this encounter Visit Diagnoses Diagnosis Hyperlipidemia Other and unspecified hyperlipidemia Glucose intolerance (pre-diabetes) Other abnormal glucose Elevated CPK Other nonspecific abnormal serum enzyme levels documented in this encounter Care Teams Lead Consultant Relationship Specialty Start Date End Date Alicia Ragland MD PCP - General 04/04/10 06/11/15 Deja Fang NP PCP - General Internal Medicine 06/12/15 03/26/20 Jg Madera MD [address] [facility] [place] [address] PCP - General Internal Medicine 03/27/20 05/28/22 Deja Fang NP [address] [facility] [place] [address] PCP - Backup PCP Internal Medicine 03/27/20 06/30/22 Rosa Maria Green MD [address] [facility] [place] [address] PCP - General Family Medicine 05/29/22 02/20/23 Janice Fall NP [address] [facility] [place] [address] PCP - General Family Medicine 02/21/23 documented as of this encounter
--- OUTSIDE RECORDS SUMMARY | 2024-12-03 14:24 | XMS_ITS | Encounter Summary ---
Author Organization [facility] Address [address] [place] [address] Care Team Providers Care Community Association Manager Name Role Phone Alicia Ragland MD Primary Care Provider Unavaila ble Deja Fang NP Primary Care Provider Jg Madera MD Primary Care Provider Deja Fang NP Unavailable [phone] Rosa Maria Green MD Primary Care Provider [phone] Janice Fall NP Primary Care Provider [phone] Encounter Details Date Type Department Care Team (Late st Contact Info) Description 11/11/2012 Orders Only [facility] Pre-Admission Testing [address] [facility] [address] [place] [address] Cora Roach MD [address] [place] [address] Social History Tobacco Use Types Packs/Day Years [...] of this encounter Procedures * Due to [place] [employer] law, this organization might not be sharing negative HIV tests. Procedure Name Priority Date/Time Associated Diagnosis Comments EKG-TO BE READ & BILLED BY ADULT OR PEDIATRIC CARDIOLOGY Routine 11/11/2012 10:43 AM EDT Preoperative examination Chronic diarrhea GERD ANXIETY Hyperlipidemia OSTEOARTHRITIS OF KNEES Renal calculi Obese documented in this encounter Results * Due to [place] [employer] law, this organization might not be sharing negative HIV tests. * EKG-TO BE READ AND BILLED BY [...] RTG F inal Result MUSE EKG SYSTEM documented in this encounter Visit Diagnoses Diagnosis Preoperative examination Preoperative examination, unspecified Chronic diarrhea Diarrhea GERD Esophageal reflux ANXIETY Anxiety state, unspecified Hyperlipidemia Other and unspecified hyperlipidemia OSTEOARTHRITIS OF KNEES Osteoarthrosis, unspecified whether generalized or localized, lower leg Renal calculi Calculus of kidney Obese Obesity, unspecified documented in this encounter Care Teams Community Association Manager Relationship Specialty Start Date End Date Alicia Ragland MD PCP - General 04/04/10 06/11/15 Deja Fang NP PCP - General Internal Medicine 06/12/15 03/26/20 Jg Madera MD [address] [facility] [place] [address] PCP - General Internal Medicine 03/27/20 05/28/22 Deja Fang NP [address] [facility] [place] [address] PCP - Backup PCP Internal Medicine 03/27/20 06/30/22 Rosa Maria Green MD [address] [facility] [place] [address] PCP - General Family Medicine 05/29/22 02/20/23 Janice Fall NP [address] [facility] [place] [place] [address] PCP - General Family Medicine 02/21/23 documented as of this encounter
--- OUTSIDE RECORDS SUMMARY | 2024-12-03 14:24 | XMS_ITS | Encounter Summary ---
Author Organization [facility] Address [address] [place] [address] Care Team Providers Care Precision Farming Specialist Name Role Phone Alicia Ragland MD Primary Care Provider Unavaila Deja Yepez NP Primary Care Provider [phone] Jg Madera MD Primary Care Provider Deja Fang NP Unavailable [phone] Rosa Maria Green MD Primary Care Provider [phone] Janice Fall NP Primary Care Provider [phone] Encounter Details Date Type Department Care Team (Late st Contact Info) Description 10/09/2010 Orders Only [facility] G[facility] [address] [place] [address] Filippo Tom PA-C [address] [place] [address] Social History Tobacco Use Types Packs/Day Years [...] as of this encounter Progress Notes * Filippo Tom PA-C - 10/16/2010 5:22 PM EDTQuick Note: See message 10/16; will d/w pt at f/u ov documented in this encounter Plan of Treatment Pending Results Name Type Priority Associated Diagnoses Date /Time INFLAMMATORY BOWEL DISEASE DIFFERENTIATION PANEL Lab Routine Nausea & vomiting Diarrhea Weight loss Abdominal pain, generalized 10/09/2010 documented as of this encounter Procedures * Due to [place] state law, this organization might not be sharing negative HIV tests. Procedure Name Priority Date/Time Associated Diagnosis Comments COMPREHENSIVE METABOLIC PANEL W/GLOMERULAR FILT. RATE (EGFR) Routine 10/09/2010 Nausea & vomiting Diarrhea Weight loss Abdominal pain, generalized INFLAMMATORY BOWEL DISEASE DIFFERENTIATION PANEL Routine 10/09/2010 C-REACTIVE PROTEIN (CRP), QUANTITATIVE, SERUM INFLAMMATION Routine 10/09/2010 Nausea & vomiting Diarrhea Weight loss Abdominal pain, generalized CAROTENE,BETA Routine 10/09/2010 Nausea & vomiting Diarrhea Weight loss INFLAMMATORY BOWEL DISEASE DIFFERENTIATION PANEL Routine 10/09/2010 Nausea & vomiting Diarrhea Weight loss Abdominal pain, generalized SED RATE ESR Routine 10/09/2010 Nausea & vomiting Diarrhea Weight loss Abdominal pain, generalized CBC 5 PART DIFF Routine 10/09/2010 Nausea & vomiting Diarrhea Weight loss Abdominal pain, generalized THYROID CASCADE Routine 10/09/2010 Diarrhea Weight loss Abdominal pain, generalized LIPASE Routine 10/09/2010 Nausea & vomiting Diarrhea Weight loss Abdominal pain, generalized IRON/TIBC Routine 10/09/2010 Diarrhea Weight loss FOLATE (FOLIC ACID) Routine 10/09/2010 Diarrhea Weight loss VITAMIN B12 Routine 10/09/2010 Diarrhea Weight loss Abdominal pain, generalized AMYLASE Routine 10/09/2010 Nausea & vomiting Diarrhea Weight loss Abdominal pain, generalized documented in this encounter Results * Due to [place] state law, this organization might not be sharing negative HIV tests. * (ABNORMAL) INFLAMMATORY BOWEL DISEASE DIFFERENTIATION PANEL (10/09/2010) ASCA-IGA 30.4(H) <=20.0 U [facility] Comment: REFERENCE RANGE(S): NEGATIVE : <=20.0 EQUIVOCAL: 20.1 - 24.9 POSITIVE: >=25.0 ASCA-IGG 34.2(H) <=20.0 U [facility] Comment: REFERENCE RANGE(S): NEGATIVE: <=20.0 EQUIVOCAL: 20.1 - 29.9 POSITIVE: >=30.0 PROTEINASE-3 AB <6 <6 U/ML [facility] Comment: REFERENCE RANGE: ??NEGATIVE: <6 U/ML ??EQUIVOCAL: 6 - 9 U/ML ??POSITIVE: >9 U/ML MYELOPEROXIDASE AB <6 <6 U/ML [facility] Comment: REFERENCE RANGE: ??NEGATIVE: <6 U/ML ??EQUIVOCAL: 6 - 9 U/ML ??POSITIVE: >9 U/ML ANCA SCREEN NEGATIVE NEGATIVE [facility] Comment: ANCA SCREEN INCLUDES EVALUATION FOR P-ANCA, C-ANCA, AND ATYPICAL P-ANCA. 10/09/2010 10/09/2010 11: 32 PM EST Filippo Tom PA-C LABORATORY Final Resu lt Performing Organization Address [facility] Co de Phone Number [facility] [address] [place] [address] * VITAMIN B12 (10/09/2010) VITB12 365 200 - 1100 PG/ML [facility] 10/09/2010 10/09/2010 11: 32 PM EST Filippo Tom PA-C LABORATORY Final Resu lt Performing Organization Address [facility] Co de Phone Number [facility] [address] [place] [address] * LIPASE (10/09/2010) LIPASE 16 7 - 60 U/L [facility] 10/09/2010 10/09/2010 11: 32 PM EST Filippo Tom PA-C LABORATORY Final Resu lt Performing Organization Address [facility]/ZIP Co de Phone Number [facility] [address] [place] [address] * CAROTENE,BETA (10/09/2010) CAROTENE, SERUM 8 4 - 51 MCG/DL [facility] 10/09/2010 10/09/2010 11: 32 PM EST Filippo Tom PA-C LABORATORY Final Resu lt Performing Organization Address [facility] Co de Phone Number [facility] [address] [place] [address] * (ABNORMAL) CBC 5 PART DIFF (10/09/2010) Pathologist [facility] WHITE BLOOD COUNT 5.6 3.8 - 10.8 THOUS/UL [facility] RBC 4.56 4.20 - 5.80 MIL/UL [facility] Hemoglobin 15.2 13.2 - 17.1 G/DL [facility] HCT (HEMATOCRIT) 45.3 38.5 - 50.0 % [facility] MCV 99.3 80.0 - 100.0 FL [facility] MCH 33.3(H) 27.0 - 33.0 PG [facility] MCHC 33.5 32.0 - 36.0 G/DL [facility] BAND % 0 0 - 5 % [facility] NEUTROPHIL % 56 48 - 75 % [facility] LYMPHOCYTE % 31 17 - 40 % [facility] MONOCYTE % 8 0 - 14 % [facility] EOSINOPHIL % 4 0 - 5 % [facility] BASOPHIL % 1 0 - 3 % [facility] ATYPICAL LYMPHOCYTE % 0 0 - 5 % [facility] PLATELETS 214 140 - 400 THOUS/UL [facility] BANDS # 0 0 - 750 CELLS/MCL [facility] NEUTROPHILS # 3136 1500 - 7800 CELLS/MCL [facility] LYMPHOCYTES # 1736 850 - 3900 CELLS/MCL [facility] MONOCYTES # 448 200 - 950 CELLS/MCL [facility] EOSINOPHILS # 224 15 - 550 CELLS/MCL [facility] BASOPHILS # 56 0 - 200 CELLS/MCL [facility] ATYPICAL LYMPHOCYTES # 0 0 - 200 CELLS/MCL [facility] RDW 12.5 11.0 - 15.0 % [facility] MPV 8.5 7.5 - 11.5 FL [facility] 10/09/2010 10/09/2010 11: 32 PM EST Filippo Tom PA-C LAB SAME DAY RESULT Final Result [facility] [address] [place] [address] * (ABNORMAL) COMPREHENSIVE METABOLIC PANEL W/GLOMERULAR FILT. RATE (EGFR) (10/09/2010) CALCIUM 9.0 8.6 - 10.2 MG/DL [facility] BUN 9 7 - 25 MG/DL [facility] CREATININE 0.93 0.76 - 1.46 MG/DL [facility] Total Protein 7.6 6.2 - 8.3 G/DL [facility] ALBUMIN 4.5 3.5 - 4.9 G/DL [facility] GLOBULIN 3.1 2.1 - 3.7 G/DL [facility] ALBUMIN/GLOBULIN RATIO 1.5 1.0 - 2.1 [facility] BILIRUBIN TOTAL 0.5 0.2 - 1.2 MG/DL [facility] Glucose 102(H) 65 - 99 MG/DL [facility] ALKALINE PHOSPHATASE 58 40 - 115 U/L [facility] AST (SGOT) 27 10 - 35 U/L [facility] ALT (SGPT) 28 9 - 60 U/L [facility] SODIUM 137 135 - 146 MMOL/L [facility] POTASSIUM 4.3 3.5 - 5.3 MMOL/L [facility] CHLORIDE 104 98 - 110 MMOL/L [facility] CARBON DIOXIDE 23 21 - 33 MMOL/L [facility] GFR > 60 60 AND ABOVE [facility] Comment:UNITS: ML/MIN/1.73 S Q METERS EGFR > 60 60 AND ABOVE [facility] Comment:UNITS: ML/MIN/1.73 S Q METERS 10/09/2010 10/09/2010 11: 32 PM EST Narrative [facility] - 10/10/2010 5:32 AM EST Please note that this estimated [...] with more precise needs for GFR calculation. Filippo Tom PA-C LABORATORY Final Resu lt Performing Organization Address [facility] de Phone Number [facility] [address] [place] [address] * IRON/TIBC (10/09/2010) IRON 96 40 - 190 UG/DL [facility] TIBC (IRON BINDING CAPACITY) 405 250 - 425 MCG/DL [facility] IRON SATURATION % 24 20 - 50 % [facility] 10/09/2010 10/09/2010 11: 32 PM EST Filippo Tom PA-C LABORATORY Final Resu lt Performing Organization Address [facility] de Phone Number [facility] [address] [place] [phone] * THYROID CASCADE (10/09/2010) Pathologist [facility] TSH, THYROTROPIN 2.237 0.40 - 4.50 UIU/ML [facility] 10/09/2010 10/09/2010 11: 32 PM EST Filippo Tom PA-C LABORATORY Final Resu lt Performing Organization Address [facility] de Phone Number [facility] [address] [place] [address] * SED RATE ESR (10/09/2010) Pathologist [facility] ESR (ERYTHROCYTE SEDIMENTATION RATE) 1 0 - 20 MM/HR [facility] 10/09/2010 10/09/2010 11: 32 PM EST Filippo Tom PA-C LAB SAME DAY RESULT Final Result Performing Organization Address [facility] Co de Phone Number [facility] [address] [place] [address] * C-REACTIVE PROTEIN (CRP), QUANTITATIVE, SERUM INFLAMMATION (10/09/2010) C REACTIVE PROTEIN (CRP) 0.1 0 - 0.7 MG/DL [facility] 10/09/2010 10/09/2010 11: 32 PM EST Filippo Tom PA-C LABORATORY Final Resu lt Performing Organization Address City/[facility]/ZIP Co de Phone Number [facility] [address] [place] [address] * FOLATE (FOLIC ACID) (10/09/2010) FOLATE > 24.0 3.4 OR ABOVE NG/ML [facility] 10/09/2010 10/09/2010 11: 32 PM EST Filippo Tom PA-C LABORATORY Final Resu lt Performing Organization Address [facility] Co de Phone Number [facility] [address] [place] [address] * AMYLASE (10/09/2010) AMYLASE 29 21 - 101 U/L [facility] 10/09/2010 10/09/2010 11: 32 PM EST Filippo Tom PA-C LAB SAME DAY RESULT Final Result Performing Organization Address City/[facility] Co de Phone Number [facility] [address] [place] [address] documented in this encounter Visit Diagnoses Diagnosis Nausea & vomiting Nausea with vomiting Diarrhea Weight loss Loss of weight Abdominal pain, generalized documented in this encounter Care Teams Precision Farming Specialist Relationship Specialty Start Date End Date Alicia Ragland MD PCP - General 04/04/10 06/11/15 Deja Fang NP PCP - General Internal Medicine 06/12/15 03/26/20 Jg Madera MD [address] [place] [address] PCP - General Internal Medicine 03/27/20 05/28/22 Deja Fang NP [address] [place] [address] PCP - Backup PCP Internal Medicine 03/27/20 06/30/22 Rosa Maria Green MD [address] [place] [address] PCP - General Family Medicine 05/29/22 02/20/23 Janice Fall NP [address] [place] [address] PCP - General Family Medicine 02/21/23 documented as of this encounter
--- OUTSIDE RECORDS SUMMARY | 2024-12-03 14:24 | XMS_ITS | Encounter Summary ---
Author Organization [facility] Address [address] [place] [address] Care Team Providers Care Operating Room Registered Nurse Name Role Phone Jg Madera MD Primary Care Provider Deja Fang NP Unavailable [phone] Rosa Maria Green MD Primary Care Provider [phone] Janice Fall NP Primary Care Provider [phone] Reason for Visit * Reason Comments Colonoscopy/EGD Encounter Details Date Type Department Care Team (Late st Contact Info) Description 11/29/2020 Orders Only [facility] [address] [place], [place] [id number] Jg Madera MD [address] [place] [address] Social History Tobacco Use Types Packs/Day Years [...] have Coronavirus / COVID-19? No / Unsure 11/30/2020 8:48 AM EDT documented as of this encounter Miscellaneous Notes * Result Encounter Note - Ofelia Oakes CMA - 11/29/2020 1:39 PM EDT Please review and advise. Pt does not have any upcoming appointments. No letter generated. * Result Encounter Note - Jg Madera MD - 11/29/2020 1:39 PM EDT Stool test negative letter sent documented in this encounter Plan of Treatment Not on file documented as of this encounter Procedures * Due to [place] [employer] law, this organization might not be sharing negative HIV tests. Procedure Name Priority Date/Time Associated Diagnosis Comments FECAL GLOBIN IMMUNOCHEMICAL TEST (RINA) Routine 01/02/2021 Screen for colon cancer documented in this encounter Results * Due to [place] [employer] law, this organization might not be sharing negative HIV tests. * FECAL GLOBIN IMMUNOCHEMICAL TEST (RINA) (01/02/2021) Fecal Globin Immunochemical Test SEE NOTE [facility] Comment: ??FECAL GLOBIN BY IMMUNOCHEMISTRY ??Micro Number: ?[id number] ??Test Status: ? Final ??Specimen Source: ?? INSURE (TM) FOBT TEST CARD ??Specimen Quality: ??Adequate ??Fecal Globin: ?Not Detected ? The specimen receive date on this report reflects ? the date that [facility] received the test ? order from the physician. The specimen would have ? been separately submitted by the patient at a ? later date. 01/02/2021 11/29/2020 11: 46 PM EDT Narrative Resulting Agency Comment [id number] Jg Madera MD LABORATORY Final Result [facility] [address] [place] [address] documented in this encounter Visit Diagnoses Diagnosis Screen for colon cancer Special screening for malignant neoplasms, colon documented in this encounter Care Teams Operating Room Registered Nurse Relationship Specialty Start Date End Date Jg Madera MD [address] [place] [address] PCP - General Internal Medicine 03/27/20 05/28/22 Deja Fang NP [address] [place] [address] PCP - Backup PCP Internal Medicine 03/27/20 06/30/22 Rosa Mraia Green MD [address] [place] [address] PCP - General Family Medicine 05/29/22 02/20/23 Janice Fall NP [address] [place] [address] PCP - General Family Medicine 02/21/23 documented as of this encounter
--- OUTSIDE RECORDS SUMMARY | 2024-12-03 14:24 | XMS_ITS | Encounter Summary ---
Author Organization [facility] Address [address] [place] [address] Care Team Providers Care Convention Services Manager Name Role Phone Alicia Ragland MD Primary Care Provider Unavaila Deja Yepez NP Primary Care Provider Jg Madera MD Primary Care Provider [phone] Deja Fang NP Unavailable [phone] Rosa Maria Green MD Primary Care Provider [phone] Janice Fall NP Primary Care Provider [phone] Reason for Referral * (Routine) - Incomplete Specialty Diagnoses / Procedures Referred By Kelsy salas Referred To Contact Diagnoses Acute back pain Alicia Ragland MD Referral ID Status Reason Start Date Expiration Date V isits Requested Visits Authorized [id number] Incomplete 09/30/2014 1 1 Question Answer Patient is being referred outside of [facility] for the following reason, however final determination for [id number] requests are made by the Referral Management Department Service is not available within [facility] What is the reason for the consult/request/test? ACUTE BACK PAIN When do you want this visit to occur? PT CONVENIENCE Please list the patient's preferred provider for this consult. MARKIE FINLEY Encounter Details Date Type Department Care Team ([facility] st Contact Info) Description 09/30/2014 Orders Only [place] [facility] [address] [place] [address] Alicia Ragland MD Social History Tobacco Use [...] Priority Associated Diagnoses Orde r Schedule CONSULT CHIROPRACTIC NON-FC Referral Routine Acute back pain Ordered: 09/30/2014 documented as of this encounter Visit Diagnoses Diagnosis Acute back pain- Primary Backache, unspecified documented in this encounter Care Teams Convention Services Manager Relationship Specialty Start Date End Date Alicia Ragland MD PCP - General 04/04/10 06/11/15 Deja Fang NP PCP - General Internal Medicine 06/12/15 03/26/20 Jg Madera MD [address] [place] [address] PCP - General Internal Medicine 03/27/20 05/28/22 Deja Fang NP [address] [place] [address] PCP - Backup PCP Internal Medicine 03/27/20 06/30/22 Rosa Maria Green MD [address] [place] [address] PCP - General Family Medicine 05/29/22 02/20/23 Janice Fall NP [address] [place] [address] PCP - General Family Medicine 02/21/23 documented as of this encounter
--- OUTSIDE RECORDS SUMMARY | 2024-12-03 14:24 | XMS_ITS | Encounter Summary ---
Author Organization [facility] Address [address] [place] [address] Care Team Providers Care Raw Finish Mill Operator Name Role Phone Alicia Ragland MD Primary Care Provider Unavaila Deja Yepez NP Primary Care Provider [phone] Jg Madera MD Primary Care Provider [phone] Deja Fang NP Unavailable [phone] Rosa Maria Green MD Primary Care Provider Janice Fall NP Primary Care Provider [phone] Encounter Details Date Type Department Care Team (Late st Contact Info) Description 10/30/2012 Orders Only [facility] [address] [place] [id number] Alicia Ragland MD Medications Social History Tobacco [...] 8:24 AM EDT Sexual Orientation Straight 11/27/2020 8 :24 AM EDT 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 Labs in 3 mo. documented in this encounter Plan of Treatment Not on file documented as of this encounter Procedures * Due to [place] [employer] law, this organization might not be sharing negative HIV tests. Procedure Name Priority Date/Time Associated Diagnosis Comments CBC (H/H, RBC, INDICES,WBC, PLT) Routine 10/30/2012 11:11 AM EDT Routine history and physical examination of adult ASPARTATE AMINOTRANSFERASE (AST), SERUM Routine 10/30/2012 11:11 AM EDT Hyperlipidemia TSH, 3RD GENERATION Routine 10/30/2012 1 1:11 AM EDT Vomiting Glucose intolerance (pre-diabetes) PROSTATE SPECIFIC ANTIGEN (PSA) TOTAL, SERUM Routine 10/30/2012 11:11 AM EDT Special screening for other specified conditions HEMOGLOBIN A1C Routine 10/30/2012 11:11 AM EDT Vomiting Glucose intolerance (pre-diabetes) CREATINE KINASE (CK), SERUM Routine 10/30/2012 11:11 AM EDT Need for pneumococcal vaccination VITAMIN D, 25-HYDROXY, TOTAL, IMMUNOASSAY Routine 10/30/2012 11:11 AM EDT Vitamin d deficiency LIPID PANEL WITH REFLEX TO DIRECT LDL Routine 10/30/2012 11:11 AM EDT Need for pneumococcal vaccination BASIC METABOLIC PANEL WITH (GFR) Routine 10/30/2012 11:11 AM EDT Vomiting Glucose intolerance (pre-diabetes) documented in this encounter Results * Due to [place] [employer] law, this organization might not be sharing negative HIV tests. * (ABNORMAL) LIPID PANEL WITH REFLEX TO DIRECT LDL (06/28/2013 1:48 PM EST) Cholesterol 257(H) 125 - 200 mg/dL [facility] Comment:{CHOLESTEROL, TOTAL {[id number]) HDL Cholesterol 36(L) > OR = 40 mg/dL [facility] Comment:{HDL CHOLESTEROL {[id number]) Triglyceride 163(H) <150 mg/dL [facility] Comment:{TRIGLYCERIDES {[id number]) LDL Cholesterol 188(H) <130 mg/dL (calc) [facility] Comment: {LDL-CHOLESTEROL {[id number]) Desirable range <100 mg/dL for patients with CHD or diabetes and <70 mg/dL for diabetic patients with known heart disease. CHOL/HDL Ratio 7.1(H) < OR = 5.0 (calc) [facility] Comment:{CHOL/HDLC RATIO {[id number]) Cholesterol Non-HDL 221(H) mg/dL (calc) [facility] Comment: {NON HDL CHOLESTEROL {[id number]) Target for non-HDL cholesterol is 30 mg/dL higher than LDL cholesterol target. 06/28/2013 1:48 PM EST 06/28/2013 6:58 PM EST Narrative Resulting Agency Comment [id number] us Alicia Ragalnd MD LABORATORY Final Result Performing Organization Address City/[facility]/ZIP Co de Phone Number [facility] [address] [place] [address] * (ABNORMAL) CREATINE KINASE (CK), SERUM (02/11/2013 4:23 PM EDT) CPK 317(H) 44 - 196 U/L [facility] Comment:{CREATINE KINASE, TO ALYSHA {[id number]) 02/11/2013 4:23 PM EDT 02/11/2013 11:20 PM EDT Narrative Resulting Agency Comment [id number] us Alicia Ragland MD LAB SAME DAY RESULT Final Resul t [facility] [address] [place] [address] * (ABNORMAL) HEMOGLOBIN A1C (02/11/2013 4:23 PM EDT) Hemoglobin A1C 5.8(H) <5.7 % of total Hgb [facility] Comment: {HEMOGLOBIN A1c {[id number]) ?Increased risk of diabetes ? <5.7 ? Decreased risk of diabetes ? 5.7-6.0 ?Increased risk of diabetes ? 6.1-6.4 ?Higher risk of diabetes ? > or = 6.5 Consistent with diabetes ? These Reference Intervals are supported by the ? current Standards of Medical Care in Diabetes ? published in August of the current year in ? Diabetes Care, the Journal of the [place] ? Diabetes Association. Estimated Average Glucose 129 mg/dL (calc) [facility] Comment:{MEAN PLASMA GLUCOSE {[id number]) 02/11/2013 4:23 PM EDT 02/11/2013 11:20 PM EDT Narrative Resulting Agency Comment [id number] us Alicia Ragland MD LABORATORY Final Result Performing Organization Address City/State/[facility] Co de Phone Number [facility] [address] [place] [address] * ASPARTATE AMINOTRANSFERASE (AST), SERUM (02/11/2013 4:23 PM EDT) AST (SGOT) 31 10 - 35 U/L [facility] Comment:{AST {[id number]) 02/11/2013 4:23 PM EDT 02/11/2013 11:20 PM EDT Narrative Resulting Agency Comment [id number] us Alicia Ragland MD LAB SAME DAY RESULT Final Resul t [facility] [address] [place] [address] * VITAMIN D, 25-HYDROXY, LC/MS/MS (10/30/2012 11:11 AM EDT) Vitamin D, 25-OH, Total 41 30 - 100 ng/mL [facility] Comment:{VITAMIN D, 25 OH, T OTAL {[id number]) Vitamin D, D3 (Cholecalciferol ) 41 ng/mL [facility] Comment:{VITAMIN D, 25 OH, D 3 {[id number]) Vitamin D, 25-OH, D2 (Calciferol) <4 ng/mL [facility] Comment: {VITAMIN D, 25 OH, D2 {[id number]) ? 25-OHD3 indicates both endogenous production and ? supplementation. 25-OHD2 is an indicator of exogenous ? sources such as diet or supplementation. Therapy is based on ? measurement of Total 25-OHD, with levels <20 ng/mL indicative ? of Vitamin D deficiency, while levels between 20 ng/mL and ? 30 ng/mL suggest insufficiency. Optimal levels are ? > or = 30 ng/mL. 10/30/2012 11:1 1 AM EDT 10/30/2012 6:58 PM EDT Narrative Resulting Agency Comment [id number] us Alicia Ragland MD LABORATORY Final Result Performing Organization Address City/[facility]/ZIP Co de Phone Number [facility] [address] [place] [address] * PROSTATE SPECIFIC ANTIGEN (PSA) TOTAL, SERUM (10/30/2012 11:11 AM EDT) PSA 0.4 < OR = 4.0 ng/mL [facility] Comment: {PSA, TOTAL {[id number]) This test was performed using the Siemens chemiluminescent method. Values obtained from different assay methods cannot be used interchangeably. PSA levels, regardless of value, should not be interpreted as absolute evidence of the presence or absence of disease. 10/30/2012 11:1 1 AM EDT 10/30/2012 6:58 PM EDT Narrative Resulting Agency Comment [id number] us Alicia Ragland MD LABORATORY Final Result Performing Organization Address [facility]/ZIP Co de Phone Number [facility] [address] [place] [address] * (ABNORMAL) CREATINE KINASE (CK), SERUM (10/30/2012 11:11 AM EDT) CPK 383(H) 44 - 196 U/L [facility] Comment:{CREATINE KINASE, TO ALYSHA {[id number]) 10/30/2012 11:1 1 AM EDT 10/30/2012 6:58 PM EDT Narrative Resulting Agency Comment [id number] us Alicia Ragland MD LAB SAME DAY RESULT Final Resul t Performing Organization Address [facility] Co de Phone Number [facility] [address] [place] [address] * (ABNORMAL) LIPID PANEL WITH REFLEX TO DIRECT LDL (10/30/2012 11:11 AM EDT) Cholesterol 228(H) 125 - 200 mg/dL [facility] Comment:{CHOLESTEROL, TOTAL {[id number]) HDL Cholesterol 38(L) > OR = 40 mg/dL [facility] Comment:{HDL CHOLESTEROL {[id number]) Triglyceride 147 <150 mg/dL [facility] Comment:{TRIGLYCERIDES {[id number]) LDL Cholesterol 161(H) <130 mg/dL (calc) [facility] Comment: {LDL-CHOLESTEROL {[id number]) Desirable range <100 mg/dL for patients with CHD or diabetes and <70 mg/dL for diabetic patients with known heart disease. CHOL/HDL Ratio 6.0(H) < OR = 5.0 (calc) [facility] Comment:{CHOL/HDLC RATIO {[id number]) Cholesterol Non-HDL 190(H) mg/dL (calc) [facility] Comment: {NON HDL CHOLESTEROL {[id number]) Target for non-HDL cholesterol is 30 mg/dL higher than LDL cholesterol target. 10/30/2012 11:1 1 AM EDT 10/30/2012 6:58 PM EDT Narrative Resulting Agency Comment [id number] us Alicia Ragland MD LABORATORY Final Result Performing Organization Address [facility]/ZIP Co de Phone Number [facility] [address] [place] [id number] * TSH, 3RD GENERATION (10/30/2012 11:11 AM EDT) TSH 2.49 0.40 - 4.50 mIU/L [facility] Comment:{TSH {[id number]) 10/30/2012 11:1 1 AM EDT 10/30/2012 6:58 PM EDT Narrative Resulting Agency Comment [id number] us Alicia Ragland MD LABORATORY Final Result Performing Organization Address [facility] Co de Phone Number [facility] [address] [place] [address] * (ABNORMAL) HEMOGLOBIN A1C (10/30/2012 11:11 AM EDT) Hemoglobin A1C 5.8(H) <5.7 % of total Hgb [facility] Comment: {HEMOGLOBIN A1c {[id number]) ?Increased risk of diabetes ? <5.7 ? Decreased risk of diabetes ? 5.7-6.0 ?Increased risk of diabetes ? 6.1-6.4 ?Higher risk of diabetes ? > or = 6.5 Consistent with diabetes ?Standards of Medical Care in Diabetes-2010. ?Diabetes Care, 33(Supp 1): S1-S61,2010. Estimated Average Glucose 129 mg/dL (calc) [facility] Comment:{MEAN PLASMA GLUCOSE {[id number]) 10/30/2012 11:1 1 AM EDT 10/30/2012 6:58 PM EDT Narrative Resulting Agency Comment [id number] us Alicia Ragland MD LABORATORY Final Result [facility] [address] [place] [address] * (ABNORMAL) BASIC METABOLIC PANEL WITH (GFR) (10/30/2012 11:11 AM EDT) Glucose 103(H) 65 - 99 mg/dL [facility] Comment: {GLUCOSE {[id number]) ? Fasting reference interval Urea Nitrogen Blood (BUN) 11 7 - 25 mg/dL [facility] Comment:{UREA NITROGEN (BUN) {[id number]) Creatinine 1.13 0.70 - 1.33 mg/dL [facility] Comment: {CREATININE {[id number]) For patients >49 years of age, the reference limit for Creatinine is approximately 13% higher for people identified as -[place]. GFR 74 > OR = 60 mL/min/1 .73m2 [facility] Comment:{eGFR NON-AFR. AMERI CAN {[id number]) GFR () 86 > OR = 60 mL/min/1 .73m2 [facility] Comment:{eGFR AMERIC AN {[id number]) BUN/Creatinine Ratio NOT APPLICABLE 6 - (calc) [facility] Comment:{BUN/CREATININE RATI O {[id number]) Sodium 136 135 - 146 mmol/L [facility] Comment:{SODIUM {[id number]) Potassium 4.3 3.5 - 5.3 mmol/L [facility] Comment:{POTASSIUM {[id number]) Chloride 102 98 - 110 mmol/L [facility] Comment:{CHLORIDE {[id number]) Carbon dioxide 25 19 - 30 mmol/L [facility] Comment:{CARBON DIOXIDE {[id number]) Calcium 9.5 8.6 - 10.3 mg/dL [facility] Comment:{CALCIUM {[id number]) 10/30/2012 11:1 1 AM EDT 10/30/2012 [...] needs for GFR calculation. Resulting Agency Comment [id number] us Alicia Ragland MD LABORATORY Final Result Performing Organization Address [facility] de Phone Number [facility] [address] [place] [address] * ASPARTATE AMINOTRANSFERASE (AST), SERUM (10/30/2012 11:11 AM EDT) AST (SGOT) 32 10 - 35 U/L [facility] Comment:{AST {[id number]) 10/30/2012 11:1 1 AM EDT 10/30/2012 6:58 PM EDT Narrative Resulting Agency Comment [id number] us Alicia Ragland MD LAB SAME DAY RESULT Final Resul t Performing Organization Address [facility] de Phone Number [facility] [address] [place] [address] * CBC (H/H, RBC, INDICES,WBC, PLT) (10/30/2012 11:11 AM EDT) WBC 5.6 3.8 - 10.8 Thousand/u L [facility] Comment:{WHITE BLOOD CELL CO UNT {[id number]) RBC 4.71 4.20 - 5.80 Million/uL [facility] Comment:{RED BLOOD CELL COUN T {[id number]) Hemoglobin 15.3 13.2 - 17.1 g/dL [facility] Comment:{HEMOGLOBIN {[id number]) Hematocrit 46.1 38.5 - 50.0 % [facility] Comment:{HEMATOCRIT {[id number]) MCV 97.9 80.0 - 100.0 fL [facility] Comment:{MCV {[id number]) MCH 32.4 27.0 - 33.0 pg [facility] Comment:{MCH {[id number]) MCHC 33.1 32.0 - 36.0 g/dL [facility] Comment:{MCHC {[id number]) RDW 12.9 11.0 - 15.0 % [facility] Comment:{RDW {[id number]) PLT 228 140 - 400 Thousand/u L [facility] Comment:{PLATELET COUNT {[id number]) 10/30/2012 11:1 1 AM EDT 10/30/2012 6:58 PM EDT Narrative Resulting Agency Comment [id number] us Alicia Ragland MD LAB SAME DAY RESULT Final Resul t [facility] [address] [place] [address] documented in this encounter Visit Diagnoses Diagnosis Routine history and physical examination of adult- [...] levels documented in this encounter Care Teams Raw Finish Mill Operator Relationship Specialty Start Date End Date Alicia Ragland MD PCP - General 04/04/10 06/11/15 Deja Fang NP PCP - General Internal Medicine 06/12/15 03/26/20 Jg Madera MD [address] [facility] [place] [address] PCP - General Internal Medicine 03/27/20 05/28/22 Deja Fang NP [address] [facility] [place] [address] PCP - Backup PCP Internal Medicine 03/27/20 06/30/22 Rosa Maria Green MD [address] [facility] [address] PCP - General Family Medicine 05/29/22 02/20/23 Janice Fall NP [address] [facility] [place] [address] PCP - General Family Medicine 02/21/23 documented as of this encounter
--- OUTSIDE RECORDS SUMMARY | 2024-12-03 14:24 | XMS_ITS | Encounter Summary ---
Author Organization [facility] Address [address] [place] [address] Care Team Providers Care Electrical Engineering Technologist Name Role Phone Alicia Ragland MD Primary Care Provider UnavailAlicia Kumari MD Primary Care Provider Unavaila Deja Yepez NP Primary Care Provider [phone] Jg Madera MD Primary Care Provider [phone] Deja Fang STEEL LOADER Unavailable [phone] Rosa Maria Green MD Primary Care Provider [phone] Janice Fall NP Primary Care Provider [phone] Encounter Details Date Type Department Care Team (Late st Contact Info) Description 09/11/2009 Orders Only [place] [facility] [address] [place] [address] Alicia Ragland MD Social History Tobacco Use [...] of this encounter Procedures * Due to [place] state law, this organization might not be sharing negative HIV tests. Procedure Name Priority Date/Time Associated Diagnosis Comments URINALYSIS, DIP ONLY ( SITE STAT ONLY) STAT (All results called to provider) 09/11/2009 6:02 PM EST Abdominal pain BASIC METABOLIC PANEL W/GLOMERULAR FILTRATION RATE (EGFR) Routine 09/11/2009 Abdominal pain CULTURE, URINE Routine 09/11/2009 Abdominal pain SED RATE ESR Routine 09/11/2009 Abdominal pain WBC (SITE - STAT ONLY) STAT (All results called to provider) 09/11/2009 Abdominal pain documented in this encounter Results * Due to [place] [employer] law, this organization might not be sharing negative HIV tests. * (ABNORMAL) URINALYSIS, DIP ONLY ( SITE STAT ONLY) (09/11/2009 6:02 PM EST) COLOR (URINE) yellow [facility] (CLIA# [id number]) APPEARANCE (URINE) clear [facility] (CLIA# [id number]) SPECIFIC GRAVITY 1.010 1.001 - 1.035 [facility] (CLIA# [id number]) PH (URINE) 6.0 5.0 - 8.0 [facility] (CLIA# [id number]) PROTEIN (URINE) negative Neg - Neg [facility] (CLIA# [id number]) GLUCOSE (URINE) negative Neg - Neg [facility] (CLIA# [id number]) Ketones (Urine) negative Neg - Neg [facility] (CLIA# [id number]) BILIRUBIN (URINE) negative Neg - Neg [facility] (CLIA# [id number]) BLOOD (URINE) 1+(A) Neg - Neg [facility] (CLIA# [id number]) WBC (URINE) negative Neg - Neg [facility] (CLIA# [id number]) NITRITE (URINE) negative Neg - Neg [facility] (CLIA# [id number]) Urine specimen (specimen) 09/11/2009 6:02 PM EST us Alicia Ragland MD LAB SAME DAY RESULT Final Resul t [facility] (CLIA# [id number]) [address] [place] [address] * CULTURE, URINE (09/11/2009) URINE CULTURE CLEAN VOID SEE TEXT [facility] Comment: SOURCE: URINE NO GROWTH 09/11/2009 09/12/2009 2: 09 AM EST us Alicia Ragland MD LABORATORY Final Result Performing Organization Address City/[facility]/ZIP Co de Phone Number [facility] [address] [place] [address] * (ABNORMAL) BASIC METABOLIC PANEL W/GLOMERULAR FILTRATION RATE (EGFR) (09/11/2009) CALCIUM 9.1 8.6 - 10.2 MG/DL [facility] BUN 12 7 - 25 MG/DL [facility] CREATININE 1.12 0.76 - 1.46 MG/DL [facility] Glucose 104(H) 65 - 99 MG/DL [facility] SODIUM 140 135 - 146 MMOL/L [facility] POTASSIUM 3.7 3.5 - 5.3 MMOL/L [facility] CHLORIDE 104 98 - 110 MMOL/L [facility] CARBON DIOXIDE 25 21 - 33 MMOL/L [facility] GFR > 60 60 AND ABOVE [facility] Comment:UNITS: ML/MIN/1.73 S Q METERS EGFR > 60 60 AND ABOVE [facility] Comment:UNITS: ML/MIN/1.73 S Q METERS 09/11/2009 09/12/2009 2:0 9 AM EST Narrative [facility] - 09/12/2009 6:28 AM EST Please note that this estimated [...] MD LABORATORY Final Result Performing Organization Address [facility] [[email or web address]] de Phone Number [facility] [address] [place] [address] * SED RATE ESR (09/11/2009) ESR (ERYTHROCYTE SEDIMENTATION RATE) 5 0 - 15 MM/HR [facility] 09/11/2009 09/12/2009 2:0 9 AM EST us Alicia Ragland MD LAB SAME DAY RESULT Final Resul t Performing Organization Address [facility] Phone Number [facility] [address] [place] [address] * WBC (SITE - STAT ONLY) (09/11/2009) WHITE BLOOD COUNT 7.4 3.8 - 10.8 1000/UL [facility] 09/11/2009 09/12/2009 2:0 9 AM EST us Alicia Ragland MD LAB SAME DAY RESULT Final Resul t Performing Organization Address [facility] de Phone Number [facility] [address] [place] [address] documented in this encounter Visit Diagnoses Diagnosis Abdominal pain Abdominal pain, unspecified site documented in this encounter Care Teams Electrical Engineering Technologist Relationship Specialty Start Date End Date Alicia Ragland MD PCP - General 04/04/10 06/11/15 Alicia Ragland MD PCP - General 10/28/05 04/03/10 Deja Fang NP PCP - General Internal Medicine 06/12/15 03/26/20 Jg Madera MD [address] [facility] [place] [address] PCP - General Internal Medicine 03/27/20 05/28/22 Deja Fang NP [address] [place] [address] PCP - Backup PCP Internal Medicine 03/27/20 06/30/22 Rosa Maria Green MD [address] [place] [address] PCP - General Family Medicine 05/29/22 02/20/23 Janice Fall NP [address] [place] [address] PCP - General Family Medicine 02/21/23 documented as of this encounter
--- OUTSIDE RECORDS SUMMARY | 2024-12-03 14:24 | XMS_ITS | Encounter Summary ---
Author Organization [facility] Address [address] [place] [address] Care Team Providers Care Seed Corn Production Manager Name Role Phone Alicia Ragland MD Primary Care Provider UnavailAlicia Kumari MD Primary Care Provider Unavaila Deja Yepez NP Primary Care Provider Jg Madera MD Primary Care Provider [phone] Deja Fang WATER PUMP ASSEMBLER Unavailable [phone] Rosa Maria Green MD Primary Care Provider [phone] Janice Fall NP Primary Care Provider [phone] Encounter Details Date Type Department Care Team (Late st Contact Info) Description 10/17/2009 Orders Only [facility] [address] [place] [address] Alicia Ragland MD Social History Tobacco Use [...] of this encounter Procedures * Due to [place] state law, this organization might not be sharing negative HIV tests. Procedure Name Priority Date/Time Associated Diagnosis Comments AMYLASE Routine 10/17/2009 Abdominal pain HEPATIC FUNCTION PANEL Routine 10/17/2009 Abdominal pain documented in this encounter Results * Due to [place] [employer] law, this organization might not be sharing negative HIV tests. * AMYLASE (10/17/2009) AMYLASE 30 21 - 101 U/L [facility] 10/17/2009 10/17/2009 9:3 3 PM EDT us Alicia Ragland MD LAB SAME DAY RESULT Final Resul t Performing Organization Address [facility] Co de Phone Number [facility] [address] [place] [address] * HEPATIC FUNCTION PANEL (10/17/2009) Total Protein 7.9 6.2 - 8.3 G/DL [facility] ALBUMIN 4.4 3.5 - 4.9 G/DL [facility] GLOBULIN 3.5 2.1 - 3.7 G/DL [facility] ALBUMIN/GLOBULIN RATIO 1.3 1.0 - 2.1 [facility] BILIRUBIN TOTAL 0.4 0.2 - 1.2 MG/DL [facility] BILIRUBIN DIRECT 0.1 0 - 0.3 MG/DL [facility] ALKALINE PHOSPHATASE 64 40 - 115 U/L [facility] AST (SGOT) 33 10 - 40 U/L [facility] ALT (SGPT) 40 9 - 60 U/L [facility] 10/17/2009 10/17/2009 9:3 3 PM EDT us Alicia Ragland MD LABORATORY Final Result Performing Organization Address City/[facility]/ZIP Co de Phone Number [facility] [address] [place] [address] documented in this encounter Visit Diagnoses Diagnosis Abdominal pain Abdominal pain, unspecified site documented in this encounter Care Teams Seed Corn Production Manager Relationship Specialty Start Date End Date Alicia Ragland MD PCP - General 04/04/10 06/11/15 Alicia Ragland MD PCP - General 10/28/05 04/03/10 Deja Fang NP PCP - General Internal Medicine 06/12/15 03/26/20 Jg Madera MD [address] [facility] [place] [address] PCP - General Internal Medicine 03/27/20 05/28/22 Deja Fang NP [address] [facility] [place] [address] PCP - Backup PCP Internal Medicine 03/27/20 06/30/22 Rosa Maria Green MD [address] [place] [address] PCP - General Family Medicine 05/29/22 02/20/23 Janice Fall NP [address] [facility] [place] [address] PCP - General Family Medicine 02/21/23 documented as of this encounter
--- OUTSIDE RECORDS SUMMARY | 2024-12-03 14:24 | XMS_ITS | Encounter Summary ---
Author Organization [facility] Address [address] [place] [address] Care Team Providers Care Concrete Block Mason Name Role Phone Alicia Ragland MD Primary Care Provider Unavaila ble Deja Fang NP Primary Care Provider [phone] Jg Madera MD Primary Care Provider Deja Fang NP Unavailable [phone] Rosa Maria Green MD Primary Care Provider [phone] Janice Fall NP Primary Care Provider [phone] Encounter Details Date Type Department Care Team (Late st Contact Info) Description 06/28/2013 Orders Only [facility] [address] [place] [phone] Alicia Ragland MD Social History Tobacco Use [...] Progress Notes * Deja Fang NP - 06/29/2013 1:02 PM ESTQuick Note: Will have patient increase niacin and watch diet, dietary consult. Deja Fang NP * Brooklyn Garcia - 06/29/2013 9:12 AM ESTQuick Note: The patients lab results are at an abnormal level by the protocol guidelines. Please review and advise. No Letter was generated, and patient has a scheduled appointment with PCP on 09/28/2013 documented in this encounter Plan of Treatment Not on file documented as of this encounter Procedures * Due to [place] [employer] law, this organization might not be sharing negative HIV tests. Procedure Name Priority Date/Time Associated Diagnosis Comments LIPID PANEL WITH REFLEX TO DIRECT LDL Routine 06/28/2013 1:48 PM EST Hyperlipidemia documented in this encounter Results * Due to [place] [employer] law, this organization might not be sharing negative HIV tests. * (ABNORMAL) LIPID PANEL WITH REFLEX TO DIRECT LDL (06/28/2013 1:48 PM EST) Cholesterol 257(H) 125 - 200 mg/dL [facility] Comment:{CHOLESTEROL, TOTAL {[id number]) HDL Cholesterol 36(L) > OR = 40 mg/dL [facility] Comment:{HDL CHOLESTEROL {[id number]) Triglyceride 163(H) <150 mg/dL [facility] Comment:{TRIGLYCERIDES {[id number]) LDL Cholesterol 188(H) <130 mg/dL (calc) [facility] Comment: {LDL-CHOLESTEROL {[id number]) Desirable range <100 mg/dL for patients with CHD or diabetes and <70 mg/dL for diabetic patients with known heart disease. CHOL/HDL Ratio 7.1(H) < OR = 5.0 (calc) [facility] Comment:{CHOL/HDLC RATIO {[id number]) Cholesterol Non-HDL 221(H) mg/dL (calc) [facility] Comment: {NON HDL CHOLESTEROL {[id number]) Target for non-HDL cholesterol is 30 mg/dL higher than LDL cholesterol target. 06/28/2013 1:48 PM EST 06/28/2013 6:58 PM EST Narrative Resulting Agency Comment [id number] us Alicia Ragland MD LABORATORY Final Result [facility] [address] [place] [address] documented in this encounter Visit Diagnoses Diagnosis Hyperlipidemia Other and unspecified hyperlipidemia documented in this encounter Care Teams Concrete Block Mason Relationship Specialty Start Date End Date Alicia Ragland MD PCP - General 04/04/10 06/11/15 Deja Fang NP PCP - General Internal Medicine 06/12/15 03/26/20 Jg Madera MD [address] [place] [address] PCP - General Internal Medicine 03/27/20 05/28/22 Deja Fang NP [address] [place] [address] PCP - Backup PCP Internal Medicine 03/27/20 06/30/22 Rosa Maria Green MD [address] [place] [address] PCP - General Family Medicine 05/29/22 02/20/23 Janice Fall NP [address] [place] [address] PCP - General Family Medicine 02/21/23 documented as of this encounter
--- OUTSIDE RECORDS SUMMARY | 2024-12-03 14:24 | XMS_ITS | Encounter Summary ---
Author Organization [facility] Address [address] [place] [address] Care Team Providers Care Film Critic Name Role Phone Alicia Ragland MD Primary Care Provider Unavaila Deja Yepez NP Primary Care Provider Jg Madera MD Primary Care Provider Deja Fang NP Unavailable [phone] Rosa Maria Green MD Primary Care Provider [phone] Janice Fall NP Primary Care Provider [phone] Encounter Details Date Type Department Care Team (Late st Contact Info) Description 07/09/2010 Orders Only [facility] [address] [place] [phone] Alicia Ragland MD Social History Tobacco Use [...] encounter Progress Notes * Alicia Ragland - 07/11/2010 1:47 PM Sisi Note: Vit d improved. Take 1000 u otc/d. * Barrett Swann - 07/11/2010 8:21 AM ESTQuick Note: The patients lab results are at a abnormal level by the protocol guidelines. Please review and advise. and No Letter was generated. documented in this encounter Plan of Treatment Not on file documented as of this encounter Procedures * Due to [place] [employer] law, this organization might not be sharing negative HIV tests. Procedure Name Priority Date/Time Associated Diagnosis Comments BASIC METABOLIC PANEL W/GLOMERULAR FILTRATION RATE (EGFR) Routine 07/09/2010 Routine general medical examination at a [facility] care facility LIPID PANEL + CARDIAC RISK WITH REFLEX TO LDL DIRECT Routine 07/09/2010 Routine general medical examination at a [facility] facility PSA (PROSTATE SPECIFIC ANTIGEN) TOTAL, ANNUAL SCREEN Routine 07/09/2010 Routine general medical examination at a [facility] care facility CBC 5 PART DIFF Routine 07/09/2010 Routine general medical examination at a [facility] care facility ASPARTATE AMINOTRANSFERASE (AST), SERUM Routine 07/09/2010 Routine general medical examination at a [facility] facility VITAMIN D, 25-HYDROXY, LC/MS/MS Routine 07/09/2010 Routine general medical examination at a [facility] care facility URINALYSIS, DIPSTICK WITH REFLEX MICROSCOPIC Routine 07/09/2010 Routine general medical examination at a [facility] care facility documented in this encounter Results * Due to [place] law, this organization might not be sharing negative HIV tests. * ASPARTATE AMINOTRANSFERASE (AST), SERUM (07/09/2010) AST (SGOT) 31 10 - 35 U/L [facility] 07/09/2010 07/09/2010 7:3 1 PM EST Alicia Ragland MD LAB SAME DAY RESULT Final Resul t Performing Organization Address [facility] Co de Phone Number [facility] [address] [place] [address] * LIPID PANEL + CARDIAC RISK WITH REFLEX TO LDL DIRECT (07/09/2010) CHOLESTEROL, TOTAL 160 125 - 200 MG/DL [facility] TRIGLYCERIDES 97 30 - 149 MG/DL [facility] HDL-CHOLESTEROL 40 40 - 77 MG/DL [facility] LDL-CHOLESTEROL 101 62 - 130 MG/DL [facility] Comment: RISK CATEGORY: ??LDL-CHOLESTEROL GOAL CHD AND CHD RISK EQUIVALENTS: ??<100 MULTIPLE (2+) FACTORS: ??<130 ZERO TO ONE RISK FACTOR: ??<160 CHD RELATIVE RISK RATIO (TOTAL/HDL) 4.00 0.0 - 5.0 [facility] Comment:(0.7 X AVERAGE) 07/09/2010 07/09/2010 7:3 1 PM EST Alicia Ragland MD LABORATORY Final Result Performing Organization Address [facility] de Phone Number [facility] [address] [place] [address] * (ABNORMAL) BASIC METABOLIC PANEL W/GLOMERULAR FILTRATION RATE (EGFR) (07/09/2010) CALCIUM 8.9 8.6 - 10.2 MG/DL [facility] BUN 15 7 - 25 MG/DL [facility] CREATININE 1.11 0.76 - 1.46 MG/DL [facility] Glucose 100(H) 65 - 99 MG/DL [facility] SODIUM 140 135 - 146 MMOL/L [facility] POTASSIUM 4.8 3.5 - 5.3 MMOL/L [facility] CHLORIDE 105 98 - 110 MMOL/L [facility] CARBON DIOXIDE 26 21 - 33 MMOL/L [facility] GFR > 60 60 AND ABOVE [facility] Comment:UNITS: ML/MIN/1.73 S Q METERS EGFR > 60 60 AND ABOVE [facility] Comment:UNITS: ML/MIN/1.73 S Q METERS 07/09/2010 07/09/2010 7:3 1 PM EST Narrative [facility] - 07/10/2010 2:35 AM EST Please note that this estimated [...] MD LABORATORY Final Result [facility] [address] [place] [address] * (ABNORMAL) CBC 5 PART DIFF (07/09/2010) WHITE BLOOD COUNT 6.5 3.8 - 10.8 THOUS/UL [facility] RBC 4.25 4.20 - 5.80 MIL/UL [facility] Hemoglobin 14.2 13.2 - 17.1 G/DL [facility] HCT (HEMATOCRIT) 42.0 38.5 - 50.0 % [facility] MCV 98.8 80.0 - 100.0 FL [facility] MCH 33.5(H) 27.0 - 33.0 PG [facility] MCHC 33.9 32.0 - 36.0 G/DL [facility] BAND % 0 0 - 5 % [facility] NEUTROPHIL % 58 48 - 75 % [facility] LYMPHOCYTE % 26 17 - 40 % [facility] MONOCYTE % 10 0 - 14 % [facility] EOSINOPHIL % 5 0 - 5 % [facility] BASOPHIL % 1 0 - 3 % [facility] ATYPICAL LYMPHOCYTE % 0 0 - 5 % [facility] PLATELETS 206 140 - 400 THOUS/UL [facility] BANDS # 0 0 - 750 CELLS/MCL [facility] NEUTROPHILS # 3770 1500 - 7800 CELLS/MCL [facility] LYMPHOCYTES # 1690 850 - 3900 CELLS/MCL [facility] MONOCYTES # 650 200 - 950 CELLS/MCL [facility] EOSINOPHILS # 325 15 - 550 CELLS/MCL [facility] BASOPHILS # 65 0 - 200 CELLS/MCL [facility] ATYPICAL LYMPHOCYTES # 0 0 - 200 CELLS/MCL [facility] RDW 12.6 11.0 - 15.0 % [facility] MPV 8.2 7.5 - 11.5 FL [facility] 07/09/2010 07/09/2010 7:3 1 PM EST us Alicia Ragland MD LAB SAME DAY RESULT Final Resul t [facility] [address] [place] [address] * PSA (PROSTATE SPECIFIC ANTIGEN) TOTAL, ANNUAL SCREEN (07/09/2010) PSA 0.5 0 - 4.0 NG/ML [facility] Comment: THIS TEST WAS PERFORMED USING THE [employer] ([employer]) CHEMILUMINESCENT METHOD. VALUES OBTAINED FROM DIFFERENT ASSAY METHODS CANNOT BE USED INTERCHANGEABLY. PSA LEVELS, REGARDLESS OF VALUE, SHOULD NOT BE INTERPRETED ABSOLUTE EVIDENCE OF THE PRESENCE OR ABSENCE OF DISEASE. 07/09/2010 07/09/2010 7:3 1 PM EST Alicia Ragland MD LABORATORY Final Result Performing Organization Address [facility] de Phone Number [facility] [address] [place] [address] * (ABNORMAL) URINALYSIS, DIPSTICK WITH REFLEX MICROSCOPIC (07/09/2010) COLOR (URINE) YELLOW YELLOW [facility] APPEARANCE (URINE) CLEAR CLEAR [facility] SPECIFIC GRAVITY 1.024 1.001 - 1.035 [facility] PH (URINE) 7.0 5.0 - 8.0 [facility] PROTEIN (URINE) TRACE(A) NEG [facility] GLUCOSE (URINE) NEG NEG [facility] Ketones (Urine) NEG NEG [facility] BILIRUBIN (URINE) NEG NEG [facility] BLOOD (URINE) NEG NEG [facility] WBC (URINE) NEG NEG [facility] NITRITE (URINE) NEG NEG [facility] 07/09/2010 07/09/2010 7:3 1 PM EST Alicia Ragland MD LAB SAME DAY RESULT Final Resul t Performing Organization Address [facility] de Phone Number [facility] [address] [place] [address] * (ABNORMAL) VITAMIN D, 25-HYDROXY, LC/MS/MS (07/09/2010) Vitamin D, 25-OH, Total 27(L) 30 - 100 NG/ML [facility] VITAMIN D, 25-OH, D3 (CHOLECALCIFEROL ) 23 NG/ML [facility] VITAMIN D, 25-OH, D2 (CALCIFEROL) 4 NG/ML [facility] Comment: 25-OHD3 INDICATES BOTH ENDOGENOUS PRODUCTION AND SUPPLEMENTATION. 25-OHD2 IS AN INDICATOR OF EXOGENOUS SOURCES SUCH DIET OR SUPPLEMENTATION. THERAPY IS BASED ON MEASUREMENT OF TOTAL 25-OHD, WITH LEVELS <20 NG/ML INDICATIVE OF VITAMIN D DEFICIENCY WHILE LEVELS BETWEEN 20 NG/ML AND 30 NG/ML SUGGEST INSUFFICIENCY. OPTIMAL LEVELS ARE > OR = 30NG/ML. 07/09/2010 07/09/2010 7:3 1 PM EST us Alicia Ragland MD LABORATORY Final Result [facility] [address] [place] [address] documented in this encounter Visit Diagnoses Diagnosis Routine general medical examination at a health care facility documented in this encounter Care Teams Film Critic Relationship Specialty Start Date End Date Alicia Ragland MD PCP - General 04/04/10 06/11/15 Deja Fang NP PCP - General Internal Medicine 06/12/15 03/26/20 Jg Madera MD [address] [place] [address] PCP - General Internal Medicine 03/27/20 05/28/22 Deja Fang NP [address] [place] [address] PCP - Backup PCP Internal Medicine 03/27/20 06/30/22 Rosa Maria Green MD [address] [place] [address] PCP - General Family Medicine 05/29/22 02/20/23 Janice Fall NP [address] [place] [address] PCP - General Family Medicine 02/21/23 documented as of this encounter
--- OUTSIDE RECORDS SUMMARY | 2024-12-03 14:24 | XMS_ITS | Encounter Summary ---
Author Organization [facility] Address [address] [place] [address] Care Team Providers Care Mechanic Industrial Truck Name Role Phone Alicia Ragland MD Primary Care Provider UnavailAlicia Kumari MD Primary Care Provider Unavaila Deja Yepez NP Primary Care Provider Jg Madera MD Primary Care Provider [phone] Deja Fang WELDING OPERATOR Unavailable [phone] Rosa Maria Green MD Primary Care Provider [phone] Janice Fall NP Primary Care Provider [phone] Encounter Details Date Type Department Care Team (Late st Contact Info) Description 07/04/2008 Orders Only [facility] [address] [place] [phone] Alicia Ragland MD Social History Tobacco Use Types Packs/Day Years Used Date Smoking Tobacco: Never Assessed Sex and Gender Information Value Date Recorded Sex Assigned at Male 11/27/2020 8:24 AM EDT Legal Sex Male 12:20 AM EDT Gender Identity Male 11/27/2020 8:24 AM EDT Sexual Orientation Straight 11/27/2020 8: 24 AM EDT documented as of this encounter Plan of Treatment Not on file documented as of this encounter Procedures * Due to [place] state law, this organization might not be sharing negative HIV tests. Procedure Name Priority Date/Time Associated Diagnosis Comments CARDIAC RISK/LIPID PROFILE I Routine 07/04/2008 Hyperlipidemia ALANINE AMINOTRANSFERASE (ALT), SERUM Routine 07/04/2008 Hyperlipidemia ASPARTATE AMINOTRANSFERASE (AST), SERUM Routine 07/04/2008 Hyperlipidemia documented in this encounter Results * Due to [place] state law, this organization might not be sharing negative HIV tests. * (ABNORMAL) CARDIAC RISK/LIPID PROFILE I (07/04/2008) CHOLESTEROL, TOTAL 171 125 - 200 MG/DL TRIGLYCERIDES 211(H) 30 - 149 MG/DL HDL-CHOLESTEROL 35(L) 40 - 77 MG/DL LDL-CHOLESTEROL 94 62 - 130 MG/DL Comment: RISK CATEGORY: ??LDL-CHOLESTEROL GOAL CHD AND CHD RISK EQUIVALENTS: ??<100 MULTIPLE (2+) FACTORS: ??<130 ZERO TO ONE RISK FACTOR: ??<160 CHD RELATIVE RISK RATIO (TOTAL/HDL) 4.89 0.0 - 5.0 Comment:(1.0 X AVERAGE) 07/04/2008 07/04/2008 4:2 6 PM EST us Alicia Ragland MD LABORATORY Final Result * ALANINE AMINOTRANSFERASE (ALT), SERUM (07/04/2008) ALT (SGPT) 38 9 - 60 U/L 07/04/2008 07/04/2008 4: 26 PM EST Result Hebert Ragland MD LAB SAME DAY RESULT Final Resul t * ASPARTATE AMINOTRANSFERASE (AST), SERUM (07/04/2008) AST (SGOT) 35 10 - 40 U/L 07/04/2008 07/04/2008 4:2 6 PM EST us Alicia Ragland MD LAB SAME DAY RESULT Final Resul t documented in this encounter Visit Diagnoses Diagnosis Hyperlipidemia Other and unspecified hyperlipidemia documented in this encounter Care Teams Mechanic Industrial Truck Relationship Specialty Start Date End Date Alicia Ragland MD PCP - General 04/04/10 06/11/15 Alicia Ragland MD PCP - General 10/28/05 04/03/10 Deja Fang NP PCP - General Internal Medicine 06/12/15 03/26/20 Jg Madera MD [address] [facility] [place] [address] PCP - General Internal Medicine 03/27/20 05/28/22 Deja Fang NP [address] [place] [address] PCP - Backup PCP Internal Medicine 03/27/20 06/30/22 Rosa Maria Green MD [address] [place] [address] PCP - General Family Medicine 05/29/22 02/20/23 Janice Fall NP [address] [facility] [place] [address] PCP - General Family Medicine 02/21/23 documented as of this encounter
--- OUTSIDE RECORDS SUMMARY | 2024-12-03 14:24 | XMS_ITS | Encounter Summary ---
Author Organization [facility] Address [address] [place] [address] Care Team Providers Care Car Pick Up Driver Name Role Phone Alicia Ragland MD Primary Care Provider Unavaila Deja Yepez NP Primary Care Provider [phone] Jg Madera MD Primary Care Provider [phone] Deja Fang NP Unavailable [phone] Rosa Maria Green MD Primary Care Provider [phone] Janice Fall NP Primary Care Provider [phone] Encounter Details Date Type Department Care Team (Late st Contact Info) Description 05/10/2014 Orders Only [facility] [address] [place] [phone] Alicia Ragland MD Social History Tobacco Use [...] as of this encounter Visit Diagnoses Diagnosis Abnormal feces- Primary documented in this encounter Care Teams Car Pick Up Driver Relationship Specialty Start Date End Date Alicia Ragland MD PCP - General 04/04/10 06/11/15 Deja Fang NP PCP - General Internal Medicine 06/12/15 03/26/20 Jg Madera MD [address] [place] [address] PCP - General Internal Medicine 03/27/20 05/28/22 Deja Fang NP [address] [place] [address] PCP - Backup PCP Internal Medicine 03/27/20 06/30/22 Rosa Maria Green MD [address] [place] [address] PCP - General Family Medicine 05/29/22 02/20/23 Janice Fall NP [address] [place] [address] PCP - General Family Medicine 02/21/23 documented as of this encounter
--- OUTSIDE RECORDS SUMMARY | 2024-12-03 14:24 | XMS_ITS | Encounter Summary ---
Author Organization [facility] Address [address] [place] [address] Care Team Providers Care Ortho Assistant Name Role Phone Alicia Ragland MD Primary Care Provider Unavaila Deja Yepez NP Primary Care Provider Jg Madera MD Primary Care Provider Deja Fang NP Unavailable [phone] Rosa Maria Green MD Primary Care Provider [phone] Janice Fall NP Primary Care Provider [phone] Encounter Details Date Type Department Care Team (Late st Contact Info) Description 05/10/2014 Orders Only [facility] [address] [place] [id number] Alicia Ragland MD Social History Tobacco Use [...] encounter Progress Notes * Alicia Ragland - 06/05/2014 11:48 AM ESTQuick Note: Lipid worse- cpk stable- review diet- repeat in 3 mo. * Brooklyn Garcia - 05/13/2014 8:15 AM EDTQuick Note: Please review and advise. No letter was generated to the patient. documented in this encounter Plan of Treatment Not on file documented as of this encounter Procedures * Due to [place] [email or web address] law, this organization might not be sharing negative HIV tests. Procedure Name Priority Date/Time Associated Diagnosis Comments CBC (H/H, RBC, INDICES,WBC, PLT) Routine 05/10/2014 9:05 AM EDT Routine history and physical examination of adult ASPARTATE AMINOTRANSFERASE (AST), SERUM Routine 05/10/2014 9:05 AM EDT Hyperlipidemia PROSTATE SPECIFIC ANTIGEN (PSA) TOTAL, SERUM Routine 05/10/2014 9:05 AM EDT Special screening for other specified conditions(V82.89) CREATINE KINASE (CK), SERUM Routine 05/10/2014 9:05 AM EDT Disorder of lipid metabolism VITAMIN D, 25-HYDROXY, TOTAL, IMMUNOASSAY Routine 05/10/2014 9:05 AM EDT Unspecified vitamin D deficiency URINALYSIS, COMPLETE INCLUDES DIPSTICK AND MICROSCOPIC Routine 05/10/2014 9:05 AM EDT Special screening for other specified conditions(V82.89) LIPID PANEL WITH REFLEX TO DIRECT LDL Routine 05/10/2014 9:05 AM EDT Hyperlipidemia BASIC METABOLIC PANEL WITH (GFR) Routine 05/10/2014 9:05 AM EDT Routine history and physical examination of adult documented in this encounter Results * Due to [place] [employer] law, this organization might not be sharing negative HIV tests. * (ABNORMAL) CREATINE KINASE (CK), SERUM (05/10/2014 9:05 AM EDT) CPK 286(H) 44 - 196 U/L [facility] Comment:{CREATINE KINASE, TO ALYSHA {[id number]) 05/10/2014 9:05 AM EDT 05/10/2014 3:35 PM EDT Narrative Resulting Agency Comment [id number] us Alicia Ragland MD LAB SAME DAY RESULT Final Resul t [facility] [address] [place] [address] * URINALYSIS, COMPLETE INCLUDES DIPSTICK AND MICROSCOPIC (05/10/2014 9:05 AM EDT) Color (Urine) YELLOW YELLOW [facility] Comment:{COLOR {[id number]) Appearance (Urine) CLEAR CLEAR [facility] Comment:{APPEARANCE {[id number]) Specific gravity (Urine) 1.017 1.001 - 1.035 [facility] Comment:{SPECIFIC GRAVITY {[id number]) pH (Urine) 6.5 5.0 - 8.0 [facility] Comment:{PH {[id number]) Glucose (Urine) NEGATIVE NEGATIVE [facility] Comment:{GLUCOSE {[id number]) Bilirubin (Urine) NEGATIVE NEGATIVE [facility] Comment:{BILIRUBIN {[id number]) Ketones (Urine) NEGATIVE NEGATIVE [facility] Comment:{KETONES {[id number]) Hemoglobin (Urine) NEGATIVE NEGATIVE [facility] Comment:{OCCULT BLOOD {[id number]) Protein (Urine) NEGATIVE NEGATIVE [facility] Comment:{PROTEIN {[id number]) Nitrite (Urine) NEGATIVE NEGATIVE [facility] Comment:{NITRITE {[id number]) Leukocyte esterase (Urine) NEGATIVE NEGATIVE [facility] Comment:{LEUKOCYTE ESTERASE {[id number]) WBC (Urine) NONE SEEN < OR = 5 /HPF [facility] Comment:{WBC {[id number]) RBC (Urine Sed) NONE SEEN < OR = 3 /HPF [facility] Comment:{RBC {[id number]) Epithelial cells.squamous (Urine sed) NONE SEEN < OR = 5 /HPF [facility] Comment:{SQUAMOUS EPITHELIAL CELLS {[id number]) Bacteria (Urine) NONE SEEN NONE SEEN /HPF [facility] Comment:{BACTERIA {[id number]) Hyaline casts (Urine sed) NONE SEEN NONE SEEN /LPF [facility] Comment:{HYALINE CAST {[id number]) 05/10/2014 9:05 AM EDT 05/10/2014 3:35 PM EDT Narrative Resulting Agency Comment [id number] Alicia Ragland MD LAB SAME DAY RESULT Final Resul t Performing Organization Address [facility] Co de Phone Number [facility] [address] [place] [address] * PROSTATE SPECIFIC ANTIGEN (PSA) TOTAL, SERUM (05/10/2014 9:05 AM EDT) PSA 0.3 < OR = 4.0 ng/mL [facility] Comment: {PSA, TOTAL {[id number]) This test was performed using the Siemens chemiluminescent method. Values obtained from different assay methods cannot be used interchangeably. PSA levels, regardless of value, should not be interpreted as absolute evidence of the presence or absence of disease. 05/10/2014 9:05 AM EDT 05/10/2014 3:35 PM EDT Narrative Resulting Agency Comment [id number] us Alicia Ragland MD LABORATORY Final Result Performing Organization Address [facility] Co de Phone Number [facility] [address] [place] [address] * ASPARTATE AMINOTRANSFERASE (AST), SERUM (05/10/2014 9:05 AM EDT) AST (SGOT) 28 10 - 35 U/L [facility] Comment:{AST {[id number]) 05/10/2014 9:05 AM EDT 05/10/2014 3:35 PM EDT Narrative Resulting Agency Comment [id number] Alicia Ragland MD LAB SAME DAY RESULT Final Resul t Performing Organization Address [facility] Co de Phone Number [facility] [address] [place] [address] * (ABNORMAL) LIPID PANEL WITH REFLEX TO DIRECT LDL (05/10/2014 9:05 AM EDT) Cholesterol 280(H) 125 - 200 mg/dL [facility] Comment:{CHOLESTEROL, TOTAL {[id number]) HDL Cholesterol 39(L) > OR = 40 mg/dL [facility] Comment:{HDL CHOLESTEROL {[id number]) Triglyceride 167(H) <150 mg/dL [facility] Comment:{TRIGLYCERIDES {[id number]) LDL Cholesterol 208(H) <130 mg/dL (calc) [facility] Comment: {LDL-CHOLESTEROL {[id number]) Desirable range <100 mg/dL for patients with CHD or diabetes and <70 mg/dL for diabetic patients with known heart disease. CHOL/HDL Ratio 7.2(H) < OR = 5.0 (calc) [facility] Comment:{CHOL/HDLC RATIO {[id number]) Cholesterol Non-HDL 241(H) mg/dL (calc) [facility] Comment: {NON HDL CHOLESTEROL {[id number]) Target for non-HDL cholesterol is 30 mg/dL higher than LDL cholesterol target. 05/10/2014 9:05 AM EDT 05/10/2014 3:35 PM EDT Narrative Resulting Agency Comment [id number] us Alicia Ragland MD LABORATORY Final Result Performing Organization Address City/[facility]/ZIP Co de Phone Number [facility] [address] [place] [address] * VITAMIN D, 25-HYDROXY, LC/MS/MS (05/10/2014 9:05 AM EDT) Vitamin D, 25-OH, Total 33 30 - 100 ng/mL [facility] Comment:{VITAMIN D, 25 OH, T OTAL {[id number]) Vitamin D, D3 (Cholecalciferol ) 33 ng/mL [facility] Comment:{VITAMIN D, 25 OH, D 3 {[id number]) Vitamin D, 25-OH, D2 (Calciferol) <4 ng/mL [facility] Comment: {VITAMIN D, 25 OH, D2 {[id number]) ? 25-OHD3 indicates both endogenous production and ? supplementation. 25-OHD2 is an indicator of exogenous ? sources such as diet or supplementation. Therapy is based on ? measurement of Total 25-OHD, with levels <20 ng/mL indicative ? of Vitamin D deficiency, while levels between 20 ng/mL and ? 30 ng/mL suggest insufficiency. Optimal levels are ? > or = 30 ng/mL. 05/10/2014 9:05 AM EDT 05/10/2014 3:35 PM EDT Narrative Resulting Agency Comment [id number] us Alicia Ragland MD LABORATORY Final Result [facility] [address] [place] [address] * CBC (H/H, RBC, INDICES,WBC, PLT) (05/10/2014 9:05 AM EDT) WBC 6.0 3.8 - 10.8 Thousand/u L [facility] Comment:{WHITE BLOOD CELL CO UNT {[id number]) RBC 4.59 4.20 - 5.80 Million/uL [facility] Comment:{RED BLOOD CELL COUN T {[id number]) Hemoglobin 14.7 13.2 - 17.1 g/dL [facility] Comment:{HEMOGLOBIN {[id number]) Hematocrit 42.9 38.5 - 50.0 % [facility] Comment:{HEMATOCRIT {[id number]) MCV 93.5 80.0 - 100.0 fL [facility] Comment:{MCV {[id number]) MCH 32.1 27.0 - 33.0 pg [facility] Comment:{MCH {[id number]) MCHC 34.3 32.0 - 36.0 g/dL [facility] Comment:{MCHC {[id number]) RDW 12.9 11.0 - 15.0 % [facility] Comment:{RDW {[id number]) PLT 232 140 - 400 Thousand/u L [facility] Comment:{PLATELET COUNT {[id number]) 05/10/2014 9:05 AM EDT 05/10/2014 3:35 PM EDT Narrative Resulting Agency Comment [id number] us Alicia Ragland MD LAB SAME DAY RESULT Final Resul t [facility] [address] [place] [address] * (ABNORMAL) BASIC METABOLIC PANEL WITH (GFR) (05/10/2014 9:05 AM EDT) Glucose 105(H) 65 - 99 mg/dL [facility] Comment: {GLUCOSE {[id number]) ? Fasting reference interval Urea Nitrogen Blood (BUN) 13 7 - 25 mg/dL [facility] Comment:{UREA NITROGEN (BUN) {[id number]) Creatinine 1.03 0.70 - 1.33 mg/dL [facility] Comment: {CREATININE {[id number]) For patients >49 years of age, the reference limit for Creatinine is approximately 13% higher for people identified as -[place]mese. GFR 82 > OR = 60 mL/min/1 .73m2 [facility] Comment:{eGFR NON-AFR. AMERI CAN {[id number]) GFR () 95 > OR = 60 mL/min/1 .73m2 [facility] Comment:{eGFR AMERIC AN {[id number]) BUN/Creatinine Ratio NOT APPLICABLE 6 - 22 (calc) [facility] Comment:{BUN/CREATININE RATI O {[id number]) Sodium 140 135 - 146 mmol/L [facility] Comment:{SODIUM {[id number]) Potassium 4.4 3.5 - 5.3 mmol/L [facility] Comment:{POTASSIUM {[id number]) Chloride 104 98 - 110 mmol/L [facility] Comment:{CHLORIDE {[id number]) Carbon dioxide 26 19 - 30 mmol/L [facility] Comment:{CARBON DIOXIDE {[id number]) Calcium 9.2 8.6 - 10.3 mg/dL [facility] Comment:{CALCIUM {[id number]) 05/10/2014 9:05 AM EDT 05/10/2014 3:35 PM EDT Narrative [facility] - 05/10/2014 9:39 PM EDT Please note that this estimated [...] needs for GFR calculation. Resulting Agency Comment [id number] us Alicia Ragland MD LABORATORY Final Result [facility] [address] [place] [address] documented in this encounter Visit Diagnoses Diagnosis Loose stools- Primary Abnormal feces Routine history and physical examination of adult Routine general medical examination at a health care facility Unspecified vitamin D deficiency Hyperlipidemia Other and unspecified hyperlipidemia Special screening for other specified conditions(V82.89) Special screening for other specified conditions Disorder of lipid metabolism Unspecified disorder of lipoid metabolism documented in this encounter Care Teams Ortho Assistant Relationship Specialty Start Date End Date Alicia Ragland MD PCP - General 04/04/10 06/11/15 Deja Fang NP PCP - General Internal Medicine 06/12/15 03/26/20 Jg Madera MD [address] [facility] [address] PCP - General Internal Medicine 03/27/20 05/28/22 Deja Fang NP [address] [place] [address] PCP - Backup PCP Internal Medicine 03/27/20 06/30/22 Rosa Maria Green MD [address] [place] [address] PCP - General Family Medicine 05/29/22 02/20/23 Janice Fall NP [address] [place] [address] PCP - General Family Medicine 02/21/23 documented as of this encounter
--- OUTSIDE RECORDS SUMMARY | 2024-12-03 14:24 | XMS_ITS | Encounter Summary ---
Author Organization [facility] Address [address] [place] [address] Care Team Providers Care Conveyor Loader Name Role Phone Alicia Ragland MD Primary Care Provider Unavaila Deja Yepez NP Primary Care Provider [phone] Jg Madera MD Primary Care Provider Deja Fang NP Unavailable [phone] Rosa Maria Green MD Primary Care Provider [phone] Janice Fall NP Primary Care Provider [phone] Encounter Details Date Type Department Care Team (Late st Contact Info) Description 06/28/2013 Orders Only [facility] [address] [place] [address] [place] [address] Social History Tobacco Use Types Packs/Day Years [...] of this encounter Progress Notes * Emily Flowers Anastacia - 06/29/2013 6:37 PM ESTQuick Note: See tms * LionelEmily turcios Anastacia - 06/29/2013 12:52 PM ESTQuick Note: Left message for pt to call * Julián Morrow CRNP - 06/29/2013 12:36 PM ESTQuick Note: Please call WBC elevated, see how patient is doing if sx not resolving or worsening needs follow upwith PCP Sent to nurse pool documented in this encounter Plan of Treatment Not on file documented as of this encounter Procedures * Due to [place] state law, this organization might not be sharing negative HIV tests. Procedure Name Priority Date/Time Associated Diagnosis Comments WBC (ON-SITE) Routine 06/28/2013 1:48 PM EST Diarrhea CBC INCLUDES DIFFERENTIAL AND PLATELET COUNT Routine 06/28/2013 1:48 PM EST Diarrhea BASIC METABOLIC PANEL WITH (GFR) Routine 06/28/2013 1:48 PM EST Diarrhea documented in this encounter Results * Due to [facility] law, this organization might not be sharing negative HIV tests. * (ABNORMAL) WBC (SITE - STAT ONLY) (06/28/2013 1:48 PM EST) WBC 13.0(H) 3.8 - 10.8 Thousand/u L [facility] Comment:{WHITE BLOOD CELL CO UNT {[id number]) 06/28/2013 1:48 PM EST 06/28/2013 3:56 PM EST Narrative Resulting Agency Comment [id number] us Bobbi Tillman RAIL SETTER LAB SAME DAY RESULT Final Result [facility] [address] [place] [address] * (ABNORMAL) BASIC METABOLIC PANEL WITH (GFR) (06/28/2013 1:48 PM EST) Glucose 108(H) 65 - 99 mg/dL [facility] Comment: {GLUCOSE {[id number]) ? Fasting reference interval Urea Nitrogen Blood (BUN) 14 7 - 25 mg/dL [facility] Comment:{UREA NITROGEN (BUN) {[id number]) Creatinine 1.08 0.70 - 1.33 mg/dL [facility] Comment: {CREATININE {[id number]) For patients >49 years of age, the reference limit for Creatinine is approximately 13% higher for people identified as -Citizen Of [place]. GFR 78 > OR = 60 mL/min/1 .73m2 [facility] Comment:{eGFR NON-AFR. AMERI CAN {[id number]) GFR () 90 > OR = 60 mL/min/1 .73m2 [facility] Comment:{eGFR AMERIC AN {[id number]) BUN/Creatinine Ratio NOT APPLICABLE 6 - 22 (calc) [facility] Comment:{BUN/CREATININE RATI O {[id number]) Sodium 138 135 - 146 mmol/L [facility] Comment:{SODIUM {[id number]) Potassium 4.1 3.5 - 5.3 mmol/L [facility] Comment:{POTASSIUM {[id number]) Chloride 102 98 - 110 mmol/L [facility] Comment:{CHLORIDE {[id number]) Carbon dioxide 23 19 - 30 mmol/L [facility] Comment:{CARBON DIOXIDE {[id number]) Calcium 9.2 8.6 - 10.3 mg/dL [facility] Comment:{CALCIUM {[id number]) 06/28/2013 1:48 PM EST 06/28/2013 3:56 PM EST Narrative [facility] - 06/29/2013 1:41 AM EST Please note that this estimated [...] needs for GFR calculation. Resulting Agency Comment [id number] us Bobbi Tillman NP LABORATORY Final Result [facility] [address] [place] [address] * (ABNORMAL) CBC INCLUDES DIFFERENTIAL AND PLATELET COUNT (06/28/2013 1:48 PM EST) WBC 15.0(H) 3.8 - 10.8 Thousand/ uL [facility] Comment:{WHITE BLOOD CELL CO UNT {[id number]) RBC 4.80 4.20 - 5.80 Million/u L [facility] Comment:{RED BLOOD CELL COUN T {[id number]) Hemoglobin 15.4 13.2 - 17.1 g/dL [facility] Comment:{HEMOGLOBIN {[id number]) Hematocrit 47.0 38.5 - 50.0 % [facility] Comment:{HEMATOCRIT {[id number]) MCV 98.0 80.0 - 100.0 fL [facility] Comment:{MCV {[id number]) MCH 32.0 27.0 - 33.0 pg [facility] Comment:{MCH {[id number]) MCHC 32.7 32.0 - 36.0 g/dL [facility] Comment:{MCHC {[id number]) RDW 13.3 11.0 - 15.0 % [facility] Comment:{RDW {[id number]) PLT 231 140 - 400 Thousand/ uL [facility] Comment:{PLATELET COUNT {[id number]) MPV 8.9 7.5 - 11.5 fL [facility] Comment:{MPV {[id number]) Neutrophils # 24631(H) 1500 - 7800 cells/uL [facility] Comment:{ABSOLUTE NEUTROPHIL S {[id number]) Lymphocytes # 735(L) 850 - 3900 cells/uL [facility] Comment:{ABSOLUTE LYMPHOCYTE S {[id number]) Monocytes # 840 200 - 950 cells/uL [facility] Comment:{ABSOLUTE MONOCYTES {[id number]) Eosinophils # 240 15 - 500 cells/uL [facility] Comment:{ABSOLUTE EOSINOPHIL S {[id number]) Basophils # 15 0 - 200 cells/uL [facility] Comment:{ABSOLUTE BASOPHILS {[id number]) Neutrophils % 87.8 % [facility] Comment:{NEUTROPHILS {[id number]) Lymphocytes % 4.9 % [facility] Comment:{LYMPHOCYTES {[id number]) Monocytes % 5.6 % [facility] Comment:{MONOCYTES {[id number]) Eosinophils % 1.6 % [facility] Comment:{EOSINOPHILS {[id number]) Basophils % 0.1 % [facility] Comment:{BASOPHILS {[id number]) 06/28/2013 1:48 PM EST 06/28/2013 3:56 PM EST Narrative Resulting Agency Comment [id number] us Bobbi Tillman RAIL SETTER LAB SAME DAY RESULT Final Result [facility] [address] [place] [address] documented in this encounter Visit Diagnoses Diagnosis Diarrhea documented in this encounter Care Teams Conveyor Loader Relationship Specialty Start Date End Date Alicia Ragland MD PCP - General 04/04/10 06/11/15 Deja Fang NP PCP - General Internal Medicine 06/12/15 03/26/20 Jg Madera MD [address] [place] [address] PCP - General Internal Medicine 03/27/20 05/28/22 Deja Fang NP [address] [place] [address] PCP - Backup PCP Internal Medicine 03/27/20 06/30/22 Rosa Maria Green MD [address] [place] [address] PCP - General Family Medicine 05/29/22 02/20/23 Janice Fall NP [address] [place] [address] PCP - General Family Medicine 02/21/23 documented as of this encounter
--- OUTSIDE RECORDS SUMMARY | 2024-12-03 14:24 | XMS_ITS | Encounter Summary ---
Author Organization [facility] Address [address] [place] [address] Care Team Providers Care Divorce Mediator Name Role Phone Alicia Ragland MD Primary Care Provider Unavaila Deja Yepez NP Primary Care Provider Jg Madera MD Primary Care Provider Deja Fang NP Unavailable [phone] Rosa Maria Green MD Primary Care Provider [phone] Janice Fall NP Primary Care Provider [phone] Encounter Details Date Type Department Care Team (Late st Contact Info) Description 09/20/2013 Orders Only [facility] [address] [place] [phone] Alicia Ragland MD Social History Tobacco Use [...] as of this encounter Progress Notes * Brooklyn Garcia - 09/28/2013 9:10 AM ESTQuick Note: Please review and advise. Patient has a scheduled appointment with PCP on 09/28/2013 at this time. No letter was generated. documented in this encounter Plan of Treatment Not on file documented as of this encounter Procedures * Due to [place] [employer] law, this organization might not be sharing negative HIV tests. Procedure Name Priority Date/Time Associated Diagnosis Comments ASPARTATE AMINOTRANSFERASE (AST), SERUM Routine 09/20/2013 12:46 PM EST Disorder of lipid metabolism CREATINE KINASE (CK), SERUM Routine 09/20/2013 12:46 PM EST Disorder of lipid metabolism LIPID PANEL WITH REFLEX TO DIRECT LDL Routine 09/20/2013 12:46 PM EST Disorder of lipid metabolism documented in this encounter Results * Due to [place] [employer] law, this organization might not be sharing negative HIV tests. * (ABNORMAL) CREATINE KINASE (CK), SERUM (09/20/2013 12:46 PM EST) CPK 500(H) 44 - 196 U/L [facility] Comment:{CREATINE KINASE, TO ALYSHA {[id number]) 09/20/2013 12:4 6 PM EST 09/21/2013 1:22 AM EST Narrative Resulting Agency Comment [id number] us Alicia Ragland MD LAB SAME DAY RESULT Final Resul t Performing Organization Address City/State/[facility] Co de Phone Number [facility] [address] [place] [address] * ASPARTATE AMINOTRANSFERASE (AST), SERUM (09/20/2013 12:46 PM EST) AST (SGOT) 32 10 - 35 U/L [facility] Comment:{AST {[id number]) 09/20/2013 12:4 6 PM EST 09/21/2013 1:22 AM EST Narrative Resulting Agency Comment [id number] us Alicia Ragland MD LAB SAME DAY RESULT Final Resul t Performing Organization Address City/[facility] Co de Phone Number [facility] [address] [place] [address] * (ABNORMAL) LIPID PANEL WITH REFLEX TO DIRECT LDL (09/20/2013 12:46 PM EST) Cholesterol 233(H) 125 - 200 mg/dL [facility] Comment:{CHOLESTEROL, TOTAL {[id number]) HDL Cholesterol 41 > OR = 40 mg/dL [facility] Comment:{HDL CHOLESTEROL {[id number]) Triglyceride 111 <150 mg/dL [facility] Comment:{TRIGLYCERIDES {[id number]) LDL Cholesterol 170(H) <130 mg/dL (calc) [facility] Comment: {LDL-CHOLESTEROL {[id number]) Desirable range <100 mg/dL for patients with CHD or diabetes and <70 mg/dL for diabetic patients with known heart disease. CHOL/HDL Ratio 5.7(H) < OR = 5.0 (calc) [facility] Comment:{CHOL/HDLC RATIO {[id number]) Cholesterol Non-HDL 192(H) mg/dL (calc) [facility] Comment: {NON HDL CHOLESTEROL {[id number]) Target for non-HDL cholesterol is 30 mg/dL higher than LDL cholesterol target. 09/20/2013 12:4 6 PM EST 09/21/2013 1:22 AM EST Narrative Resulting Agency Comment [id number] Alicia Ragland MD LABORATORY Final Result Performing Organization Address City/[facility]/ZIP Co de Phone Number [facility] [address] [place] [address] documented in this encounter Visit Diagnoses Diagnosis Disorder of lipid metabolism Unspecified disorder of lipoid metabolism documented in this encounter Care Teams Divorce Mediator Relationship Specialty Start Date End Date Alicia Ragland MD PCP - General 04/04/10 06/11/15 Deja Fang NP PCP - General Internal Medicine 06/12/15 03/26/20 Jg Madera MD [address] [facility] [place] [address] PCP - General Internal Medicine 03/27/20 05/28/22 Deja Fang NP [address] [facility] [place] [address] PCP - Backup PCP Internal Medicine 03/27/20 06/30/22 Rosa Maria Green MD [address] [facility] [place] [address] PCP - General Family Medicine 05/29/22 02/20/23 Janice Fall NP [address] [facility] [place] [address] PCP - General Family Medicine 02/21/23 documented as of this encounter
--- OUTSIDE RECORDS SUMMARY | 2024-12-03 14:24 | XMS_ITS | Encounter Summary ---
Author Organization [facility] Address [address] [place] [address] Care Team Providers Care Block Engraver Name Role Phone Alicia Ragland MD Primary Care Provider UnavailAlicia Kumari MD Primary Care Provider Unavaila Deja Yepez NP Primary Care Provider [phone] Jg Madera MD Primary Care Provider [phone] Deja Fang CLOTH WASHER Unavailable [phone] Rosa Maria Green MD Primary Care Provider [phone] Janice Fall NP Primary Care Provider [phone] Encounter Details Date Type Department Care Team (Late st Contact Info) Description 09/13/2009 Orders Only [facility] [address] [place] [id number] Alicia Ragland MD Social History Tobacco Use [...] as of this encounter Progress Notes * Jayda Barrett - 09/19/2009 7:47 AM ESTQuick Note: . * Celestina Barrettlavon Ojeda - 09/14/2009 11:44 AM ESTQuick Note: . documented in this encounter Plan of Treatment Not on file documented as of this encounter Procedures * Due to [place] [employer] law, this organization might not be sharing negative HIV tests. Procedure Name Priority Date/Time Associated Diagnosis Comments CLOSTRIDIUM DIFFICILE TOXIN A/B Routine 09/13/2009 Diarrhea CULTURE, STOOL Routine 09/13/2009 Diarrhea documented in this encounter Results * Due to [place] [employer] law, this organization might not be sharing negative HIV tests. * CULTURE, STOOL (09/13/2009) CAMPYLOBACTER CULTURE (STOOL) SEE TEXT [facility] Comment: SOURCE: STOOL NO ENTERIC CAMPYLOBACTER ISOLATED Result(s) SEE TEXT [facility] Comment: SOURCE: STOOL NO SALMONELLA OR SHIGELLA ISOLATED 09/13/2009 09/13/2009 6:3 4 PM EST us Alicia Ragland MD LABORATORY Final Result Performing Organization Address [facility] [[email or web address]] de Phone Number [facility] [address] [place] [address] * CLOSTRIDIUM DIFFICILE TOXIN A/B (09/13/2009) Clostridium Difficile Toxin A+B (Stool) SEE TEXT [facility] Comment: SOURCE: STOOL NOT DETECTED 09/13/2009 09/13/2009 6:3 4 PM EST us Alicia Ragland MD LABORATORY Final Result Performing Organization Address [facility] Co de Phone Number [facility] [address] [place] [address] documented in this encounter Visit Diagnoses Diagnosis Diarrhea documented in this encounter Care Teams Block Engraver Relationship Specialty Start Date End Date Alicia Ragland MD PCP - General 04/04/10 06/11/15 Alicia Ragland MD PCP - General 10/28/05 04/03/10 Deja Fang NP PCP - General Internal Medicine 06/12/15 03/26/20 Jg Madera MD [address] [place] [address] PCP - General Internal Medicine 03/27/20 05/28/22 Deja Fang NP [address] [place] [address] PCP - Backup PCP Internal Medicine 03/27/20 06/30/22 Rosa Maria Green MD [address] [facility] [place] [address] PCP - General Family Medicine 05/29/22 02/20/23 Janice Fall NP [address] [facility] [place] [address] PCP - General Family Medicine 02/21/23 documented as of this encounter
--- OUTSIDE RECORDS SUMMARY | 2024-12-03 14:24 | XMS_ITS | Encounter Summary ---
Author Organization [facility] Address [address] [place] [address] Care Team Providers Care Mattress And Foundation Sewer Name Role Phone Alicia Ragland MD Primary Care Provider UnavailAlicia Kumari MD Primary Care Provider Unavaila Deja Yepez NP Primary Care Provider [phone] Jg Madera MD Primary Care Provider [phone] Deja Fang NP Unavailable [phone] Rosa Maria Green MD Primary Care Provider [phone] Janice Fall NP Primary Care Provider [phone] Reason for Referral * OUTPT PROCEDURES AND DIAGNOSTICS (Routine) - Closed Specialty Diagnoses / Procedures Referred By Contchelita t Referred To Contact Nuclear Medicine Diagnoses Chest pain Procedures REQUEST FOR PERSANTINE THALLIUM STRESS TEST (DX: CHEST PAIN. UNABLE TO EXERCISE) FC PT NEEDS TO HAVE A PERSANTINE THALL STRESS TEST Alicia Ragland MD Referral ID Status Reason Start Date Expiration Date V isits Requested Visits Authorized [id number] Closed Continuity of Care 08/30/2009 11/28/2009 1 1 Encounter Details Date Type Department Care Team ([facility] Contact Info) Description 08/28/2009 Orders Only [facility] [address] [place] [address] Alicia Ragland MD Social History Tobacco Use [...] on filedocumented in this encounter Care Teams Mattress And Foundation Sewer Relationship Specialty Start Date End Date Alicia Ragland MD PCP - General 04/04/10 06/11/15 Alicia Ragland MD PCP - General 10/28/05 04/03/10 Deja Fang NP PCP - General Internal Medicine 06/12/15 03/26/20 Jg Madera MD [address] [place] [address] PCP - General Internal Medicine 03/27/20 05/28/22 Deja Fang NP [address] [place] [address] PCP - Backup PCP Internal Medicine 03/27/20 06/30/22 Rosa Maria Green MD [address] [place] [address] PCP - General Family Medicine 05/29/22 02/20/23 Janice Fall NP [address] [place] [address] PCP - General Family Medicine 02/21/23 documented as of this encounter
--- OUTSIDE RECORDS SUMMARY | 2024-12-03 14:24 | XMS_ITS | Encounter Summary ---
Author Organization [facility] Address [address] [place] [address] Care Team Providers Care Pinking Sewing Machine Operator Name Role Phone Alicia Ragland MD Primary Care Provider Unavaila Deja Yepez NP Primary Care Provider Jg Madera MD Primary Care Provider [phone] Deja Fang NP Unavailable [phone] Rosa Maria Green MD Primary Care Provider [phone] Janice Fall NP Primary Care Provider [phone] Encounter Details Date Type Department Care Team (Late st Contact Info) Description 01/10/2014 Orders Only [facility] [address] [place] [phone] Alicia Ragland MD Social History Tobacco Use [...] as of this encounter Progress Notes * Quynh Lawson - 01/12/2014 9:45 AM EDTQuick Note: The patients lab results are at an abnormal level by the protocol guidelines. Please review and advise. No Letter was generated. Patient has scheduled appointment with PCP 04/26/2014 documented in this encounter Plan of Treatment Not on file documented as of this encounter Procedures * Due to [place] [employer] [place] law, this organization might not be sharing negative HIV tests. Procedure Name Priority Date/Time Associated Diagnosis Comments HEMOGLOBIN A1C Routine 01/10/2014 1:12 PM EDT Malabsorption of glucose CREATINE KINASE (CK), SERUM Routine 01/10/2014 1:12 PM EDT Malabsorption of glucose BASIC METABOLIC PANEL WITH (GFR) Routine 01/10/2014 1:12 PM EDT Malabsorption of glucose documented in this encounter Results * Due to [place] [employer] [place] law, this organization might not be sharing negative HIV tests. * (ABNORMAL) CREATINE KINASE (CK), SERUM (01/10/2014 1:12 PM EDT) CPK 412(H) 44 - 196 U/L [facility] Comment:{CREATINE KINASE, TO ALYSHA {[id number]) 01/10/2014 1:12 PM EDT 01/10/2014 11:38 PM EDT Narrative Resulting Agency Comment [id number] us Alicia Ragland MD LAB SAME DAY RESULT Final Resul t [facility] [address] [place] [address] * (ABNORMAL) HEMOGLOBIN A1C (01/10/2014 1:12 PM EDT) Hemoglobin A1C 6.0(H) <5.7 % of total Hgb [facility] Comment: {HEMOGLOBIN A1c {[id number]) According to ADA guidelines, hemoglobin A1c <7.0% [...] mg/dL (calc) [facility] Comment:{MEAN PLASMA GLUCOSE {[id number]) 01/10/2014 1:12 PM EDT 01/10/2014 11:38 PM EDT Narrative Resulting Agency Comment [id number] us Alicia Ragland MD LABORATORY Final Result [facility] [address] [place] [address] * BASIC METABOLIC PANEL WITH (GFR) (01/10/2014 1:12 PM EDT) Glucose 97 65 - 99 mg/dL [facility] Comment: {GLUCOSE {[id number]) ? Fasting reference interval Urea Nitrogen Blood (BUN) 15 7 - 25 mg/dL [facility] Comment:{UREA NITROGEN (BUN) {[id number]) Creatinine 1.04 0.70 - 1.33 mg/dL [facility] Comment: {CREATININE {[id number]) For patients >49 years of age, the reference limit for Creatinine is approximately 13% higher for people identified as -Honduran. GFR 82 > OR = 60 mL/min/1 .73m2 [facility] Comment:{eGFR NON-AFR. AMERI CAN {[id number]) GFR () 95 > OR = 60 mL/min/1 .73m2 [facility] Comment:{eGFR AMERIC AN {[id number]) BUN/Creatinine Ratio NOT APPLICABLE 6 - (calc) [facility] Comment:{BUN/CREATININE RATI O {[id number]) Sodium 139 135 - 146 mmol/L [facility] Comment:{SODIUM {[id number]) Potassium 4.3 3.5 - 5.3 mmol/L [facility] Comment:{POTASSIUM {[id number]) Chloride 103 98 - 110 mmol/L [facility] Comment:{CHLORIDE {[id number]) Carbon dioxide 26 19 - 30 mmol/L [facility] Comment:{CARBON DIOXIDE {[id number]) Calcium 9.0 8.6 - 10.3 mg/dL [facility] Comment:{CALCIUM {[id number]) 01/10/2014 1:12 PM EDT 01/10/2014 11:38 PM EDT Narrative [facility] - 01/11/2014 3:59 AM EDT Please note that this estimated [...] needs for GFR calculation. 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 documented in this encounter Care Teams Pinking Sewing Machine Operator Relationship Specialty Start Date End Date Alicia Ragland MD PCP - General 04/04/10 06/11/15 Deja Fang NP PCP - General Internal Medicine 06/12/15 03/26/20 Jg Madera MD [address] [place] [address] PCP - General Internal Medicine 03/27/20 05/28/22 Deja Fang NP [address] [place] [address] PCP - Backup PCP Internal Medicine 03/27/20 06/30/22 Rosa Maria Green MD [address] [place] [address] PCP - General Family Medicine 05/29/22 02/20/23 Janice Fall NP [address] [place] [address] PCP - General Family Medicine 02/21/23 documented as of this encounter
--- OUTSIDE RECORDS SUMMARY | 2024-12-03 14:24 | XMS_ITS | Encounter Summary ---
Author Organization [facility] Address [address] [place] [address] Care Team Providers Care Dual Hose Cementer Name Role Phone Alicia Ragland MD Primary Care Provider Unavaila Deja Yepez NP Primary Care Provider Jg Madera MD Primary Care Provider Deja Fang NP Unavailable [phone] Rosa Maria Green MD Primary Care Provider [phone] Janice Fall NP Primary Care Provider [phone] Encounter Details Date Type Department Care Team (Late st Contact Info) Description 10/09/2010 Orders Only [facility] [address] [place] [phone] Alicia Ragland MD Social History Tobacco Use [...] as of this encounter Progress Notes * Priscila Craig NP - 10/12/2010 8:01 AM Sisi Note: appt 10/15/10 * Barrett Swann - 10/11/2010 9:25 AM Sisi Note: The patients lab results are at a normal/stable level by the protocol guidelines. The result letterwas completed and sent to patient. documented in this encounter Plan of Treatment Not on file documented as of this encounter Procedures * Due to [place] [employer] law, this organization might not be sharing negative HIV tests. Procedure Name Priority Date/Time Associated Diagnosis Comments LYME DISEASE PANEL W/WB REFLEX Routine 10/09/2010 Arthralgia ARTHRITIS PANEL (ESR/URICACID/RF/SANDRO) Routine 10/09/2010 Arthralgia documented in this encounter Results * Due to [place] [employer] law, this organization might not be sharing negative HIV tests. * LYME DISEASE PANEL W/WB REFLEX (10/09/2010) LYME (B. BURGDORFERI) AB SCREEN NEGATIVE [facility] Comment: < OR = 0.90 ?? NEGATIVE 0.91 - 1.09 ?? EQUIVOCAL > OR = 1.10 ?? POSTIVE LYME EIA SCREEN IS REFLEXED TO WESTERN BLOT IF POSITIVE. 10/09/2010 10/09/2010 8:3 8 PM EST Alicia Ragland MD LABORATORY Final Result [facility] [address] [place] [address] * ARTHRITIS PANEL (ESR/URICACID/RF/SANDRO) (10/09/2010) ESR (ERYTHROCYTE SEDIMENTATION RATE) 4 0 - 20 MM/HR [facility] URIC ACID, SERUM 6.8 4.0 - 8.0 MG/DL [facility] RHEUMATOID FACTOR TITER 6 0 - 13 IU/ML [facility] SANDRO IFA <1:40 <1:40 [facility] 10/09/2010 10/09/2010 8:3 8 PM EST us Alicia Ragland MD LABORATORY Final Result [facility] [address] [place] [address] documented in this encounter Visit Diagnoses Diagnosis Arthralgia Pain in joint, site unspecified documented in this encounter Care Teams Dual Hose Cementer Relationship Specialty Start Date End Date Alicia Ragland MD PCP - General 04/04/10 06/11/15 Deja Fang NP PCP - General Internal Medicine 06/12/15 03/26/20 Jg Madera MD [address] [place] [address] PCP - General Internal Medicine 03/27/20 05/28/22 Deja Fang NP [address] [place] [address] PCP - Backup PCP Internal Medicine 03/27/20 06/30/22 Rosa Maria Green MD [address] [place] [address] PCP - General Family Medicine 05/29/22 02/20/23 Janice Fall NP [address] [place] [address] PCP - General Family Medicine 02/21/23 documented as of this encounter
[2024-12-03 14:54] LABS: CDiff Gene PCR NEGATIVE (Negative)
[2024-12-03 15:20] LABS: Reflex Trop? Y
[2024-12-03 15:22] LABS: Adenovirus F 40/41 Not Detected (Not Detect.); Astrovirus Not Detected (Not Detect.); Campylobacter Not Detected (Not Detect.); Cryptosporidium Not Detected (Not Detect.); Cyclospora cayetanensis Not Detected (Not Detect.); E. coli EAEC Not Detected (Not Detect.); E. coli EPEC Not Detected (Not Detect.); E. coli ETEC Not Detected (Not Detect.); E. coli STEC Not Detected (Not Detect.); Entamoeba histolytica Not Detected (Not Detect.); Giardia lamblia Not Detected (Not Detect.); Norovirus GI/GII Not Detected (Not Detect.); Plesiomonas shigelloides Not Detected (Not Detect.); Rotavirus A Not Detected (Not Detect.); Salmonella Not Detected (Not Detect.); Sapovirus Not Detected (Not Detect.); Shigella sp./EIEC Not Detected (Not Detect.); Vibrio Not Detected (Not Detect.); Vibrio Cholerae Not Detected (Not Detect.); Yersinia enterocolitica Not Detected (Not Detect.)
--- NOTE | 2024-12-03 15:23 | PC.NURSE ---
Pt states he's willing to have anti-anxiety med and try to do the CT scan again; pt states he has severe anxiety, especially with health care; provider made aware; will tx per orders
[2024-12-03] MEDS: diazePAM 10 MG/2 ML CARTRIDGE 2.5 MG IVPUSH ×2 (15:28→16:07)
[2024-12-03] MEDS: iohexoL 350 MG/ML 75 ML INFUS..BTL 85 ML IV (16:04)
[2024-12-03 17:42] VITALS: BP 123/66; PULSE 66; RESP 16; TEMP 36.9; O2SAT 99
--- NOTE | 2024-12-03 17:42 | PC.NURSE ---
Pt tolerated care very well after emotional support and anti-anxiety medications administered; vss; pt calm/pleasant and cooperative at this time
[2024-12-03 17:43] VITALS: BP 123/66; PULSE 66; RESP 16; TEMP 36.9; O2SAT 99
== END 2024-12-03 17:45 | disposition home or self-care (01) ==
PROVIDERS: Physician Assistant Medical; Emergency Provider Emergency Medicine
DX: R11.2 Nausea with vomiting, unspecified (principal); R19.7 Diarrhea, unspecified; R10.9 Unspecified abdominal pain; Z03.818 Encounter for observation for suspected exposure to other biological agents ruled out
CPT/HCPCS: 0241U; 36415; 74177; 80053; 83605; 83735; 84484; 85007; 85027; 85610; 87040; 87493; 87507; 93005; 96361; 96374; 96375; 96376; 99284; 99285; J2405; J3360; Q9967

== ENCOUNTER → 2024-12-03 12:42 | Outpatient (BNV) | payer BC, SELFPAY | PROVIDERS: Emergency Provider Emergency Medicine; Visit Provider Internal Medicine Cardiovascular Disease | DX: R10.9 Unspecified abdominal pain (principal) | CPT/HCPCS: 93010 ==

== ENCOUNTER → 2024-12-03 13:22 | Outpatient (BNV) | payer BC, SELFPAY | PROVIDERS: Emergency Provider Emergency Medicine; Visit Provider Radiology Diagnostic Radiology | DX: R10.9 Unspecified abdominal pain (principal) | CPT/HCPCS: 74177 ==